=== PATIENT | female | born 1970 | race African-American/Black ===

== ENCOUNTER 2017-03-15 12:07 | Inpatient (IN) ==
[2017-03-15] MEDS ORDERED: VANCOMYCIN INJ 1,000 MG in SODIUM CHLORIDE 0.9% 250 ML IV STA (15:28)
--- NOTE | 2017-03-15 15:49 | Emergency Department Note ---
Pio Christensen Hilary, am scribing for, and in the presence of, Rai Sargent MD 15: 35. Rosetta Christensen James D, MD, personally performed the services described in this documentation, ascribed by Alondra Suero in my presence, and it is both accurate and complete [id number] . Arrival - Arrival Chief Complaint: Fever Stated Complaint: fever of 104. ED Nursing Triage Note: reports pain in left side of body that started last night. was at dialysis this am and reports they told her that her temp was 105 and to come to er. did not have any dialysis.. Mode of Arrival: Ambulatory Limitations: No Limitations Source: Patient, RN Notes Reviewed Time Seen by Provider: 03/15/17 15:21 - History of Present Illness HPI Narrative: Pt is a 46 y/o black female presenting to the ED with c/o a fever which onset yesterday. Pt reports that she was at Dialysis today and the nurse told her she had a fever so she came to the ED and did not do dialysis. Pt confirms fever, chills and left foot pain but denies SOB. She gets dialysis M,W,F and had her Catheter put in in Oct. No other complaints or problems stated in the ED. Onset (ago): day(s) Consistency: constant Date of Last Menstrual Period: menopausal Allergies/Adverse Reactions: Allergies Allergy/AdvReac Type Severity Reaction Status Date / Time No Known Allergies Allergy Verified 11/25/16 13:17 Home Medications: Home Medications Medication Instructions Recorded Confirmed Type Calcium Acetate [Phoslo] 1,334 mg PO TID W/MEALS 07/27/16 01/13/17 History Calcitriol 0.25 mcg PO SUTUTHSA 11/25/16 01/13/17 History Bisacodyl Tab [Dulcolax Tab] 5 mg PO DAILY PRN #0 tablet 12/04/16 01/13/17 Rx Lactulose Liquid [Chronulac] 10 gm PO DAILY #30 12/04/16 01/13/17 Rx Pravastatin [Pravachol] 10 mg PO BEDTIME #30 tablet 12/04/16 01/13/17 Rx Ursodiol [Actigall] 300 mg PO BID #60 capsule 12/04/16 01/13/17 Rx Docusate Sodium Cap [Colace Cap] 100 mg PO BID PRN 01/13/17 01/13/17 History Albuterol/Ipratropium Neb [Duoneb] 3 ml RESP TX RT Q4H PRN #0 01/21/17 Rx Albuterol/Ipratropium Neb [Duoneb] 3 ml RESP TX RT QID 01/21/17 Rx Bacitracin Oint 1 applic TOP BID applic 01/21/17 Rx Lansoprazole Odt Tab [Prevacid 30 mg NG DAILY tablet 01/21/17 Rx Solutab] Mineral Oil/Petrolat Oph Oint 1 applic BOTH EYES BEDTIME applic 01/21/17 Rx [Refresh PM Oph Oint] Norepinephrine [Levophed] 8 mg IV TITRATE vial 01/21/17 Rx Ondansetron Inj [Zofran Inj] 4 mg IV Q6H PRN #0 vial 01/21/17 Rx Clotrimazole/Betameth Cream 1 applic TOP BID applic 01/27/17 Rx [Lotrisone Cream] Insulin Regular [HumuLIN R] See Protocol SUBCUT Q6HR unit 01/27/17 Rx Levofloxacin Inj [Levaquin Inj] 250 mg IV Q48H 01/27/17 Rx Midodrine [Proamatine] 10 mg PO TID tablet 01/27/17 Rx ceFAZolin [Ancef] 1,000 mg IV Q24H vial 01/27/17 Rx Review of System - Review of System 12 point system: reviewed and no additional remarkable complaints except as stated - Review of System Constitutional: Present: chills, fever Musculoskeletal: Present: leg pain (left foot pain) Medical,Surgical,& Family Hx - Medical History Cardio: History of: Hypertension Psychological: History of: Behavior Problems Neurology: No history of: Seizures Endocrine: History of: Diabetes Mellitus (IDDM) Renal: History of: Dialysis (MWF; revision right arm av graft ), Renal Failure (2010) Gastrointestinal: History of: Liver Problems (Cirrhosis) Hematology: History of: Anemia (chronic disease) Other: History of: Skin Problems No history of: Anesthesia Reactions - Surgical History Cardiac Surgeries: Sugical HX of: Vascular Access Devices Abdominal Surgeries: Surgical HX of: Cholecystectomy Reproductive Surgeries: Surgical HX of;: Tubal Ligation - Family History Family History: Reports;: Family Diabetes (mother, father), Family Heart Disease (father heart attack), Family Hypertension (mother, father), Family Stroke (mother) Denies;: Family Anesthesia Reaction, Family Cancer, Family Psychiatric Problems - Social History Smoking Status: Never smoker Exam Physical Examination: GENERAL: This is a well-nourished, well-developed in no apparent distress. VITAL SIGNS: Temperature: 102 Pulse: 94 Respiratory: 18 Blood Pressure: 171/ 85 O2Sat: 94 HEENT: Head is normocephalic and atraumatic. Pupils are equally round and reactive to light. Extraocular movement are intact. Oropharynx is benign with moist mucous membranes. NECK: Neck is soft and supple without tenderness. There are no masses. There is no lymphadenopathy. Tesio catheter is present in the right side of the neck. There is old healed scar present in the left side of the neck from previous surgery related to abscess formation. LUNGS: Lungs are clear to auscultation bilaterally. Chest rises symmetrically. There is no chest wall tenderness. CV: Heart is regular rate and rhythm without murmurs, rubs, or gallops. ABDOMEN: Abdomen is soft, epigastric tenderness to palpation. There are no abnormal masses palpated. There is no organomegaly. Bowel sounds are present and active. SKIN: Skin is warm and dry. No rash. EXTREMITIES: Patient has full range of motion without tenderness. There is 2-3+ pitting edema with the left worse than right. Left 3,4,5th digits discolored. NEUROLOGIC: Awake, alert, and oriented x4. Cranial nerves II through XII are grossly intact. There are no motorsensory deficits. PSYCHIATRIC: Normal affect. Normal mood. Vital Signs: Vital Signs Temperature 100.0 F H 03/15/17 14:55 Pulse Rate 94 H 03/15/17 14:55 Respiratory Rate 18 03/15/17 14:55 Blood Pressure 166/82 03/15/17 14:55 O2 Sat by Pulse Oximetry 94 L 03/15/17 14:55 Course - Consultations Consultation #1: Discussed with Dr. Samano. Patient will be admitted to her service. Initial orders written for her. She will assume care upon patient's arrival to the cates. Time: 15:48 Disposition Clinical Impression: Intravenous catheter sepsis, End stage renal disease on dialysis, Peripheral vascular disease, Diabetes mellitus Case discussed with: patient Disposition: Still a Patient Condition: Guarded Time of Disposition: 15:53
[2017-03-15 16:11] LABS: Basophils % 0.2 % (0.0-0.8); Eosinophils # 0.1 10*3/uL (0.0-0.87); Eosinophils % 0.6 % (0.00-10.9); Hemoglobin 9.5 GM/DL (12.0-16.0); Immature Granulocytes % 0.6 %; Immature Granulocytes Absolute 0.09 #; Lymphocytes # 1.4 10*3/uL (1.4-4.0); Lymphocytes % 9.7 % (21.3-54.2); Mean Corpuscular HGB Conc 31.7 GM/DL (32-36); Mean Corpuscular Hemoglobin 29 PG (27-34); Mean Corpuscular Volume 91.2 FL (87-102); Mean Platelet Volume 9.5 FL (9.6-12.0); Monocytes # 0.7 10*3/uL (0.11-0.8); Monocytes % 5.3 % (1.7-12.7); Neutrophils # 11.7 10*3/uL (1.4-7.4); Neutrophils % 83.6 % (38.7-73.9); Platelet Count 237 T/CUMM (130-400); Red Blood Count 3.29 MC/CUMM (3.8-5.5); Red Cell Distribution Width 15.9 % (9.3-17.3)
--- NOTE | 2017-03-15 16:17 | XRay Report ---
History is fever, short of breath Comparison 01/27/2017 The heart and vessels are enlarged with mild diffuse hazy bilateral pulmonary opacities. Right central line present with no pneumothorax seen For more focal consolidation and air bronchograms in the left lower lobe have improved in the interval Impression: 1. Diffuse bilateral radiopacities most likely pulmonary edema PROCEDURE INTERPRETED AT [facility] DEPARTMENT OF RADIOLOGY Final Report Signed by: Dr. Riri Romero
[2017-03-15 16:41] LABS: Albumin 3.1 G/DL (3.4-5.0); Calcium 8.6 MG/DL (8.5-10.1); Lactic Acid 0.9 MMOL/L (0.4-2.0); Osmolality,Calculated 277.4 MOS/KG (273-304); Potassium 3.7 MMOL/L (3.5-5.1); Total Protein 7.9 G/DL (6.4-8.3)
[2017-03-15] MEDS ORDERED: VANCOMYCIN 1,000 MG VIAL ONE (16:41)
--- NOTE | 2017-03-15 17:29 | CT Report ---
History is end-stage renal disease fever history of neck abscess Comparison 01/15/2017 80 cc Omni 350 utilized. Axial images obtained with 2-D multiplanar reconstruction images also stored and interpreted Findings: There is been interval improvement of prior loculated fluid collection along the anterior aspect of the left sternocleidomastoid muscle, however there remains a 1 x 2.5 cm collection of fluid and small amounts of gas in this region. Clips present in the left submandibular region. Some mild stranding in surrounding fat again seen. Fluid extends inferiorly to the sternoclavicular junction where there is worsening of fluid at the sternoclavicular joints with worsening erosions of the medial aspect of the left clavicle where there is a mild fragmentation. There is increasing stranding and thickening the surrounding tissues in this region. Inflammatory changes in the left anterior superior visualized chest wall present. Left subclavian vein is nonopacified possibly related to timing of the contrast bolus however underlying thrombus cannot be excluded in this area. There are multiple bilateral less than 1 cm supraclavicular and posterior cervical nodes mildly more pronounced on the left slightly enlarged in the interval. Images through the visualized upper chest show small bilateral pleural effusions with mild reticular nodular pulmonary opacities remaining but improved in the interval. Impression: mixed interval change with mild improvement of the loculated fluid collection in the left neck but mild worsening of the suspected infectious process and osteomyelitis involving the left sternoclavicular joint. Thrombus in the left subclavian vein cannot be excluded. Please see above for complete details The CT exam was performed using one or more of the following dose reduction techniques: Automated exposure control, adjustment of the mA and/or kV according to patient size, or use of iterative reconstruction technique. PROCEDURE INTERPRETED AT [facility] [place] DEPARTMENT OF RADIOLOGY Final Report Signed by: Dr. Riri Romero
[2017-03-15] MEDS ORDERED: SODIUM CHLORIDE 0.9% 1,000 ML IV SCH (17:41)
[2017-03-15] MEDS ORDERED: ONDANSETRON 4 MG/2 ML VIAL IV PRN (17:41)
[2017-03-15] MEDS ORDERED: GENTAMICIN INJ 100 MG in SODIUM CHLORIDE 0.9% 100 ML IV ONE (17:41)
[2017-03-15] MEDS ORDERED: GENTAMICIN INJ 100 MG in PREMIX 1 EACH IV ONE (18:00)
[2017-03-15] MEDS ORDERED: GENTAMICIN INJ 80 MG in PREMIX 1 EACH IV ONE (18:19)
[2017-03-15] MEDS: ENOXAPARIN 30 MG/0.3 ML SYRINGE SUBCUT SCH (18:45)
[2017-03-15] MEDS: ACETAMINOPHEN 325 MG TABLET PO PRN (20:20)
[2017-03-15] MEDS: DOCUSATE SODIUM 100 MG CAPSULE PO SCH (20:21)
--- NOTE | 2017-03-15 20:44 | Internal Med History&Physical ---
Assessment and Plan (1) Diabetes mellitus Status: Chronic Current Visit: Yes Qualifiers: Diabetes mellitus type: type 2 Diabetes mellitus complication status: with kidney complications Diabetes mellitus complication detail: with chronic kidney disease Diabetes mellitus intermediate manager insulin use: with intermediate manager use Chronic kidney disease stage: on chronic dialysis Qualified Code(s): E11.22 - Type 2 diabetes mellitus with diabetic chronic kidney disease; N18.6 - End stage renal disease; Z79.4 - jail (current) use of insulin; Z99.2 - Dependence on renal dialysis (2) End stage renal disease on dialysis Status: Chronic Current Visit: Yes (3) Status post incision and drainage Status: Resolved Current Visit: No (4) Cirrhosis of liver Status: Chronic Current Visit: No Qualifiers: Ascites presence: with ascites History of Present Illness Chief complaint: acute onset fever History of present illness: Ms. Anders is a 46 year old female with history of ESRD on hemodialysis per Dr. Galarza, DM, liver cirrhosis, encephalopathy, recent history of left neck abscess , hypotension with history of Midodrine, who presented to ER with fever. She did not have dialysis today. She was given dose of Vanco in ER. Concern that dialysis fistula may be infected. Home Medications Medication Instructions Recorded Confirmed Type Calcium Acetate [Phoslo] 1,334 mg PO TID W/MEALS 07/27/16 01/13/17 History Calcitriol 0.25 mcg PO SUTUTHSA 11/25/16 01/13/17 History Bisacodyl Tab [Dulcolax Tab] 5 mg PO DAILY PRN #0 tablet 12/04/16 01/13/17 Rx Lactulose Liquid [Chronulac] 10 gm PO DAILY #30 12/04/16 01/13/17 Rx Pravastatin [Pravachol] 10 mg PO BEDTIME #30 tablet 12/04/16 01/13/17 Rx Ursodiol [Actigall] 300 mg PO BID #60 capsule 12/04/16 01/13/17 Rx Docusate Sodium Cap [Colace Cap] 100 mg PO BID PRN 01/13/17 01/13/17 History Albuterol/Ipratropium Neb [Duoneb] 3 ml RESP TX RT Q4H PRN #0 01/21/17 Rx Albuterol/Ipratropium Neb [Duoneb] 3 ml RESP TX RT QID 01/21/17 Rx Bacitracin Oint 1 applic TOP BID applic 01/21/17 Rx Lansoprazole Odt Tab [Prevacid 30 mg NG DAILY tablet 01/21/17 Rx Solutab] Mineral Oil/Petrolat Oph Oint 1 applic BOTH EYES BEDTIME applic 01/21/17 Rx [Refresh PM Oph Oint] Norepinephrine [Levophed] 8 mg IV TITRATE vial 01/21/17 Rx Ondansetron Inj [Zofran Inj] 4 mg IV Q6H PRN #0 vial 01/21/17 Rx Clotrimazole/Betameth Cream 1 applic TOP BID applic 01/27/17 Rx [Lotrisone Cream] Insulin Regular [HumuLIN R] See Protocol SUBCUT Q6HR unit 01/27/17 Rx Levofloxacin Inj [Levaquin Inj] 250 mg IV Q48H 01/27/17 Rx Midodrine [Proamatine] 10 mg PO TID tablet 01/27/17 Rx ceFAZolin [Ancef] 1,000 mg IV Q24H vial 01/27/17 Rx Allergies Allergy/AdvReac Type Severity Reaction Status Date / Time No Known Allergies Allergy Verified 11/25/16 13:17 Medical,Surgical,& Family Hx - Medical History Cardio: History of: Hypertension Psychological: History of: Behavior Problems Neurology: No history of: Seizures HEENT: History of: Eye Problem (glasses) Endocrine: History of: Diabetes Mellitus (IDDM) Renal: History of: Dialysis (MWF; revision right arm av graft , right SC tessio cath), Renal Failure (2010) Gastrointestinal: History of: Liver Problems (Cirrhosis) Musculoskeletal: History of: Musculoskeletal Problems (muscle weakness after abcess in neck december 2016) Hematology: History of: Anemia (chronic disease) Other: History of: Skin Problems No history of: Anesthesia Reactions - Surgical History Cardiac Surgeries: Sugical HX of: Vascular Access Devices Abdominal Surgeries: Surgical HX of: Cholecystectomy Reproductive Surgeries: Surgical HX of;: Tubal Ligation Additional Surgical History: recent I&D of left neck abscess per Dr. Geiger - Family History Family History: Reports;: Family Diabetes (mother, father), Family Heart Disease (father heart attack), Family Hypertension (mother, father), Family Stroke (mother) Denies;: Family Anesthesia Reaction, Family Cancer, Family Psychiatric Problems - Social History Smoking Status: Never smoker Frequency of Alcohol Use: None Type of Drug Use: None Marital Status: Lives With:: Spouse Functional capacity: wheelchair bound - Constitutional Constitutional: Present: fever(s), malaise, weakness - Musculoskeletal Musculoskeletal: Absent: arthralgias, myalgias Exam - Constitutional Vitals: Period Temp Pulse Resp BP Sys/Brito Pulse Ox Last 24 Hr 99.6 F-102.5 F 91-97 12-20 154-175/76-101 92-97 General appearance: no acute distress - Respiratory Respiratory exam: Present: clear to auscultation bilaterally - Cardiovascular Cardiovascular exam: Present: regular rate and rhythm - GI/Abdominal GI/Abdominal exam: Present: normal bowel sounds, soft - Extremities Exam Extremities exam: Present: edema (minimal/trace edema) - Neurological Exam Neurological exam: Present: other (awake) - Psychiatric Psychiatric exam: Present: normal mood - Skin Skin exam: Present: warm, dry Results - Labs CBC & BMP: 03/15/17 15:36 03/15/17 15:36
--- NOTE | 2017-03-15 23:53 | Nephrology Consult Note ---
History of Present Illness Chief complaint: ESRD, fever History of present illness: Ms. Anders is a 46 year old female who presented with fever. She had a recent admission for abscess of the left neck. This grew MSSA. She was treated with antibiotics for several weeks both here and at [facility]. She was febrile when she presented for dialysis today. Home Medications Medication Instructions Recorded Confirmed Type Calcium Acetate [Phoslo] 1,334 mg PO TID W/MEALS 07/27/16 03/16/17 History Calcitriol 0.25 mcg PO SUTUTHSA 11/25/16 03/16/17 History Bisacodyl Tab [Dulcolax Tab] 5 mg PO DAILY PRN #0 tablet 12/04/16 03/16/17 Rx Lactulose Liquid [Chronulac] 10 gm PO DAILY #30 12/04/16 03/16/17 Rx Pravastatin [Pravachol] 10 mg PO BEDTIME #30 tablet 12/04/16 03/16/17 Rx Ursodiol [Actigall] 300 mg PO BID #60 capsule 12/04/16 03/16/17 Rx Docusate Sodium Cap [Colace Cap] 100 mg PO BID PRN 01/13/17 03/16/17 History Albuterol/Ipratropium Neb [Duoneb] 3 ml RESP TX RT Q4H PRN #0 01/21/17 Rx Albuterol/Ipratropium Neb [Duoneb] 3 ml RESP TX RT QID 01/21/17 03/16/17 Rx Bacitracin Oint 1 applic TOP BID applic 01/21/17 03/16/17 Rx Lansoprazole Odt Tab [Prevacid 30 mg NG DAILY tablet 01/21/17 03/16/17 Rx Solutab] Mineral Oil/Petrolat Oph Oint 1 applic BOTH EYES BEDTIME applic 01/21/17 Rx [Refresh PM Oph Oint] Clotrimazole/Betameth Cream 1 applic TOP BID applic 01/27/17 03/16/17 Rx [Lotrisone Cream] Insulin Regular [HumuLIN R] See Protocol SUBCUT Q6HR unit 01/27/17 03/16/17 Rx Midodrine [Proamatine] 10 mg PO TID tablet 01/27/17 03/16/17 Rx Insulin Detemir [Levemir FlexPen] 10 unit SUBCUT BEDTIME 03/16/17 03/16/17 History Insulin Detemir [Levemir FlexPen] 20 unit SUBCUT DAILY 03/16/17 03/16/17 History Allergies Allergy/AdvReac Type Severity Reaction Status Date / Time No Known Allergies Allergy Verified 11/25/16 13:17 Medical,Surgical,& Family Hx - Medical History Cardio: History of: Hypertension Psychological: History of: Behavior Problems Neurology: No history of: Seizures HEENT: History of: Eye Problem (glasses) Endocrine: History of: Diabetes Mellitus (IDDM) Renal: History of: Dialysis (MWF; revision right arm av graft , right SC tessio cath), Renal Failure (2010) Gastrointestinal: History of: Liver Problems (Cirrhosis) Musculoskeletal: History of: Musculoskeletal Problems (muscle weakness after abcess in neck december 2016) Hematology: History of: Anemia (chronic disease) Other: History of: Skin Problems No history of: Anesthesia Reactions - Surgical History Cardiac Surgeries: Sugical HX of: Vascular Access Devices Abdominal Surgeries: Surgical HX of: Cholecystectomy Reproductive Surgeries: Surgical HX of;: Tubal Ligation - Family History Family History: Reports;: Family Diabetes (mother, father), Family Heart Disease (father heart attack), Family Hypertension (mother, father), Family Stroke (mother) Denies;: Family Anesthesia Reaction, Family Cancer, Family Psychiatric Problems - Social History Smoking Status: Never smoker Frequency of Alcohol Use: None Type of Drug Use: None Review of Systems 12 point system: reviewed and no additional remarkable complaints except as stated Exam - Vital Signs Vital signs: Period Temp Pulse Resp BP Sys/Brito Pulse Ox Last 24 Hr 99.4 F-102.5 F 89-98 12-29 122-175/72-101 90-97 Exam: Gen.: Alert and oriented x3. ENT: Pupils equal round reactive to light. EOMs intact. Mucous membranes moist. Neck: Supple. No JVD or bruit. Induration at site of prior abscess drainage, left neck. No fluctuance Cardiovascular: Regular rate and rhythm. No murmur rub or gallop Lungs: Clear Abdomen: Soft. Nontender. Positive bowel sounds. No organomegaly Extremities: Trace edema Results - Labs CBC & BMP: 03/16/17 06:31 03/16/17 06:31 Assessment and Plan (1) End stage renal disease on dialysis Status: Chronic Assessment and plan: 46-year-old woman with: * ESRD. She missed dialysis today. She is not hyperkalemic or acidotic. Plan dialysis tomorrow * Fever. CT neck shows questionable osteomyelitis. Blood cultures have been drawn. Empiric antibiotics started including vancomycin and gentamicin * Diabetes mellitus * Cirrhosis Current Visit: Yes (2) Diabetes mellitus Status: Chronic Current Visit: Yes Qualifiers: Diabetes mellitus type: type 2 Diabetes mellitus complication status: with kidney complications Diabetes mellitus complication detail: with chronic kidney disease Diabetes mellitus continuous churn buttermaker insulin use: with continuous churn buttermaker use Chronic kidney disease stage: on chronic dialysis Qualified Code(s): E11.22 - Type 2 diabetes mellitus with diabetic chronic kidney disease; N18.6 - End stage renal disease; Z79.4 - terminal supervisor (current) use of insulin; Z99.2 - Dependence on renal dialysis (3) Cirrhosis of liver Status: Chronic Current Visit: No Qualifiers: Ascites presence: with ascites (4) Diabetes Status: Chronic Current Visit: No Qualifiers: Diabetes mellitus type: type 2 Diabetes mellitus complication status: with kidney complications Diabetes mellitus complication detail: with chronic kidney disease Diabetes mellitus shelter insulin use: with shelter use Chronic kidney disease stage: on chronic dialysis Qualified Code(s): E11.22 - Type 2 diabetes mellitus with diabetic chronic kidney disease; N18.6 - End stage renal disease; Z79.4 - terminal supervisor (current) use of insulin; Z99.2 - Dependence on renal dialysis
[2017-03-16] MEDS: ALBUTEROL/IPRATROPIUM 3 ML NEB RESP TX SCH ×4 (00:30→20:22)
[2017-03-16 06:55] LABS: Basophils % 0.2 % (0.0-0.8); Eosinophils # 0.1 10*3/uL (0.0-0.87); Eosinophils % 0.9 % (0.00-10.9); Hemoglobin 9.8 GM/DL (12.0-16.0); Immature Granulocytes % 0.5 %; Immature Granulocytes Absolute 0.06 #; Lymphocytes # 1.2 10*3/uL (1.4-4.0); Lymphocytes % 9.6 % (21.3-54.2); Mean Corpuscular HGB Conc 31.6 GM/DL (32-36); Mean Corpuscular Hemoglobin 29 PG (27-34); Mean Corpuscular Volume 92.3 FL (87-102); Mean Platelet Volume 9.6 FL (9.6-12.0); Monocytes # 0.6 10*3/uL (0.11-0.8); Monocytes % 4.8 % (1.7-12.7); Neutrophils # 10.3 10*3/uL (1.4-7.4); Platelet Count 225 T/CUMM (130-400); Red Blood Count 3.36 MC/CUMM (3.8-5.5); Red Cell Distribution Width 15.9 % (9.3-17.3); White Blood Count 12.2 T/CUMM (4-12)
[2017-03-16 07:14] LABS: Calcium 8.3 MG/DL (8.5-10.1); Osmolality,Calculated 276.5 MOS/KG (273-304); Potassium 3.9 MMOL/L (3.5-5.1)
[2017-03-16] MEDS: DOCUSATE SODIUM 100 MG CAPSULE PO SCH (12:00)
[2017-03-16] MEDS: PANTOPRAZOLE 40 MG TABLET PO SCH (12:00)
[2017-03-16] MEDS ORDERED: VANCOMYCIN 1,000 MG VIAL ONE (12:04)
--- NOTE | 2017-03-16 13:16 | Consultation ---
Assessment and Plan - Time spent with patient Time spent with patient: Less than 30 minutes (1) Abscess, neck Status: Resolved Assessment and plan: Clinically I would see the CT does not relate to her baseline postsurgical neck changes that I have been watching for over a month now. Any collection of fluid would be too small to necessitate any open procedure. I will consult interventional radiology for ultrasound-guided fine-needle aspiration to check for infection. Additionally as far as sources I would strongly recommend considering the dialysis catheter placement as I am not sure that it has been changed since her previous infection or during the time of her previous infection. I also recommend infectious disease to be on this case along with potentially surgery to determine an additional site for possible replacement of dialysis catheter. I will continue to follow this case intermittently but I am resistant at this point to want to perform any invasive or interventional treatment to the neck. I have talked with Bere Chambers and I do not feel that her sternoclavicular joint clinical exam correlates with anything other than normal postsurgical changes and there is no evidence from my standpoint clinically that she needs a sternal clavicular head resection. Thank you very much for this consult and I will follow this patient and I remain available there is any questions or concerns. Current Visit: No (2) Mediastinitis Status: Resolved Current Visit: No (3) Status post incision and drainage Status: Resolved Current Visit: No (4) Intravenous catheter sepsis Status: Acute Current Visit: Yes History of Present Illness - Data of Consult Patient: known to practice within the last 3 years Consult date: 03/16/17 Requesting Physician: Alex Galarza - Consult Narrative Reason for consult: Left neck abscess History of present illness: Ms. Anders is a 46 year old female with multiple medical comorbidities and recent admission and prolonged stay secondary to sepsis with a left neck abscess and sternocleidomastoid abscess extending into the mediastinum that was treated with resection of abscess and resection of cleidomastoid she has had recurrence of seroma in her left neck that has been drained and sent to pathology with no positive culture. ENT is consulted to offer recommendations as to the site of infection as staph aureus has been cultured from the blood. CC: Miranda Samano, DO - Home Medications and Allergies Home Medications: Home Medications Medication Instructions Recorded Confirmed Type Calcium Acetate [Phoslo] 1,334 mg PO TID W/MEALS 07/27/16 03/16/17 History Calcitriol 0.25 mcg PO SUTUTHSA 11/25/16 03/16/17 History Bisacodyl Tab [Dulcolax Tab] 5 mg PO DAILY PRN #0 tablet 12/04/16 03/16/17 Rx Lactulose Liquid [Chronulac] 10 gm PO DAILY #30 12/04/16 03/16/17 Rx Pravastatin [Pravachol] 10 mg PO BEDTIME #30 tablet 12/04/16 03/16/17 Rx Ursodiol [Actigall] 300 mg PO BID #60 capsule 12/04/16 03/16/17 Rx Docusate Sodium Cap [Colace Cap] 100 mg PO BID PRN 01/13/17 03/16/17 History Albuterol/Ipratropium Neb [Duoneb] 3 ml RESP TX RT Q4H PRN #0 01/21/17 Rx Albuterol/Ipratropium Neb [Duoneb] 3 ml RESP TX RT QID 01/21/17 03/16/17 Rx Bacitracin Oint 1 applic TOP BID applic 01/21/17 03/16/17 Rx Lansoprazole Odt Tab [Prevacid 30 mg NG DAILY tablet 01/21/17 03/16/17 Rx Solutab] Mineral Oil/Petrolat Oph Oint 1 applic BOTH EYES BEDTIME applic 01/21/17 Rx [Refresh PM Oph Oint] Clotrimazole/Betameth Cream 1 applic TOP BID applic 01/27/17 03/16/17 Rx [Lotrisone Cream] Insulin Regular [HumuLIN R] See Protocol SUBCUT Q6HR unit 01/27/17 03/16/17 Rx Midodrine [Proamatine] 10 mg PO TID tablet 01/27/17 03/16/17 Rx Insulin Detemir [Levemir FlexPen] 10 unit SUBCUT BEDTIME 03/16/17 03/16/17 History Insulin Detemir [Levemir FlexPen] 20 unit SUBCUT DAILY 03/16/17 03/16/17 History Allergies/Adverse Reactions: Allergies Allergy/AdvReac Type Severity Reaction Status Date / Time No Known Allergies Allergy Verified 11/25/16 13:17 12 point system: reviewed and no additional remarkable complaints except as stated Medical,Surgical,& Family Hx - Medical History Cardio: History of: Hypertension Psychological: History of: Behavior Problems Neurology: No history of: Seizures HEENT: History of: Eye Problem (glasses) Endocrine: History of: Diabetes Mellitus (IDDM) Renal: History of: Dialysis (MWF; revision right arm av graft , right SC tessio cath), Renal Failure (2010) Gastrointestinal: History of: Liver Problems (Cirrhosis) Musculoskeletal: History of: Musculoskeletal Problems (muscle weakness after abcess in neck december 2016) Hematology: History of: Anemia (chronic disease) Other: History of: Skin Problems No history of: Anesthesia Reactions - Surgical History Cardiac Surgeries: Sugical HX of: Vascular Access Devices Abdominal Surgeries: Surgical HX of: Cholecystectomy Reproductive Surgeries: Surgical HX of;: Tubal Ligation - Family History Family History: Reports;: Family Diabetes (mother, father), Family Heart Disease (father heart attack), Family Hypertension (mother, father), Family Stroke (mother) Denies;: Family Anesthesia Reaction, Family Cancer, Family Psychiatric Problems - Social History Smoking Status: Never smoker Frequency of Alcohol Use: None Type of Drug Use: None Exam - Constitutional Vitals: Period Temp Pulse Resp BP Sys/Brito Pulse Ox Last 24 Hr 98.6 F-102.0 F 81-100 12-29 117-175/68-101 86-100 General appearance: normal weight, no acute distress - Head Head exam: Present: normal inspection, normocephalic - ENT ENT exam: Present: normal exam, normal external ear exam, normal oropharynx - Neck Neck exam: Present: other (Postsurgical changes with no gross fluctuance on examination no tenderness of the sternoclavicular joint or tenderness to palpation of her neck.) - Respiratory Respiratory exam: Present: other (No tachypnea or shortness of breath) - GI/Abdominal GI/Abdominal exam: Present: soft - Extremities Exam Extremities exam: Present: normal inspection, normal capillary refill - Neurological Exam Neurological exam: Present: alert, oriented X3, CN II-XII intact - Psychiatric Psychiatric exam: Present: normal affect, normal mood - Skin Skin exam: Present: normal color, warm (Warm or feverish to touch) Results - Labs CBC & BMP: 03/16/17 06:31 03/16/17 06:31 Lab Results: I have reviewed the past 24 hour labs - Diagnostic Findings Procedure: CT: pending, image reviewed by me, report reviewed by me (I have reviewed her CT and I would say that the CT and the report does not correlate clinically with my exam and I would recommend an ultrasound with aspiration of any fluid to check for abscess as this would be too small to perform open preferably.)
[2017-03-16] MEDS ORDERED: HEPARIN 10,000 UNIT/10 ML VIAL IV SCH (14:00)
--- NOTE | 2017-03-16 15:56 | Orthopedic Consult Note ---
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 Anders was seen this morning. Ms. Anders is a 46 year old female who has had a left deep neck abscess in January 2017. She has undergone multiple debridements by Dr. Geiger which includes resection of her sternocleidomastoid muscle. She is received IV antibiotics and may have stopped them recently. She has been admitted with worsening fevers and elevated white count. She was admitted yesterday. A neck CT has shown worsening erosive changes involving the medial aspect of her left clavicle. She is not particularly complaining of pain over her left sternoclavicular joint. The patient has been on dialysis for roughly 6 years secondary to chronic renal failure from hypertension and diabetes. Exam today of her left upper extremity shows that she has a well-healed incision at the base of her left neck. The area around her incision is thickened but no gross fluctuance is palpable. She does have mild increased prominence of the medial aspect of her clavicle. Again, no fluctuance is palpable. She has full range of motion of her shoulder without pain at her sternoclavicular joint. Cross body adduction testing is negative for pain. Soft tissue CT scan of her neck from March 15 and January 15 was reviewed. The medial clavicle does demonstrate more erosive changes. The patient demonstrates a leukocytosis. Her blood cultures are positive for gram-positive cocci. She has had a PCR screening which is positive for an MSSA. 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 Anders on today's exam is not particularly symptomatic over her sternoclavicular joint. However she does demonstrate worsening changes involving the medial aspect of her clavicle which are concerning for osteomyelitis.. I have discussed with Mrs. Anders regarding obtaining a MRI of her sternoclavicular joint. However she has declined. She states that she has significant anxiety and has declined the options of an open MRI and Valium premedication. I have discussed her care with Dr. Geiger. I agree with surgical and infectious disease consultations as well as assessment of her dialysis access. If the sternoclavicular joint and medial clavicle are felt to be the source of her residual infection, I would proceed with a medial coracoclavicular excision with irrigation debridement of her sternoclavicular joint. Home Medications Medication Instructions Recorded Confirmed Type Calcium Acetate [Phoslo] 1,334 mg PO TID W/MEALS 07/27/16 03/16/17 History Calcitriol 0.25 mcg PO SUTUTHSA 11/25/16 03/16/17 History Bisacodyl Tab [Dulcolax Tab] 5 mg PO DAILY PRN #0 tablet 12/04/16 03/16/17 Rx Lactulose Liquid [Chronulac] 10 gm PO DAILY #30 12/04/16 03/16/17 Rx Pravastatin [Pravachol] 10 mg PO BEDTIME #30 tablet 12/04/16 03/16/17 Rx Ursodiol [Actigall] 300 mg PO BID #60 capsule 12/04/16 03/16/17 Rx Docusate Sodium Cap [Colace Cap] 100 mg PO BID PRN 01/13/17 03/16/17 History Albuterol/Ipratropium Neb [Duoneb] 3 ml RESP TX RT Q4H PRN #0 01/21/17 Rx Albuterol/Ipratropium Neb [Duoneb] 3 ml RESP TX RT QID 01/21/17 03/16/17 Rx Bacitracin Oint 1 applic TOP BID applic 01/21/17 03/16/17 Rx Lansoprazole Odt Tab [Prevacid 30 mg NG DAILY tablet 01/21/17 03/16/17 Rx Solutab] Mineral Oil/Petrolat Oph Oint 1 applic BOTH EYES BEDTIME applic 01/21/17 Rx [Refresh PM Oph Oint] Clotrimazole/Betameth Cream 1 applic TOP BID applic 01/27/17 03/16/17 Rx [Lotrisone Cream] Insulin Regular [HumuLIN R] See Protocol SUBCUT Q6HR unit 01/27/17 03/16/17 Rx Midodrine [Proamatine] 10 mg PO TID tablet 01/27/17 03/16/17 Rx Insulin Detemir [Levemir FlexPen] 10 unit SUBCUT BEDTIME 03/16/17 03/16/17 History Insulin Detemir [Levemir FlexPen] 20 unit SUBCUT DAILY 03/16/17 03/16/17 History Allergies Allergy/AdvReac Type Severity Reaction Status Date / Time No Known Allergies Allergy Verified 11/25/16 13:17 12 point system: reviewed and no additional remarkable complaints except as stated Medical,Surgical,& Family Hx - Medical History Cardio: History of: Hypertension Psychological: History of: Behavior Problems Neurology: No history of: Seizures HEENT: History of: Eye Problem (glasses) Endocrine: History of: Diabetes Mellitus (IDDM) Renal: History of: Dialysis (MWF; revision right arm av graft , right SC tessio cath), Renal Failure (2010) Gastrointestinal: History of: Liver Problems (Cirrhosis) Musculoskeletal: History of: Musculoskeletal Problems (muscle weakness after abcess in neck december 2016) Hematology: History of: Anemia (chronic disease) Other: History of: Skin Problems No history of: Anesthesia Reactions - Surgical History Cardiac Surgeries: Sugical HX of: Vascular Access Devices Abdominal Surgeries: Surgical HX of: Cholecystectomy Reproductive Surgeries: Surgical HX of;: Tubal Ligation - Family History Family History: Reports;: Family Diabetes (mother, father), Family Heart Disease (father heart attack), Family Hypertension (mother, father), Family Stroke (mother) Denies;: Family Anesthesia Reaction, Family Cancer, Family Psychiatric Problems - Social History Smoking Status: Never smoker Frequency of Alcohol Use: None Type of Drug Use: None Exam - Constitutional Vitals: Period Temp Pulse Resp BP Sys/Brito Pulse Ox Last 24 Hr 98.6 F-102.0 F 81-100 12-29 117-176/68-101 86-100 Results - Labs CBC & BMP: 03/16/17 06:31 03/16/17 06:31
[2017-03-16] MEDS: ACETAMINOPHEN 325 MG TABLET PO PRN (16:40)
--- NOTE | 2017-03-16 17:52 | Inventional Radiology Consult ---
Assessment and Plan - Time spent with patient Time spent with patient: Less than 30 minutes (1) Intravenous catheter sepsis Problem details: unsure when catheter was last changed - patient states same catheter for 5 months - may be a source of infection. Status: Acute Assessment and plan: Can be removed with new placed opposite side or exchanged and sent for cx. D/ w Dr. Galarza Current Visit: Yes (2) Abscess, neck Problem details: more desctuctive changes at the sternoclavicular joint and small fluid collection Status: Resolved Assessment and plan: should be able to use u/s or CT to drain a small amount of fluid to send for GS and CX Current Visit: No IR Consult - Data of Consult Patient: new to practice Consult date: 03/16/17 Requesting Physician: Alex Galarza - Consult Narrative Reason for consult: left neck, SCM infection, or Sternoclavicular osteo? History of present illness: Chago is a 46 year old F History of diabetes mellitus and end-stage renal disease on dialysis and cirrhosis who is status post incision and drainage of a left sternocleidomastoid abscess several weeks ago. Patient returns with some discomfort in the left neck and worsening imaging findings including fluid collection about the left sternal clavicular joint and slightly increased degree of destruction concerning for underlying osteomyelitis with repeat positive blood cultures (MSSA). Patient is relatively M symptomatic with no significant complaints. Does not complain of significant focal pain or tenderness about the left neck/chest. - Home Medications and Allergies Home Medications: Home Medications Medication Instructions Recorded Confirmed Type Calcium Acetate [Phoslo] 1,334 mg PO TID W/MEALS 07/27/16 03/16/17 History Calcitriol 0.25 mcg PO SUTUTHSA 11/25/16 03/16/17 History Bisacodyl Tab [Dulcolax Tab] 5 mg PO DAILY PRN #0 tablet 12/04/16 03/16/17 Rx Lactulose Liquid [Chronulac] 10 gm PO DAILY #30 12/04/16 03/16/17 Rx Pravastatin [Pravachol] 10 mg PO BEDTIME #30 tablet 12/04/16 03/16/17 Rx Ursodiol [Actigall] 300 mg PO BID #60 capsule 12/04/16 03/16/17 Rx Docusate Sodium Cap [Colace Cap] 100 mg PO BID PRN 01/13/17 03/16/17 History Albuterol/Ipratropium Neb [Duoneb] 3 ml RESP TX RT Q4H PRN #0 01/21/17 Rx Albuterol/Ipratropium Neb [Duoneb] 3 ml RESP TX RT QID 01/21/17 03/16/17 Rx Bacitracin Oint 1 applic TOP BID applic 01/21/17 03/16/17 Rx Lansoprazole Odt Tab [Prevacid 30 mg NG DAILY tablet 01/21/17 03/16/17 Rx Solutab] Mineral Oil/Petrolat Oph Oint 1 applic BOTH EYES BEDTIME applic 01/21/17 Rx [Refresh PM Oph Oint] Clotrimazole/Betameth Cream 1 applic TOP BID applic 01/27/17 03/16/17 Rx [Lotrisone Cream] Insulin Regular [HumuLIN R] See Protocol SUBCUT Q6HR unit 01/27/17 03/16/17 Rx Midodrine [Proamatine] 10 mg PO TID tablet 01/27/17 03/16/17 Rx Insulin Detemir [Levemir FlexPen] 10 unit SUBCUT BEDTIME 03/16/17 03/16/17 History Insulin Detemir [Levemir FlexPen] 20 unit SUBCUT DAILY 03/16/17 03/16/17 History Allergies/Adverse Reactions: Allergies Allergy/AdvReac Type Severity Reaction Status Date / Time No Known Allergies Allergy Verified 11/25/16 13:17 12 point system: reviewed and no additional remarkable complaints except as stated Medical,Surgical,& Family Hx - Medical History Cardio: History of: Hypertension Psychological: History of: Behavior Problems Neurology: No history of: Seizures HEENT: History of: Eye Problem (glasses) Endocrine: History of: Diabetes Mellitus (IDDM) Renal: History of: Dialysis (MWF; revision right arm av graft , right SC tessio cath), Renal Failure (2010) Gastrointestinal: History of: Liver Problems (Cirrhosis) Musculoskeletal: History of: Musculoskeletal Problems (muscle weakness after abcess in neck december 2016) Hematology: History of: Anemia (chronic disease) Other: History of: Skin Problems No history of: Anesthesia Reactions - Surgical History Cardiac Surgeries: Sugical HX of: Vascular Access Devices Abdominal Surgeries: Surgical HX of: Cholecystectomy Reproductive Surgeries: Surgical HX of;: Tubal Ligation - Family History Family History: Reports;: Family Diabetes (mother, father), Family Heart Disease (father heart attack), Family Hypertension (mother, father), Family Stroke (mother) Denies;: Family Anesthesia Reaction, Family Cancer, Family Psychiatric Problems - Social History Smoking Status: Never smoker Frequency of Alcohol Use: None Type of Drug Use: None Exam - Labs CBC & BMP: 03/16/17 06:31 03/16/17 06:31 Lab Results: I have reviewed the past 24 hour labs Image Studies: CT chest - Constitutional Vitals: Period Temp Pulse Resp BP Sys/Brito Pulse Ox Last 24 Hr 98.6 F-102.0 F 81-107 12-29 117-176/61-99 86-100 General appearance: normal weight - Eye Eye exam: Present: EOMI, conjunctival injection - Neck Neck exam: Absent: normal inspection (left neck surgical changes noted, no erythema or significant tenderness), tenderness - Respiratory Respiratory exam: Present: clear to auscultation bilaterally - Cardiovascular Cardiovascular exam: Present: regular rate and rhythm - GI/Abdominal GI/Abdominal exam: Present: normal bowel sounds - Neurological Exam Neurological exam: Present: alert, oriented X3 - Psychiatric Psychiatric exam: Present: normal affect, normal mood - Skin Skin exam: Present: normal color, dry
[2017-03-16] MEDS: ENOXAPARIN 30 MG/0.3 ML SYRINGE SUBCUT SCH (18:16)
--- NOTE | 2017-03-16 18:20 | Internal Med Progress Note ---
Assessment and Plan (1) Diabetes mellitus Status: Chronic Current Visit: Yes Qualifiers: Diabetes mellitus type: type 2 Diabetes mellitus complication status: with kidney complications Diabetes mellitus complication detail: with chronic kidney disease Diabetes mellitus terminal computer operator insulin use: with terminal computer operator use Chronic kidney disease stage: on chronic dialysis Qualified Code(s): E11.22 - Type 2 diabetes mellitus with diabetic chronic kidney disease; N18.6 - End stage renal disease; Z79.4 - FDC (current) use of insulin; Z99.2 - Dependence on renal dialysis (2) End stage renal disease on dialysis Status: Chronic Current Visit: Yes (3) Visual hallucination Problem details: she believes she sees "bugs coming out of her head" Status: Chronic Current Visit: Yes (4) MSSA (methicillin susceptible Staphylococcus aureus) septicemia Status: Acute Current Visit: Yes Internal Medicine - PN: Subj Interval history: Ms. Anders is a 46 year old female with history of ESRD on hemodialysis per Dr. Galarza, DM, liver cirrhosis, encephalopathy, recent history of left neck abscess , hypotension with history of Midodrine, who presented to ER with fever. She did not have dialysis today. She was given dose of Vanco in ER. Concern that dialysis fistula may be infected. Discussed case with Dr. Soto who will obtain aspirate tomorrow for pathology of right sternoclavicular joint and replace the dialysis catheter to culture tip of current one. Exam (Progress Note) - Constitutional Vitals: Period Temp Pulse Resp BP Sys/Brito Pulse Ox Last 24 Hr 98.6 F-102.0 F 81-107 12-29 117-176/61-99 86-100 General appearance: no acute distress - Respiratory Respiratory exam: Present: clear to auscultation bilaterally - Cardiovascular Cardiovascular exam: Present: regular rate and rhythm - GI/Abdominal GI/Abdominal exam: Present: soft - Extremities Exam Extremities exam: Absent: edema - Neurological Exam Neurological exam: Present: alert - Psychiatric Psychiatric exam: Present: normal mood - Skin Skin exam: Present: warm, dry, other (previous skin lesions have resolved) Results - Labs CBC & BMP: 03/16/17 06:31 03/16/17 06:31
[2017-03-16] MEDS ORDERED: DOCUSATE SODIUM 100 MG CAPSULE PO PRN (18:23)
[2017-03-16] MEDS ORDERED: BISACODYL 5 MG TABLET PO PRN (18:23)
--- NOTE | 2017-03-16 18:42 | Nephrology Progress Note ---
Nephrology - PN: Subj Interval history: She was seen during dialysis. Blood pressure stable. Mental status normal Exam (PN)-Nephrology - Vital Signs Vital signs: Period Temp Pulse Resp BP Sys/Brito Pulse Ox Last 24 Hr 98.6 F-102.0 F 81-107 12-29 117-176/61-99 86-100 Exam: ENT: Induration, left neck unchanged Cardiovascular: Regular rate and rhythm. No murmur rub or gallop Lungs: Clear Extremities: No edema - Lab 03/16/17 06:31 03/16/17 06:31 Most recent lab results Calcium 8.3 MG/DL (8.5-10.1) L 03/16/17 06:31 Assessment and Plan (1) End stage renal disease on dialysis Status: Chronic Assessment and plan: 46-year-old woman with: * ESRD. Stable during dialysis * Fever. Blood cultures positive for MSSA. This is the same type organism as her neck abscess. Discussed with Dr. Soto. Agree with plans to remove dialysis catheter and aspirate left clavicle. Vancomycin redosed this morning * Diabetes mellitus * Cirrhosis Current Visit: Yes (2) Diabetes mellitus Status: Chronic Current Visit: Yes Qualifiers: Diabetes mellitus type: type 2 Diabetes mellitus complication status: with kidney complications Diabetes mellitus complication detail: with chronic kidney disease Diabetes mellitus assisted insulin use: with termite control servicer use Chronic kidney disease stage: on chronic dialysis Qualified Code(s): E11.22 - Type 2 diabetes mellitus with diabetic chronic kidney disease; N18.6 - End stage renal disease; Z79.4 - computer terminal operator (current) use of insulin; Z99.2 - Dependence on renal dialysis (3) Cirrhosis of liver Status: Chronic Current Visit: No Qualifiers: Ascites presence: with ascites (4) Diabetes Status: Chronic Current Visit: No Qualifiers: Diabetes mellitus type: type 2 Diabetes mellitus complication status: with kidney complications Diabetes mellitus complication detail: with chronic kidney disease Diabetes mellitus assisted insulin use: with termite control servicer use Chronic kidney disease stage: on chronic dialysis Qualified Code(s): E11.22 - Type 2 diabetes mellitus with diabetic chronic kidney disease; N18.6 - End stage renal disease; Z79.4 - care home (current) use of insulin; Z99.2 - Dependence on renal dialysis
--- NOTE | 2017-03-16 18:47 | Infectious Disease Consult ---
Assessment and Plan (1) MSSA (methicillin susceptible Staphylococcus aureus) septicemia Status: Acute Assessment and plan: Extremely complex case of MSSA septicemia with original onset 2 months ago. She had a large left neck abscess which was drained. At the time there was concern she may have had mediastinitis as well. She also had possible abscess of the chest wall but I&D by Dr. Lowell Dasilva did not reveal any pus. Patient completed antibiotic therapy to [facility] but is now back again with MSSA septicemia and what appears to be a small abscess and also mellitus of the left sternoclavicular joint. The dialysis catheter is no doubt infected as well. Recommendations: 1. Her dialysis catheter need to be removed 2. Stop vancomycin and gentamicin 3. Nafcillin 2 g IV every 4 hours 4. Repeat blood cultures a day after the dialysis catheter is removed Thank you very much for the consult. Will follow. Discussed with Dr. Miranda Samano Current Visit: Yes (2) Abscess Status: Acute Assessment and plan: She has what could be an abscess about the left sternoclavicular joint. The fluid collection is small and there are erosive changes to the bone. Patient surprisingly does not have any tenderness in this area. I think it is quite likely that the infection in this area is due to MSSA. Recommendations: The patient will be on nafcillin as noted above. It is a small collection so I suspect surgical intervention may not be necessary. We imaging can be done about 1 month into therapy to ensure that it is improving. Current Visit: Yes (3) Diabetes mellitus Status: Chronic Current Visit: Yes Qualifiers: Diabetes mellitus type: type 2 Diabetes mellitus complication status: with kidney complications Diabetes mellitus complication detail: with chronic kidney disease Diabetes mellitus oil heaterman insulin use: with senior care use Chronic kidney disease stage: on chronic dialysis Qualified Code(s): E11.22 - Type 2 diabetes mellitus with diabetic chronic kidney disease; N18.6 - End stage renal disease; Z79.4 - oil heaterman (current) use of insulin; Z99.2 - Dependence on renal dialysis (4) End stage renal disease on dialysis Status: Chronic Current Visit: Yes (5) Chest wall abscess Status: Acute Assessment and plan: She had a collection about 8 x 13 x 1.5 cm and the left pectoralis major muscle. I think this was probably an abscess. Recommendations: Consider reimaging the chest to ensure that this collection has completely resolved. If it has not resolved then she may need percutaneous drainage. Current Visit: Yes History of Present Illness Chief complaint: Sepsis, abscess History of present illness: History obtained from patient and also from review of her extensive records. Ms. nAders is a 46 year old female with hypertension and diabetes was been on dialysis for the past 6 years. Initially she had AV grafts but these failed and since October this year she has been getting her dialysis via a tunneled catheter in the right subclavian. The patient was admitted 2 months ago with a large abscess to the left side of her neck. This was completed by MSSA septicemia, septic shock actually. She had surgery by ENT. She also was felt to have an abscess to the left chest wall but I&D done by Dr. Santana revealed no pus just some devitalized tissues. TTE at that time showed no endocarditis. Patient subsequently went to [facility] where she received IV antibiotics, will have to check which antibiotic she got at [facility] but when she left [place] on 27 January she was on levofloxacin and cefazolin. Patient says she ultimately did well and was discharged home about 3 weeks ago. She was doing okay at home but a day before presentation she developed fever which went as high as 104 and so yesterday she came to the hospital. Blood cultures done on admission are positive 2 for MSSA. I am asked to assist with management. Patient notes a swelling to the area of the left clavicle. This concerned that she probably has abscess in that area. Orthopedic surgery seeing her. Today she is feeling a little better than when she first came in. She has been given a dose of vancomycin and gentamicin since admission. She was admitted to ICU but has not had any hemodynamic instability or respiratory symptoms. Home Medications Medication Instructions Recorded Confirmed Type Calcium Acetate [Phoslo] 1,334 mg PO TID W/MEALS 07/27/16 03/16/17 History Calcitriol 0.25 mcg PO SUTUTHSA 11/25/16 03/16/17 History Bisacodyl Tab [Dulcolax Tab] 5 mg PO DAILY PRN #0 tablet 12/04/16 03/16/17 Rx Lactulose Liquid [Chronulac] 10 gm PO DAILY #30 12/04/16 03/16/17 Rx Pravastatin [Pravachol] 10 mg PO BEDTIME #30 tablet 12/04/16 03/16/17 Rx Ursodiol [Actigall] 300 mg PO BID #60 capsule 12/04/16 03/16/17 Rx Docusate Sodium Cap [Colace Cap] 100 mg PO BID PRN 01/13/17 03/16/17 History Albuterol/Ipratropium Neb [Duoneb] 3 ml RESP TX RT Q4H PRN #0 01/21/17 Rx Albuterol/Ipratropium Neb [Duoneb] 3 ml RESP TX RT QID 01/21/17 03/16/17 Rx Bacitracin Oint 1 applic TOP BID applic 01/21/17 03/16/17 Rx Lansoprazole Odt Tab [Prevacid 30 mg NG DAILY tablet 01/21/17 03/16/17 Rx Solutab] Mineral Oil/Petrolat Oph Oint 1 applic BOTH EYES BEDTIME applic 01/21/17 Rx [Refresh PM Oph Oint] Clotrimazole/Betameth Cream 1 applic TOP BID applic 01/27/17 03/16/17 Rx [Lotrisone Cream] Insulin Regular [HumuLIN R] See Protocol SUBCUT Q6HR unit 01/27/17 03/16/17 Rx Midodrine [Proamatine] 10 mg PO TID tablet 01/27/17 03/16/17 Rx Insulin Detemir [Levemir FlexPen] 10 unit SUBCUT BEDTIME 03/16/17 03/16/17 History Insulin Detemir [Levemir FlexPen] 20 unit SUBCUT DAILY 03/16/17 03/16/17 History Allergies Allergy/AdvReac Type Severity Reaction Status Date / Time No Known Allergies Allergy Verified 11/25/16 13:17 12 point system: reviewed and no additional remarkable complaints except as stated (Per HPI) Medical,Surgical,& Family Hx - Medical History Cardio: History of: Hypertension Psychological: History of: Behavior Problems Neurology: No history of: Seizures HEENT: History of: Eye Problem (glasses) Endocrine: History of: Diabetes Mellitus (IDDM) Renal: History of: Dialysis (MWF; revision right arm av graft , right SC tessio cath), Renal Failure (2010) Gastrointestinal: History of: Liver Problems (Cirrhosis) Musculoskeletal: History of: Musculoskeletal Problems (muscle weakness after abcess in neck december 2016) Hematology: History of: Anemia (chronic disease) Other: History of: Skin Problems No history of: Anesthesia Reactions - Surgical History Cardiac Surgeries: Sugical HX of: Vascular Access Devices Abdominal Surgeries: Surgical HX of: Cholecystectomy Reproductive Surgeries: Surgical HX of;: Tubal Ligation - Family History Family History: Reports;: Family Diabetes (mother, father), Family Heart Disease (father heart attack), Family Hypertension (mother, father), Family Stroke (mother) Denies;: Family Anesthesia Reaction, Family Cancer, Family Psychiatric Problems - Social History Smoking Status: Never smoker Frequency of Alcohol Use: None Type of Drug Use: None Infectious Disease Exam H&P - Constitutional Vitals: Vital Signs Temp Pulse Resp BP Pulse Ox 100.1 F H 104 H 20 161/83 92 L 03/16/17 17:40 03/16/17 15:00 03/16/17 15:00 03/16/17 15:00 03/16/17 14:00 Intake and Output 03/16/17 03/16/17 03/16/17 07:59 15:59 23:59 Intake Total 75 / 75 60 / 60 Output Total 4000 / 4000 Balance 75 / 75 -4000 / -4000 60 / 60 Intake: Oral 75 / 75 60 / 60 Output: Hemodialysis 4000 / 4000 Other: Voiding Method Dialysis Patient # Bowel Movements 1 Weight 80.456 kg Patient Weight 03/16/17 23:59 Weight 80.456 kg Exam: General: Patient relatively comfortable, looks better than I expected her to look HEENT: Mucous membranes pink and moist, anicteric acyanotic, THI, no oropharyngeal exudates Neck: Large scar to the left side of neck extending to suprasternal notch. This is completely healed. Neck is supple, no thyroid gland enlargement, no lymphadenopathy. There is a firm swelling to the medial aspect of the left clavicle which is not tender and there is no overlying hyperemia. Respiratory system: Breath sounds vesicular, no crepitations or wheezes Cardiovascular: Right subclavian tunneled dialysis catheter without surrounding induration or tenderness, normal S1 and S2, no murmurs appreciated Abdomen: Normal bowel sounds, soft nontender throughout, no organomegaly or mass Genitourinary: No suprapubic pain or bladder distention Extremities: Moderate edema of both lower extremities extending all the way to thighs, patient actually anasarcic Skin: No rash Reports - Labs CBC & BMP: 03/17/17 06:42 03/17/17 06:42 Labs: Laboratory Results - last 24 hr 03/16/17 03/16/17 03/16/17 06:31 06:31 08:28 WBC 12.2 H RBC 3.36 L Hgb 9.8 L Hct 31.0 L MCV 92.3 MCH 29 MCHC 31.6 L RDW 15.9 Plt Count 225 MPV 9.6 Neut % (Auto) 84.0 H Lymph % (Auto) 9.6 L [place] % (Auto) 4.8 Eos % (Auto) 0.9 Baso % (Auto) 0.2 Neut # (Auto) 10.3 H Lymph # (Auto) 1.2 L [place] # (Auto) 0.6 Eos # (Auto) 0.1 Baso # (Auto) 0.0 Immature Gran % 0.5 Nucleated RBC % 0.0 Immature Gran # 0.06 Nucleated RBCs # 0.00 Sodium 132 L Potassium 3.9 Chloride 98 Carbon Dioxide 21 Anion Gap 16.9 H BUN 42 H Creatinine 7.20 H GFR Calculation 8 BUN/Creatinine Ratio 5.00 L Glucose 132 H POC Glucose 169 H Calculated Osmolality 276.5 Calcium 8.3 L 03/16/17 12:37 WBC RBC Hgb Hct MCV MCH MCHC RDW Plt Count MPV Neut % (Auto) Lymph % (Auto) [place] % (Auto) Eos % (Auto) Baso % (Auto) Neut # (Auto) Lymph # (Auto) [place] # (Auto) Eos # (Auto) Baso # (Auto) Immature Gran % Nucleated RBC % Immature Gran # Nucleated RBCs # Sodium Potassium Chloride Carbon Dioxide Anion Gap BUN Creatinine GFR Calculation BUN/Creatinine Ratio Glucose POC Glucose 117 H Calculated Osmolality Calcium - Reports Microbiology: Microbiology 03/16/17 Unknown MRSA (PCR) - Final Blood MRSA Negative Staph aureus Positive 03/16/17 Unknown MRSA (PCR) - Final Blood MRSA Negative Staph aureus Positive 03/15/17 15:36 Blood Culture - Preliminary Blood Gram Positive Cocci 03/15/17 15:36 Blood Culture - Preliminary Blood Gram Positive Cocci - Impressions TTE without mention of endocarditis - Diagnostic Findings Procedure: Chest x-ray: image reviewed by me, report reviewed by me (Patchy bilateral opacities), CT - chest: image reviewed by me, report reviewed by me ( Fluid collection in left pectoralis major muscle, stranding about left supraclavicular region)
[2017-03-16] MEDS: CALCITRIOL 0.25 MCG CAPSULE PO SCH (19:39)
[2017-03-16] MEDS: NAFCILLIN 2,000 MG in SODIUM CHLORIDE 0.9% 100 ML IV SCH ×2 (19:39→23:55)
[2017-03-16] MEDS: INSULIN GLARGINE 100 UNIT/ML SUBCUT SCH (20:13)
[2017-03-16] MEDS: CLOTRIMAZOLE/BETAMETHASONE CREAM 15 GM TUBE TOP SCH (20:13)
[2017-03-16] MEDS: URSODIOL 300 MG CAPSULE PO SCH (20:13)
[2017-03-16] MEDS ORDERED: DEXTROSE 50% 25 GM/50 ML VIAL IV PRN (21:12)
[2017-03-16] MEDS ORDERED: GLUCAGON 1 MG VIAL IM PRN (21:12)
[2017-03-17] MEDS: ALBUTEROL/IPRATROPIUM 3 ML NEB RESP TX SCH ×7 (00:26→23:35)
[2017-03-17] MEDS: NAFCILLIN 2,000 MG in SODIUM CHLORIDE 0.9% 100 ML IV SCH ×6 (03:06→22:49)
[2017-03-17 06:46] LABS: Basophils % 0.1 % (0.0-0.8); Eosinophils # 0.1 10*3/uL (0.0-0.87); Eosinophils % 0.9 % (0.00-10.9); Hematocrit 27.6 VOL% (35.7-47.0); Hemoglobin 8.8 GM/DL (12.0-16.0); Immature Granulocytes % 0.5 %; Immature Granulocytes Absolute 0.04 #; Lymphocytes # 0.9 10*3/uL (1.4-4.0); Lymphocytes % 11.9 % (21.3-54.2); Mean Corpuscular HGB Conc 31.9 GM/DL (32-36); Mean Corpuscular Hemoglobin 29 PG (27-34); Mean Corpuscular Volume 90.8 FL (87-102); Monocytes # 0.6 10*3/uL (0.11-0.8); Monocytes % 7.2 % (1.7-12.7); Neutrophils # 6.1 10*3/uL (1.4-7.4); Neutrophils % 79.4 % (38.7-73.9); Platelet Count 194 T/CUMM (130-400); Red Blood Count 3.04 MC/CUMM (3.8-5.5); White Blood Count 7.7 T/CUMM (4-12)
[2017-03-17 07:23] LABS: Albumin 2.8 G/DL (3.4-5.0); Bilirubin,Total 1.8 MG/DL (0.2-1.0); Magnesium 1.9 MG/DL (1.8-2.4); Osmolality,Calculated 290.1 MOS/KG (273-304); Phosphorous 2.1 MG/DL (2.5-4.9); Potassium 3.6 MMOL/L (3.5-5.1); Total Protein 7.4 G/DL (6.4-8.3)
--- NOTE | 2017-03-17 09:21 | Orthopedic Progress Note ---
Orthopedics - Subjective Interval history: Ms Anders is feeling a little better. Still not very symptomatic at her left medial clavicle and sternoclavicular joint. Medial clavicle is nontender today. No pain with range of motion shoulder. Plan: I have discussed her case with Dr. Prince. This is a complicated case. Since she is not clinically symptomatic at her medial clavicle and left sternoclavicular joint, I am not sure this is the source of her current bacteremia. I agree with medical management and dialysis catheter exchange. If she fails medical management, consideration for a medial clavicular resection can be entertained. Exam - Constitutional Vitals: Period Temp Pulse Resp BP Sys/Brito Pulse Ox Last 24 Hr 99.1 F-102.0 F 90-107 12-28 120-176/61-96 86-100 Results - Labs CBC & BMP: 03/17/17 06:42 03/17/17 06:42
[2017-03-17] MEDS: INSULIN REGULAR 100 UNIT/ML SUBCUT SCH ×4 (10:00→21:39)
[2017-03-17] MEDS: LACTULOSE 20 GM/30 ML UDCUP PO SCH (10:25)
[2017-03-17] MEDS: URSODIOL 300 MG CAPSULE PO SCH ×2 (10:25→21:39)
[2017-03-17] MEDS: LANSOPRAZOLE ODT 30 MG TABLET NG SCH (10:25)
[2017-03-17] MEDS: CALCIUM ACETATE 667 MG CAPSULE PO SCH ×2 (10:25→19:45)
[2017-03-17] MEDS: CLOTRIMAZOLE/BETAMETHASONE CREAM 15 GM TUBE TOP SCH ×2 (10:25→22:03)
[2017-03-17] MEDS: PANTOPRAZOLE 40 MG TABLET PO SCH (10:26)
--- NOTE | 2017-03-17 10:52 | Infectious Disease Progress ---
Assessment and Plan (1) MSSA (methicillin susceptible Staphylococcus aureus) septicemia Status: Acute Assessment and plan: Recommendations: 1. Dialysis catheter was to be exchanged today but I discussed the case with Dr. Galarza with my preference for her to be without a dialysis line for at least a day or 2 while we give her antibiotics to try to sterilize the blood. He agrees with this and the patient will have the catheter removed today after she gets dialysis a new catheter will be placed towards the end of the week 2. Continue nafcillin 2 g IV every 4 hours 4. Repeat blood cultures a day after the dialysis catheter is removed Current Visit: Yes (2) Abscess Status: Acute Assessment and plan: She has what could be an abscess about the left sternoclavicular joint, with osteomyelitis. The fluid collection is small and there are erosive changes to the bone. Patient surprisingly does not have any tenderness in this area. I think it is quite likely that the infection in this area is due to MSSA. Recommendations: Continue nafcillin; case was discussed with Dr. Dacosta today and I agree with him that surgical intervention is probably not necessary at this time. She can be reimaged in a month or so to assess for improvement. Current Visit: Yes (3) Diabetes mellitus Status: Chronic Current Visit: Yes Qualifiers: Diabetes mellitus type: type 2 Diabetes mellitus complication status: with kidney complications Diabetes mellitus complication detail: with chronic kidney disease Diabetes mellitus buttermaker helper insulin use: with shelter use Chronic kidney disease stage: on chronic dialysis Qualified Code(s): E11.22 - Type 2 diabetes mellitus with diabetic chronic kidney disease; N18.6 - End stage renal disease; Z79.4 - exterminator (current) use of insulin; Z99.2 - Dependence on renal dialysis (4) End stage renal disease on dialysis Status: Chronic Current Visit: Yes (5) Chest wall abscess Status: Acute Assessment and plan: She had a collection about 8 x 13 x 1.5 cm and the left pectoralis major muscle. I think this may have been an abscess. Recommendations: Consider reimaging the chest to ensure that this collection has completely resolved. If it has not resolved then she may need percutaneous drainage. Current Visit: Yes Infectious Disease - PN: Subj Interval history: Patient is doing fairly okay today no complaints. Low-grade fever to 100.3 this morning. No nausea vomiting or diarrhea. No cough or shortness of breath. Infectious Disease Exam (PN) - Constitutional Vitals: Temp Pulse Resp BP Pulse Ox 100.3 F H 94 H 17 150/71 94 L 03/17/17 08:00 03/17/17 10:00 03/17/17 10:00 03/17/17 10:00 03/17/17 10:00 General appearance: no acute distress Exam: General appearance: no acute distress - Eye Eye exam: Present: EOMI. no icterus Pupils: Present: THI - ENT ENT exam: no oral exudates - Neck Neck exam: supple, healed scar to left side, firm area about the left sternoclavicular joint with mild swelling in the supraclavicular area as well but this is nontender - Respiratory Respiratory exam: vesicular BS, no crepitations or wheezes - Cardiovascular Cardiovascular exam: regular rate and rhythm, no murmurs - GI/Abdominal GI/Abdominal exam: normal bowel sounds, soft, non-tender, no organomegaly or mass - Extremities Exam Extremities exam: Patient is anasarcic - Skin Skin exam: no rash Results - Labs CBC & BMP: 03/17/17 06:42 03/17/17 06:42 Lab Results: I have reviewed the past 24 hour labs
--- NOTE | 2017-03-17 11:12 | Nephrology Progress Note ---
Nephrology - PN: Subj Interval history: No shortness of breath or GI symptoms Exam (PN)-Nephrology - Vital Signs Vital signs: Period Temp Pulse Resp BP Sys/Brito Pulse Ox Last 24 Hr 99.1 F-102.0 F 90-107 12-28 120-176/61-94 86-100 Exam: ENT: Normal Cardiovascular: Regular rate and rhythm. No murmur rub or gallop Lungs: Clear Extremities: No edema - Lab 03/17/17 06:42 03/17/17 06:42 Most recent lab results Calcium 8.0 MG/DL (8.5-10.1) L 03/17/17 06:42 Phosphorus 2.1 MG/DL (2.5-4.9) L 03/17/17 06:42 Magnesium 1.9 MG/DL (1.8-2.4) 03/17/17 06:42 Assessment and Plan (1) End stage renal disease on dialysis Status: Chronic Assessment and plan: 46-year-old woman with: * ESRD. Plan dialysis today. * Bacteremia. MSSA. Nafcillin has been started. Dialysis catheter will be removed after dialysis today. * Diabetes mellitus * Cirrhosis Current Visit: Yes (2) Diabetes mellitus Status: Chronic Current Visit: Yes Qualifiers: Diabetes mellitus type: type 2 Diabetes mellitus complication status: with kidney complications Diabetes mellitus complication detail: with chronic kidney disease Diabetes mellitus correction insulin use: with correction use Chronic kidney disease stage: on chronic dialysis Qualified Code(s): E11.22 - Type 2 diabetes mellitus with diabetic chronic kidney disease; N18.6 - End stage renal disease; Z79.4 - shelter (current) use of insulin; Z99.2 - Dependence on renal dialysis (3) Cirrhosis of liver Status: Chronic Current Visit: No Qualifiers: Ascites presence: with ascites (4) Diabetes Status: Chronic Current Visit: No Qualifiers: Diabetes mellitus type: type 2 Diabetes mellitus complication status: with kidney complications Diabetes mellitus complication detail: with chronic kidney disease Diabetes mellitus continuous churn buttermaker insulin use: with correction use Chronic kidney disease stage: on chronic dialysis Qualified Code(s): E11.22 - Type 2 diabetes mellitus with diabetic chronic kidney disease; N18.6 - End stage renal disease; Z79.4 - salvage determiner (current) use of insulin; Z99.2 - Dependence on renal dialysis
[2017-03-17] MEDS ORDERED: VANCOMYCIN INJ 1,000 MG in SODIUM CHLORIDE 0.9% 250 ML IV SCH (11:17)
--- NOTE | 2017-03-17 16:31 | Event Note ---
Patient refused to sign consent for central line placement. I d/w her the risks of the only IV line she has failing at any point. Plan is for removal of the dialysis catheter and hope to aspirate fluid from the sternoclavicular joint if possible.
--- NOTE | 2017-03-17 16:55 | Interventional Radiology Rpt ---
IR remove T CVA WOP IR tunneled dialysis catheter removal Perm-catheter removal using fluoroscopic guidance Clinical Information: There is no evidence of external catheter infection. Catheter tip will be sent for Gram stain/culture Physician[s]: Dr. Soto Total fluoroscopy time: 0.2 minutes. Total number of images for the procedure: 7 Procedure: The patient was advised of the benefits, risks, and alternatives of the procedure and informed consent was obtained. A time out was performed with verification of the patient's name, MRN, site of procedure, and type of procedure to be performed. The patient was positioned in the supine position on the angiographic table. The site was prepped and draped in the usual sterile fashion. Local anesthesia only was used for the procedure. A music therapy teacher radiograph reveals a right internal jugular vein Permcath in appropriate position. The heparin flush was aspirated from the catheter. An Amplatz wire was advanced through the catheter into the inferior vena cava under fluoroscopic guidance. The suture holding the catheter in place was cut and blunt dissection of the cuff was performed using curved hemostats. The catheter was removed in its entirety. The tip was retained for microbiological analysis. Pressure was held at the puncture site to obtain hemostasis. Steri-Strips and pressure dressing or placed at the puncture site. The patient tolerated the procedure well and was returned to the ICU in stable condition. EBL: < 5 mL. Complications: None. Conclusion: Successful removal of the indwelling tunneled dialysis catheter. After several "catheter free" days, plan is for replacement of a new tunneled dialysis catheter. PROCEDURE INTERPRETED AT [facility] DEPARTMENT OF RADIOLOGY Final Report Signed by: Rohit Soto
--- NOTE | 2017-03-17 16:56 | Post Interventional Procedure ---
Pre-op diagnosis: possible left SCJ abscess or osteo and TDC infection Post-op diagnosis: same Procedure: 1. remove right IJ TDC 2. aspirate left SCJ 3. patient refused central line placement Contrast: none Flouroscopy: 0.2 min Radiologist: Rohit Soto Anesthesia: local Specimens: other (SCJ aspirate and catheter tip sent for micro analysis) Estimated blood loss: none Complications: none Condition: stable Description/Findings: right IJ catheter removed without difficulty using CT guidance the left SCJ was entered in the most hypodense location ( hoping for fluid to aspirate) unfortunately this was phlegmonous tissues and could not be aspirated. 2 mL Normal saline was flushed into the joint and then aspirated - this was sent for micro analysis Assessment and Plan - Time spent with patient Time spent with patient: Less than 30 minutes (1) Intravenous catheter sepsis Problem details: unsure when catheter was last changed - patient states same catheter for 5 months - may be a source of infection. Status: Acute Assessment and plan: Can be removed with new placed opposite side or exchanged and sent for cx. D/ w Dr. Galarza Current Visit: Yes
--- NOTE | 2017-03-17 17:03 | CT Report ---
CT abscess drainage Clinical Information: History of left sternoclavicular muscle abscess status post resection/debridement with continued left neck swelling and possible secondarily infected sternoclavicular joint. Possible distal clavicular or sternal osteomyelitis and small area of hypodensity at the sternoclavicular joint may represent a joint effusion or abscess. Physician: Dr. Soto Technique: Informed consent was obtained from the patient. Full explanation of the nature of the procedure, alternatives and risks were discussed, including risks of bleeding, infection and potential inability to diagnose with needle technique. Adjacent vascular and organ injury were also fully discussed. She expressed understanding and a desire to proceed. Formal timeouts were performed, per protocol. Local anesthesia only was used for the procedure. The left sternoclavicular joint was targeted with CT guidance. CT guided localization of the target lesion was performed. Under real time guidance, a 19-gauge sheath needle was advanced into the left clavicular joint. Aspiration unfortunately did not produce any significant material. 2 cc normal saline was irrigated into this area and then withdrawn. This sample will be sent for Gram stain and culture. Follow-up imaging demonstrated no evidence of pneumothorax, hemorrhage or other immediate complication. Estimated blood loss less than 5 cc. Total number of images for this study: 116 Conclusion: Technically successful CT guided attempted aspiration of the left clavicular joint as detailed above. PROCEDURE INTERPRETED AT [facility] [place] DEPARTMENT OF RADIOLOGY Final Report Signed by: Rohit Soto
--- NOTE | 2017-03-17 17:17 | Internal Med Progress Note ---
Assessment and Plan (1) Diabetes mellitus Status: Chronic Current Visit: Yes Qualifiers: Diabetes mellitus type: type 2 Diabetes mellitus complication status: with kidney complications Diabetes mellitus complication detail: with chronic kidney disease Diabetes mellitus rat exterminator insulin use: with rat exterminator use Chronic kidney disease stage: on chronic dialysis Qualified Code(s): E11.22 - Type 2 diabetes mellitus with diabetic chronic kidney disease; N18.6 - End stage renal disease; Z79.4 - retirement (current) use of insulin; Z99.2 - Dependence on renal dialysis (2) End stage renal disease on dialysis Status: Chronic Current Visit: Yes (3) Visual hallucination Problem details: she believes she sees "bugs coming out of her head" Status: Chronic Current Visit: Yes (4) MSSA (methicillin susceptible Staphylococcus aureus) septicemia Status: Acute Current Visit: Yes (5) Chest wall abscess Status: Acute Current Visit: Yes (6) Intravenous catheter sepsis Problem details: unsure when catheter was last changed - patient states same catheter for 5 months - may be a source of infection. Status: Acute Current Visit: Yes Internal Medicine - PN: Subj Interval history: Ms. Anders is a 46 year old female with history of ESRD on hemodialysis per Dr. Galarza, DM, liver cirrhosis, encephalopathy, recent history of left neck abscess , hypotension with history of Midodrine, who presented to ER with fever. She did not have dialysis today. She was given dose of Vanco in ER. Concern that dialysis fistula may be infected. Discussed case with Dr. Soto who will obtain aspirate tomorrow for pathology of right sternoclavicular joint and replace the dialysis catheter to culture tip of current one. She had cultures drawn today of sternoclavicular aspirate. She will have dialysis catheter placed in next day or two. She will be moved to floor out of ICU. Stable. Exam (Progress Note) - Constitutional Vitals: Period Temp Pulse Resp BP Sys/Brito Pulse Ox Last 24 Hr 99.1 F-100.3 F 94-106 12-24 120-179/67-104 89-100 General appearance: no acute distress - Respiratory Respiratory exam: Present: clear to auscultation bilaterally - Cardiovascular Cardiovascular exam: Present: regular rate and rhythm - GI/Abdominal GI/Abdominal exam: Present: soft. Absent: tenderness - Extremities Exam Extremities exam: Absent: edema - Neurological Exam Neurological exam: Present: alert - Psychiatric Psychiatric exam: Present: normal mood - Skin Skin exam: Present: warm Results - Labs CBC & BMP: 03/17/17 06:42 03/17/17 06:42
[2017-03-17] MEDS: INSULIN GLARGINE 100 UNIT/ML SUBCUT SCH (21:40)
[2017-03-17] MEDS: CARVEDILOL 6.25 MG TABLET PO SCH (22:57)
[2017-03-18] MEDS: NAFCILLIN 2,000 MG in SODIUM CHLORIDE 0.9% 100 ML IV SCH ×3 (02:41→13:46)
[2017-03-18] MEDS: ALBUTEROL/IPRATROPIUM 3 ML NEB RESP TX SCH ×6 (04:19→23:56)
[2017-03-18 07:23] LABS: Basophils % 0.4 % (0.0-0.8); Eosinophils # 0.1 10*3/uL (0.0-0.87); Eosinophils % 1.2 % (0.00-10.9); Hematocrit 27.2 VOL% (35.7-47.0); Hemoglobin 8.5 GM/DL (12.0-16.0); Immature Granulocytes % 1.2 %; Immature Granulocytes Absolute 0.08 #; Lymphocytes # 1.2 10*3/uL (1.4-4.0); Lymphocytes % 17.8 % (21.3-54.2); Mean Corpuscular HGB Conc 31.3 GM/DL (32-36); Mean Corpuscular Hemoglobin 29 PG (27-34); Mean Corpuscular Volume 92.8 FL (87-102); Mean Platelet Volume 9.3 FL (9.6-12.0); Monocytes # 0.7 10*3/uL (0.11-0.8); Monocytes % 9.8 % (1.7-12.7); Neutrophils # 4.8 10*3/uL (1.4-7.4); Neutrophils % 69.6 % (38.7-73.9); Platelet Count 181 T/CUMM (130-400); Red Blood Count 2.93 MC/CUMM (3.8-5.5)
[2017-03-18 07:52] LABS: Alanine Aminotransferase < 9 U/L (13-56); Albumin 2.4 G/DL (3.4-5.0); Alkaline Phosphatase 138 U/L (45-117); Aspartate Amino Transferase 16 U/L (0-37); Blood Urea Nitrogen 13 MG/DL (7-18); Calcium 8.1 MG/DL (8.5-10.1); Glucose 81 MG/DL (74-106); Magnesium 1.8 MG/DL (1.8-2.4); Phosphorous 1.7 MG/DL (2.5-4.9); Sodium 136 MMOL/L (136-145); Total Protein 6.7 G/DL (6.4-8.3)
[2017-03-18] MEDS: INSULIN REGULAR 100 UNIT/ML SUBCUT SCH ×4 (08:34→21:11)
[2017-03-18] MEDS: LANSOPRAZOLE ODT 30 MG TABLET NG SCH (09:08)
[2017-03-18] MEDS: LACTULOSE 20 GM/30 ML UDCUP PO SCH (09:09)
[2017-03-18] MEDS: CARVEDILOL 6.25 MG TABLET PO SCH ×2 (09:09→21:11)
[2017-03-18] MEDS: PANTOPRAZOLE 40 MG TABLET PO SCH (09:09)
[2017-03-18] MEDS: CALCIUM ACETATE 667 MG CAPSULE PO SCH ×3 (09:09→16:46)
[2017-03-18] MEDS: URSODIOL 300 MG CAPSULE PO SCH ×2 (09:09→21:11)
[2017-03-18] MEDS: CLOTRIMAZOLE/BETAMETHASONE CREAM 15 GM TUBE TOP SCH ×2 (09:10→21:13)
--- NOTE | 2017-03-18 09:57 | Infectious Disease Progress ---
Assessment and Plan (1) MSSA (methicillin susceptible Staphylococcus aureus) septicemia Status: Acute Assessment and plan: Recommendations: 1. Repeat blood cultures today eter will be placed towards the end of the week 2. Continue nafcillin 2 g IV every 4 hours 3. Echocardiogram Current Visit: Yes (2) Abscess Status: Acute Assessment and plan: She has what could be an abscess about the left sternoclavicular joint, with osteomyelitis. The fluid collection is small and there are erosive changes to the bone. Patient surprisingly does not have any tenderness in this area. I think it is quite likely that the infection in this area is due to MSSA. Recommendations: Continue nafcillin; follow-up results of culture of aspirate from abscess. Current Visit: Yes (3) Diabetes mellitus Status: Chronic Current Visit: Yes Qualifiers: Diabetes mellitus type: type 2 Diabetes mellitus complication status: with kidney complications Diabetes mellitus complication detail: with chronic kidney disease Diabetes mellitus roasterman insulin use: with roasterman use Chronic kidney disease stage: on chronic dialysis Qualified Code(s): E11.22 - Type 2 diabetes mellitus with diabetic chronic kidney disease; N18.6 - End stage renal disease; Z79.4 - terminal superintendent (current) use of insulin; Z99.2 - Dependence on renal dialysis (4) End stage renal disease on dialysis Status: Chronic Current Visit: Yes (5) Chest wall abscess Status: Acute Assessment and plan: She had a collection about 8 x 13 x 1.5 cm and the left pectoralis major muscle. I think this may have been an abscess. Recommendations: Consider reimaging the chest to ensure that this collection has completely resolved. Current Visit: Yes Infectious Disease - PN: Subj Interval history: Still having intermittent fevers, up to 100.8 this morning. However patient says she feels good. Good appetite no vomiting no diarrhea. She had aspiration of abscess to left chest wall yesterday. Dialysis catheter also removed yesterday. Infectious Disease Exam (PN) - Constitutional Vitals: Temp Pulse Resp BP Pulse Ox 100.8 F H 112 H 20 102/53 98 03/18/17 03:45 03/18/17 07:10 03/18/17 07:10 03/18/17 03:45 03/18/17 07:10 General appearance: no acute distress Exam: General appearance: no acute distress, ambulating about room - Eye Eye exam: Present: EOMI. no icterus Pupils: Present: THI - ENT ENT exam: no oral exudates - Neck Neck exam: supple, healed scar to left side, firm area about the left sternoclavicular joint with mild swelling in the supraclavicular area as well but this is nontender - Respiratory Respiratory exam: vesicular BS, no crepitations or wheezes - Cardiovascular Cardiovascular exam: regular rate and rhythm, no murmurs - GI/Abdominal GI/Abdominal exam: normal bowel sounds, soft, non-tender, no organomegaly or mass - Extremities Exam Extremities exam: Chronic bilateral lower extremity edema up to thighs - Skin Skin exam: no rash Results - Labs CBC & BMP: 03/18/17 06:52 03/18/17 06:52 Lab Results: I have reviewed the past 24 hour labs
[2017-03-18] MEDS: NAFCILLIN IV SCH ×3 (13:53→21:13)
[2017-03-18] MEDS: SODIUM CHLORIDE 0.9% IV SCH ×3 (13:53→21:13)
--- NOTE | 2017-03-18 15:21 | ECHO Report ---
La Anders Exam Date: 03/18/2017 11:00 Referring Physician: Technologist: Daisha Grant Age: 46 Ht (in): 65 Wt (lb): 168 Gender: F Exam Location: [facility] Echo Indications: HTN, cirrhosis, MSSA, ESRD, sepsis, chest wall abscess BP: 110 / 52 HR: 91 Rhythm: Sinus Technical Quality: Good IMPRESSIONS Moderate concentric left ventricular hypertrophy with diastolic dysfunction. Left ventricular ejection fraction is estimated at 50-55 %. Moderately increased right ventricular size. Moderately increased right atrial size. Moderately increased left atrial size. Moderate mitral valve sclerosis. Mild mitral valve regurgitation. Mild aortic valve sclerosis without stenosis or regurgitation. Mild tricuspid valve sclerosis. Moderate tricuspid valve regurgitation. Tricuspid regurgitation velocities suggest a PAP of 43 mmHg. Morphologically normal pulmonic valve. No pericardial effusion. Normal size aortic root and proximal ascending aorta. MEASUREMENTS (Male / Female) Normal Values 2D ECHO LV Diastolic Diameter PLAX 3.5 cm 4.2 - 5.9 / 3.9 - 5.3 cm LV Systolic Diameter PLAX 2.0 cm LV Fractional Shortening PLAX 41.0 % IVS Diastolic Thickness 1.4 cm 0.6 - 1.0 / 0.6 - 0.9 cm LVPW Diastolic Thickness 1.5 cm 0.6 - 1.0 / 0.6 - 0.9 cm RV Internal Dim ED PLAX 3.8 cm Aortic Root Diameter 2.5 cm LA Systolic Diameter LX 2.9 cm 3.0 - 4.0 / 2.7 - 3.8 cm DOPPLER TR Peak Velocity 289.0 cm/s TR Peak Gradient 33.4 mmHg FINDINGS Left Ventricle Moderate concentric left ventricular hypertrophy with diastolic dysfunction. Left ventricular ejection fraction is estimated at 50-55 %. Right Ventricle Moderately increased right ventricular size. Right Atrium Moderately increased right atrial size. Left Atrium Moderately increased left atrial size. Mitral Valve Moderate mitral valve sclerosis. Mild mitral valve regurgitation. Aortic Valve Mild aortic valve sclerosis without stenosis or regurgitation. Tricuspid Valve Mild tricuspid valve sclerosis. Moderate tricuspid valve regurgitation. Tricuspid regurgitation velocities suggest a PAP of 43 mmHg. Pulmonic Valve Morphologically normal pulmonic valve. Pericardium No pericardial effusion. Aorta Normal size aortic root and proximal ascending aorta. Bong Avitia MD (Electronically Signed) Final Date: 18 March 2017 15:20
[2017-03-18] MEDS: CALCITRIOL 0.25 MCG CAPSULE PO SCH (18:08)
--- NOTE | 2017-03-18 21:13 | Internal Med Progress Note ---
Assessment and Plan (1) Diabetes mellitus Status: Chronic Current Visit: Yes Qualifiers: Diabetes mellitus type: type 2 Diabetes mellitus complication status: with kidney complications Diabetes mellitus complication detail: with chronic kidney disease Diabetes mellitus buttermaker insulin use: with buttermaker use Chronic kidney disease stage: on chronic dialysis Qualified Code(s): E11.22 - Type 2 diabetes mellitus with diabetic chronic kidney disease; N18.6 - End stage renal disease; Z79.4 - [facility] (current) use of insulin; Z99.2 - Dependence on renal dialysis (2) End stage renal disease on dialysis Status: Chronic Current Visit: Yes (3) Visual hallucination Problem details: she believes she sees "bugs coming out of her head" Status: Chronic Current Visit: Yes (4) MSSA (methicillin susceptible Staphylococcus aureus) septicemia Status: Acute Current Visit: Yes (5) Chest wall abscess Status: Acute Current Visit: Yes (6) Intravenous catheter sepsis Problem details: unsure when catheter was last changed - patient states same catheter for 5 months - may be a source of infection. Status: Acute Current Visit: Yes Internal Medicine - PN: Subj Interval history: Ms. Anders is a 46 year old female with history of ESRD on hemodialysis per Dr. Galarza, DM, liver cirrhosis, encephalopathy, recent history of left neck abscess , hypotension with history of Midodrine, who presented to ER with fever. She did not have dialysis today. She was given dose of Vanco in ER. Concern that dialysis fistula may be infected. Discussed case with Dr. Soto who will obtain aspirate tomorrow for pathology of right sternoclavicular joint and replace the dialysis catheter to culture tip of current one. She had cultures drawn today of sternoclavicular aspirate. She will have dialysis catheter placed in next day or two. She will be moved to floor out of ICU. Stable. feeling better. She will have dialysis catheter placed tomorrow. Exam (Progress Note) - Constitutional Vitals: Period Temp Pulse Resp BP Sys/Brito Pulse Ox Last 24 Hr 97.6 F-100.8 F 87-112 16-20 102-138/52-76 91-99 General appearance: no acute distress - Respiratory Respiratory exam: Present: clear to auscultation bilaterally - Cardiovascular Cardiovascular exam: Present: regular rate and rhythm - GI/Abdominal GI/Abdominal exam: Present: soft. Absent: tenderness - Extremities Exam Extremities exam: Absent: edema - Neurological Exam Neurological exam: Present: alert - Psychiatric Psychiatric exam: Present: normal mood - Skin Skin exam: Present: warm, dry Results - Labs CBC & BMP: 03/18/17 06:52 03/18/17 06:52
[2017-03-18] MEDS: INSULIN GLARGINE 100 UNIT/ML SUBCUT SCH (21:19)
--- NOTE | 2017-03-18 21:29 | Nephrology Progress Note ---
Nephrology - PN: Subj Interval history: No shortness of breath or GI symptoms. Exam (PN)-Nephrology - Vital Signs Vital signs: Period Temp Pulse Resp BP Sys/Brito Pulse Ox Last 24 Hr 97.6 F-100.8 F 87-112 16-20 102-138/52-76 91-99 Exam: Gen.: Alert and oriented x3. ENT: Pupils equal round reactive to light. EOMs intact. Neck: Supple. No JVD or bruit. Cardiovascular: Regular rate and rhythm. No murmur rub or gallop Lungs: Clear Abdomen: Soft. Nontender. Positive bowel sounds. No organomegaly Extremities: No edema - Lab 03/18/17 06:52 03/18/17 06:52 Most recent lab results Calcium 8.1 MG/DL (8.5-10.1) L 03/18/17 06:52 Phosphorus 1.7 MG/DL (2.5-4.9) L 03/18/17 06:52 Magnesium 1.8 MG/DL (1.8-2.4) 03/18/17 06:52 Assessment and Plan (1) End stage renal disease on dialysis Status: Chronic Assessment and plan: 46-year-old woman with: * ESRD. New catheter will be placed tomorrow p.m. * Bacteremia. MSSA. Continue nafcillin Dialysis catheter has been removed * Diabetes mellitus * Cirrhosis Current Visit: Yes (2) Diabetes mellitus Status: Chronic Current Visit: Yes Qualifiers: Diabetes mellitus type: type 2 Diabetes mellitus complication status: with kidney complications Diabetes mellitus complication detail: with chronic kidney disease Diabetes mellitus tank terminal gauger insulin use: with tank terminal gauger use Chronic kidney disease stage: on chronic dialysis Qualified Code(s): E11.22 - Type 2 diabetes mellitus with diabetic chronic kidney disease; N18.6 - End stage renal disease; Z79.4 - parts counterman (current) use of insulin; Z99.2 - Dependence on renal dialysis (3) Cirrhosis of liver Status: Chronic Current Visit: No Qualifiers: Ascites presence: with ascites (4) Diabetes Status: Chronic Current Visit: No Qualifiers: Diabetes mellitus type: type 2 Diabetes mellitus complication status: with kidney complications Diabetes mellitus complication detail: with chronic kidney disease Diabetes mellitus tank terminal gauger insulin use: with fpc use Chronic kidney disease stage: on chronic dialysis Qualified Code(s): E11.22 - Type 2 diabetes mellitus with diabetic chronic kidney disease; N18.6 - End stage renal disease; Z79.4 - residential (current) use of insulin; Z99.2 - Dependence on renal dialysis
[2017-03-19] MEDS: SODIUM CHLORIDE 0.9% IV SCH ×6 (00:48→21:26)
[2017-03-19] MEDS: NAFCILLIN IV SCH ×6 (00:48→21:26)
[2017-03-19] MEDS: ALBUTEROL/IPRATROPIUM 3 ML NEB RESP TX SCH ×6 (02:56→23:14)
[2017-03-19 06:36] LABS: Calcium 7.5 MG/DL (8.5-10.1); Magnesium 2.2 MG/DL (1.8-2.4); Phosphorous 2.8 MG/DL (2.5-4.9); Potassium 4.2 MMOL/L (3.5-5.1)
--- NOTE | 2017-03-19 09:37 | IR History and Physical Update ---
IR Pre-Procedure - History and Physical H&P was reviewed, the patient examined and there: are no changes in the patients condition since last H&P was completed. Reason for procedure:: need dialysis access - Dictation Physical: refer to H&P completed by admitting physician - Physical Exam Vital Signs: Last Vital Signs Temp 98.0 F 03/19/17 04:00 Pulse 81 03/19/17 04:00 Resp 20 03/19/17 04:00 BP 114/62 03/19/17 04:00 Pulse Ox 100 03/19/17 04:00 Mental Status: alert and oriented Heart: regular rate and rhythm Lung: clear to auscultation Abdomen: within normal limits - Sedation IR anesthesia plan for sedation: moderate ASA Class: III Airway Assessment: Class II: Soft palate, uvula, fauces visible - Risks Risks: Procedures explained. Risks discussed include, but not limited to, the following:[ bleeding, infection, injury to adjacent structures] All questions answered. The following alternatives were discussed:[none ] Risks and benefits discussed with: patient Consent obtained from: patient Assessment and Plan - Time spent with patient Time spent with patient: Less than 30 minutes (1) MSSA (methicillin susceptible Staphylococcus aureus) septicemia Problem details: source not identified from catheter tip or right SCJ but may need several week IV abx Status: Acute Assessment and plan: waiting on ABx recommendation as to need for IV line or not Current Visit: Yes (2) End stage renal disease on dialysis Problem details: need new catheter access Status: Chronic Assessment and plan: will place new right IJ HD catheter today Current Visit: Yes
--- NOTE | 2017-03-19 10:46 | Infectious Disease Progress ---
Assessment and Plan (1) MSSA (methicillin susceptible Staphylococcus aureus) septicemia Problem details: source not identified from catheter tip or right SCJ but may need several week IV abx Status: Acute Assessment and plan: Relapse of MSSA septicemia. TTE without evidence of endocarditis. Recommendations: 1. Repeat blood cultures today (noted that this yesterday but I do not see cultures pending] 2. Continue nafcillin 2 g IV every 4 hours Current Visit: Yes (2) Abscess Status: Acute Assessment and plan: Culture of aspirate was negative. She had bony changes to the sternoclavicular area on the left and will be treated for osteomyelitis. Current Visit: Yes (3) Diabetes mellitus Status: Chronic Current Visit: Yes Qualifiers: Diabetes mellitus type: type 2 Diabetes mellitus complication status: with kidney complications Diabetes mellitus complication detail: with chronic kidney disease Diabetes mellitus terminal block assembler insulin use: with care home use Chronic kidney disease stage: on chronic dialysis Qualified Code(s): E11.22 - Type 2 diabetes mellitus with diabetic chronic kidney disease; N18.6 - End stage renal disease; Z79.4 - senior living (current) use of insulin; Z99.2 - Dependence on renal dialysis (4) End stage renal disease on dialysis Problem details: need new catheter access Status: Chronic Current Visit: Yes (5) Chest wall abscess Status: Acute Assessment and plan: Current Visit: Yes Infectious Disease - PN: Subj Interval history: Patient doing okay, no fever. She has no new complaints today no vomiting or diarrhea no cough or shortness of breath. She supposed to get a new dialysis catheter today. Infectious Disease Exam (PN) - Constitutional Vitals: Temp Pulse Resp BP Pulse Ox 98.0 F 81 20 114/62 100 03/19/17 04:00 03/19/17 04:00 03/19/17 04:00 03/19/17 04:00 03/19/17 04:00 General appearance: no acute distress Exam: General appearance: Comfortable - Eye Eye exam: Present: EOMI. no icterus Pupils: Present: THI - ENT ENT exam: no oral exudates - Neck Neck exam: supple, healed scar to left side, firm area about the left sternoclavicular joint with mild swelling in the supraclavicular area as well but this is nontender - Respiratory Respiratory exam: vesicular BS, no crepitations or wheezes - Cardiovascular Cardiovascular exam: regular rate and rhythm, no murmurs - GI/Abdominal GI/Abdominal exam: normal bowel sounds, soft, non-tender, no organomegaly or mass - Extremities Exam Extremities exam: Chronic bilateral lower extremity edema up to thighs - Skin Skin exam: no rash Results - Labs CBC & BMP: 03/18/17 06:52 03/19/17 04:40 Lab Results: I have reviewed the past 24 hour labs
[2017-03-19] MEDS: INSULIN REGULAR 100 UNIT/ML SUBCUT SCH ×4 (11:22→21:21)
[2017-03-19] MEDS ORDERED: DIAZEPAM 5 MG TABLET PO ONE (13:04)
[2017-03-19] MEDS ORDERED: HEPARIN 1,000 UNIT/1 ML VIAL ONE (13:09)
[2017-03-19] MEDS ORDERED: HEPARIN LOCK FLUSH 500 UNIT/5 ML SYRINGE IV ONE ×2 (13:20→13:43)
[2017-03-19] MEDS ORDERED: TISSUE ADHESIVE 1 EACH APPLICATOR TOP ONE (13:20)
--- NOTE | 2017-03-19 14:46 | Internal Med Progress Note ---
Assessment and Plan (1) Diabetes mellitus Status: Chronic Current Visit: Yes Qualifiers: Diabetes mellitus type: type 2 Diabetes mellitus complication status: with kidney complications Diabetes mellitus complication detail: with chronic kidney disease Diabetes mellitus ocean transportation intermediary insulin use: with ocean transportation intermediary use Chronic kidney disease stage: on chronic dialysis Qualified Code(s): E11.22 - Type 2 diabetes mellitus with diabetic chronic kidney disease; N18.6 - End stage renal disease; Z79.4 - retirement (current) use of insulin; Z99.2 - Dependence on renal dialysis (2) End stage renal disease on dialysis Problem details: need new catheter access Status: Chronic Current Visit: Yes (3) Visual hallucination Problem details: she believes she sees "bugs coming out of her head" Status: Chronic Current Visit: Yes (4) MSSA (methicillin susceptible Staphylococcus aureus) septicemia Problem details: source not identified from catheter tip or right SCJ but may need several week IV abx Status: Acute Current Visit: Yes (5) Chest wall abscess Status: Acute Current Visit: Yes (6) Intravenous catheter sepsis Problem details: unsure when catheter was last changed - patient states same catheter for 5 months - may be a source of infection. Status: Acute Current Visit: Yes Internal Medicine - PN: Subj Interval history: Ms. Anders is a 46 year old female with history of ESRD on hemodialysis per Dr. Galarza, DM, liver cirrhosis, encephalopathy, recent history of left neck abscess , hypotension with history of Midodrine, who presented to ER with fever. She did not have dialysis today. She was given dose of Vanco in ER. Concern that dialysis fistula may be infected. Discussed case with Dr. Soto who will obtain aspirate tomorrow for pathology of right sternoclavicular joint and replace the dialysis catheter to culture tip of current one. She had cultures drawn today of sternoclavicular aspirate. She will have dialysis catheter placed in next day or two. She will be moved to floor out of ICU. Stable. Feeling better. She will have dialysis catheter placed tomorrow. Saw her today in special procedures room after she had temporary dialysis catheter placed. She tolerated that procedure well. She continues to improve. Exam (Progress Note) - Constitutional Vitals: Period Temp Pulse Resp BP Sys/Brito Pulse Ox Last 24 Hr 97.6 F-99.9 F 80-92 16-20 114-157/62-81 91-100 General appearance: no acute distress - Respiratory Respiratory exam: Present: clear to auscultation bilaterally - Cardiovascular Cardiovascular exam: Present: regular rate and rhythm - GI/Abdominal GI/Abdominal exam: Present: soft. Absent: tenderness - Extremities Exam Extremities exam: Absent: edema - Neurological Exam Neurological exam: Present: alert - Psychiatric Psychiatric exam: Present: normal mood - Skin Skin exam: Present: warm, dry Results - Labs CBC & BMP: 03/18/17 06:52 03/19/17 04:40
--- NOTE | 2017-03-19 15:25 | Post Interventional Procedure ---
Pre-op diagnosis: ESRD need access and need long-term IV abx Post-op diagnosis: same Procedure: 1. place tunneled central line for IV abx 2. place tunneled HD catheter Both had to be placed into the right IJ due to the ongoing issues with the left neck/chest and SCJ Contrast: none Flouroscopy: 2.4 min total for both Radiologist: Rohit Soto Anesthesia: local Specimens: none sent Estimated blood loss: minimal (10 mL) Complications: none Condition: stable Description/Findings: Right-sided tunneled 5 Iranian dual-lumen central line was placed. Total catheter length is 20 cm. Subsequently, second access into the internal jugular vein was obtained and the 14.5 Iranian 19 cm margin glidepath tunneled dialysis catheter was advanced with the tip terminating in the cavoatrial junction. Puncture sites were closed with Dermabond and Steri-Strips. Both catheters were secured in position with 2 -0 Prolene. Both catheters functioned properly at the conclusion of the procedure. Please note, the tunneled central catheter is a cuffed catheter and should be removed under fluoroscopic guidance. Assessment and Plan - Time spent with patient Time spent with patient: Less than 30 minutes (1) MSSA (methicillin susceptible Staphylococcus aureus) septicemia Problem details: source not identified from catheter tip or right SCJ but may need several week IV abx Status: Acute Assessment and plan: waiting on ABx recommendation as to need for IV line or not Current Visit: Yes (2) End stage renal disease on dialysis Problem details: need new catheter access Status: Chronic Assessment and plan: will place new right IJ HD catheter today Current Visit: Yes
--- NOTE | 2017-03-19 15:36 | Interventional Radiology Rpt ---
IR cvc insrt tunnel wo prt/softlines supervisor, IR fluoro guide cv cath, IR fluoro guide cv cath, US guide vascular access, IR cvc insrt tunnel wo prt/softlines supervisor, US guide vascular access, Consult to Interventional Rad IR Geremias Perm-catheter placement using fluoroscopic and ultrasound guidance Ultrasound of the right neck Clinical Information: 46-year-old female with end-stage renal disease and dialysis via a right IJ tunnel dialysis catheter which was removed due to suspected catheter infection. Patient has been catheter for 48 hours. All cultures have returned negative at this point. Patient needs dialysis access for planned dialysis on 03/20/2017. Additionally, due to the suspected possibility of underlying osteomyelitis of the left clavicular head, likely will need long-term intravenous and upon administration. Therefore, a second tunneled central venous catheter was placed (this patient is not a candidate for a peripheral PICC line). Physician: Dr. Soto Procedure: The patient was advised of the benefits, risks, and alternatives of the procedure and informed consent was obtained. A time out was performed with verification of the patient's name, MRN, site of procedure, and type of procedure to be performed. The patient was positioned in the supine position on the angiographic table. The site was prepped and draped in the usual sterile fashion. Local anesthesia only was used for the procedure. Ultrasound of the neck reveals a patent and compressible right internal jugular vein. A central processing technician radiograph reveals no relevant abnormality. The neck and anterior chest wall were anesthetized with lidocaine. The right internal jugular vein was accessed using a microintroducer needle via a lateral approach. Permanent ultrasound image capture of vascular access was retained for the patient's permanent record. A 0.018 cope wire was advanced into the inferior vena cava. Incisions at the internal jugular access site and anterior chest wall were made using a scalpel. The needle was removed an a 10 Swazi peel-away sheath was advanced over the wire and into the superior vena cava. A 6 Swazi MedComp dual lumen Pro-Line cuffed catheter was inserted through subcutaneous tissues of the chest wall with a tunneling device. The catheter was then measured and cut. The wire and insert were removed from the peel-away sheath. The catheter was passed into the internal jugular vein via the sheath. The peel-away sheath was then removed. The catheter tip was positioned cavoatrial junction. The puncture site was closed with skin glue and Steri-Strips. The catheter was secured in place using a 2-0 Prolene. Both sites were cleansed and sterile dressings were applied. At this point, second separate access into the right internal jugular vein was obtained using a microintroducer needle via a lateral approach. Permanent ultrasound image capture of vascular access was obtained for the patient's permanent record. A 0.018 cope wire was advanced into the superior vena cava, the needle was removed and a microintroducer sheath was placed. An Amplatz wire was then passed into the inferior vena cava. Incisions at the internal jugular access site and anterior chest wall were made using a scalpel. A 19 cm 14.5 Swazi Glidepath catheter was inserted through subcutaneous tissues of the chest wall with a tunneling device. The microintroducer sheath was removed and the internal jugular puncture site was upsized with a dilator. A peel-away sheath was placed over the wire and into the superior vena cava. The wire and insert were removed. The catheter was passed into the internal jugular vein via the sheath. The peel-away sheath was then removed. The catheter tip was positioned at the cavoatrial junction. The puncture site was closed with skin glue and Steri-Strips. Both catheters were secured in place using a 2-0 Prolene. Both sites were cleansed and sterile dressings were applied. At the conclusion of the procedure, the ports of both catheters aspirated and flushed freely. The patient tolerated the procedure well and was returned to the PRU in stable condition. EBL: < 5 mL. Complications: None. Total Fluoroscopy time: 2.4 minutes Total number of images with procedures: 41 Conclusion: 1. Successful placement of a 5 Swazi dual lumen tunneled central venous catheter via the right internal jugular vein. The catheter is ready for immediate use. Please note, this catheter should be removed under fluoroscopy when no longer needed. 2. Successful placement of a 19 cm Swazi 14.5 Swazi Glidepath catheter via the right internal jugular vein. The catheter is ready for immediate use. PROCEDURE INTERPRETED AT [facility] DEPARTMENT OF RADIOLOGY Final Report Signed by: Rohit Soto
--- NOTE | 2017-03-19 16:17 | Nephrology Progress Note ---
Nephrology - PN: Subj Interval history: She is awake and alert. No shortness of breath. No GI symptoms Exam (PN)-Nephrology - Vital Signs Vital signs: Period Temp Pulse Resp BP Sys/Brito Pulse Ox Last 24 Hr 97.6 F-99.9 F 80-92 16-20 114-157/62-81 91-100 Exam: ENT: Normal Cardiovascular: Regular rate and rhythm. No murmur rub or gallop Lungs: Clear Extremities: No edema - Lab 03/18/17 06:52 03/19/17 04:40 Most recent lab results Calcium 7.5 MG/DL (8.5-10.1) L 03/19/17 04:40 Phosphorus 2.8 MG/DL (2.5-4.9) 03/19/17 04:40 Magnesium 2.2 MG/DL (1.8-2.4) 03/19/17 04:40 Assessment and Plan (1) End stage renal disease on dialysis Problem details: need new catheter access Status: Chronic Assessment and plan: 46-year-old woman with: * ESRD. New catheter will be placed today. Tunneled central line will be placed for antibiotic. Dialysis Wednesday * Bacteremia. MSSA. Continue nafcillin * Diabetes mellitus * Cirrhosis Current Visit: Yes (2) Diabetes mellitus Status: Chronic Current Visit: Yes Qualifiers: Diabetes mellitus type: type 2 Diabetes mellitus complication status: with kidney complications Diabetes mellitus complication detail: with chronic kidney disease Diabetes mellitus terminologist insulin use: with terminologist use Chronic kidney disease stage: on chronic dialysis Qualified Code(s): E11.22 - Type 2 diabetes mellitus with diabetic chronic kidney disease; N18.6 - End stage renal disease; Z79.4 - snf (current) use of insulin; Z99.2 - Dependence on renal dialysis (3) Cirrhosis of liver Status: Chronic Current Visit: No Qualifiers: Ascites presence: with ascites (4) Diabetes Status: Chronic Current Visit: No Qualifiers: Diabetes mellitus type: type 2 Diabetes mellitus complication status: with kidney complications Diabetes mellitus complication detail: with chronic kidney disease Diabetes mellitus terminologist insulin use: with terminologist use Chronic kidney disease stage: on chronic dialysis Qualified Code(s): E11.22 - Type 2 diabetes mellitus with diabetic chronic kidney disease; N18.6 - End stage renal disease; Z79.4 - snf (current) use of insulin; Z99.2 - Dependence on renal dialysis
[2017-03-19] MEDS: CALCIUM ACETATE 667 MG CAPSULE PO SCH ×2 (16:49→17:39)
[2017-03-19] MEDS: URSODIOL 300 MG CAPSULE PO SCH ×2 (16:50→21:20)
[2017-03-19] MEDS: LACTULOSE 20 GM/30 ML UDCUP PO SCH (16:51)
[2017-03-19] MEDS: CARVEDILOL 6.25 MG TABLET PO SCH ×2 (16:52→21:20)
[2017-03-19] MEDS: CLOTRIMAZOLE/BETAMETHASONE CREAM 15 GM TUBE TOP SCH ×2 (16:53→23:02)
[2017-03-19] MEDS: LANSOPRAZOLE ODT 30 MG TABLET NG SCH (16:53)
[2017-03-19] MEDS: PANTOPRAZOLE 40 MG TABLET PO SCH (16:53)
[2017-03-19] MEDS: INSULIN GLARGINE 100 UNIT/ML SUBCUT SCH (21:21)
[2017-03-20] MEDS: ACETAMINOPHEN 325 MG TABLET PO PRN ×3 (01:11→20:51)
[2017-03-20] MEDS: NAFCILLIN IV SCH ×6 (01:13→20:51)
[2017-03-20] MEDS: SODIUM CHLORIDE 0.9% IV SCH ×6 (01:13→20:51)
[2017-03-20] MEDS: ALBUTEROL/IPRATROPIUM 3 ML NEB RESP TX SCH ×6 (02:43→23:44)
[2017-03-20 04:50] LABS: Basophils % 0.2 % (0.0-0.8); Eosinophils # 0.1 10*3/uL (0.0-0.87); Eosinophils % 1.5 % (0.00-10.9); Hematocrit 28.6 VOL% (35.7-47.0); Hemoglobin 8.7 GM/DL (12.0-16.0); Immature Granulocytes % 0.4 %; Immature Granulocytes Absolute 0.03 #; Lymphocytes # 1.3 10*3/uL (1.4-4.0); Lymphocytes % 15.9 % (21.3-54.2); Mean Corpuscular HGB Conc 30.4 GM/DL (32-36); Mean Corpuscular Hemoglobin 28 PG (27-34); Mean Platelet Volume 9.5 FL (9.6-12.0); Monocytes # 0.5 10*3/uL (0.11-0.8); Monocytes % 6.7 % (1.7-12.7); Neutrophils % 75.3 % (38.7-73.9); Platelet Count 227 T/CUMM (130-400); Red Blood Count 3.11 MC/CUMM (3.8-5.5); Red Cell Distribution Width 16.3 % (9.3-17.3)
[2017-03-20 05:23] LABS: Alanine Aminotransferase < 6 U/L (13-56); Albumin 2.4 G/DL (3.4-5.0); Alkaline Phosphatase 136 U/L (45-117); Aspartate Amino Transferase 15 U/L (0-37); Blood Urea Nitrogen 27 MG/DL (7-18); Calcium 8.2 MG/DL (8.5-10.1); Glucose 142 MG/DL (74-106); Magnesium 2.1 MG/DL (1.8-2.4); Phosphorous 2.8 MG/DL (2.5-4.9); Potassium 4.6 MMOL/L (3.5-5.1); Sodium 136 MMOL/L (136-145)
[2017-03-20 05:28] LABS: Ammonia 18 UMOL/L (11-32)
[2017-03-20] MEDS: INSULIN REGULAR 100 UNIT/ML SUBCUT SCH ×4 (09:20→20:57)
--- NOTE | 2017-03-20 09:55 | Nephrology Progress Note ---
Nephrology - PN: Subj Interval history: Patient is seen on hemodialysis, she is complaining of pain and requesting some pain medication. Physical exam general the patient's in no acute distress Assessment/plan 1. End-stage renal disease-we will continue hemodialysis unchanged 2. MRSA bacteremia 3. Osteomyelitis will continue antibiotics 4. Anemia-patient's hematocrit around 28% Exam (PN)-Nephrology - Vital Signs Vital signs: Period Temp Pulse Resp BP Sys/Brito Pulse Ox Last 24 Hr 98.2 F-101.4 F 78-100 16-20 111-157/65-89 89-100 - Lab 03/20/17 04:32 03/20/17 04:32 Most recent lab results Calcium 8.2 MG/DL (8.5-10.1) L 03/20/17 04:32 Phosphorus 2.8 MG/DL (2.5-4.9) 03/20/17 04:32 Magnesium 2.1 MG/DL (1.8-2.4) 03/20/17 04:32
[2017-03-20] MEDS: CALCIUM ACETATE 667 MG CAPSULE PO SCH ×3 (12:00→16:54)
[2017-03-20] MEDS: CARVEDILOL 6.25 MG TABLET PO SCH ×2 (12:01→20:51)
[2017-03-20] MEDS: LACTULOSE 20 GM/30 ML UDCUP PO SCH (12:01)
[2017-03-20] MEDS: URSODIOL 300 MG CAPSULE PO SCH ×2 (12:01→20:51)
[2017-03-20] MEDS: LANSOPRAZOLE ODT 30 MG TABLET NG SCH (12:01)
[2017-03-20] MEDS: PANTOPRAZOLE 40 MG TABLET PO SCH (12:01)
[2017-03-20] MEDS: INSULIN GLARGINE 100 UNIT/ML SUBCUT SCH ×2 (12:10→20:58)
[2017-03-20] MEDS: CLOTRIMAZOLE/BETAMETHASONE CREAM 15 GM TUBE TOP SCH ×2 (12:11→21:04)
--- NOTE | 2017-03-20 17:14 | Family Practice Progress Note ---
Family Practice - PN: Subj Interval history: Patient receiving dialysis this a.m. Staff not aware of any acute changes. Presently receiving nafcillin for osteomyelitis. A.m. lab studies are stable except for renal changes which are being addressed with dialysis. No new problems identified. We will continue present treatment plan Exam (Progress Note) - Constitutional Vitals: Period Temp Pulse Resp BP Sys/Brito Pulse Ox Last 24 Hr 97.4 F-101.4 F 78-100 17-20 94-139/57-80 92-100 Results - Labs CBC & BMP: 03/20/17 04:32 03/20/17 04:32
[2017-03-20] MEDS: CALCITRIOL 0.25 MCG CAPSULE PO SCH (18:25)
[2017-03-21] MEDS: NAFCILLIN IV SCH ×6 (00:06→20:32)
[2017-03-21] MEDS: SODIUM CHLORIDE 0.9% IV SCH ×6 (00:06→20:32)
[2017-03-21] MEDS: ALBUTEROL/IPRATROPIUM 3 ML NEB RESP TX SCH ×5 (03:23→19:00)
[2017-03-21] MEDS: INSULIN REGULAR 100 UNIT/ML SUBCUT SCH ×4 (08:32→20:36)
[2017-03-21] MEDS: LANSOPRAZOLE ODT 30 MG TABLET NG SCH (08:32)
[2017-03-21] MEDS: LACTULOSE 20 GM/30 ML UDCUP PO SCH (08:32)
[2017-03-21] MEDS: CALCIUM ACETATE 667 MG CAPSULE PO SCH ×3 (08:32→17:30)
[2017-03-21] MEDS: URSODIOL 300 MG CAPSULE PO SCH ×2 (08:32→20:35)
[2017-03-21] MEDS: PANTOPRAZOLE 40 MG TABLET PO SCH (08:32)
[2017-03-21] MEDS: CARVEDILOL 6.25 MG TABLET PO SCH ×2 (08:32→20:36)
[2017-03-21] MEDS: CLOTRIMAZOLE/BETAMETHASONE CREAM 15 GM TUBE TOP SCH ×2 (08:35→20:37)
[2017-03-21] MEDS: INSULIN GLARGINE 100 UNIT/ML SUBCUT SCH ×2 (08:35→20:36)
--- NOTE | 2017-03-21 14:17 | Family Practice Progress Note ---
Family Practice - PN: Subj Interval history: Patient continues to slowly improve. States she feels good today no new complaints. Still receiving nafcillin IV for staph aureus osteomyelitis. No new problems identified. Will order labs for a's continue present treatment plan Exam (Progress Note) - Constitutional Vitals: Period Temp Pulse Resp BP Sys/Brito Pulse Ox Last 24 Hr 97.1 F-1100.1 F 77-101 16-20 94-130/57-70 92-99 Results - Labs CBC & BMP: 03/20/17 04:32 03/20/17 04:32
--- NOTE | 2017-03-21 16:43 | Nephrology Progress Note ---
Nephrology - PN: Subj Interval history: Patient reports feeling better overall. She denies shortness of breath. Review of systems GI she denies nausea or vomiting Physical exam general the patient is in no acute distress Assessment/plan 1. End-stage renal disease-we will continue hemodialysis 2. MRSA bacteremia continue antibiotics 3. Osteomyelitis 4. Anemia-patient's hematocrit around 29% Exam (PN)-Nephrology - Vital Signs Vital signs: Period Temp Pulse Resp BP Sys/Brito Pulse Ox Last 24 Hr 97.1 F-1100.1 F 77-101 16-20 98-130/57-70 93-99 - Lab 03/20/17 04:32 03/20/17 04:32 Most recent lab results Calcium 8.2 MG/DL (8.5-10.1) L 03/20/17 04:32 Phosphorus 2.8 MG/DL (2.5-4.9) 03/20/17 04:32 Magnesium 2.1 MG/DL (1.8-2.4) 03/20/17 04:32
[2017-03-21] MEDS: CALCITRIOL 0.25 MCG CAPSULE PO SCH (17:30)
[2017-03-22] MEDS: ALBUTEROL/IPRATROPIUM 3 ML NEB RESP TX SCH ×7 (00:19→23:47)
[2017-03-22] MEDS: SODIUM CHLORIDE 0.9% IV SCH ×6 (01:18→20:50)
[2017-03-22] MEDS: NAFCILLIN IV SCH ×6 (01:18→20:50)
[2017-03-22 06:21] LABS: Basophils % 0.3 % (0.0-0.8); Eosinophils # 0.1 10*3/uL (0.0-0.87); Hematocrit 27.8 VOL% (35.7-47.0); Hemoglobin 8.6 GM/DL (12.0-16.0); Immature Granulocytes % 1.1 %; Immature Granulocytes Absolute 0.08 #; Lymphocytes # 1.2 10*3/uL (1.4-4.0); Mean Corpuscular HGB Conc 30.9 GM/DL (32-36); Mean Corpuscular Hemoglobin 28 PG (27-34); Mean Corpuscular Volume 91.4 FL (87-102); Mean Platelet Volume 9.2 FL (9.6-12.0); Monocytes # 0.6 10*3/uL (0.11-0.8); Monocytes % 8.2 % (1.7-12.7); Neutrophils % 71.4 % (38.7-73.9); Platelet Count 237 T/CUMM (130-400); Red Blood Count 3.04 MC/CUMM (3.8-5.5); Red Cell Distribution Width 16.5 % (9.3-17.3)
[2017-03-22 06:47] LABS: Calcium 7.5 MG/DL (8.5-10.1)
[2017-03-22 06:48] LABS: Osmolality,Calculated 284.8 MOS/KG (273-304); Potassium 4.3 MMOL/L (3.5-5.1)
[2017-03-22] MEDS: CLOTRIMAZOLE/BETAMETHASONE CREAM 15 GM TUBE TOP SCH ×2 (08:13→20:59)
[2017-03-22] MEDS: URSODIOL 300 MG CAPSULE PO SCH ×2 (08:13→20:50)
[2017-03-22] MEDS: INSULIN GLARGINE 100 UNIT/ML SUBCUT SCH ×2 (08:13→20:47)
[2017-03-22] MEDS: LACTULOSE 20 GM/30 ML UDCUP PO SCH (08:13)
[2017-03-22] MEDS: LANSOPRAZOLE ODT 30 MG TABLET NG SCH (08:13)
[2017-03-22] MEDS: PANTOPRAZOLE 40 MG TABLET PO SCH (08:13)
[2017-03-22] MEDS: CARVEDILOL 6.25 MG TABLET PO SCH ×2 (08:13→20:50)
[2017-03-22] MEDS: INSULIN REGULAR 100 UNIT/ML SUBCUT SCH ×4 (08:13→20:47)
[2017-03-22] MEDS: CALCIUM ACETATE 667 MG CAPSULE PO SCH ×3 (08:13→16:48)
--- NOTE | 2017-03-22 11:55 | Nephrology Progress Note ---
Nephrology - PN: Subj Interval history: She is seen during dialysis. Would pressure stable. She is asymptomatic Exam (PN)-Nephrology - Vital Signs Vital signs: Period Temp Pulse Resp BP Sys/Brito Pulse Ox Last 24 Hr 97.6 F-99.1 F 84-109 16-20 118-137/67-76 93-100 Exam: ENT: Normal Cardiovascular: Regular rate and rhythm. No murmur rub or gallop Lungs: Clear Extremities: No edema - Lab 03/22/17 05:39 03/22/17 05:39 Most recent lab results Calcium 7.5 MG/DL (8.5-10.1) L 03/22/17 05:39 Phosphorus 2.8 MG/DL (2.5-4.9) 03/20/17 04:32 Magnesium 2.1 MG/DL (1.8-2.4) 03/20/17 04:32 Assessment and Plan (1) End stage renal disease on dialysis Problem details: need new catheter access Status: Chronic Assessment and plan: 46-year-old woman with: * ESRD. Stable during dialysis today. She has a new right-sided tunneled HD catheter. A tunneled central line was also placed for antibiotic administration. * Bacteremia. MSSA. Continue nafcillin. Following ID Recs * Diabetes mellitus * Cirrhosis Current Visit: Yes (2) Diabetes mellitus Status: Chronic Current Visit: Yes Qualifiers: Diabetes mellitus type: type 2 Diabetes mellitus complication status: with kidney complications Diabetes mellitus complication detail: with chronic kidney disease Diabetes mellitus penitentiary insulin use: with penitentiary use Chronic kidney disease stage: on chronic dialysis Qualified Code(s): E11.22 - Type 2 diabetes mellitus with diabetic chronic kidney disease; N18.6 - End stage renal disease; Z79.4 - USP (current) use of insulin; Z99.2 - Dependence on renal dialysis (3) Cirrhosis of liver Status: Chronic Current Visit: No Qualifiers: Ascites presence: with ascites (4) Diabetes Status: Chronic Current Visit: No Qualifiers: Diabetes mellitus type: type 2 Diabetes mellitus complication status: with kidney complications Diabetes mellitus complication detail: with chronic kidney disease Diabetes mellitus computer terminal operator insulin use: with penitentiary use Chronic kidney disease stage: on chronic dialysis Qualified Code(s): E11.22 - Type 2 diabetes mellitus with diabetic chronic kidney disease; N18.6 - End stage renal disease; Z79.4 - USP (current) use of insulin; Z99.2 - Dependence on renal dialysis
--- NOTE | 2017-03-22 15:24 | Infectious Disease Progress ---
Assessment and Plan (1) MSSA (methicillin susceptible Staphylococcus aureus) septicemia Problem details: source not identified from catheter tip or right SCJ but may need several week IV abx Status: Acute Assessment and plan: Relapse of MSSA septicemia. TTE without evidence of endocarditis. Repeat blood cultures from the ninth negative today. Recommendations: Continue nafcillin 2 g IV every 4 hours. Would prefer patient stay on this when she gets discharged, possibly with continuous infusion over 24 hours at home. Antibiotic therapy will be continued until April 30. Current Visit: Yes (2) Abscess Status: Acute Assessment and plan: Culture of aspirate was negative. She had bony changes to the sternoclavicular area on the left and will be treated for osteomyelitis. 6 weeks antibiotic therapy as above. Current Visit: Yes (3) Diabetes mellitus Status: Chronic Current Visit: Yes Qualifiers: Diabetes mellitus type: type 2 Diabetes mellitus complication status: with kidney complications Diabetes mellitus complication detail: with chronic kidney disease Diabetes mellitus snf insulin use: with snf use Chronic kidney disease stage: on chronic dialysis Qualified Code(s): E11.22 - Type 2 diabetes mellitus with diabetic chronic kidney disease; N18.6 - End stage renal disease; Z79.4 - residential (current) use of insulin; Z99.2 - Dependence on renal dialysis (4) End stage renal disease on dialysis Problem details: need new catheter access Status: Chronic Current Visit: Yes (5) Chest wall abscess Status: Acute Assessment and plan: Current Visit: Yes Infectious Disease - PN: Subj Interval history: Patient is doing relatively okay, has been afebrile. Got to dialysis catheter placed on Wednesday and also a tunneled central line. Continues to tolerate nafcillin without any problems. Infectious Disease Exam (PN) - Constitutional Vitals: Temp Pulse Resp BP Pulse Ox 97.9 F 90 18 138/72 100 03/22/17 13:24 03/22/17 14:20 03/22/17 14:20 03/22/17 13:24 03/22/17 14:20 General appearance: no acute distress Exam: General appearance: Comfortable, was getting dialysis when I saw her this morning - Eye Eye exam: Present: EOMI. no icterus Pupils: Present: THI - ENT ENT exam: no oral exudates - Neck Neck exam: supple, healed scar to left side, firm area about the left sternoclavicular joint with mild swelling in the supraclavicular area as well but this is nontender - Respiratory Respiratory exam: vesicular BS, no crepitations or wheezes - Cardiovascular Cardiovascular exam: regular rate and rhythm, no murmurs - GI/Abdominal GI/Abdominal exam: normal bowel sounds, soft, non-tender, no organomegaly or mass - Extremities Exam Extremities exam: Chronic bilateral lower extremity edema up to thighs - Skin Skin exam: no rash Results - Labs CBC & BMP: 03/22/17 05:39 03/22/17 05:39 Lab Results: I have reviewed the past 24 hour labs (Last blood cultures from the ninth are negative to date)
--- NOTE | 2017-03-22 20:05 | Internal Med Progress Note ---
Assessment and Plan (1) Diabetes mellitus Status: Chronic Current Visit: Yes Qualifiers: Diabetes mellitus type: type 2 Diabetes mellitus complication status: with kidney complications Diabetes mellitus complication detail: with chronic kidney disease Diabetes mellitus local company intermodal truck driver insulin use: with local company intermodal truck driver use Chronic kidney disease stage: on chronic dialysis Qualified Code(s): E11.22 - Type 2 diabetes mellitus with diabetic chronic kidney disease; N18.6 - End stage renal disease; Z79.4 - senior living (current) use of insulin; Z99.2 - Dependence on renal dialysis (2) End stage renal disease on dialysis Problem details: need new catheter access Status: Chronic Current Visit: Yes (3) Visual hallucination Problem details: she believes she sees "bugs coming out of her head" Status: Chronic Current Visit: Yes (4) MSSA (methicillin susceptible Staphylococcus aureus) septicemia Problem details: source not identified from catheter tip or right SCJ but may need several week IV abx Status: Acute Current Visit: Yes (5) Chest wall abscess Status: Acute Current Visit: Yes (6) Intravenous catheter sepsis Problem details: unsure when catheter was last changed - patient states same catheter for 5 months - may be a source of infection. Status: Acute Current Visit: Yes Internal Medicine - PN: Subj Interval history: Ms. Anders is a 46 year old female with history of ESRD on hemodialysis per Dr. Galarza, DM, liver cirrhosis, encephalopathy, recent history of left neck abscess , hypotension with history of Midodrine, who presented to ER with fever. She did not have dialysis today. She was given dose of Vanco in ER. Concern that dialysis fistula may be infected. Discussed case with Dr. Soto who will obtain aspirate tomorrow for pathology of right sternoclavicular joint and replace the dialysis catheter to culture tip of current one. She had cultures drawn today of sternoclavicular aspirate. She will have dialysis catheter placed in next day or two. She will be moved to floor out of ICU. Stable. Feeling better. She will have dialysis catheter placed tomorrow. Saw her today in special procedures room after she had temporary dialysis catheter placed. She tolerated that procedure well. She continues to improve. Wednesday, March 22, she has been steadily improving over the weekend. She can be discharged to home tomorrow and antibiotic 24 hour daily infusion can be arranged through home health. She is being treated for bacteremia and osteomyelitis of right sternoclavicular joint. She will be followed by Dr. Kenyon for the next several weeks of antibiotic therapy. Exam (Progress Note) - Constitutional Vitals: Period Temp Pulse Resp BP Sys/Brito Pulse Ox Last 24 Hr 97.6 F-100.5 F 85-109 16-20 118-143/63-73 94-100 Exam: General appearance: no acute distress - Respiratory Respiratory exam: Present: clear to auscultation bilaterally - Cardiovascular Cardiovascular exam: Present: regular rate and rhythm - GI/Abdominal GI/Abdominal exam: Present: soft. Absent: tenderness - Extremities Exam Extremities exam: Absent: edema - Neurological Exam Neurological exam: Present: alert - Psychiatric Psychiatric exam: Present: normal mood - Skin Skin exam: Present: warm, dry Results - Labs CBC & BMP: 03/22/17 05:39 03/22/17 05:39
--- NOTE | 2017-03-22 21:11 | Discharge Summary ---
Hospital Course - Hospital Course Hospital Course: Ms. Anders is a 46 year old female with history of ESRD on hemodialysis per Dr. Galarza, DM, liver cirrhosis, encephalopathy, recent history of left neck abscess , hypotension with history of Midodrine, who presented to ER with fever. She did have dialysis today. She was given dose of Vanco in ER. Concern that dialysis fistula may be infected. She has been steadily improving over the weekend. She can be discharged to home tomorrow and antibiotic 24 hour daily infusion can be arranged through home health. She is being treated for bacteremia and osteomyelitis of right sternoclavicular joint. She will be followed by Dr. Kenyon for the next several weeks of antibiotic therapy with Nafcillin for MSSA. Diagnosis - Discharge Diagnosis (1) Diabetes mellitus Status: Chronic (2) End stage renal disease on dialysis Status: Chronic (3) Visual hallucination Status: Resolved (4) MSSA (methicillin susceptible Staphylococcus aureus) septicemia Status: Acute Discharge Plan - Discharge Data Disposition: Home Health Service Condition at Discharge: Stable Discharge Diet: other (renal diet) Activity: increase activity as tolerated - Discharge Medications New Nafcillin 2,000 mg IV Q4H vial Carvedilol [Coreg] 6.25 mg PO BID #60 tablet Continue Calcium Acetate [Phoslo] 1,334 mg PO TID W/MEALS Lactulose Liquid [Chronulac] 10 gm PO DAILY #30 Ursodiol [Actigall] 300 mg PO BID #60 capsule Docusate Sodium Cap [Colace Cap] 100 mg PO BID PRN PRN Reason: Constipation Albuterol/Ipratropium Neb [Duoneb] 3 ml RESP TX RT Q4H PRN #0 PRN Reason: Shortness Of Breath/Wheezing Clotrimazole/Betameth Cream [Lotrisone Cream] 1 applic TOP BID applic Calcitriol 0.25 mcg PO SUTUTHSA Bisacodyl Tab [Dulcolax Tab] 5 mg PO DAILY PRN #0 tablet PRN Reason: Constipation Pravastatin [Pravachol] 10 mg PO BEDTIME #30 tablet Albuterol/Ipratropium Neb [Duoneb] 3 ml RESP TX RT QID Bacitracin Oint 1 applic TOP BID applic Lansoprazole Odt Tab [Prevacid Solutab] 30 mg NG DAILY tablet Mineral Oil/Petrolat Oph Oint [Refresh PM Oph Oint] 1 applic BOTH EYES BEDTIME applic Midodrine [Proamatine] 10 mg PO TID tablet Insulin Regular [HumuLIN R] See Protocol SUBCUT Q6HR unit Insulin Detemir [Levemir FlexPen] 20 unit SUBCUT DAILY Insulin Detemir [Levemir FlexPen] 10 unit SUBCUT BEDTIME - Follow Up or Referral Follow Up: Miranda Samano DO [Primary Care Provider] - Chantale-Amirah Amaya MD [Physician] - - Forms/Instructions Additional Discharge Instructions: follow up with Dr. Miranda Samano in clinic within 2 months; follow up with Dr. Kenyon in clinic within 6 weeks; repeat blood cultures in 6 weeks (two sets). Dr. Galarza for hemodialysis outpatient. Exam - Constitutional Vitals: Period Temp Pulse Resp BP Sys/Brito Pulse Ox Last 24 Hr 97.6 F-100.5 F 85-109 16-20 118-143/63-73 94-100 Exam: General appearance: no acute distress - Respiratory Respiratory exam: Present: clear to auscultation bilaterally - Cardiovascular Cardiovascular exam: Present: regular rate and rhythm - GI/Abdominal GI/Abdominal exam: Present: soft. Absent: tenderness - Extremities Exam Extremities exam: Absent: edema - Neurological Exam Neurological exam: Present: alert - Psychiatric Psychiatric exam: Present: normal mood - Skin Skin exam: Present: warm, dry Discharge Results Procedures and tests throughout hospitalization: Pending Orders 03/19/17 11:28 Blood Culture Stat Labs on day of discharge: Labs from last 24 hours 03/22/17 03/22/17 03/22/17 16:47 13:21 05:39 WBC RBC Hgb Hct MCV MCH MCHC RDW Plt Count MPV Neut % (Auto) Lymph % (Auto) Sevier % (Auto) Eos % (Auto) Baso % (Auto) Neut # (Auto) Lymph # (Auto) Sevier # (Auto) Eos # (Auto) Baso # (Auto) Immature Gran % Nucleated RBC % Immature Gran # Nucleated RBCs # Sodium 137 Potassium 4.3 Chloride 100 Carbon Dioxide 25 Anion Gap 16.3 H BUN 28 H Creatinine 5.60 H GFR Calculation 11 BUN/Creatinine Ratio 5.00 L Glucose 210 H POC Glucose 313 H 187 H Calculated Osmolality 284.8 Calcium 7.5 L 03/22/17 05:39 WBC 7.0 RBC 3.04 L Hgb 8.6 L Hct 27.8 L MCV 91.4 MCH 28 MCHC 30.9 L RDW 16.5 Plt Count 237 MPV 9.2 L Neut % (Auto) 71.4 Lymph % (Auto) 17.0 L Sevier % (Auto) 8.2 Eos % (Auto) 2.0 Baso % (Auto) 0.3 Neut # (Auto) 5.0 Lymph # (Auto) 1.2 L Sevier # (Auto) 0.6 Eos # (Auto) 0.1 Baso # (Auto) 0.0 Immature Gran % 1.1 Nucleated RBC % 0.0 Immature Gran # 0.08 Nucleated RBCs # 0.00 Sodium Potassium Chloride Carbon Dioxide Anion Gap BUN Creatinine GFR Calculation BUN/Creatinine Ratio Glucose POC Glucose Calculated Osmolality Calcium Preliminary micro results at discharge 03/19/17 11:28 Blood Culture - Preliminary Blood No growth at 3 days 03/19/17 11:28 Blood Culture - Preliminary Blood No growth at 3 days DS: Provider Date of admission: 03/15/17 16:08 Primary care physician: Miranda Samano DO Attending physician on admission: Miranda Samano DO Consults: 03/15/17 17:41 Consult to Case Mgmt/Social Srvs [CONS] Routine Reason for Case Mgmt/Social Srvs: Discharge Planning Consult to Physician [CONS] Routine Comment: ESRD, sepsis, known to you Consulting Provider: Alex Galarza Person Notified: MD rhodes 03/15/17 17:49 Consult to Pastoral Services [CONS] Routine Comment: Pastoral Screen: Request Chief Data Officer Visit 03/15/17 19:06 Consult to Physician [CONS] Routine Comment: neck abcess Consulting Provider: Rex Geiger Consulting Provider Notified: Yes When should Consulting Provider be notified: In am Consult to Specialist Group: ENT When should Consulting Provider be notified: In am Person Notified: ESTEVAN Date Notified: 03/16/17 Time Notified: 10:10 03/15/17 23:10 Consult to Physician [CONS] Routine Comment: possible osteomyelitis left sternoclavicular joint Consulting Provider: Mark Dacosta Jr. Consulting Provider Notified: Yes Consult to Specialist Group: Orthopedic Person Notified: MARY ANN Date Notified: 03/16/17 Time Notified: 08:45 03/16/17 13:26 Consult to Infection Control Nurse [CONS] Routine Reason for Infection Control Nurse: Antibiotic Selection Discharging clinician: Miranda Samano DO Expected date of discharge: 03/23/17
[2017-03-23] MEDS: NAFCILLIN IV SCH ×5 (01:58→16:06)
[2017-03-23] MEDS: SODIUM CHLORIDE 0.9% IV SCH ×5 (01:58→16:06)
[2017-03-23] MEDS: ALBUTEROL/IPRATROPIUM 3 ML NEB RESP TX SCH ×4 (03:16→16:12)
[2017-03-23 05:59] LABS: Basophils % 0.1 % (0.0-0.8); Eosinophils # 0.2 10*3/uL (0.0-0.87); Eosinophils % 2.1 % (0.00-10.9); Hematocrit 27.5 VOL% (35.7-47.0); Hemoglobin 8.3 GM/DL (12.0-16.0); Immature Granulocytes % 1.6 %; Immature Granulocytes Absolute 0.11 #; Lymphocytes # 1.5 10*3/uL (1.4-4.0); Lymphocytes % 21.1 % (21.3-54.2); Mean Corpuscular HGB Conc 30.2 GM/DL (32-36); Mean Corpuscular Hemoglobin 28 PG (27-34); Mean Corpuscular Volume 92.9 FL (87-102); Mean Platelet Volume 9.3 FL (9.6-12.0); Monocytes # 0.6 10*3/uL (0.11-0.8); Monocytes % 8.6 % (1.7-12.7); Neutrophils # 4.7 10*3/uL (1.4-7.4); Neutrophils % 66.5 % (38.7-73.9); Platelet Count 279 T/CUMM (130-400); Red Blood Count 2.96 MC/CUMM (3.8-5.5); Red Cell Distribution Width 16.7 % (9.3-17.3)
[2017-03-23 06:37] LABS: Alanine Aminotransferase < 9 U/L (13-56); Albumin 1.8 G/DL (3.4-5.0); Alkaline Phosphatase 114 U/L (45-117); Aspartate Amino Transferase 12 U/L (0-37); Blood Urea Nitrogen 17 MG/DL (7-18); Calcium 7.8 MG/DL (8.5-10.1); Glucose 217 MG/DL (74-106); Osmolality,Calculated 283.7 MOS/KG (273-304); Potassium 4.3 MMOL/L (3.5-5.1); Sodium 138 MMOL/L (136-145); Total Protein 6.2 G/DL (6.4-8.3)
[2017-03-23] MEDS: INSULIN REGULAR 100 UNIT/ML SUBCUT SCH ×5 (08:22→16:16)
[2017-03-23] MEDS: URSODIOL 300 MG CAPSULE PO SCH (08:24)
[2017-03-23] MEDS: PANTOPRAZOLE 40 MG TABLET PO SCH (08:24)
[2017-03-23] MEDS: LANSOPRAZOLE ODT 30 MG TABLET NG SCH (08:24)
[2017-03-23] MEDS: LACTULOSE 20 GM/30 ML UDCUP PO SCH (08:24)
[2017-03-23] MEDS: CALCIUM ACETATE 667 MG CAPSULE PO SCH ×3 (08:24→16:01)
[2017-03-23] MEDS: CARVEDILOL 6.25 MG TABLET PO SCH (08:25)
[2017-03-23] MEDS: CLOTRIMAZOLE/BETAMETHASONE CREAM 15 GM TUBE TOP SCH (08:25)
[2017-03-23] MEDS: INSULIN GLARGINE 100 UNIT/ML SUBCUT SCH (08:25)
--- NOTE | 2017-03-23 10:06 | Infectious Disease Progress ---
Assessment and Plan (1) MSSA (methicillin susceptible Staphylococcus aureus) septicemia Problem details: source not identified from catheter tip or right SCJ but may need several week IV abx Status: Acute Assessment and plan: Relapse of MSSA septicemia. TTE without evidence of endocarditis. Repeat blood cultures from the ninth negative today. Recommendations: Continue nafcillin 2 g IV every 4 hours. Consult social work specialist for home antibiotics, continuous infusion of nafcillin 12 g per 24 hours. Antibiotic therapy will be continued until April 30. Appointment to see me in the office in 1 week. Current Visit: Yes (2) Abscess Status: Acute Assessment and plan: Culture of aspirate was negative. She had bony changes to the sternoclavicular area on the left and will be treated for osteomyelitis. 6 weeks antibiotic therapy as above. Current Visit: Yes (3) Diabetes mellitus Status: Chronic Current Visit: Yes Qualifiers: Diabetes mellitus type: type 2 Diabetes mellitus complication status: with kidney complications Diabetes mellitus complication detail: with chronic kidney disease Diabetes mellitus residential insulin use: with residential use Chronic kidney disease stage: on chronic dialysis Qualified Code(s): E11.22 - Type 2 diabetes mellitus with diabetic chronic kidney disease; N18.6 - End stage renal disease; Z79.4 - rn long term care (current) use of insulin; Z99.2 - Dependence on renal dialysis (4) End stage renal disease on dialysis Problem details: need new catheter access Status: Chronic Current Visit: Yes (5) Chest wall abscess Status: Acute Assessment and plan: Current Visit: Yes Infectious Disease - PN: Subj Interval history: Patient doing well, continues to tolerate nafcillin without any problems. She is getting ready to go home today. Infectious Disease Exam (PN) - Constitutional Vitals: Temp Pulse Resp BP Pulse Ox 97.7 F 80 18 117/65 93 L 03/23/17 08:00 03/23/17 08:00 03/23/17 08:00 03/23/17 08:00 03/23/17 08:00 General appearance: no acute distress Exam: General appearance: Comfortable - Eye Eye exam: Present: EOMI. no icterus Pupils: Present: THI - ENT ENT exam: no oral exudates - Neck Neck exam: supple, healed scar to left side, firm area about the left sternoclavicular joint with mild swelling in the supraclavicular area as well but this is nontender - Respiratory Respiratory exam: vesicular BS, no crepitations or wheezes - Cardiovascular Cardiovascular exam: regular rate and rhythm, no murmurs - GI/Abdominal GI/Abdominal exam: normal bowel sounds, soft, non-tender, no organomegaly or mass - Extremities Exam Extremities exam: Chronic bilateral lower extremity edema up to thighs - Skin Skin exam: no rash Results - Labs CBC & BMP: 03/23/17 04:33 03/23/17 04:33 Lab Results: I have reviewed the past 24 hour labs (Blood cultures from 03/19 remain negative) Specialty Discharge - Follow Up or Referrals Follow up with: Amirah Prince MD [Physician] - Miranda Samano DO [Primary Care Provider] - 04/07/17 11:15 am
[2017-03-23 16:16] VITALS: BP 140/73
--- NOTE | 2017-03-24 01:08 | Nephrology Progress Note ---
Nephrology - PN: Subj Interval history: This is a late entry note for 03/23/2017 She was seen in the a.m. She denies shortness of breath or GI symptoms. She has been afebrile. Exam (PN)-Nephrology - Vital Signs Vital signs: Period Temp Pulse Resp BP Sys/Brito Pulse Ox Last 24 Hr 97.7 F-98.6 F 79-90 18-20 114-145/59-78 93-100 Exam: Gen.: Alert and oriented x3. ENT: Pupils equal round reactive to light. EOMs intact. Mucous membranes moist. Neck: Supple. No JVD or bruit. Cardiovascular: Regular rate and rhythm. No murmur rub or gallop Lungs: Clear Abdomen: Soft. Nontender. Positive bowel sounds. No organomegaly Extremities: No edema - Lab 03/23/17 04:33 03/23/17 04:33 Most recent lab results Calcium 7.8 MG/DL (8.5-10.1) L 03/23/17 04:33 Phosphorus 2.8 MG/DL (2.5-4.9) 03/20/17 04:32 Magnesium 2.1 MG/DL (1.8-2.4) 03/20/17 04:32 Assessment and Plan (1) End stage renal disease on dialysis Problem details: need new catheter access Status: Chronic Assessment and plan: 46-year-old woman with: * ESRD. Continue dialysis MWF * Bacteremia. MSSA. Continue nafcillin. Arrangements for IV antibiotics via home health are being made * Diabetes mellitus * Cirrhosis (2) Diabetes mellitus Status: Chronic Qualifiers: Diabetes mellitus type: type 2 Diabetes mellitus complication status: with kidney complications Diabetes mellitus complication detail: with chronic kidney disease Diabetes mellitus retirement insulin use: with termination clerk use Chronic kidney disease stage: on chronic dialysis Qualified Code(s): E11.22 - Type 2 diabetes mellitus with diabetic chronic kidney disease; N18.6 - End stage renal disease; Z79.4 - predatory animal exterminator (current) use of insulin; Z99.2 - Dependence on renal dialysis (3) Cirrhosis of liver Status: Chronic Qualifiers: Ascites presence: with ascites (4) Diabetes Status: Chronic Qualifiers: Diabetes mellitus type: type 2 Diabetes mellitus complication status: with kidney complications Diabetes mellitus complication detail: with chronic kidney disease Diabetes mellitus retirement insulin use: with retirement use Chronic kidney disease stage: on chronic dialysis Qualified Code(s): E11.22 - Type 2 diabetes mellitus with diabetic chronic kidney disease; N18.6 - End stage renal disease; Z79.4 - retirement (current) use of insulin; Z99.2 - Dependence on renal dialysis Specialty Discharge - Follow Up or Referrals Follow up with: Amirah Prince MD [Physician] - 03/30/17 10:15 am (Arrive at your appointment about 15 minutes early to fill out paperwork.) Miranda Samano DO [Primary Care Provider] - 04/07/17 11:15 am
--- NOTE | 2017-03-26 09:31 | Physician Query Form ---
CLICK EDIT DOCUMENT TO SELECT QUERY ANSWER --> OK --> SIGN Zina Flores RN, CCDS Certified Clinical Residential Sales Executive W) [phone] (f) [phone] [email or web address] PROVIDERS: Make your selection(s) from the choices in EACH section by typing an "x" and enter comments in the comment section. Please use your independent medical judgment in providing your response. This request does not imply that any particular answer is desired or expected. CLINICAL INDICATORS: (Providers should not edit this section) Patient with documented sepsis with Right SCJ catheter removed with cath tip culture negative, abscess of sternoclavicular area on the left with osteomyelitis cultured with negative results, blood cultures positive for MSSA, treated with IV antibiotics Based on the above, could you clarify the appropriate diagnosis, if significant , that supports the above abnormalities and additional evaluation, monitoring, and/or treatment rendered: ( ) Sepsis likely related to catheter ( x) Sepsis likely related to abscess ( ) Sepsis likely related to other source, please specify: ( ) Clinically unable to determine COMMENTS: PLEASE ALSO DOCUMENT RESPONSE IN PROGRESS NOTES AND/OR DISCHARGE SUMMARY Use of terms such as suspected, likely, or probable (associated with a specific diagnosis that is being evaluated, monitored, or treated as if it exists) are acceptable and can be restated in the discharge summary if not ruled out. MTDD
== END 2017-03-23 17:30 | disposition home health service (06) | DRG 871 ==
LOC: N.ED 12:07 → N.EDINP 16:08 → N.ICU 17:40 → N.5E 03-17 21:11
PROVIDERS: ADMIT Internal Medicine; ATTEND Internal Medicine

== ENCOUNTER 2017-10-21 13:21 | Inpatient (IN) ==
[2017-10-21] MEDS ORDERED: ACETAMINOPHEN 325 MG TABLET PO ONE (13:47)
[2017-10-21] MEDS ORDERED: ACETAMINOPHEN 500 MG TABLET ONE (14:52)
[2017-10-21] MEDS ORDERED: GENTAMICIN INJ 80 MG in SODIUM CHLORIDE 0.9% 100 ML IV STA (17:24)
[2017-10-21] MEDS ORDERED: VANCOMYCIN INJ 1,500 MG in SODIUM CHLORIDE 0.9% 500 ML IV STA (17:24)
[2017-10-21] MEDS ORDERED: SODIUM CHLORIDE 0.9% 250 ML IV STA (17:52)
[2017-10-21 17:57] LABS: Basophils % 0.2 % (0.0-0.8); Eosinophils # 0.1 10*3/uL (0.0-0.87); Eosinophils % 0.8 % (0.00-10.9); Hematocrit 35.7 VOL% (35.7-47.0); Immature Granulocytes % 1.3 %; Immature Granulocytes Absolute 0.18 #; Lymphocytes # 0.9 10*3/uL (1.4-4.0); Lymphocytes % 6.8 % (21.3-54.2); Mean Corpuscular HGB Conc 30.8 GM/DL (32-36); Mean Corpuscular Hemoglobin 29 PG (27-34); Mean Corpuscular Volume 93.2 FL (87-102); Mean Platelet Volume 10.3 FL (9.6-12.0); Monocytes # 0.3 10*3/uL (0.11-0.8); Monocytes % 2.5 % (1.7-12.7); Neutrophils # 11.9 10*3/uL (1.4-7.4); Neutrophils % 88.4 % (38.7-73.9); Platelet Count 110 T/CUMM (130-400); Red Blood Count 3.83 MC/CUMM (3.8-5.5); Red Cell Distribution Width 13.3 % (9.3-17.3); White Blood Count 13.5 T/CUMM (4-12)
[2017-10-21 18:08] LABS: INR 1.4
[2017-10-21 18:10] LABS: Partial Thromboplastin Time 46.9 SECS (0-40)
[2017-10-21 18:20] LABS: Albumin 3.1 G/DL (3.4-5.0); Bilirubin,Total 0.9 MG/DL (0.2-1.0); Calcium 8.5 MG/DL (8.5-10.1); Lactic Acid 1.2 MMOL/L (0.4-2.0); Potassium 3.2 MMOL/L (3.5-5.1); Total Protein 7.5 G/DL (6.4-8.3)
[2017-10-21] MEDS ORDERED: DEXTROSE 50% 25 GM/50 ML SYRINGE IV ONE (18:26)
[2017-10-21] MEDS ORDERED: DEXTROSE 50% 25 GM/50 ML VIAL IV STA (18:36)
[2017-10-21] MEDS ORDERED: GLUCAGON 1 MG VIAL IM PRN (20:46)
[2017-10-21] MEDS ORDERED: SODIUM CHLORIDE 0.9% 1,000 ML IV SCH (20:46)
[2017-10-21] MEDS ORDERED: DEXTROSE 50% 25 GM/50 ML VIAL IV PRN (20:46)
[2017-10-21] MEDS ORDERED: ONDANSETRON 4 MG/2 ML VIAL IV PRN (20:46)
[2017-10-21] MEDS ORDERED: PNEUMOCOCCAL VACCINE (13 VALENT) 0.5 ML SYRINGE IM ONE (21:13)
[2017-10-21] MEDS: DEXTROSE 5% NACL 0.45% 1,000 ML IV SCH (23:50)
[2017-10-22] MEDS: INSULIN LISPRO 100 UNIT/ML SUBCUT SCH ×5 (00:03→21:26)
[2017-10-22] MEDS: DOCUSATE SODIUM 100 MG CAPSULE PO SCH ×3 (00:03→21:26)
[2017-10-22 06:52] LABS: Basophils % 0.3 % (0.0-0.8); Eosinophils # 0.1 10*3/uL (0.0-0.87); Eosinophils % 0.7 % (0.00-10.9); Hematocrit 35.7 VOL% (35.7-47.0); Hemoglobin 11.2 GM/DL (12.0-16.0); Immature Granulocytes % 1.5 %; Immature Granulocytes Absolute 0.18 #; Lymphocytes # 0.6 10*3/uL (1.4-4.0); Lymphocytes % 5.1 % (21.3-54.2); Mean Corpuscular HGB Conc 31.4 GM/DL (32-36); Mean Corpuscular Hemoglobin 29 PG (27-34); Mean Corpuscular Volume 91.1 FL (87-102); Monocytes # 0.4 10*3/uL (0.11-0.8); Monocytes % 3.5 % (1.7-12.7); Neutrophils # 10.6 10*3/uL (1.4-7.4); Neutrophils % 88.9 % (38.7-73.9); Platelet Count 99 T/CUMM (130-400); Red Blood Count 3.92 MC/CUMM (3.8-5.5); Red Cell Distribution Width 13.6 % (9.3-17.3); White Blood Count 11.9 T/CUMM (4-12)
[2017-10-22 07:20] LABS: Calcium 8.4 MG/DL (8.5-10.1); Osmolality,Calculated 278.1 MOS/KG (273-304)
[2017-10-22 08:36] LABS: Band Neutrophils 35 % (0-10); Burr Cells 2+; Hypochromasia 2+; Lymphocytes 8 % (20-55); Platelet Estimate Decreased; Segmented Neutrophils 53 % (50-85); Total Cells Counted 100
[2017-10-22] MEDS: PANTOPRAZOLE 40 MG TABLET PO SCH (09:00)
[2017-10-22] MEDS: ACETAMINOPHEN 325 MG TABLET PO PRN ×2 (09:01→14:39)
[2017-10-23 06:01] LABS: Calcium 8.4 MG/DL (8.5-10.1); Osmolality,Calculated 278.4 MOS/KG (273-304)
[2017-10-23] MEDS: INSULIN LISPRO 100 UNIT/ML SUBCUT SCH ×4 (07:38→21:00)
[2017-10-23] MEDS: DOCUSATE SODIUM 100 MG CAPSULE PO SCH ×2 (09:20→21:12)
[2017-10-23] MEDS: PANTOPRAZOLE 40 MG TABLET PO SCH (09:20)
[2017-10-23] MEDS: predniSONE 5 MG TABLET PO SCH (11:46)
[2017-10-23] MEDS: DEXTROSE 5% NACL 0.45% 1,000 ML IV SCH (11:46)
[2017-10-23] MEDS: FAMOTIDINE 20 MG TABLET PO SCH (11:46)
[2017-10-24 07:10] LABS: Calcium 8.1 MG/DL (8.5-10.1); Osmolality,Calculated 290.2 MOS/KG (273-304); Potassium 4.8 MMOL/L (3.5-5.1)
[2017-10-24] MEDS: INSULIN LISPRO 100 UNIT/ML SUBCUT SCH ×4 (08:54→21:52)
[2017-10-24] MEDS: DOCUSATE SODIUM 100 MG CAPSULE PO SCH ×2 (08:54→20:26)
[2017-10-24] MEDS: FAMOTIDINE 20 MG TABLET PO SCH (08:54)
[2017-10-24] MEDS: PANTOPRAZOLE 40 MG TABLET PO SCH (08:55)
[2017-10-24] MEDS: predniSONE 5 MG TABLET PO SCH (08:55)
[2017-10-24] MEDS ORDERED: PRORENAL PO SCH (09:00)
[2017-10-24] MEDS ORDERED: [UNRECOGNIZED DRUG - OTHER] PO SCH (09:00)
[2017-10-25 07:07] LABS: Calcium 8.3 MG/DL (8.5-10.1); Osmolality,Calculated 297.4 MOS/KG (273-304)
[2017-10-25] MEDS: INSULIN LISPRO 100 UNIT/ML SUBCUT SCH ×4 (07:24→21:08)
[2017-10-25] MEDS: FAMOTIDINE 20 MG TABLET PO SCH (10:40)
[2017-10-25] MEDS: DOCUSATE SODIUM 100 MG CAPSULE PO SCH ×3 (10:40→21:09)
[2017-10-25] MEDS: predniSONE 5 MG TABLET PO SCH (10:40)
[2017-10-25] MEDS: PANTOPRAZOLE 40 MG TABLET PO SCH (10:41)
[2017-10-25] MEDS ORDERED: BUPIVACAINE 0.25% 50 ML VIAL ONE (12:08)
[2017-10-25] MEDS ORDERED: HEPARIN 5,000 UNIT/1 ML VIAL ONE (12:08)
[2017-10-25] MEDS ORDERED: GENTAMICIN INJ 80 MG in PREMIX 1 EACH IV ONE ×2 (13:30→17:00)
[2017-10-25] MEDS ORDERED: VANCOMYCIN INJ 1,000 MG in SODIUM CHLORIDE 0.9% 250 ML IV ONE ×2 (13:30→17:00)
[2017-10-25] MEDS: SODIUM CHLORIDE 0.9% 250 ML IV SCH (13:45)
[2017-10-25] MEDS ORDERED: MIDAZOLAM 2 MG/2 ML VIAL ONE (14:35)
[2017-10-25] MEDS ORDERED: fentaNYL 100 MCG/2 ML VIAL ONE (14:35)
[2017-10-25] MEDS ORDERED: HEPARIN 10,000 UNIT/10 ML VIAL IV PRN (16:45)
[2017-10-26] MEDS: ACETAMINOPHEN 325 MG TABLET PO PRN ×2 (01:44→09:18)
[2017-10-26 06:25] LABS: Calcium 7.9 MG/DL (8.5-10.1); Osmolality,Calculated 291.8 MOS/KG (273-304); Potassium 4.1 MMOL/L (3.5-5.1)
[2017-10-26] MEDS: SODIUM CHLORIDE 0.9% 250 ML IV SCH (06:55)
[2017-10-26] MEDS: FAMOTIDINE 20 MG TABLET PO SCH (09:15)
[2017-10-26] MEDS: DOCUSATE SODIUM 100 MG CAPSULE PO SCH ×2 (09:15→20:39)
[2017-10-26] MEDS: PANTOPRAZOLE 40 MG TABLET PO SCH (09:15)
[2017-10-26] MEDS: INSULIN LISPRO 100 UNIT/ML SUBCUT SCH ×4 (09:15→20:23)
[2017-10-26] MEDS: predniSONE 5 MG TABLET PO SCH (09:16)
[2017-10-26] MEDS: ALBUTEROL/IPRATROPIUM 3 ML NEB RESP TX SCH ×2 (15:00→23:11)
[2017-10-26] MEDS: MONTELUKAST 10 MG TABLET PO SCH (15:17)
[2017-10-26] MEDS ORDERED: INSULIN REGULAR 100 UNIT/ML SUBCUT SCH (23:00)
[2017-10-26] MEDS ORDERED: CALCIUM ACETATE 667 MG CAPSULE PO SCH (23:00)
[2017-10-27] MEDS: INSULIN GLARGINE 100 UNIT/ML SUBCUT SCH ×3 (00:24→21:33)
[2017-10-27 07:02] LABS: Basophils % 0.3 % (0.0-0.8); Eosinophils # 0.3 10*3/uL (0.0-0.87); Eosinophils % 5.3 % (0.00-10.9); Hematocrit 32.2 VOL% (35.7-47.0); Hemoglobin 9.6 GM/DL (12.0-16.0); Immature Granulocytes % 3.7 %; Immature Granulocytes Absolute 0.23 #; Lymphocytes # 1.3 10*3/uL (1.4-4.0); Lymphocytes % 20.3 % (21.3-54.2); Mean Corpuscular HGB Conc 29.8 GM/DL (32-36); Mean Corpuscular Hemoglobin 28 PG (27-34); Mean Corpuscular Volume 92.8 FL (87-102); Mean Platelet Volume 10.9 FL (9.6-12.0); Monocytes # 0.8 10*3/uL (0.11-0.8); Monocytes % 13.3 % (1.7-12.7); Neutrophils # 3.6 10*3/uL (1.4-7.4); Neutrophils % 57.1 % (38.7-73.9); Platelet Count 126 T/CUMM (130-400); Red Blood Count 3.47 MC/CUMM (3.8-5.5); Red Cell Distribution Width 14.4 % (9.3-17.3); White Blood Count 6.2 T/CUMM (4-12)
[2017-10-27] MEDS: ACETAMINOPHEN 325 MG TABLET PO PRN (07:17)
[2017-10-27 07:29] LABS: Calcium 7.8 MG/DL (8.5-10.1); Osmolality,Calculated 291.2 MOS/KG (273-304); Potassium 4.3 MMOL/L (3.5-5.1)
[2017-10-27] MEDS: ALBUTEROL/IPRATROPIUM 3 ML NEB RESP TX SCH ×2 (07:41→15:37)
[2017-10-27] MEDS: METOPROLOL TARTRATE 50 MG TABLET PO SCH (08:15)
[2017-10-27] MEDS: ASPIRIN EC 81 MG TABLET PO SCH (08:15)
[2017-10-27] MEDS: FAMOTIDINE 20 MG TABLET PO SCH (08:15)
[2017-10-27] MEDS: predniSONE 5 MG TABLET PO SCH (08:15)
[2017-10-27] MEDS: PANTOPRAZOLE 40 MG TABLET PO SCH (08:16)
[2017-10-27] MEDS: CARVEDILOL 6.25 MG TABLET PO SCH ×2 (08:16→21:32)
[2017-10-27] MEDS: CALCIUM ACETATE 667 MG CAPSULE PO SCH ×3 (08:16→16:17)
[2017-10-27] MEDS: INSULIN LISPRO 100 UNIT/ML SUBCUT SCH ×4 (08:19→21:32)
[2017-10-27] MEDS: DOCUSATE SODIUM 100 MG CAPSULE PO SCH ×2 (08:25→21:35)
[2017-10-27] MEDS: MONTELUKAST 10 MG TABLET PO SCH (10:20)
[2017-10-27] MEDS ORDERED: GENTAMICIN INJ 80 MG in PREMIX 1 EACH IV PRN (13:35)
[2017-10-27] MEDS: LORATADINE 10 MG TABLET PO SCH (21:32)
[2017-10-27] MEDS: DEXTROMETHORPHAN ER 6 MG/ML 90 ML/BOTTLE PO SCH (21:32)
[2017-10-28] MEDS: ALBUTEROL/IPRATROPIUM 3 ML NEB RESP TX SCH ×4 (00:40→23:08)
[2017-10-28 07:18] LABS: Basophils % 0.4 % (0.0-0.8); Eosinophils # 0.3 10*3/uL (0.0-0.87); Eosinophils % 5.9 % (0.00-10.9); Hematocrit 32.3 VOL% (35.7-47.0); Hemoglobin 9.7 GM/DL (12.0-16.0); Immature Granulocytes % 2.1 %; Immature Granulocytes Absolute 0.11 #; Lymphocytes % 19.7 % (21.3-54.2); Mean Corpuscular Hemoglobin 28 PG (27-34); Mean Corpuscular Volume 94.7 FL (87-102); Mean Platelet Volume 10.4 FL (9.6-12.0); Monocytes # 0.7 10*3/uL (0.11-0.8); Monocytes % 13.3 % (1.7-12.7); Neutrophils % 58.6 % (38.7-73.9); Platelet Count 130 T/CUMM (130-400); Red Blood Count 3.41 MC/CUMM (3.8-5.5); Red Cell Distribution Width 14.5 % (9.3-17.3); White Blood Count 5.1 T/CUMM (4-12)
[2017-10-28 07:40] LABS: Eosinophils 7 % (0-10); Giant Platelets Few; Hypochromasia 2+; Lymphocytes 14 % (20-55); Ovalocytes Slight; Platelet Estimate Normal; Segmented Neutrophils 64 % (50-85); Total Cells Counted 100
[2017-10-28 07:52] LABS: Albumin 2.9 G/DL (3.4-5.0); Bilirubin,Total 1.7 MG/DL (0.2-1.0); Calcium 7.7 MG/DL (8.5-10.1); Potassium 3.8 MMOL/L (3.5-5.1); Total Protein 8.2 G/DL (6.4-8.3)
[2017-10-28] MEDS: LORATADINE 10 MG TABLET PO SCH (09:58)
[2017-10-28] MEDS: CALCIUM ACETATE 667 MG CAPSULE PO SCH ×3 (09:59→16:43)
[2017-10-28] MEDS: predniSONE 5 MG TABLET PO SCH (09:59)
[2017-10-28] MEDS: METOPROLOL TARTRATE 50 MG TABLET PO SCH (09:59)
[2017-10-28] MEDS: CARVEDILOL 6.25 MG TABLET PO SCH ×2 (09:59→21:18)
[2017-10-28] MEDS: ASPIRIN EC 81 MG TABLET PO SCH (09:59)
[2017-10-28] MEDS: FAMOTIDINE 20 MG TABLET PO SCH (10:00)
[2017-10-28] MEDS: INSULIN LISPRO 100 UNIT/ML SUBCUT SCH ×4 (10:00→21:18)
[2017-10-28] MEDS: INSULIN GLARGINE 100 UNIT/ML SUBCUT SCH ×2 (10:01→21:19)
[2017-10-28] MEDS: DOCUSATE SODIUM 100 MG CAPSULE PO SCH ×2 (10:01→21:19)
[2017-10-28] MEDS: MUPIROCIN 2% OINT 22 GM TUBE TOP SCH ×2 (10:02→21:18)
[2017-10-28] MEDS: PANTOPRAZOLE 40 MG TABLET PO SCH (11:16)
[2017-10-28] MEDS: OXACILLIN 500 MG in SODIUM CHLORIDE 0.9% 100 ML IV SCH ×3 (11:16→20:27)
[2017-10-28] MEDS: DEXTROMETHORPHAN ER 6 MG/ML 90 ML/BOTTLE PO SCH (21:18)
[2017-10-29] MEDS: OXACILLIN 500 MG in SODIUM CHLORIDE 0.9% 100 ML IV SCH ×3 (02:53→14:29)
[2017-10-29 06:32] LABS: Basophils % 0.2 % (0.0-0.8); Eosinophils # 0.3 10*3/uL (0.0-0.87); Eosinophils % 5.1 % (0.00-10.9); Hematocrit 32.4 VOL% (35.7-47.0); Hemoglobin 9.6 GM/DL (12.0-16.0); Immature Granulocytes % 2.8 %; Immature Granulocytes Absolute 0.14 #; Lymphocytes # 1.2 10*3/uL (1.4-4.0); Lymphocytes % 24.1 % (21.3-54.2); Mean Corpuscular HGB Conc 29.6 GM/DL (32-36); Mean Corpuscular Hemoglobin 28 PG (27-34); Mean Platelet Volume 10.2 FL (9.6-12.0); Monocytes # 0.6 10*3/uL (0.11-0.8); Monocytes % 11.9 % (1.7-12.7); Neutrophils # 2.8 10*3/uL (1.4-7.4); Neutrophils % 55.9 % (38.7-73.9); Platelet Count 144 T/CUMM (130-400); Red Blood Count 3.41 MC/CUMM (3.8-5.5); Red Cell Distribution Width 14.6 % (9.3-17.3); White Blood Count 4.9 T/CUMM (4-12)
[2017-10-29 07:04] LABS: Band Neutrophils 1 % (0-10); Eosinophils 3 % (0-10); Hypochromasia 2+; Lymphocytes 20 % (20-55); Microcytosis 2+; Platelet Estimate Adequate; Segmented Neutrophils 61 % (50-85); Total Cells Counted 100
[2017-10-29] MEDS: ALBUTEROL/IPRATROPIUM 3 ML NEB RESP TX SCH ×2 (07:40→15:54)
[2017-10-29 10:38] LABS: Calcium 7.4 MG/DL (8.5-10.1); Osmolality,Calculated 284.2 MOS/KG (273-304); Potassium 4.2 MMOL/L (3.5-5.1)
[2017-10-29] MEDS: INSULIN LISPRO 100 UNIT/ML SUBCUT SCH ×3 (11:35→16:45)
[2017-10-29] MEDS: CALCIUM ACETATE 667 MG CAPSULE PO SCH ×3 (11:36→17:05)
[2017-10-29] MEDS: MUPIROCIN 2% OINT 22 GM TUBE TOP SCH (11:37)
[2017-10-29] MEDS: DOCUSATE SODIUM 100 MG CAPSULE PO SCH (11:37)
[2017-10-29] MEDS ORDERED: VANCOMYCIN INJ 1,000 MG in SODIUM CHLORIDE 0.9% 250 ML IV ONE (11:53)
[2017-10-29] MEDS: LORATADINE 10 MG TABLET PO SCH (12:07)
[2017-10-29] MEDS: FAMOTIDINE 20 MG TABLET PO SCH (12:07)
[2017-10-29] MEDS: CARVEDILOL 6.25 MG TABLET PO SCH (12:07)
[2017-10-29] MEDS: ASPIRIN EC 81 MG TABLET PO SCH (12:07)
[2017-10-29] MEDS: METOPROLOL TARTRATE 50 MG TABLET PO SCH (12:07)
[2017-10-29] MEDS: INSULIN GLARGINE 100 UNIT/ML SUBCUT SCH (12:07)
[2017-10-29] MEDS: PANTOPRAZOLE 40 MG TABLET PO SCH (12:08)
[2017-10-29] MEDS: predniSONE 5 MG TABLET PO SCH (12:08)
[2017-10-29 16:57] VITALS: BP 134/64
== END 2017-10-29 18:42 | disposition home or self-care (01) | DRG 314 ==
LOC: N.ED 13:21 → N.EDINP 17:52 → N.2E 19:37
PROVIDERS: ADMIT Internal Medicine; ATTEND Internal Medicine

== ENCOUNTER 2017-12-21 08:57 | Inpatient (IN) ==
[~2017-12-21 08:57] MED LIST: ceFAZolin 1,000 MG in SYRINGE 1 EACH IV ONE
[2017-12-21 09:27] LABS: Basophils % 0.1 % (0.0-0.8); Eosinophils # 0.2 10*3/uL (0.0-0.87); Eosinophils % 2.5 % (0.00-10.9); Hematocrit 30.9 VOL% (35.7-47.0); Hemoglobin 9.4 GM/DL (12.0-16.0); Immature Granulocytes % 0.5 %; Immature Granulocytes Absolute 0.04 #; Lymphocytes # 0.9 10*3/uL (1.4-4.0); Lymphocytes % 11.3 % (21.3-54.2); Mean Corpuscular HGB Conc 30.4 GM/DL (32-36); Mean Corpuscular Hemoglobin 28 PG (27-34); Mean Corpuscular Volume 93.4 FL (87-102); Mean Platelet Volume 9.5 FL (9.6-12.0); Monocytes # 0.5 10*3/uL (0.11-0.8); Monocytes % 6.1 % (1.7-12.7); Neutrophils # 6.3 10*3/uL (1.4-7.4); Neutrophils % 79.5 % (38.7-73.9); Platelet Count 144 T/CUMM (130-400); Red Blood Count 3.31 MC/CUMM (3.8-5.5); Red Cell Distribution Width 13.4 % (9.3-17.3); White Blood Count 7.9 T/CUMM (4-12)
[2017-12-21] MEDS ORDERED: INSULIN REGULAR 100 UNIT/ML SUBCUT ONE (09:33)
[2017-12-21] MEDS ORDERED: DIAZEPAM 5 MG TABLET PO STA (09:34)
[2017-12-21] MEDS ORDERED: PANTOPRAZOLE 40 MG VIAL IV STA (09:34)
[2017-12-21] MEDS ORDERED: PANTOPRAZOLE 40 MG VIAL IV ONE (09:36)
[2017-12-21] MEDS ORDERED: DIAZEPAM 5 MG TABLET ONE (09:36)
[2017-12-21] MEDS ORDERED: ceFAZolin 1,000 MG VIAL ONE (09:38)
[2017-12-21] MEDS ORDERED: INSULIN REGULAR 100 UNIT/ML ONE ×2 (09:38→11:15)
[2017-12-21 09:41] LABS: Calcium 8.4 MG/DL (8.5-10.1); Osmolality,Calculated 287.7 MOS/KG (273-304); Potassium 3.9 MMOL/L (3.5-5.1)
[2017-12-21] MEDS: SODIUM CHLORIDE 0.9% 250 ML IV SCH ×3 (09:45→23:03)
[2017-12-21] MEDS ORDERED: HEPARIN 5,000 UNIT/1 ML VIAL ONE (10:21)
[2017-12-21] MEDS ORDERED: INSULIN REGULAR 100 UNIT/ML IV ONE (11:22)
[2017-12-21] MEDS ORDERED: VANCOMYCIN 1,000 MG VIAL ONE (13:35)
[2017-12-21] MEDS ORDERED: DEXTROSE 50% 25 GM/50 ML VIAL IV PRN (14:08)
[2017-12-21] MEDS ORDERED: GLUCAGON 1 MG VIAL IM PRN (14:08)
[2017-12-21] MEDS ORDERED: MORPHINE 2 MG/1 ML SYRINGE IV PRN (14:08)
[2017-12-21] MEDS ORDERED: PROPOFOL 200 MG/20 ML VIAL IV ONE (14:20)
[2017-12-21] MEDS ORDERED: SEVOFLURANE 1 UNIT/15 MINUTE INH ONE (14:20)
[2017-12-21] MEDS ORDERED: fentaNYL 100 MCG/2 ML VIAL ONE (14:21)
[2017-12-21] MEDS ORDERED: MIDAZOLAM 2 MG/2 ML VIAL ONE (14:21)
[2017-12-21] MEDS ORDERED: ONDANSETRON 4 MG/2 ML VIAL IV PRN (14:25)
[2017-12-21] MEDS ORDERED: HYDROmorphone 2 MG/1 ML VIAL IV PRN (14:25)
[2017-12-21] MEDS ORDERED: MORPHINE 10 MG/1 ML VIAL ONE (14:29)
[2017-12-21] MEDS ORDERED: CALCIUM ACETATE 667 MG CAPSULE PO SCH (14:30)
[2017-12-21] MEDS: MORPHINE 10 MG/1 ML VIAL IV PRN ×2 (14:32→14:44)
[2017-12-21] MEDS ORDERED: DEXTROSE 50% 25 GM/50 ML VIAL IV ONE (15:17)
[2017-12-21] MEDS: INSULIN REGULAR 100 UNIT/ML SUBCUT SCH (16:28)
[2017-12-21] MEDS: CALCIUM ACETATE 667 MG CAPSULE PO SCH (16:55)
[2017-12-21] MEDS: PRAVASTATIN 20 MG TABLET PO SCH (20:25)
[2017-12-21] MEDS: CARVEDILOL 6.25 MG TABLET PO SCH (20:25)
[2017-12-21] MEDS: METOPROLOL TARTRATE 100 MG TABLET PO SCH (20:25)
[2017-12-21] MEDS: INSULIN GLARGINE 100 UNIT/ML SUBCUT SCH (20:26)
[2017-12-22 06:48] LABS: Basophils % 0.2 % (0.0-0.8); Eosinophils # 0.2 10*3/uL (0.0-0.87); Hematocrit 27.6 VOL% (35.7-47.0); Hemoglobin 8.5 GM/DL (12.0-16.0); Immature Granulocytes % 0.8 %; Immature Granulocytes Absolute 0.05 #; Lymphocytes # 0.9 10*3/uL (1.4-4.0); Lymphocytes % 14.4 % (21.3-54.2); Mean Corpuscular HGB Conc 30.8 GM/DL (32-36); Mean Corpuscular Hemoglobin 29 PG (27-34); Mean Corpuscular Volume 92.6 FL (87-102); Monocytes # 0.4 10*3/uL (0.11-0.8); Monocytes % 6.5 % (1.7-12.7); Neutrophils # 4.5 10*3/uL (1.4-7.4); Neutrophils % 74.1 % (38.7-73.9); Platelet Count 143 T/CUMM (130-400); Red Blood Count 2.98 MC/CUMM (3.8-5.5); Red Cell Distribution Width 13.4 % (9.3-17.3)
[2017-12-22 07:18] LABS: Calcium 7.7 MG/DL (8.5-10.1)
[2017-12-22 07:19] LABS: Osmolality,Calculated 287.8 MOS/KG (273-304); Potassium 4.1 MMOL/L (3.5-5.1)
[2017-12-22] MEDS: METOPROLOL TARTRATE 100 MG TABLET PO SCH ×2 (08:54→21:29)
[2017-12-22] MEDS: CARVEDILOL 6.25 MG TABLET PO SCH ×2 (08:54→21:29)
[2017-12-22] MEDS: CALCIUM ACETATE 667 MG CAPSULE PO SCH ×3 (10:57→16:35)
[2017-12-22] MEDS: predniSONE 5 MG TABLET PO SCH ×2 (10:58→16:38)
[2017-12-22] MEDS: ASPIRIN EC 81 MG TABLET PO SCH ×2 (10:58→16:38)
[2017-12-22] MEDS: INSULIN GLARGINE 100 UNIT/ML SUBCUT SCH ×2 (12:52→21:30)
[2017-12-22] MEDS ORDERED: HEPARIN 10,000 UNIT/10 ML VIAL IV PRN (15:07)
[2017-12-22] MEDS: INSULIN REGULAR 100 UNIT/ML SUBCUT SCH (16:34)
[2017-12-22] MEDS: PRAVASTATIN 20 MG TABLET PO SCH (21:30)
[2017-12-23] MEDS: CARVEDILOL 6.25 MG TABLET PO SCH ×2 (08:49→20:55)
[2017-12-23] MEDS: INSULIN GLARGINE 100 UNIT/ML SUBCUT SCH ×2 (08:50→20:54)
[2017-12-23] MEDS: CALCIUM ACETATE 667 MG CAPSULE PO SCH ×3 (08:51→16:22)
[2017-12-23] MEDS: predniSONE 5 MG TABLET PO SCH (08:51)
[2017-12-23] MEDS: ASPIRIN EC 81 MG TABLET PO SCH (08:51)
[2017-12-23] MEDS: METOPROLOL TARTRATE 100 MG TABLET PO SCH ×2 (08:54→20:55)
[2017-12-23] MEDS: ACETAMINOPHEN/CODEINE 300-30 MG TABLET PO PRN ×3 (09:36→20:54)
[2017-12-23] MEDS: INSULIN REGULAR 100 UNIT/ML SUBCUT SCH (16:23)
[2017-12-23] MEDS: PRAVASTATIN 20 MG TABLET PO SCH (20:55)
[2017-12-24 06:32] LABS: Hematocrit 25.5 VOL% (35.7-47.0); Hemoglobin 7.8 GM/DL (12.0-16.0)
[2017-12-24] MEDS: ACETAMINOPHEN/CODEINE 300-30 MG TABLET PO PRN (08:42)
[2017-12-24] MEDS: CALCIUM ACETATE 667 MG CAPSULE PO SCH ×3 (08:42→17:45)
[2017-12-24] MEDS ORDERED: VANCOMYCIN INJ 500 MG in SODIUM CHLORIDE 0.9% 100 ML IV PRN (14:15)
[2017-12-24] MEDS: METOPROLOL TARTRATE 100 MG TABLET PO SCH (17:37)
[2017-12-24] MEDS: predniSONE 5 MG TABLET PO SCH (17:37)
[2017-12-24] MEDS: ASPIRIN EC 81 MG TABLET PO SCH (17:37)
[2017-12-24] MEDS: CARVEDILOL 6.25 MG TABLET PO SCH (17:37)
[2017-12-24] MEDS: INSULIN REGULAR 100 UNIT/ML SUBCUT SCH (17:38)
[2017-12-24] MEDS: INSULIN GLARGINE 100 UNIT/ML SUBCUT SCH (17:38)
[2017-12-24 17:58] VITALS: BP 133/73
== END 2017-12-24 18:45 | disposition home or self-care (01) | DRG 252 ==
LOC: N.OR 08:57 → N.SDSINP 09:00 → N.5E 15:57
PROVIDERS: ADMIT Surgery; ATTEND Surgery

== ENCOUNTER 2018-03-29 12:56 | Inpatient (IN) ==
[2018-03-29] MEDS ORDERED: ACETAMINOPHEN 500 MG TABLET PO STA (15:10)
[2018-03-29 15:13] LABS: White Blood Count 14.3 T/CUMM (4-12)
[2018-03-29 15:14] LABS: Basophils % 0.2 % (0.0-0.8); Eosinophils # 0.3 10*3/uL (0.0-0.87); Eosinophils % 1.9 % (0.00-10.9); Hematocrit 33.4 VOL% (35.7-47.0); Hemoglobin 10.4 GM/DL (12.0-16.0); Immature Granulocytes % 1.3 %; Immature Granulocytes Absolute 0.18 #; Lymphocytes # 1.1 10*3/uL (1.4-4.0); Lymphocytes % 7.3 % (21.3-54.2); Mean Corpuscular HGB Conc 31.1 GM/DL (32-36); Mean Corpuscular Hemoglobin 28 PG (27-34); Mean Platelet Volume 10.6 FL (9.6-12.0); Monocytes # 0.3 10*3/uL (0.11-0.8); Monocytes % 2.4 % (1.7-12.7); Neutrophils # 12.5 10*3/uL (1.4-7.4); Neutrophils % 86.9 % (38.7-73.9); Platelet Count 137 T/CUMM (130-400); Red Blood Count 3.71 MC/CUMM (3.8-5.5); Red Cell Distribution Width 14.2 % (9.3-17.3)
[2018-03-29] MEDS ORDERED: ACETAMINOPHEN 500 MG TABLET ONE (15:18)
[2018-03-29] MEDS ORDERED: SODIUM CHLORIDE 0.9% 500 ML IV STA ×2 (15:31→18:42)
[2018-03-29 15:36] LABS: Lactic Acid 1.4 MMOL/L (0.4-2.0)
[2018-03-29 15:37] LABS: Albumin 3.2 G/DL (3.4-5.0); Calcium 8.5 MG/DL (8.5-10.1); Osmolality,Calculated 279.5 MOS/KG (273-304); Potassium 3.6 MMOL/L (3.5-5.1); Total Protein 8.6 G/DL (6.4-8.3)
[2018-03-29] MEDS ORDERED: VANCOMYCIN INJ 1,000 MG in SODIUM CHLORIDE 0.9% 250 ML IV STA (15:41)
[2018-03-29] MEDS ORDERED: GLUCAGON 1 MG VIAL IM PRN (17:16)
[2018-03-29] MEDS ORDERED: ONDANSETRON 4 MG/2 ML VIAL IV PRN (17:16)
[2018-03-29] MEDS ORDERED: cefTRIAXone 1,000 MG in SODIUM CHLORIDE 0.9% 100 ML IV STA (17:16)
[2018-03-29] MEDS ORDERED: ACETAMINOPHEN 325 MG TABLET PO PRN (17:16)
[2018-03-29] MEDS: DOCUSATE SODIUM 100 MG CAPSULE PO SCH (20:04)
[2018-03-29] MEDS: INSULIN REGULAR 100 UNIT/ML SUBCUT SCH (20:04)
[2018-03-29] MEDS: QUEtiapine 25 MG TABLET PO SCH (23:27)
[2018-03-30 04:16] LABS: Basophils % 0.2 % (0.0-0.8); Eosinophils # 0.3 10*3/uL (0.0-0.87); Eosinophils % 2.4 % (0.00-10.9); Hematocrit 31.3 VOL% (35.7-47.0); Hemoglobin 9.8 GM/DL (12.0-16.0); Immature Granulocytes % 1.2 %; Immature Granulocytes Absolute 0.14 #; Lymphocytes # 0.6 10*3/uL (1.4-4.0); Mean Corpuscular HGB Conc 31.3 GM/DL (32-36); Mean Corpuscular Hemoglobin 28 PG (27-34); Mean Corpuscular Volume 88.9 FL (87-102); Mean Platelet Volume 10.9 FL (9.6-12.0); Monocytes # 0.4 10*3/uL (0.11-0.8); Monocytes % 3.4 % (1.7-12.7); Neutrophils # 10.3 10*3/uL (1.4-7.4); Neutrophils % 87.8 % (38.7-73.9); Platelet Count 130 T/CUMM (130-400); Red Blood Count 3.52 MC/CUMM (3.8-5.5); Red Cell Distribution Width 14.6 % (9.3-17.3); White Blood Count 11.7 T/CUMM (4-12)
[2018-03-30 04:46] LABS: Platelet Estimate Adequate
[2018-03-30 04:47] LABS: Burr Cells Slight; Polychromasia Few; Target Cells Slight
[2018-03-30 05:51] LABS: Calcium 7.7 MG/DL (8.5-10.1); Osmolality,Calculated 286.4 MOS/KG (273-304)
[2018-03-30 05:53] LABS: Albumin 2.7 G/DL (3.4-5.0); Bilirubin,Direct 0.59 MG/DL (0.0-0.20); Bilirubin,Indirect 1.1 MG/DL (0.0-1.0); Bilirubin,Total 1.7 MG/DL (0.2-1.0); Total Protein 7.5 G/DL (6.4-8.3)
[2018-03-30] MEDS: MULTIVITAMIN (BEROCCA) TABLET PO SCH (10:29)
[2018-03-30] MEDS: PANTOPRAZOLE 40 MG TABLET PO SCH (10:30)
[2018-03-30] MEDS: predniSONE 5 MG TABLET PO SCH (10:30)
[2018-03-30] MEDS: CALCIUM ACETATE 667 MG CAPSULE PO SCH ×3 (10:31→18:11)
[2018-03-30] MEDS: INSULIN REGULAR 100 UNIT/ML SUBCUT SCH ×4 (10:41→20:50)
[2018-03-30] MEDS: DOCUSATE SODIUM 100 MG CAPSULE PO SCH ×2 (10:42→20:50)
[2018-03-30] MEDS: INSULIN GLARGINE 100 UNIT/ML SUBCUT SCH ×2 (10:42→20:50)
[2018-03-30] MEDS: CLOTRIMAZOLE/BETAMETHASONE CREAM 15 GM TUBE TOP SCH ×2 (10:43→20:51)
[2018-03-30] MEDS ORDERED: CALCIUM ACETATE 667 MG CAPSULE PO SCH (14:00)
[2018-03-30] MEDS ORDERED: HEPARIN 10,000 UNIT/10 ML VIAL IV PRN (14:42)
[2018-03-30] MEDS ORDERED: ALBUMIN 25% 25 GM in PREMIX 1 EACH IV PRN (14:47)
[2018-03-30] MEDS ORDERED: VANCOMYCIN INJ 1,000 MG in SODIUM CHLORIDE 0.9% 250 ML IV ONE (18:00)
[2018-03-30] MEDS: QUEtiapine 25 MG TABLET PO SCH (20:51)
[2018-03-31 05:46] LABS: Calcium 7.7 MG/DL (8.5-10.1); Osmolality,Calculated 288.1 MOS/KG (273-304); Potassium 3.7 MMOL/L (3.5-5.1)
[2018-03-31] MEDS: MULTIVITAMIN (BEROCCA) TABLET PO SCH (09:09)
[2018-03-31] MEDS: PANTOPRAZOLE 40 MG TABLET PO SCH (09:09)
[2018-03-31] MEDS: CALCIUM ACETATE 667 MG CAPSULE PO SCH ×3 (09:10→17:21)
[2018-03-31] MEDS: predniSONE 5 MG TABLET PO SCH (09:10)
[2018-03-31] MEDS: INSULIN GLARGINE 100 UNIT/ML SUBCUT SCH ×2 (09:11→22:03)
[2018-03-31] MEDS: INSULIN REGULAR 100 UNIT/ML SUBCUT SCH ×4 (09:19→22:02)
[2018-03-31] MEDS: DOCUSATE SODIUM 100 MG CAPSULE PO SCH ×2 (09:19→22:02)
[2018-03-31] MEDS: CLOTRIMAZOLE/BETAMETHASONE CREAM 15 GM TUBE TOP SCH ×2 (12:52→22:03)
[2018-03-31] MEDS: CEFEPIME 1,000 MG in SYRINGE 1 EACH IV SCH (17:39)
[2018-03-31] MEDS: QUEtiapine 25 MG TABLET PO SCH (22:03)
[2018-04-01 06:01] LABS: Basophils % 0.5 % (0.0-0.8); Eosinophils # 0.2 10*3/uL (0.0-0.87); Eosinophils % 3.1 % (0.00-10.9); Hematocrit 29.3 VOL% (35.7-47.0); Hemoglobin 9.4 GM/DL (12.0-16.0); Immature Granulocytes % 1.1 %; Immature Granulocytes Absolute 0.07 #; Mean Corpuscular HGB Conc 32.1 GM/DL (32-36); Mean Corpuscular Hemoglobin 28 PG (27-34); Mean Corpuscular Volume 88.3 FL (87-102); Mean Platelet Volume 10.1 FL (9.6-12.0); Monocytes # 0.4 10*3/uL (0.11-0.8); Monocytes % 6.7 % (1.7-12.7); Neutrophils # 4.7 10*3/uL (1.4-7.4); Neutrophils % 73.6 % (38.7-73.9); Platelet Count 119 T/CUMM (130-400); Red Blood Count 3.32 MC/CUMM (3.8-5.5); Red Cell Distribution Width 14.6 % (9.3-17.3); White Blood Count 6.4 T/CUMM (4-12)
[2018-04-01 06:35] LABS: Calcium 7.6 MG/DL (8.5-10.1); Osmolality,Calculated 287.8 MOS/KG (273-304)
[2018-04-01] MEDS: INSULIN REGULAR 100 UNIT/ML SUBCUT SCH ×4 (07:37→20:03)
[2018-04-01] MEDS: CALCIUM ACETATE 667 MG CAPSULE PO SCH ×3 (07:42→17:15)
[2018-04-01] MEDS: INSULIN GLARGINE 100 UNIT/ML SUBCUT SCH ×2 (12:08→20:03)
[2018-04-01] MEDS: CLOTRIMAZOLE/BETAMETHASONE CREAM 15 GM TUBE TOP SCH ×2 (12:08→20:08)
[2018-04-01] MEDS: predniSONE 5 MG TABLET PO SCH (12:08)
[2018-04-01] MEDS: PANTOPRAZOLE 40 MG TABLET PO SCH (12:08)
[2018-04-01] MEDS: DOCUSATE SODIUM 100 MG CAPSULE PO SCH ×2 (12:08→20:03)
[2018-04-01] MEDS: MULTIVITAMIN (BEROCCA) TABLET PO SCH (12:08)
[2018-04-01 16:47] LABS: Troponin I Only 0.033 NG/ML (0.00-0.045)
[2018-04-01] MEDS: CEFEPIME 1,000 MG in SYRINGE 1 EACH IV SCH (17:13)
[2018-04-01] MEDS ORDERED: VANCOMYCIN INJ 500 MG in SODIUM CHLORIDE 0.9% 100 ML IV ONE (18:00)
[2018-04-01] MEDS ORDERED: VANCOMYCIN INJ 500 MG in SODIUM CHLORIDE 0.9% 100 ML IV PRN (18:00)
[2018-04-01] MEDS: QUEtiapine 25 MG TABLET PO SCH (20:09)
[2018-04-01 20:39] LABS: Troponin I Only 0.031 NG/ML (0.00-0.045)
[2018-04-02 05:55] LABS: Basophils % 0.3 % (0.0-0.8); Eosinophils # 0.2 10*3/uL (0.0-0.87); Eosinophils % 3.6 % (0.00-10.9); Hematocrit 33.9 VOL% (35.7-47.0); Hemoglobin 10.2 GM/DL (12.0-16.0); Immature Granulocytes % 3.4 %; Immature Granulocytes Absolute 0.22 #; Lymphocytes % 15.6 % (21.3-54.2); Mean Corpuscular HGB Conc 30.1 GM/DL (32-36); Mean Corpuscular Hemoglobin 28 PG (27-34); Mean Corpuscular Volume 91.4 FL (87-102); Mean Platelet Volume 9.6 FL (9.6-12.0); Monocytes # 0.4 10*3/uL (0.11-0.8); Monocytes % 6.1 % (1.7-12.7); Neutrophils # 4.6 10*3/uL (1.4-7.4); Platelet Count 140 T/CUMM (130-400); Red Blood Count 3.71 MC/CUMM (3.8-5.5); Red Cell Distribution Width 14.5 % (9.3-17.3); White Blood Count 6.4 T/CUMM (4-12)
[2018-04-02 06:02] LABS: Calcium 7.2 MG/DL (8.5-10.1); Osmolality,Calculated 280.1 MOS/KG (273-304); Potassium 4.2 MMOL/L (3.5-5.1)
[2018-04-02] MEDS: INSULIN REGULAR 100 UNIT/ML SUBCUT SCH ×4 (07:49→20:26)
[2018-04-02] MEDS: PANTOPRAZOLE 40 MG TABLET PO SCH (08:35)
[2018-04-02] MEDS: CALCIUM ACETATE 667 MG CAPSULE PO SCH ×3 (08:35→17:28)
[2018-04-02] MEDS: BACLOFEN 10 MG TABLET PO PRN (08:35)
[2018-04-02] MEDS: CLOTRIMAZOLE/BETAMETHASONE CREAM 15 GM TUBE TOP SCH ×2 (08:35→20:27)
[2018-04-02] MEDS: predniSONE 5 MG TABLET PO SCH (08:35)
[2018-04-02] MEDS: DOCUSATE SODIUM 100 MG CAPSULE PO SCH ×2 (08:35→20:25)
[2018-04-02] MEDS: INSULIN GLARGINE 100 UNIT/ML SUBCUT SCH ×2 (08:35→20:26)
[2018-04-02] MEDS: MULTIVITAMIN (BEROCCA) TABLET PO SCH (08:35)
[2018-04-02] MEDS: CEFEPIME 1,000 MG in SYRINGE 1 EACH IV SCH (17:28)
[2018-04-02] MEDS: QUEtiapine 25 MG TABLET PO SCH (20:26)
[2018-04-02] MEDS: METOPROLOL SUCCINATE XL 100 MG TABLET PO SCH (20:26)
[2018-04-02] MEDS: hydrALAZINE 25 MG TABLET PO SCH (20:26)
[2018-04-02] MEDS: PRAVASTATIN 20 MG TABLET PO SCH (20:27)
[2018-04-02] MEDS: CARVEDILOL 6.25 MG TABLET PO SCH (20:27)
[2018-04-03 05:09] LABS: Basophils # 0.1 10*3/uL (0.0-0.2); Basophils % 0.7 % (0.0-0.8); Eosinophils # 0.3 10*3/uL (0.0-0.87); Eosinophils % 3.9 % (0.00-10.9); Hematocrit 34.5 VOL% (35.7-47.0); Hemoglobin 10.6 GM/DL (12.0-16.0); Immature Granulocytes % 5.4 %; Lymphocytes % 13.8 % (21.3-54.2); Mean Corpuscular HGB Conc 30.7 GM/DL (32-36); Mean Corpuscular Hemoglobin 27 PG (27-34); Mean Corpuscular Volume 88.9 FL (87-102); Mean Platelet Volume 9.9 FL (9.6-12.0); Monocytes # 0.5 10*3/uL (0.11-0.8); Monocytes % 6.2 % (1.7-12.7); Neutrophils # 5.2 10*3/uL (1.4-7.4); Platelet Count 164 T/CUMM (130-400); Red Blood Count 3.88 MC/CUMM (3.8-5.5); Red Cell Distribution Width 14.6 % (9.3-17.3); White Blood Count 7.4 T/CUMM (4-12)
[2018-04-03 05:51] LABS: Band Neutrophils 2 % (0-10); Eosinophils 4 % (0-10); Lymphocytes 15 % (20-55); Platelet Estimate Normal; Segmented Neutrophils 75 % (50-85); Total Cells Counted 100
[2018-04-03] MEDS: INSULIN REGULAR 100 UNIT/ML SUBCUT SCH ×4 (07:18→21:30)
[2018-04-03] MEDS: hydrALAZINE 25 MG TABLET PO SCH (08:36)
[2018-04-03] MEDS: METOPROLOL SUCCINATE XL 100 MG TABLET PO SCH ×2 (08:36→21:30)
[2018-04-03] MEDS: BACLOFEN 10 MG TABLET PO PRN (08:36)
[2018-04-03] MEDS: CARVEDILOL 6.25 MG TABLET PO SCH ×2 (08:37→16:48)
[2018-04-03] MEDS: MULTIVITAMIN (BEROCCA) TABLET PO SCH (08:37)
[2018-04-03] MEDS: CALCIUM ACETATE 667 MG CAPSULE PO SCH ×3 (08:37→16:48)
[2018-04-03] MEDS: DOCUSATE SODIUM 100 MG CAPSULE PO SCH ×2 (08:38→21:30)
[2018-04-03] MEDS: INSULIN GLARGINE 100 UNIT/ML SUBCUT SCH ×2 (08:38→21:30)
[2018-04-03] MEDS: PANTOPRAZOLE 40 MG TABLET PO SCH (08:39)
[2018-04-03] MEDS: CLOTRIMAZOLE/BETAMETHASONE CREAM 15 GM TUBE TOP SCH ×2 (08:39→21:37)
[2018-04-03] MEDS: predniSONE 5 MG TABLET PO SCH (08:39)
[2018-04-03] MEDS: CEFEPIME 1,000 MG in SYRINGE 1 EACH IV SCH (17:29)
[2018-04-03] MEDS: QUEtiapine 25 MG TABLET PO SCH (21:29)
[2018-04-03] MEDS: PRAVASTATIN 20 MG TABLET PO SCH (21:29)
[2018-04-04] MEDS: DEXTROSE 50% 25 GM/50 ML VIAL IV PRN ×3 (04:00→23:42)
[2018-04-04 05:31] LABS: Basophils % 0.5 % (0.0-0.8); Eosinophils # 0.3 10*3/uL (0.0-0.87); Eosinophils % 4.3 % (0.00-10.9); Hemoglobin 9.6 GM/DL (12.0-16.0); Immature Granulocytes % 5.5 %; Immature Granulocytes Absolute 0.32 #; Lymphocytes # 1.1 10*3/uL (1.4-4.0); Lymphocytes % 18.9 % (21.3-54.2); Mean Corpuscular Hemoglobin 27 PG (27-34); Mean Corpuscular Volume 91.2 FL (87-102); Mean Platelet Volume 9.3 FL (9.6-12.0); Monocytes # 0.4 10*3/uL (0.11-0.8); Neutrophils # 3.8 10*3/uL (1.4-7.4); Neutrophils % 63.8 % (38.7-73.9); Platelet Count 163 T/CUMM (130-400); Red Blood Count 3.51 MC/CUMM (3.8-5.5); Red Cell Distribution Width 14.8 % (9.3-17.3); White Blood Count 5.9 T/CUMM (4-12)
[2018-04-04 05:52] LABS: Albumin 2.5 G/DL (3.4-5.0); Bilirubin,Total 0.5 MG/DL (0.2-1.0); Calcium 7.7 MG/DL (8.5-10.1); Potassium 3.8 MMOL/L (3.5-5.1); Total Protein 6.9 G/DL (6.4-8.3)
[2018-04-04 06:01] LABS: Eosinophils 3 % (0-10); Hypochromasia 1+; Lymphocytes 14 % (20-55); Microcytosis Slight; Myelocytes 1 %; Segmented Neutrophils 73 % (50-85); Total Cells Counted 100
[2018-04-04 06:02] LABS: Ovalocytes Slight; Platelet Estimate Adequate
[2018-04-04] MEDS: INSULIN REGULAR 100 UNIT/ML SUBCUT SCH ×4 (08:37→20:55)
[2018-04-04] MEDS: INSULIN GLARGINE 100 UNIT/ML SUBCUT SCH ×2 (08:38→20:56)
[2018-04-04] MEDS: CALCIUM ACETATE 667 MG CAPSULE PO SCH ×3 (08:38→17:04)
[2018-04-04] MEDS: ceFAZolin 1,000 MG in SYRINGE 1 EACH IV SCH (13:56)
[2018-04-04] MEDS: CARVEDILOL 6.25 MG TABLET PO SCH ×2 (14:48→17:04)
[2018-04-04] MEDS: MULTIVITAMIN (BEROCCA) TABLET PO SCH (14:50)
[2018-04-04] MEDS: DOCUSATE SODIUM 100 MG CAPSULE PO SCH ×2 (14:50→20:33)
[2018-04-04] MEDS: PANTOPRAZOLE 40 MG TABLET PO SCH (14:51)
[2018-04-04] MEDS: predniSONE 5 MG TABLET PO SCH (14:51)
[2018-04-04] MEDS: METOPROLOL SUCCINATE XL 100 MG TABLET PO SCH ×2 (14:51→20:35)
[2018-04-04] MEDS: CLOTRIMAZOLE/BETAMETHASONE CREAM 15 GM TUBE TOP SCH (14:51)
[2018-04-04 14:57] LABS: Calcium 8.1 MG/DL (8.5-10.1); Osmolality,Calculated 275.1 MOS/KG (273-304); Potassium 4.2 MMOL/L (3.5-5.1)
[2018-04-04] MEDS ORDERED: LORazepam 2 MG/1 ML VIAL IV ONE (16:30)
[2018-04-04] MEDS ORDERED: PHENYLEPHRINE DRIP 40 MG/250 ML PREMIX IV PRN (18:20)
[2018-04-04] MEDS ORDERED: ALBUTEROL/IPRATROPIUM 3 ML NEB RESP TX PRN (18:22)
[2018-04-04] MEDS: ALBUTEROL/IPRATROPIUM 3 ML NEB RESP TX SCH (19:43)
[2018-04-04] MEDS: PRAVASTATIN 20 MG TABLET PO SCH (20:35)
[2018-04-04] MEDS: QUEtiapine 25 MG TABLET PO SCH (20:35)
[2018-04-04] MEDS: DEXTROSE 5% 1,000 ML IV SCH (23:45)
[2018-04-05 00:04] LABS: ABG Base Excess -1.2 MMOL/L (-2.5-2.5); ABG HCO3 23.4 MMOL/L (20-26); ABG Oxygen Saturation 98.7 % (95-100); ABG PCO2 54.2 MM HG (35-48); ABG PH 7.292 (7.35-7.45); ABG TCO2 23.8 MMOL/L (23-27); Allen Test Positive
[2018-04-05] MEDS ORDERED: FOSPHENYTOIN 1,000 MG.PE in SODIUM CHLORIDE 0.9% 250 ML IV ONE (00:29)
[2018-04-05] MEDS ORDERED: LORazepam 2 MG/1 ML VIAL ONE (00:30)
[2018-04-05] MEDS ORDERED: hydrALAZINE 20 MG/1 ML VIAL IV PRN (00:31)
[2018-04-05] MEDS: LORazepam 2 MG/1 ML VIAL IV PRN (00:34)
[2018-04-05] MEDS: ALBUTEROL/IPRATROPIUM 3 ML NEB RESP TX SCH ×4 (01:03→20:13)
[2018-04-05 01:39] LABS: Osmolality,Calculated 278.1 MOS/KG (273-304); Potassium 4.5 MMOL/L (3.5-5.1)
[2018-04-05] MEDS ORDERED: VECURONIUM 10 MG VIAL IV ONE (01:56)
[2018-04-05] MEDS ORDERED: ETOMIDATE 20 MG/10 ML VIAL IV ONE (01:56)
[2018-04-05] MEDS: PROPOFOL 1,000 MG/100 ML BOTTLE IV SCH ×2 (03:29→20:34)
[2018-04-05 03:44] LABS: ABG Base Excess -0.7 MMOL/L (-2.5-2.5); ABG HCO3 23.1 MMOL/L (20-26); ABG Oxygen Saturation 99.5 % (95-100); ABG PCO2 35.1 MM HG (35-48); ABG PH 7.436 (7.35-7.45); ABG PO2 236.9 MM HG (80-95); ABG TCO2 24.2 MMOL/L (23-27); Allen Test Positive; Pt O2 Delivery Device Ventilator
[2018-04-05] MEDS: CLOTRIMAZOLE/BETAMETHASONE CREAM 15 GM TUBE TOP SCH ×2 (04:50→09:38)
[2018-04-05] MEDS: DEXTROSE 50% 25 GM/50 ML VIAL IV PRN ×5 (08:08→23:41)
[2018-04-05] MEDS: INSULIN REGULAR 100 UNIT/ML SUBCUT SCH ×4 (08:32→21:27)
[2018-04-05 08:58] LABS: Basophils % 0.3 % (0.0-0.8); Eosinophils # 0.4 10*3/uL (0.0-0.87); Eosinophils % 3.3 % (0.00-10.9); Hematocrit 35.6 VOL% (35.7-47.0); Hemoglobin 11.1 GM/DL (12.0-16.0); Immature Granulocytes % 6.3 %; Immature Granulocytes Absolute 0.69 #; Lymphocytes # 1.4 10*3/uL (1.4-4.0); Lymphocytes % 12.6 % (21.3-54.2); Mean Corpuscular HGB Conc 31.2 GM/DL (32-36); Mean Corpuscular Hemoglobin 28 PG (27-34); Mean Platelet Volume 9.2 FL (9.6-12.0); Monocytes # 0.5 10*3/uL (0.11-0.8); Monocytes % 4.8 % (1.7-12.7); Neutrophils # 7.9 10*3/uL (1.4-7.4); Neutrophils % 72.7 % (38.7-73.9); Platelet Count 170 T/CUMM (130-400); Red Blood Count 3.91 MC/CUMM (3.8-5.5); White Blood Count 10.9 T/CUMM (4-12)
[2018-04-05 09:23] LABS: Anisocytosis 1+; Hypochromasia 1+; Microcytosis 1+; Ovalocytes Slight; Platelet Estimate Adequate; Polychromasia Slight
[2018-04-05 09:28] LABS: Calcium 7.7 MG/DL (8.5-10.1); Potassium 3.9 MMOL/L (3.5-5.1)
[2018-04-05] MEDS: PANTOPRAZOLE 40 MG TABLET PO SCH (09:38)
[2018-04-05] MEDS: CARVEDILOL 6.25 MG TABLET PO SCH ×2 (09:38→16:50)
[2018-04-05] MEDS: DOCUSATE SODIUM 100 MG CAPSULE PO SCH ×2 (09:38→21:38)
[2018-04-05] MEDS: INSULIN GLARGINE 100 UNIT/ML SUBCUT SCH ×2 (09:38→21:27)
[2018-04-05] MEDS: CALCIUM ACETATE 667 MG CAPSULE PO SCH ×3 (09:38→16:50)
[2018-04-05] MEDS: predniSONE 5 MG TABLET PO SCH (09:38)
[2018-04-05] MEDS: METOPROLOL SUCCINATE XL 100 MG TABLET PO SCH ×2 (09:39→21:27)
[2018-04-05] MEDS: MULTIVITAMIN LIQUID (CENTRUM) 60 ML BOTTLE PO SCH (09:39)
[2018-04-05] MEDS: ceFAZolin 1,000 MG in SYRINGE 1 EACH IV SCH (12:40)
[2018-04-05] MEDS: DEXTROSE 5% 1,000 ML IV SCH (20:36)
[2018-04-05] MEDS: PRAVASTATIN 20 MG TABLET PO SCH (21:32)
[2018-04-05] MEDS: QUEtiapine 25 MG TABLET PO SCH (21:32)
[2018-04-06] MEDS: CLOTRIMAZOLE/BETAMETHASONE CREAM 15 GM TUBE TOP SCH ×3 (01:30→21:10)
[2018-04-06] MEDS: ALBUTEROL/IPRATROPIUM 3 ML NEB RESP TX SCH ×4 (01:42→20:18)
[2018-04-06] MEDS: PROPOFOL 1,000 MG/100 ML BOTTLE IV SCH ×3 (03:31→17:00)
[2018-04-06 03:32] LABS: ABG Base Excess -1.7 MMOL/L (-2.5-2.5); ABG Oxygen Saturation 99.2 % (95-100); ABG PCO2 38.5 MM HG (35-48); ABG PH 7.386 (7.35-7.45); ABG TCO2 20.8 MMOL/L (23-27); Allen Test Positive; Pt O2 Delivery Device Ventilator
[2018-04-06 05:12] LABS: Calcium 7.4 MG/DL (8.5-10.1); Osmolality,Calculated 266.8 MOS/KG (273-304); Potassium 4.3 MMOL/L (3.5-5.1)
[2018-04-06 05:26] LABS: Basophils # 0.1 10*3/uL (0.0-0.2); Basophils % 0.6 % (0.0-0.8); Eosinophils # 0.4 10*3/uL (0.0-0.87); Hematocrit 37.8 VOL% (35.7-47.0); Hemoglobin 11.6 GM/DL (12.0-16.0); Immature Granulocytes % 4.6 %; Immature Granulocytes Absolute 0.45 #; Lymphocytes # 1.4 10*3/uL (1.4-4.0); Lymphocytes % 14.1 % (21.3-54.2); Mean Corpuscular HGB Conc 30.7 GM/DL (32-36); Mean Corpuscular Hemoglobin 28 PG (27-34); Mean Corpuscular Volume 90.6 FL (87-102); Mean Platelet Volume 10.3 FL (9.6-12.0); Monocytes # 0.6 10*3/uL (0.11-0.8); Monocytes % 6.2 % (1.7-12.7); Neutrophils % 70.5 % (38.7-73.9); Platelet Count 164 T/CUMM (130-400); Red Blood Count 4.17 MC/CUMM (3.8-5.5); Red Cell Distribution Width 15.3 % (9.3-17.3); White Blood Count 9.9 T/CUMM (4-12)
[2018-04-06] MEDS: predniSONE 5 MG TABLET PO SCH (08:34)
[2018-04-06] MEDS: MULTIVITAMIN LIQUID (CENTRUM) 60 ML BOTTLE PO SCH (08:34)
[2018-04-06] MEDS: BACLOFEN 10 MG TABLET PO PRN (08:34)
[2018-04-06] MEDS: CALCIUM ACETATE 667 MG CAPSULE PO SCH ×3 (08:34→16:54)
[2018-04-06] MEDS: PANTOPRAZOLE 40 MG TABLET PO SCH (08:34)
[2018-04-06] MEDS: CARVEDILOL 6.25 MG TABLET PO SCH ×2 (08:40→16:53)
[2018-04-06] MEDS: DOCUSATE SODIUM 100 MG CAPSULE PO SCH ×2 (08:40→21:07)
[2018-04-06] MEDS: INSULIN GLARGINE 100 UNIT/ML SUBCUT SCH ×2 (08:41→21:17)
[2018-04-06] MEDS: INSULIN REGULAR 100 UNIT/ML SUBCUT SCH ×4 (08:41→21:18)
[2018-04-06] MEDS: METOPROLOL SUCCINATE XL 100 MG TABLET PO SCH (08:41)
[2018-04-06] MEDS: ceFAZolin 1,000 MG in SYRINGE 1 EACH IV SCH (12:17)
[2018-04-06] MEDS: LORazepam 2 MG/1 ML VIAL IV PRN (14:18)
[2018-04-06] MEDS: DEXTROSE 5% 1,000 ML IV SCH (16:53)
[2018-04-06] MEDS ORDERED: VANCOMYCIN INJ 500 MG in SODIUM CHLORIDE 0.9% 100 ML IV ONE (21:00)
[2018-04-06] MEDS: QUEtiapine 25 MG TABLET PO SCH (21:07)
[2018-04-06] MEDS: PRAVASTATIN 20 MG TABLET PO SCH (21:08)
[2018-04-06] MEDS: METOPROLOL TARTRATE 100 MG TABLET PO SCH (21:08)
[2018-04-06] MEDS: RIFAMPIN 300 MG CAPSULE PER TUBE SCH (21:18)
[2018-04-07] MEDS: ALBUTEROL/IPRATROPIUM 3 ML NEB RESP TX SCH ×4 (01:20→20:42)
[2018-04-07] MEDS: PROPOFOL 1,000 MG/100 ML BOTTLE IV SCH ×2 (02:15→18:22)
[2018-04-07 04:42] LABS: ABG Base Excess 0.5 MMOL/L (-2.5-2.5); ABG HCO3 24.9 MMOL/L (20-26); ABG Oxygen Saturation 99.8 % (95-100); ABG PCO2 43.5 MM HG (35-48); ABG TCO2 23.5 MMOL/L (23-27); Allen Test Positive; Pt O2 Delivery Device Ventilator
[2018-04-07 06:58] LABS: Basophils % 0.3 % (0.0-0.8); Eosinophils # 0.3 10*3/uL (0.0-0.87); Eosinophils % 3.8 % (0.00-10.9); Hematocrit 34.5 VOL% (35.7-47.0); Hemoglobin 10.3 GM/DL (12.0-16.0); Immature Granulocytes % 2.5 %; Immature Granulocytes Absolute 0.18 #; Lymphocytes % 13.7 % (21.3-54.2); Mean Corpuscular HGB Conc 29.9 GM/DL (32-36); Mean Corpuscular Hemoglobin 28 PG (27-34); Mean Corpuscular Volume 94.5 FL (87-102); Mean Platelet Volume 10.1 FL (9.6-12.0); Monocytes # 0.4 10*3/uL (0.11-0.8); Monocytes % 5.2 % (1.7-12.7); Neutrophils # 5.3 10*3/uL (1.4-7.4); Neutrophils % 74.5 % (38.7-73.9); Platelet Count 157 T/CUMM (130-400); Red Blood Count 3.65 MC/CUMM (3.8-5.5); Red Cell Distribution Width 15.4 % (9.3-17.3); White Blood Count 7.1 T/CUMM (4-12)
[2018-04-07] MEDS: DEXTROSE 50% 25 GM/50 ML VIAL IV PRN ×3 (07:10→20:33)
[2018-04-07 07:14] LABS: Prealbumin 15.2 MG/DL (20-40)
[2018-04-07] MEDS: INSULIN REGULAR 100 UNIT/ML SUBCUT SCH ×4 (08:07→20:29)
[2018-04-07] MEDS: predniSONE 5 MG TABLET PO SCH (08:14)
[2018-04-07] MEDS: PANTOPRAZOLE 40 MG TABLET PO SCH (08:14)
[2018-04-07] MEDS: RIFAMPIN 300 MG CAPSULE PER TUBE SCH ×2 (08:14→20:32)
[2018-04-07] MEDS: CALCIUM ACETATE 667 MG CAPSULE PO SCH ×3 (08:14→16:27)
[2018-04-07] MEDS: METOPROLOL TARTRATE 100 MG TABLET PO SCH ×2 (08:15→20:28)
[2018-04-07] MEDS: CARVEDILOL 6.25 MG TABLET PO SCH ×2 (08:15→16:27)
[2018-04-07] MEDS: MULTIVITAMIN LIQUID (CENTRUM) 60 ML BOTTLE PO SCH (08:16)
[2018-04-07 08:22] LABS: ABG Base Excess 0.4 MMOL/L (-2.5-2.5); ABG HCO3 24.8 MMOL/L (20-26); ABG Oxygen Saturation 98.8 % (95-100); ABG PH 7.375 (7.35-7.45); ABG TCO2 23.4 MMOL/L (23-27)
[2018-04-07] MEDS: LORazepam 2 MG/1 ML VIAL IV PRN ×2 (09:02→18:12)
[2018-04-07] MEDS: INSULIN GLARGINE 100 UNIT/ML SUBCUT SCH ×2 (09:05→20:31)
[2018-04-07] MEDS: DOCUSATE SODIUM 100 MG CAPSULE PO SCH ×2 (09:05→20:31)
[2018-04-07] MEDS: CLOTRIMAZOLE/BETAMETHASONE CREAM 15 GM TUBE TOP SCH ×2 (09:06→20:31)
[2018-04-07 10:09] LABS: Albumin 2.4 G/DL (3.4-5.0); Bilirubin,Total 0.5 MG/DL (0.2-1.0); Calcium 7.4 MG/DL (8.5-10.1); Osmolality,Calculated 265.5 MOS/KG (273-304); Total Protein 7.2 G/DL (6.4-8.3)
[2018-04-07] MEDS: DEXTROSE 5% 1,000 ML IV SCH (13:30)
[2018-04-07] MEDS: PRAVASTATIN 20 MG TABLET PO SCH (20:29)
[2018-04-07] MEDS: QUEtiapine 25 MG TABLET PO SCH (20:29)
[2018-04-08] MEDS: ALBUTEROL/IPRATROPIUM 3 ML NEB RESP TX SCH ×4 (01:02→19:44)
[2018-04-08 03:49] LABS: Basophils % 0.1 % (0.0-0.8); Eosinophils # 0.3 10*3/uL (0.0-0.87); Eosinophils % 3.3 % (0.00-10.9); Hematocrit 30.4 VOL% (35.7-47.0); Hemoglobin 9.3 GM/DL (12.0-16.0); Immature Granulocytes % 1.3 %; Lymphocytes # 0.7 10*3/uL (1.4-4.0); Lymphocytes % 8.4 % (21.3-54.2); Mean Corpuscular HGB Conc 30.6 GM/DL (32-36); Mean Corpuscular Hemoglobin 28 PG (27-34); Mean Corpuscular Volume 89.9 FL (87-102); Mean Platelet Volume 9.8 FL (9.6-12.0); Monocytes # 0.3 10*3/uL (0.11-0.8); Monocytes % 3.7 % (1.7-12.7); Neutrophils # 6.6 10*3/uL (1.4-7.4); Neutrophils % 83.2 % (38.7-73.9); Platelet Count 152 T/CUMM (130-400); Red Blood Count 3.38 MC/CUMM (3.8-5.5); White Blood Count 7.9 T/CUMM (4-12)
[2018-04-08] MEDS ORDERED: VANCOMYCIN INJ 750 MG in SODIUM CHLORIDE 0.9% 250 ML IV PRN (08:30)
[2018-04-08] MEDS: PROPOFOL 1,000 MG/100 ML BOTTLE IV SCH (08:34)
[2018-04-08] MEDS: INSULIN GLARGINE 100 UNIT/ML SUBCUT SCH ×2 (09:28→21:25)
[2018-04-08] MEDS: METOPROLOL TARTRATE 100 MG TABLET PO SCH ×2 (09:29→20:39)
[2018-04-08] MEDS: BACLOFEN 10 MG TABLET PO PRN ×2 (09:29→16:29)
[2018-04-08] MEDS: CARVEDILOL 6.25 MG TABLET PO SCH ×2 (09:30→16:31)
[2018-04-08] MEDS: PANTOPRAZOLE 40 MG TABLET PO SCH (09:30)
[2018-04-08] MEDS: CALCIUM ACETATE 667 MG CAPSULE PO SCH ×3 (09:30→16:30)
[2018-04-08] MEDS: RIFAMPIN 300 MG CAPSULE PER TUBE SCH ×2 (09:31→20:39)
[2018-04-08] MEDS: predniSONE 5 MG TABLET PO SCH (09:31)
[2018-04-08] MEDS: INSULIN REGULAR 100 UNIT/ML SUBCUT SCH ×4 (09:32→21:24)
[2018-04-08] MEDS: DOCUSATE SODIUM 100 MG CAPSULE PO SCH ×2 (10:00→20:39)
[2018-04-08] MEDS: MULTIVITAMIN LIQUID (CENTRUM) 60 ML BOTTLE PO SCH (10:00)
[2018-04-08] MEDS: DEXTROSE 5% 1,000 ML IV SCH (11:09)
[2018-04-08] MEDS: CLOTRIMAZOLE/BETAMETHASONE CREAM 15 GM TUBE TOP SCH ×2 (11:32→21:26)
[2018-04-08 13:17] LABS: ABG Base Excess 0.4 MMOL/L (-2.5-2.5); ABG HCO3 25.8 MMOL/L (20-26); ABG Oxygen Saturation 98.9 % (95-100); ABG PH 7.377 (7.35-7.45); ABG PO2 152.9 MM HG (80-95); ABG TCO2 27.2 MMOL/L (23-27)
[2018-04-08] MEDS: DEXTROSE 50% 25 GM/50 ML VIAL IV PRN (13:52)
[2018-04-08 15:29] LABS: ABG Base Excess 0.2 MMOL/L (-2.5-2.5); ABG HCO3 24.6 MMOL/L (20-26); ABG Oxygen Saturation 97.2 % (95-100); ABG PCO2 51.6 MM HG (35-48); ABG PH 7.324 (7.35-7.45); ABG PO2 93.7 MM HG (80-95); ABG TCO2 24.7 MMOL/L (23-27)
[2018-04-08] MEDS: QUEtiapine 25 MG TABLET PO SCH (20:39)
[2018-04-08] MEDS: PRAVASTATIN 20 MG TABLET PO SCH (20:40)
[2018-04-08] MEDS ORDERED: VANCOMYCIN INJ 750 MG in SODIUM CHLORIDE 0.9% 250 ML IV ONE (21:00)
[2018-04-09] MEDS: ALBUTEROL/IPRATROPIUM 3 ML NEB RESP TX SCH ×4 (00:49→19:38)
[2018-04-09 03:31] LABS: Basophils % 0.2 % (0.0-0.8); Eosinophils # 0.2 10*3/uL (0.0-0.87); Hematocrit 26.5 VOL% (35.7-47.0); Hemoglobin 8.4 GM/DL (12.0-16.0); Immature Granulocytes Absolute 0.06 #; Lymphocytes # 0.6 10*3/uL (1.4-4.0); Lymphocytes % 10.2 % (21.3-54.2); Mean Corpuscular HGB Conc 31.7 GM/DL (32-36); Mean Corpuscular Hemoglobin 28 PG (27-34); Mean Corpuscular Volume 89.5 FL (87-102); Mean Platelet Volume 9.9 FL (9.6-12.0); Monocytes # 0.3 10*3/uL (0.11-0.8); Monocytes % 4.3 % (1.7-12.7); Neutrophils # 4.9 10*3/uL (1.4-7.4); Neutrophils % 81.3 % (38.7-73.9); Platelet Count 135 T/CUMM (130-400); Red Blood Count 2.96 MC/CUMM (3.8-5.5); Red Cell Distribution Width 15.2 % (9.3-17.3)
[2018-04-09 04:13] LABS: Calcium 7.8 MG/DL (8.5-10.1); Osmolality,Calculated 266.7 MOS/KG (273-304); Potassium 4.3 MMOL/L (3.5-5.1)
[2018-04-09] MEDS: PROPOFOL 1,000 MG/100 ML BOTTLE IV SCH (06:12)
[2018-04-09] MEDS: CALCIUM ACETATE 667 MG CAPSULE PO SCH ×3 (09:07→17:00)
[2018-04-09] MEDS: CARVEDILOL 6.25 MG TABLET PO SCH ×2 (09:08→17:00)
[2018-04-09] MEDS: DEXTROSE 5% 1,000 ML IV SCH (09:08)
[2018-04-09] MEDS: PANTOPRAZOLE 40 MG TABLET PO SCH (09:08)
[2018-04-09] MEDS: RIFAMPIN 300 MG CAPSULE PER TUBE SCH ×2 (09:09→21:33)
[2018-04-09] MEDS: predniSONE 5 MG TABLET PO SCH (09:09)
[2018-04-09] MEDS: METOPROLOL TARTRATE 100 MG TABLET PO SCH ×2 (09:09→21:29)
[2018-04-09] MEDS: INSULIN GLARGINE 100 UNIT/ML SUBCUT SCH ×3 (09:10→21:30)
[2018-04-09] MEDS: INSULIN REGULAR 100 UNIT/ML SUBCUT SCH ×3 (09:11→16:30)
[2018-04-09] MEDS: MULTIVITAMIN LIQUID (CENTRUM) 60 ML BOTTLE PO SCH (09:11)
[2018-04-09] MEDS: CLOTRIMAZOLE/BETAMETHASONE CREAM 15 GM TUBE TOP SCH ×2 (09:12→21:33)
[2018-04-09] MEDS: DOCUSATE SODIUM 100 MG CAPSULE PO SCH ×2 (15:45→21:30)
[2018-04-09] MEDS: PRAVASTATIN 20 MG TABLET PO SCH (21:29)
[2018-04-09] MEDS: QUEtiapine 25 MG TABLET PO SCH (21:30)
[2018-04-10] MEDS: ALBUTEROL/IPRATROPIUM 3 ML NEB RESP TX SCH ×4 (00:20→20:04)
[2018-04-10 03:08] LABS: Basophils % 0.2 % (0.0-0.8); Eosinophils # 0.2 10*3/uL (0.0-0.87); Eosinophils % 3.2 % (0.00-10.9); Hematocrit 28.6 VOL% (35.7-47.0); Hemoglobin 9.1 GM/DL (12.0-16.0); Immature Granulocytes % 0.8 %; Immature Granulocytes Absolute 0.04 #; Lymphocytes # 0.8 10*3/uL (1.4-4.0); Lymphocytes % 15.4 % (21.3-54.2); Mean Corpuscular HGB Conc 31.8 GM/DL (32-36); Mean Corpuscular Hemoglobin 29 PG (27-34); Mean Corpuscular Volume 90.5 FL (87-102); Mean Platelet Volume 9.8 FL (9.6-12.0); Monocytes # 0.3 10*3/uL (0.11-0.8); Monocytes % 6.3 % (1.7-12.7); Neutrophils # 3.9 10*3/uL (1.4-7.4); Neutrophils % 74.1 % (38.7-73.9); Platelet Count 137 T/CUMM (130-400); Red Blood Count 3.16 MC/CUMM (3.8-5.5); Red Cell Distribution Width 14.9 % (9.3-17.3); White Blood Count 5.3 T/CUMM (4-12)
[2018-04-10 03:31] LABS: Calcium 7.9 MG/DL (8.5-10.1); Osmolality,Calculated 265.2 MOS/KG (273-304); Potassium 4.5 MMOL/L (3.5-5.1)
[2018-04-10] MEDS: INSULIN REGULAR 100 UNIT/ML SUBCUT SCH ×5 (09:03→20:36)
[2018-04-10] MEDS: CALCIUM ACETATE 667 MG CAPSULE PO SCH ×3 (09:09→17:25)
[2018-04-10] MEDS: CARVEDILOL 6.25 MG TABLET PO SCH ×3 (09:09→17:28)
[2018-04-10] MEDS: MULTIVITAMIN LIQUID (CENTRUM) 60 ML BOTTLE PO SCH (09:10)
[2018-04-10] MEDS: DOCUSATE SODIUM 100 MG CAPSULE PO SCH ×2 (09:10→20:35)
[2018-04-10] MEDS: METOPROLOL TARTRATE 100 MG TABLET PO SCH ×2 (09:11→20:38)
[2018-04-10] MEDS: INSULIN GLARGINE 100 UNIT/ML SUBCUT SCH ×2 (09:11→20:36)
[2018-04-10] MEDS: PANTOPRAZOLE 40 MG TABLET PO SCH (09:12)
[2018-04-10] MEDS: predniSONE 5 MG TABLET PO SCH (09:12)
[2018-04-10] MEDS: CLOTRIMAZOLE/BETAMETHASONE CREAM 15 GM TUBE TOP SCH ×2 (09:12→20:38)
[2018-04-10] MEDS: RIFAMPIN 300 MG CAPSULE PER TUBE SCH ×2 (09:13→20:31)
[2018-04-10] MEDS: PRAVASTATIN 20 MG TABLET PO SCH (20:31)
[2018-04-10] MEDS: levETIRAcetam 250 MG TABLET PO SCH (20:31)
[2018-04-10] MEDS: QUEtiapine 25 MG TABLET PO SCH (20:36)
[2018-04-10] MEDS: DEXTROSE 5% 1,000 ML IV SCH (20:37)
[2018-04-11] MEDS: ALBUTEROL/IPRATROPIUM 3 ML NEB RESP TX SCH ×4 (00:54→19:23)
[2018-04-11] MEDS: INSULIN REGULAR 100 UNIT/ML SUBCUT SCH ×4 (08:00→23:23)
[2018-04-11] MEDS: levETIRAcetam 250 MG TABLET PO SCH ×2 (08:46→21:21)
[2018-04-11] MEDS: CARVEDILOL 6.25 MG TABLET PO SCH ×2 (08:46→17:26)
[2018-04-11] MEDS: RIFAMPIN 300 MG CAPSULE PER TUBE SCH ×2 (08:46→21:21)
[2018-04-11] MEDS: METOPROLOL TARTRATE 100 MG TABLET PO SCH ×3 (08:47→23:24)
[2018-04-11] MEDS: PANTOPRAZOLE 40 MG TABLET PO SCH (08:47)
[2018-04-11] MEDS: predniSONE 5 MG TABLET PO SCH (08:47)
[2018-04-11] MEDS: CALCIUM ACETATE 667 MG CAPSULE PO SCH ×3 (08:47→17:26)
[2018-04-11] MEDS: CLOTRIMAZOLE/BETAMETHASONE CREAM 15 GM TUBE TOP SCH (08:49)
[2018-04-11] MEDS: INSULIN GLARGINE 100 UNIT/ML SUBCUT SCH ×2 (09:09→23:23)
[2018-04-11] MEDS: DOCUSATE SODIUM 100 MG CAPSULE PO SCH ×2 (09:09→23:23)
[2018-04-11] MEDS: MULTIVITAMIN LIQUID (CENTRUM) 60 ML BOTTLE PO SCH (09:09)
[2018-04-11] MEDS ORDERED: BENZOCAINE/MENTHOL LOZENGE 18/BOX PO PRN (09:46)
[2018-04-11] MEDS ORDERED: FLUCONAZOLE 150 MG TABLET PO ONE (14:00)
[2018-04-11] MEDS: DEXTROSE 5% 1,000 ML IV SCH (16:03)
[2018-04-11] MEDS ORDERED: VANCOMYCIN INJ 750 MG in SODIUM CHLORIDE 0.9% 250 ML IV ONE (21:00)
[2018-04-11] MEDS: PRAVASTATIN 20 MG TABLET PO SCH (23:24)
[2018-04-11] MEDS: QUEtiapine 25 MG TABLET PO SCH (23:24)
[2018-04-12] MEDS: ALBUTEROL/IPRATROPIUM 3 ML NEB RESP TX SCH ×4 (00:49→19:43)
[2018-04-12] MEDS: INSULIN REGULAR 100 UNIT/ML SUBCUT SCH ×4 (08:15→21:23)
[2018-04-12] MEDS: CALCIUM ACETATE 667 MG CAPSULE PO SCH ×3 (08:17→16:59)
[2018-04-12] MEDS: predniSONE 5 MG TABLET PO SCH (08:17)
[2018-04-12] MEDS: levETIRAcetam 250 MG TABLET PO SCH ×2 (08:18→21:20)
[2018-04-12] MEDS: RIFAMPIN 300 MG CAPSULE PER TUBE SCH ×2 (08:18→22:22)
[2018-04-12] MEDS: CARVEDILOL 6.25 MG TABLET PO SCH ×2 (08:18→16:59)
[2018-04-12] MEDS: PANTOPRAZOLE 40 MG TABLET PO SCH (08:18)
[2018-04-12] MEDS: INSULIN GLARGINE 100 UNIT/ML SUBCUT SCH ×2 (09:31→21:23)
[2018-04-12] MEDS: MULTIVITAMIN LIQUID (CENTRUM) 60 ML BOTTLE PO SCH (09:31)
[2018-04-12] MEDS: DOCUSATE SODIUM 100 MG CAPSULE PO SCH ×2 (09:31→21:20)
[2018-04-12] MEDS: METOPROLOL TARTRATE 100 MG TABLET PO SCH ×2 (09:32→21:20)
[2018-04-12] MEDS: PRAVASTATIN 20 MG TABLET PO SCH (21:21)
[2018-04-12] MEDS: QUEtiapine 25 MG TABLET PO SCH (21:26)
[2018-04-13] MEDS: ALBUTEROL/IPRATROPIUM 3 ML NEB RESP TX SCH ×4 (02:20→19:44)
[2018-04-13 05:38] LABS: Basophils % 0.5 % (0.0-0.8); Eosinophils # 0.2 10*3/uL (0.0-0.87); Eosinophils % 4.3 % (0.00-10.9); Hematocrit 25.3 VOL% (35.7-47.0); Hemoglobin 7.8 GM/DL (12.0-16.0); Immature Granulocytes % 0.3 %; Immature Granulocytes Absolute 0.01 #; Lymphocytes # 0.9 10*3/uL (1.4-4.0); Lymphocytes % 22.3 % (21.3-54.2); Mean Corpuscular HGB Conc 30.8 GM/DL (32-36); Mean Corpuscular Hemoglobin 28 PG (27-34); Mean Corpuscular Volume 91.7 FL (87-102); Mean Platelet Volume 9.4 FL (9.6-12.0); Monocytes # 0.4 10*3/uL (0.11-0.8); Monocytes % 9.3 % (1.7-12.7); Neutrophils # 2.5 10*3/uL (1.4-7.4); Neutrophils % 63.3 % (38.7-73.9); Platelet Count 137 T/CUMM (130-400); Red Blood Count 2.76 MC/CUMM (3.8-5.5); Red Cell Distribution Width 14.9 % (9.3-17.3)
[2018-04-13 06:09] LABS: Albumin 2.6 G/DL (3.4-5.0); Bilirubin,Total 0.6 MG/DL (0.2-1.0); Osmolality,Calculated 283.4 MOS/KG (273-304); Potassium 4.4 MMOL/L (3.5-5.1); Total Protein 7.6 G/DL (6.4-8.3)
[2018-04-13 06:57] LABS: Band Neutrophils 2 % (0-10); Eosinophils 4 % (0-10); Lymphocytes 22 % (20-55); Segmented Neutrophils 64 % (50-85); Total Cells Counted 100
[2018-04-13] MEDS: CARVEDILOL 6.25 MG TABLET PO SCH ×3 (09:07→16:25)
[2018-04-13] MEDS: CALCIUM ACETATE 667 MG CAPSULE PO SCH ×4 (09:07→16:25)
[2018-04-13] MEDS: METOPROLOL TARTRATE 100 MG TABLET PO SCH ×2 (09:07→21:17)
[2018-04-13] MEDS: RIFAMPIN 300 MG CAPSULE PER TUBE SCH ×2 (09:08→21:16)
[2018-04-13] MEDS: levETIRAcetam 250 MG TABLET PO SCH ×2 (09:08→21:14)
[2018-04-13] MEDS: DOCUSATE SODIUM 100 MG CAPSULE PO SCH ×2 (09:08→21:16)
[2018-04-13] MEDS: PANTOPRAZOLE 40 MG TABLET PO SCH (09:08)
[2018-04-13] MEDS: predniSONE 5 MG TABLET PO SCH (09:08)
[2018-04-13] MEDS: INSULIN GLARGINE 100 UNIT/ML SUBCUT SCH ×2 (09:09→21:17)
[2018-04-13] MEDS: INSULIN REGULAR 100 UNIT/ML SUBCUT SCH ×4 (09:09→21:17)
[2018-04-13] MEDS: MULTIVITAMIN LIQUID (CENTRUM) 60 ML BOTTLE PO SCH (09:09)
[2018-04-13] MEDS ORDERED: VANCOMYCIN INJ 750 MG in SODIUM CHLORIDE 0.9% 250 ML IV ONE (16:00)
[2018-04-13] MEDS: QUEtiapine 25 MG TABLET PO SCH ×2 (21:13→21:24)
[2018-04-13] MEDS: PRAVASTATIN 20 MG TABLET PO SCH (21:15)
[2018-04-14] MEDS: ALBUTEROL/IPRATROPIUM 3 ML NEB RESP TX SCH ×4 (01:24→19:06)
[2018-04-14 03:41] LABS: Basophils % 0.4 % (0.0-0.8); Eosinophils # 0.3 10*3/uL (0.0-0.87); Eosinophils % 5.8 % (0.00-10.9); Hematocrit 27.8 VOL% (35.7-47.0); Hemoglobin 8.6 GM/DL (12.0-16.0); Immature Granulocytes % 0.4 %; Immature Granulocytes Absolute 0.02 #; Lymphocytes # 0.9 10*3/uL (1.4-4.0); Lymphocytes % 19.2 % (21.3-54.2); Mean Corpuscular HGB Conc 30.9 GM/DL (32-36); Mean Corpuscular Hemoglobin 28 PG (27-34); Mean Corpuscular Volume 91.1 FL (87-102); Mean Platelet Volume 9.6 FL (9.6-12.0); Monocytes # 0.5 10*3/uL (0.11-0.8); Monocytes % 9.3 % (1.7-12.7); Neutrophils # 3.2 10*3/uL (1.4-7.4); Neutrophils % 64.9 % (38.7-73.9); Platelet Count 184 T/CUMM (130-400); Red Blood Count 3.05 MC/CUMM (3.8-5.5); Red Cell Distribution Width 14.9 % (9.3-17.3); White Blood Count 4.9 T/CUMM (4-12)
[2018-04-14] MEDS ORDERED: HEPARIN 10,000 UNIT/10 ML VIAL IV SCH (07:00)
[2018-04-14] MEDS ORDERED: ALBUMIN 25% 25 GM in PREMIX 1 EACH IV SCH (07:00)
[2018-04-14] MEDS: INSULIN REGULAR 100 UNIT/ML SUBCUT SCH ×4 (09:57→22:29)
[2018-04-14] MEDS: INSULIN GLARGINE 100 UNIT/ML SUBCUT SCH ×2 (09:58→22:28)
[2018-04-14] MEDS: CALCIUM ACETATE 667 MG CAPSULE PO SCH ×3 (09:58→16:44)
[2018-04-14] MEDS: levETIRAcetam 250 MG TABLET PO SCH ×2 (09:58→22:14)
[2018-04-14] MEDS: RIFAMPIN 300 MG CAPSULE PER TUBE SCH ×2 (09:58→22:14)
[2018-04-14] MEDS: DOCUSATE SODIUM 100 MG CAPSULE PO SCH ×2 (09:59→22:14)
[2018-04-14] MEDS: PANTOPRAZOLE 40 MG TABLET PO SCH (09:59)
[2018-04-14] MEDS: CARVEDILOL 6.25 MG TABLET PO SCH ×2 (09:59→16:44)
[2018-04-14] MEDS: METOPROLOL TARTRATE 100 MG TABLET PO SCH ×2 (09:59→22:15)
[2018-04-14] MEDS: predniSONE 5 MG TABLET PO SCH (09:59)
[2018-04-14] MEDS: MULTIVITAMIN LIQUID (CENTRUM) 60 ML BOTTLE PO SCH (10:07)
[2018-04-14] MEDS: PRAVASTATIN 20 MG TABLET PO SCH (22:14)
[2018-04-14] MEDS: DOXYCYCLINE HYCLATE 100 MG CAPSULE PO SCH (22:15)
[2018-04-14] MEDS: QUEtiapine 25 MG TABLET PO SCH (22:17)
[2018-04-15] MEDS: ALBUTEROL/IPRATROPIUM 3 ML NEB RESP TX SCH ×4 (01:30→20:08)
[2018-04-15 06:06] LABS: Basophils % 0.6 % (0.0-0.8); Eosinophils # 0.3 10*3/uL (0.0-0.87); Eosinophils % 8.1 % (0.00-10.9); Hematocrit 25.3 VOL% (35.7-47.0); Hemoglobin 7.8 GM/DL (12.0-16.0); Immature Granulocytes % 0.3 %; Immature Granulocytes Absolute 0.01 #; Lymphocytes # 0.8 10*3/uL (1.4-4.0); Lymphocytes % 23.5 % (21.3-54.2); Mean Corpuscular HGB Conc 30.8 GM/DL (32-36); Mean Corpuscular Hemoglobin 29 PG (27-34); Mean Corpuscular Volume 92.3 FL (87-102); Mean Platelet Volume 9.7 FL (9.6-12.0); Monocytes # 0.3 10*3/uL (0.11-0.8); Monocytes % 10.2 % (1.7-12.7); Neutrophils # 1.9 10*3/uL (1.4-7.4); Neutrophils % 57.3 % (38.7-73.9); Platelet Count 152 T/CUMM (130-400); Red Blood Count 2.74 MC/CUMM (3.8-5.5); Red Cell Distribution Width 14.9 % (9.3-17.3); White Blood Count 3.3 T/CUMM (4-12)
[2018-04-15 06:32] LABS: Albumin 2.6 G/DL (3.4-5.0); Bilirubin,Total 0.6 MG/DL (0.2-1.0); Calcium 8.1 MG/DL (8.5-10.1); Osmolality,Calculated 283.2 MOS/KG (273-304); Potassium 4.6 MMOL/L (3.5-5.1); Total Protein 7.7 G/DL (6.4-8.3)
[2018-04-15 07:15] LABS: Eosinophils 4 % (0-10); Hypochromasia 1+; Lymphocytes 18 % (20-55); Ovalocytes Slight; Platelet Estimate Normal; Segmented Neutrophils 70 % (50-85); Total Cells Counted 100
[2018-04-15] MEDS: INSULIN REGULAR 100 UNIT/ML SUBCUT SCH ×4 (08:03→21:17)
[2018-04-15] MEDS: DOCUSATE SODIUM 100 MG CAPSULE PO SCH ×2 (08:27→21:14)
[2018-04-15] MEDS: levETIRAcetam 250 MG TABLET PO SCH ×2 (08:27→21:14)
[2018-04-15] MEDS: METOPROLOL TARTRATE 100 MG TABLET PO SCH ×2 (08:27→21:16)
[2018-04-15] MEDS: CARVEDILOL 6.25 MG TABLET PO SCH ×2 (08:27→17:45)
[2018-04-15] MEDS: predniSONE 5 MG TABLET PO SCH (08:27)
[2018-04-15] MEDS: DOXYCYCLINE HYCLATE 100 MG CAPSULE PO SCH ×2 (08:27→21:14)
[2018-04-15] MEDS: PANTOPRAZOLE 40 MG TABLET PO SCH (08:27)
[2018-04-15] MEDS: CALCIUM ACETATE 667 MG CAPSULE PO SCH ×3 (08:27→17:45)
[2018-04-15] MEDS: RIFAMPIN 300 MG CAPSULE PER TUBE SCH ×2 (08:28→21:15)
[2018-04-15] MEDS: INSULIN GLARGINE 100 UNIT/ML SUBCUT SCH ×2 (08:30→21:18)
[2018-04-15] MEDS: MULTIVITAMIN LIQUID (CENTRUM) 60 ML BOTTLE PO SCH (08:30)
[2018-04-15] MEDS: QUEtiapine 25 MG TABLET PO SCH (21:14)
[2018-04-15] MEDS: PRAVASTATIN 20 MG TABLET PO SCH (21:15)
[2018-04-16] MEDS: ALBUTEROL/IPRATROPIUM 3 ML NEB RESP TX SCH ×2 (01:32→07:35)
[2018-04-16 04:53] LABS: Basophils % 0.3 % (0.0-0.8); Eosinophils # 0.3 10*3/uL (0.0-0.87); Eosinophils % 8.9 % (0.00-10.9); Hematocrit 26.3 VOL% (35.7-47.0); Immature Granulocytes % 0.3 %; Immature Granulocytes Absolute 0.01 #; Lymphocytes # 0.7 10*3/uL (1.4-4.0); Lymphocytes % 23.6 % (21.3-54.2); Mean Corpuscular HGB Conc 30.4 GM/DL (32-36); Mean Corpuscular Hemoglobin 28 PG (27-34); Mean Corpuscular Volume 92.6 FL (87-102); Mean Platelet Volume 9.6 FL (9.6-12.0); Monocytes # 0.3 10*3/uL (0.11-0.8); Monocytes % 10.8 % (1.7-12.7); Neutrophils # 1.8 10*3/uL (1.4-7.4); Neutrophils % 56.1 % (38.7-73.9); Platelet Count 155 T/CUMM (130-400); Red Blood Count 2.84 MC/CUMM (3.8-5.5); Red Cell Distribution Width 14.9 % (9.3-17.3); White Blood Count 3.1 T/CUMM (4-12)
[2018-04-16 06:45] LABS: Albumin 2.7 G/DL (3.4-5.0); Bilirubin,Total 0.5 MG/DL (0.2-1.0); Osmolality,Calculated 280.2 MOS/KG (273-304); Potassium 4.1 MMOL/L (3.5-5.1)
[2018-04-16] MEDS: INSULIN REGULAR 100 UNIT/ML SUBCUT SCH ×2 (09:11→12:38)
[2018-04-16] MEDS: DOXYCYCLINE HYCLATE 100 MG CAPSULE PO SCH (09:13)
[2018-04-16] MEDS: DOCUSATE SODIUM 100 MG CAPSULE PO SCH (09:13)
[2018-04-16] MEDS: levETIRAcetam 250 MG TABLET PO SCH (09:13)
[2018-04-16] MEDS: PANTOPRAZOLE 40 MG TABLET PO SCH (09:13)
[2018-04-16] MEDS: METOPROLOL TARTRATE 100 MG TABLET PO SCH (09:13)
[2018-04-16] MEDS: CALCIUM ACETATE 667 MG CAPSULE PO SCH (09:13)
[2018-04-16] MEDS: predniSONE 5 MG TABLET PO SCH (09:14)
[2018-04-16] MEDS: INSULIN GLARGINE 100 UNIT/ML SUBCUT SCH (09:14)
[2018-04-16] MEDS: MULTIVITAMIN LIQUID (CENTRUM) 60 ML BOTTLE PO SCH (09:14)
[2018-04-16] MEDS: CARVEDILOL 6.25 MG TABLET PO SCH (09:14)
[2018-04-16] MEDS: RIFAMPIN 300 MG CAPSULE PER TUBE SCH (09:17)
[2018-04-16 11:32] VITALS: BP 142/79
== END 2018-04-16 12:33 | disposition home or self-care (01) | DRG 314 ==
LOC: N.ED 12:56 → N.EDINP 17:13 → N.5E 17:35 → N.CC 18:40 → N.TELES 04-03 11:04 → N.CC 04-04 14:10 → N.2E 04-12 15:31
PROVIDERS: ADMIT Internal Medicine; ATTEND Internal Medicine

== ENCOUNTER 2019-10-22 23:02 | Observation (INO) ==
[2019-10-23] MEDS ORDERED: NITROGLYCERIN SL 0.4 MG TABLET SL ONE (00:14)
[2019-10-23] MEDS ORDERED: ONDANSETRON 4 MG/2 ML VIAL IV PRN (00:44)
[2019-10-23 01:20] LABS: Calcium 7.9 MG/DL (8.5-10.1); Osmolality,Calculated 281.9 MOS/KG (273-304)
[2019-10-23 01:29] LABS: Basophils % 0.3 % (0.0-0.8); Eosinophils # 0.2 10*3/uL (0.0-0.87); Eosinophils % 1.3 % (0.00-10.9); Hematocrit 40.5 VOL% (35.7-47.0); Hemoglobin 12.8 GM/DL (12.0-16.0); Immature Granulocytes % 1.2 %; Immature Granulocytes Absolute 0.16 #; Lymphocytes # 1.2 10*3/uL (1.4-4.0); Lymphocytes % 9.1 % (21.3-54.2); Mean Corpuscular HGB Conc 31.6 GM/DL (32-36); Mean Platelet Volume 9.7 FL (9.6-12.0); Monocytes % 3.5 % (1.7-12.7); Neutrophils % 84.6 % (38.7-73.9); Platelet Count 201 T/CUMM (130-400); Red Cell Distribution Width 14.2 % (9.3-17.3); White Blood Count 13.4 T/CUMM (4-12)
[2019-10-23] MEDS ORDERED: cloNIDine 0.1 MG TABLET PO PRN (02:49)
[2019-10-23] MEDS: hydrALAZINE 10 MG TABLET PO SCH ×4 (03:20→21:01)
[2019-10-23] MEDS: METOPROLOL TARTRATE 100 MG TABLET PO SCH ×3 (03:20→21:01)
[2019-10-23] MEDS: PANTOPRAZOLE 40 MG TABLET PO SCH (08:20)
[2019-10-23] MEDS: DOCUSATE SODIUM 100 MG CAPSULE PO SCH ×2 (08:20→21:01)
[2019-10-23] MEDS: ACETAMINOPHEN 325 MG TABLET PO PRN ×3 (08:20→21:15)
[2019-10-23] MEDS: LINACLOTIDE 145 MCG CAPSULE PO SCH (15:40)
[2019-10-23] MEDS ORDERED: HEPARIN 10,000 UNIT/10 ML VIAL IV PRN (17:28)
[2019-10-23] MEDS: INSULIN LISPRO 100 UNIT/ML SUBCUT SCH (21:01)
[2019-10-24] MEDS: INSULIN LISPRO 100 UNIT/ML SUBCUT SCH ×4 (09:09→21:03)
[2019-10-24] MEDS: ACETAMINOPHEN 325 MG TABLET PO PRN (09:09)
[2019-10-24] MEDS: DOCUSATE SODIUM 100 MG CAPSULE PO SCH ×2 (09:10→21:03)
[2019-10-24] MEDS: hydrALAZINE 10 MG TABLET PO SCH ×3 (09:10→21:03)
[2019-10-24] MEDS: METOPROLOL TARTRATE 100 MG TABLET PO SCH ×2 (09:10→21:03)
[2019-10-24] MEDS: PANTOPRAZOLE 40 MG TABLET PO SCH (09:10)
[2019-10-24] MEDS: LINACLOTIDE 145 MCG CAPSULE PO SCH (09:11)
[2019-10-24] MEDS ORDERED: LIDOCAINE 5% PATCH TRANSDERM SCH (18:00)
[2019-10-24] MEDS: traMADol 50 MG TABLET PO PRN (21:06)
[2019-10-24] MEDS ORDERED: BISACODYL 5 MG TABLET PO PRN (22:49)
[2019-10-25] MEDS: traMADol 50 MG TABLET PO PRN ×2 (04:38→13:45)
[2019-10-25 06:58] LABS: Basophils % 0.3 % (0.0-0.8); Eosinophils # 0.2 10*3/uL (0.0-0.87); Eosinophils % 2.3 % (0.00-10.9); Hematocrit 30.5 VOL% (35.7-47.0); Immature Granulocytes Absolute 0.08 #; Lymphocytes % 12.4 % (21.3-54.2); Mean Corpuscular HGB Conc 31.5 GM/DL (32-36); Mean Corpuscular Volume 91.9 FL (87-102); Mean Platelet Volume 9.6 FL (9.6-12.0); Monocytes % 7.7 % (1.7-12.7); Neutrophils % 76.3 % (38.7-73.9); Platelet Count 167 T/CUMM (130-400); Red Cell Distribution Width 14.3 % (9.3-17.3); White Blood Count 7.7 T/CUMM (4-12)
[2019-10-25 06:59] LABS: Hemoglobin 9.6 GM/DL (12.0-16.0); Red Blood Count 3.32 MC/CUMM (3.8-5.5)
[2019-10-25 07:12] LABS: Calcium 7.4 MG/DL (8.5-10.1); Osmolality,Calculated 275.8 MOS/KG (273-304)
[2019-10-25] MEDS: INSULIN LISPRO 100 UNIT/ML SUBCUT SCH ×4 (08:00→20:43)
[2019-10-25] MEDS: DOCUSATE SODIUM 100 MG CAPSULE PO SCH ×2 (09:00→20:43)
[2019-10-25] MEDS: INSULIN GLARGINE 100 UNIT/ML SUBCUT SCH ×2 (09:00→20:43)
[2019-10-25] MEDS: BRIMONIDINE 0.2% OPH SOLN 5 ML BOTTLE BOTH EYES SCH ×3 (09:00→20:42)
[2019-10-25] MEDS: DORZOLAMIDE 2% OPH SOLN 10 ML BOTTLE BOTH EYES SCH ×3 (09:00→20:42)
[2019-10-25] MEDS ORDERED: LIDOCAINE 5% PATCH TRANSDERM SCH (09:00)
[2019-10-25] MEDS: CALCIUM ACETATE 667 MG CAPSULE PO SCH ×3 (13:45→17:44)
[2019-10-25] MEDS: METOPROLOL TARTRATE 100 MG TABLET PO SCH ×2 (13:46→20:43)
[2019-10-25] MEDS: levETIRAcetam 250 MG TABLET PO SCH (13:46)
[2019-10-25] MEDS: LINACLOTIDE 145 MCG CAPSULE PO SCH (13:46)
[2019-10-25] MEDS: PANTOPRAZOLE 40 MG TABLET PO SCH (13:46)
[2019-10-25] MEDS: LIDOCAINE 5% PATCH TRANSDERM SCH (13:47)
[2019-10-25] MEDS: QUEtiapine 25 MG TABLET PO SCH ×2 (20:43)
[2019-10-26 05:50] LABS: Basophils % 0.3 % (0.0-0.8); Eosinophils # 0.2 10*3/uL (0.0-0.87); Hematocrit 32.8 VOL% (35.7-47.0); Hemoglobin 10.2 GM/DL (12.0-16.0); Immature Granulocytes % 0.8 %; Immature Granulocytes Absolute 0.05 #; Lymphocytes # 0.9 10*3/uL (1.4-4.0); Lymphocytes % 13.7 % (21.3-54.2); Mean Corpuscular HGB Conc 31.1 GM/DL (32-36); Mean Corpuscular Volume 92.4 FL (87-102); Monocytes % 8.6 % (1.7-12.7); Neutrophils % 73.6 % (38.7-73.9); Platelet Count 166 T/CUMM (130-400); Red Blood Count 3.55 MC/CUMM (3.8-5.5); Red Cell Distribution Width 14.3 % (9.3-17.3); White Blood Count 6.3 T/CUMM (4-12)
[2019-10-26 06:16] LABS: Calcium 7.8 MG/DL (8.5-10.1); Osmolality,Calculated 268.9 MOS/KG (273-304)
[2019-10-26] MEDS: INSULIN LISPRO 100 UNIT/ML SUBCUT SCH ×5 (08:44→22:13)
[2019-10-26] MEDS: CALCIUM ACETATE 667 MG CAPSULE PO SCH ×3 (08:45→16:06)
[2019-10-26] MEDS: METOPROLOL TARTRATE 100 MG TABLET PO SCH ×2 (08:45→20:40)
[2019-10-26] MEDS: LINACLOTIDE 145 MCG CAPSULE PO SCH (08:45)
[2019-10-26] MEDS: DOCUSATE SODIUM 100 MG CAPSULE PO SCH ×2 (08:46→20:41)
[2019-10-26] MEDS: PANTOPRAZOLE 40 MG TABLET PO SCH (08:46)
[2019-10-26] MEDS: levETIRAcetam 250 MG TABLET PO SCH (08:46)
[2019-10-26] MEDS: traMADol 50 MG TABLET PO PRN ×2 (08:46→12:51)
[2019-10-26] MEDS: LIDOCAINE 5% PATCH TRANSDERM SCH (08:47)
[2019-10-26] MEDS: BRIMONIDINE 0.2% OPH SOLN 5 ML BOTTLE BOTH EYES SCH ×3 (08:47→20:40)
[2019-10-26] MEDS: INSULIN GLARGINE 100 UNIT/ML SUBCUT SCH ×2 (08:47→22:13)
[2019-10-26] MEDS: DORZOLAMIDE 2% OPH SOLN 10 ML BOTTLE BOTH EYES SCH ×3 (08:48→20:40)
[2019-10-26] MEDS: QUEtiapine 25 MG TABLET PO SCH (20:41)
[2019-10-27 05:10] LABS: Basophils % 0.2 % (0.0-0.8); Eosinophils # 0.2 10*3/uL (0.0-0.87); Eosinophils % 3.7 % (0.00-10.9); Hematocrit 29.8 VOL% (35.7-47.0); Hemoglobin 9.2 GM/DL (12.0-16.0); Immature Granulocytes % 0.7 %; Immature Granulocytes Absolute 0.04 #; Lymphocytes # 0.9 10*3/uL (1.4-4.0); Mean Corpuscular HGB Conc 30.9 GM/DL (32-36); Mean Corpuscular Volume 93.1 FL (87-102); Mean Platelet Volume 9.6 FL (9.6-12.0); Monocytes % 9.4 % (1.7-12.7); Platelet Count 140 T/CUMM (130-400); Red Cell Distribution Width 14.3 % (9.3-17.3); White Blood Count 5.9 T/CUMM (4-12)
[2019-10-27 05:35] LABS: Calcium 7.5 MG/DL (8.5-10.1); Osmolality,Calculated 274.7 MOS/KG (273-304)
[2019-10-27] MEDS: INSULIN LISPRO 100 UNIT/ML SUBCUT SCH ×3 (08:02→17:05)
[2019-10-27] MEDS: levETIRAcetam 250 MG TABLET PO SCH (08:28)
[2019-10-27] MEDS: traMADol 50 MG TABLET PO PRN ×2 (08:28→16:00)
[2019-10-27] MEDS: CALCIUM ACETATE 667 MG CAPSULE PO SCH ×4 (08:28→17:25)
[2019-10-27] MEDS: DOCUSATE SODIUM 100 MG CAPSULE PO SCH (08:28)
[2019-10-27] MEDS: PANTOPRAZOLE 40 MG TABLET PO SCH (08:29)
[2019-10-27] MEDS: INSULIN GLARGINE 100 UNIT/ML SUBCUT SCH (08:30)
[2019-10-27] MEDS: LINACLOTIDE 145 MCG CAPSULE PO SCH (08:31)
[2019-10-27] MEDS: BRIMONIDINE 0.2% OPH SOLN 5 ML BOTTLE BOTH EYES SCH ×2 (08:31→16:02)
[2019-10-27] MEDS: DORZOLAMIDE 2% OPH SOLN 10 ML BOTTLE BOTH EYES SCH ×2 (08:31→16:02)
[2019-10-27] MEDS: LIDOCAINE 5% PATCH TRANSDERM SCH (08:32)
[2019-10-27] MEDS: METOPROLOL TARTRATE 100 MG TABLET PO SCH (08:59)
[2019-10-27 16:35] VITALS: BP 165/89
== END 2019-10-27 17:55 | disposition home or self-care (01) ==
LOC: EDUNIT# → EDBD → N.ED 23:02 → N.EDINP 23:02 → N.5E 10-23 01:27
PROVIDERS: ADMIT Internal Medicine; ATTEND Internal Medicine

== ENCOUNTER 2019-12-08 14:18 | Inpatient (IN) ==
[2019-12-08 15:16] LABS: Basophils % 0.3 % (0.0-0.8); Eosinophils # 0.2 10*3/uL (0.0-0.87); Eosinophils % 1.3 % (0.00-10.9); Hemoglobin 8.3 GM/DL (12.0-16.0); Immature Granulocytes % 1.3 %; Immature Granulocytes Absolute 0.15 #; Lymphocytes # 1.6 10*3/uL (1.4-4.0); Mean Corpuscular HGB Conc 30.7 GM/DL (32-36); Mean Corpuscular Volume 93.4 FL (87-102); Mean Platelet Volume 10.1 FL (9.6-12.0); Monocytes % 9.8 % (1.7-12.7); Neutrophils % 73.3 % (38.7-73.9); Platelet Count 218 T/CUMM (130-400); Red Blood Count 2.89 MC/CUMM (3.8-5.5); White Blood Count 11.2 T/CUMM (4-12)
[2019-12-08 15:38] LABS: Alanine Aminotransferase < 9 U/L (13-56); Albumin 2.6 G/DL (3.4-5.0); Alkaline Phosphatase 197 U/L (45-117); Aspartate Amino Transferase 14 U/L (0-37); Blood Urea Nitrogen 50 MG/DL (7-18); Calcium 8.2 MG/DL (8.5-10.1); Estimated Glom Filtration Rate 6 ML/MIN; Glucose 153 MG/DL (74-106); Osmolality,Calculated 270.2 MOS/KG (273-304)
[2019-12-08] MEDS ORDERED: ONDANSETRON 4 MG/2 ML VIAL IV PRN (16:07)
[2019-12-08] MEDS ORDERED: VANCOMYCIN INJ 1,000 MG in SODIUM CHLORIDE 0.9% 250 ML IV STA (16:08)
[2019-12-08] MEDS ORDERED: VANCOMYCIN 1,000 MG VIAL ONE (16:34)
[2019-12-08] MEDS: LEVOFLOXACIN 500 MG TABLET PO SCH (20:56)
[2019-12-09 05:27] LABS: Basophils % 0.2 % (0.0-0.8); Eosinophils # 0.1 10*3/uL (0.0-0.87); Eosinophils % 1.3 % (0.00-10.9); Hematocrit 25.6 VOL% (35.7-47.0); Hemoglobin 7.5 GM/DL (12.0-16.0); Immature Granulocytes % 0.8 %; Immature Granulocytes Absolute 0.08 #; Lymphocytes # 1.4 10*3/uL (1.4-4.0); Lymphocytes % 13.8 % (21.3-54.2); Mean Corpuscular HGB Conc 29.3 GM/DL (32-36); Mean Corpuscular Volume 93.1 FL (87-102); Mean Platelet Volume 10.4 FL (9.6-12.0); Neutrophils % 76.9 % (38.7-73.9); Platelet Count 187 T/CUMM (130-400); Red Blood Count 2.75 MC/CUMM (3.8-5.5); Red Cell Distribution Width 14.1 % (9.3-17.3); White Blood Count 10.4 T/CUMM (4-12)
[2019-12-09 06:19] LABS: Alanine Aminotransferase < 9 U/L (13-56); Alkaline Phosphatase 208 U/L (45-117); Aspartate Amino Transferase 17 U/L (0-37); Blood Urea Nitrogen 56 MG/DL (7-18); Calcium 8.1 MG/DL (8.5-10.1); Estimated Glom Filtration Rate 6 ML/MIN; Glucose 116 MG/DL (74-106); Osmolality,Calculated 269.4 MOS/KG (273-304); Total Protein 7.5 G/DL (6.4-8.3)
[2019-12-09] MEDS ORDERED: HEPARIN 10,000 UNIT/10 ML VIAL IV SCH (11:30)
[2019-12-09] MEDS ORDERED: VANCOMYCIN INJ 500 MG in SODIUM CHLORIDE 0.9% 100 ML IV PRN (11:44)
[2019-12-10] MEDS ORDERED: PHENOL 1.4% THROAT SPRAY 177 ML BOTTLE PO PRN (10:50)
[2019-12-10] MEDS ORDERED: HEPARIN 10,000 UNIT/10 ML VIAL IV PRN (10:56)
[2019-12-10] MEDS ORDERED: BISACODYL 5 MG TABLET PO PRN (11:16)
[2019-12-10] MEDS ORDERED: tiZANidine 4 MG TABLET PO PRN (11:16)
[2019-12-10] MEDS: traMADol 50 MG TABLET PO SCH ×3 (11:39→21:14)
[2019-12-10] MEDS: CALCIUM ACETATE 667 MG CAPSULE PO SCH ×2 (11:40→18:51)
[2019-12-10] MEDS: levETIRAcetam 250 MG TABLET PO SCH (11:40)
[2019-12-10] MEDS: BRIMONIDINE 0.2% OPH SOLN 5 ML BOTTLE BOTH EYES SCH ×2 (12:52→21:15)
[2019-12-10] MEDS: INSULIN LISPRO 100 UNIT/ML SUBCUT SCH ×4 (12:52→21:08)
[2019-12-10] MEDS: DORZOLAMIDE 2% OPH SOLN 10 ML BOTTLE BOTH EYES SCH ×2 (17:00→21:15)
[2019-12-10] MEDS ORDERED: QUETIAPINE 50 MG PO SCH (21:00)
[2019-12-10] MEDS: INSULIN GLARGINE 100 UNIT/ML SUBCUT SCH (21:08)
[2019-12-10] MEDS: LEVOFLOXACIN 500 MG TABLET PO SCH (21:11)
[2019-12-10] MEDS: QUEtiapine 25 MG TABLET PO SCH (21:11)
[2019-12-10] MEDS: SIMVASTATIN 10 MG TABLET PO SCH (21:12)
[2019-12-10] MEDS: DOCUSATE SODIUM 100 MG CAPSULE PO SCH (21:12)
[2019-12-11] MEDS: METOPROLOL TARTRATE 100 MG TABLET PO SCH ×3 (02:11→22:36)
[2019-12-11] MEDS: INSULIN LISPRO 100 UNIT/ML SUBCUT SCH ×5 (08:07→22:36)
[2019-12-11] MEDS: VIT B C IRON FUM FA D3 ZINC OX PO SCH (08:08)
[2019-12-11] MEDS: INSULIN GLARGINE 100 UNIT/ML SUBCUT SCH ×3 (08:08→22:36)
[2019-12-11] MEDS: traMADol 50 MG TABLET PO SCH ×4 (08:09→22:36)
[2019-12-11] MEDS: levETIRAcetam 250 MG TABLET PO SCH ×2 (08:09→08:12)
[2019-12-11] MEDS: CALCIUM ACETATE 667 MG CAPSULE PO SCH ×3 (08:10→17:05)
[2019-12-11] MEDS: predniSONE 5 MG TABLET PO SCH (08:10)
[2019-12-11] MEDS: DOCUSATE SODIUM 100 MG CAPSULE PO SCH ×2 (08:10→22:33)
[2019-12-11] MEDS: PANTOPRAZOLE 40 MG TABLET PO SCH (08:10)
[2019-12-11] MEDS: BRIMONIDINE 0.2% OPH SOLN 5 ML BOTTLE BOTH EYES SCH ×2 (08:14→22:37)
[2019-12-11] MEDS: DORZOLAMIDE 2% OPH SOLN 10 ML BOTTLE BOTH EYES SCH ×3 (08:14→22:37)
[2019-12-11] MEDS: LIDOCAINE 5% PATCH TRANSDERM SCH (08:18)
[2019-12-11] MEDS: LINACLOTIDE 145 MCG CAPSULE PO SCH (08:27)
[2019-12-11] MEDS ORDERED: VANCOMYCIN INJ 500 MG in SODIUM CHLORIDE 0.9% 100 ML IV ONE (10:00)
[2019-12-11] MEDS ORDERED: levETIRAcetam 250 MG TABLET PO SCH (10:51)
[2019-12-11] MEDS: QUEtiapine 25 MG TABLET PO SCH (22:32)
[2019-12-11] MEDS: SIMVASTATIN 10 MG TABLET PO SCH (22:33)
[2019-12-12 05:42] LABS: Basophils % 0.3 % (0.0-0.8); Eosinophils # 0.1 10*3/uL (0.0-0.87); Hematocrit 28.9 VOL% (35.7-47.0); Hemoglobin 8.4 GM/DL (12.0-16.0); Immature Granulocytes % 0.9 %; Immature Granulocytes Absolute 0.05 #; Lymphocytes # 1.2 10*3/uL (1.4-4.0); Lymphocytes % 20.8 % (21.3-54.2); Mean Corpuscular HGB Conc 29.1 GM/DL (32-36); Mean Corpuscular Volume 93.2 FL (87-102); Mean Platelet Volume 10.1 FL (9.6-12.0); Monocytes % 7.3 % (1.7-12.7); Neutrophils % 69.7 % (38.7-73.9); Platelet Count 239 T/CUMM (130-400); Red Cell Distribution Width 13.9 % (9.3-17.3); White Blood Count 5.9 T/CUMM (4-12)
[2019-12-12 06:19] LABS: Albumin 2.2 G/DL (3.4-5.0); Bilirubin,Total 1.1 MG/DL (0.2-1.0); Calcium 8.4 MG/DL (8.5-10.1); Osmolality,Calculated 271.9 MOS/KG (273-304); Total Protein 7.9 G/DL (6.4-8.3)
[2019-12-12] MEDS: INSULIN GLARGINE 100 UNIT/ML SUBCUT SCH ×2 (08:25→20:53)
[2019-12-12] MEDS: INSULIN LISPRO 100 UNIT/ML SUBCUT SCH ×4 (08:26→20:52)
[2019-12-12] MEDS: CALCIUM ACETATE 667 MG CAPSULE PO SCH ×3 (08:28→16:34)
[2019-12-12] MEDS: SERTRALINE 25 MG TABLET PO SCH (08:28)
[2019-12-12] MEDS: DOCUSATE SODIUM 100 MG CAPSULE PO SCH ×2 (08:28→20:58)
[2019-12-12] MEDS: LINACLOTIDE 145 MCG CAPSULE PO SCH (08:28)
[2019-12-12] MEDS: predniSONE 5 MG TABLET PO SCH (08:28)
[2019-12-12] MEDS: levETIRAcetam 250 MG TABLET PO SCH (08:29)
[2019-12-12] MEDS: traMADol 50 MG TABLET PO SCH ×3 (08:29→21:02)
[2019-12-12] MEDS: DORZOLAMIDE 2% OPH SOLN 10 ML BOTTLE BOTH EYES SCH ×3 (08:30→20:57)
[2019-12-12] MEDS: PANTOPRAZOLE 40 MG TABLET PO SCH (08:30)
[2019-12-12] MEDS: VIT B C IRON FUM FA D3 ZINC OX PO SCH (08:31)
[2019-12-12] MEDS: LIDOCAINE 5% PATCH TRANSDERM SCH (08:31)
[2019-12-12] MEDS: BRIMONIDINE 0.2% OPH SOLN 5 ML BOTTLE BOTH EYES SCH ×2 (08:31→20:58)
[2019-12-12] MEDS: METOPROLOL TARTRATE 100 MG TABLET PO SCH (08:43)
[2019-12-12] MEDS: FERROUS SULFATE 325 MG TABLET PO SCH ×2 (12:41→20:53)
[2019-12-12 14:44] LABS: Albumin 2.6 G/DL (3.4-5.0); Bilirubin,Total 0.7 MG/DL (0.2-1.0); Calcium 8.4 MG/DL (8.5-10.1); Osmolality,Calculated 262.1 MOS/KG (273-304); Total Protein 8.7 G/DL (6.4-8.3)
[2019-12-12 14:47] LABS: Basophils % 0.3 % (0.0-0.8); Eosinophils # 0.1 10*3/uL (0.0-0.87); Eosinophils % 1.1 % (0.00-10.9); Hemoglobin 8.2 GM/DL (12.0-16.0); Immature Granulocytes % 1.8 %; Immature Granulocytes Absolute 0.12 #; Lymphocytes # 1.3 10*3/uL (1.4-4.0); Lymphocytes % 19.2 % (21.3-54.2); Mean Corpuscular HGB Conc 29.3 GM/DL (32-36); Mean Corpuscular Volume 94.9 FL (87-102); Mean Platelet Volume 10.3 FL (9.6-12.0); Monocytes % 10.8 % (1.7-12.7); Neutrophils % 66.8 % (38.7-73.9); Platelet Count 217 T/CUMM (130-400); Red Blood Count 2.95 MC/CUMM (3.8-5.5); Red Cell Distribution Width 14.1 % (9.3-17.3); White Blood Count 6.6 T/CUMM (4-12)
[2019-12-12] MEDS ORDERED: PHENYLEPHRINE INJ 160 MG in SODIUM CHLORIDE 0.9% 234 ML IV PRN (15:17)
[2019-12-12] MEDS: CLINDAMYCIN INJ 600 MG in PREMIX 1 EACH IV SCH (20:53)
[2019-12-12] MEDS: LEVOFLOXACIN 500 MG TABLET PO SCH (20:54)
[2019-12-12] MEDS: QUEtiapine 25 MG TABLET PO SCH (20:54)
[2019-12-12] MEDS: SIMVASTATIN 10 MG TABLET PO SCH (20:57)
[2019-12-13] MEDS: CLINDAMYCIN INJ 600 MG in PREMIX 1 EACH IV SCH ×3 (04:45→20:43)
[2019-12-13 04:53] LABS: Basophils % 0.3 % (0.0-0.8); Eosinophils # 0.1 10*3/uL (0.0-0.87); Hematocrit 28.7 VOL% (35.7-47.0); Hemoglobin 8.3 GM/DL (12.0-16.0); Immature Granulocytes % 2.2 %; Immature Granulocytes Absolute 0.16 #; Lymphocytes # 1.7 10*3/uL (1.4-4.0); Mean Corpuscular HGB Conc 28.9 GM/DL (32-36); Mean Corpuscular Volume 94.1 FL (87-102); Neutrophils % 64.5 % (38.7-73.9); Platelet Count 254 T/CUMM (130-400); Red Blood Count 3.05 MC/CUMM (3.8-5.5); Red Cell Distribution Width 14.1 % (9.3-17.3); White Blood Count 7.3 T/CUMM (4-12)
[2019-12-13 05:11] LABS: Hypochromasia 1+; Ovalocytes Slight; Platelet Estimate Adequate
[2019-12-13] MEDS: INSULIN LISPRO 100 UNIT/ML SUBCUT SCH ×4 (07:30→20:55)
[2019-12-13] MEDS ORDERED: METOPROLOL TARTRATE 100 MG TABLET PO SCH (09:00)
[2019-12-13] MEDS: CALCIUM ACETATE 667 MG CAPSULE PO SCH ×3 (09:01→17:38)
[2019-12-13] MEDS: DOCUSATE SODIUM 100 MG CAPSULE PO SCH ×2 (09:01→20:47)
[2019-12-13] MEDS: FERROUS SULFATE 325 MG TABLET PO SCH ×2 (09:01→20:48)
[2019-12-13] MEDS: LINACLOTIDE 145 MCG CAPSULE PO SCH (09:01)
[2019-12-13] MEDS: SERTRALINE 25 MG TABLET PO SCH (09:01)
[2019-12-13] MEDS: PANTOPRAZOLE 40 MG TABLET PO SCH (09:01)
[2019-12-13] MEDS: predniSONE 5 MG TABLET PO SCH (09:02)
[2019-12-13] MEDS: traMADol 50 MG TABLET PO SCH ×2 (09:02→21:00)
[2019-12-13] MEDS: LIDOCAINE 5% PATCH TRANSDERM SCH (09:03)
[2019-12-13] MEDS: DORZOLAMIDE 2% OPH SOLN 10 ML BOTTLE BOTH EYES SCH ×3 (09:03→20:51)
[2019-12-13] MEDS: VIT B C IRON FUM FA D3 ZINC OX PO SCH (09:03)
[2019-12-13] MEDS: BRIMONIDINE 0.2% OPH SOLN 5 ML BOTTLE BOTH EYES SCH ×2 (09:03→20:51)
[2019-12-13] MEDS: levETIRAcetam 250 MG TABLET PO SCH (09:04)
[2019-12-13] MEDS: INSULIN GLARGINE 100 UNIT/ML SUBCUT SCH ×2 (09:04→20:55)
[2019-12-13] MEDS: METOPROLOL SUCCINATE XL 25 MG TABLET PO SCH (09:24)
[2019-12-13] MEDS ORDERED: PHENYLEPHRINE DRIP 40 MG/250 ML PREMIX IV PRN (09:40)
[2019-12-13] MEDS ORDERED: PHENYLEPHRINE DRIP 40 MG/250 ML PREMIX IV ONE (09:43)
[2019-12-13] MEDS ORDERED: VANCOMYCIN INJ 500 MG in SODIUM CHLORIDE 0.9% 100 ML IV ONE (17:00)
[2019-12-13] MEDS: QUEtiapine 25 MG TABLET PO SCH (20:48)
[2019-12-13] MEDS: SIMVASTATIN 10 MG TABLET PO SCH (20:55)
[2019-12-14] MEDS: CLINDAMYCIN INJ 600 MG in PREMIX 1 EACH IV SCH ×3 (04:06→19:39)
[2019-12-14 04:33] LABS: Basophils % 0.5 % (0.0-0.8); Eosinophils # 0.1 10*3/uL (0.0-0.87); Eosinophils % 1.5 % (0.00-10.9); Hematocrit 28.8 VOL% (35.7-47.0); Hemoglobin 8.3 GM/DL (12.0-16.0); Immature Granulocytes % 3.2 %; Immature Granulocytes Absolute 0.21 #; Lymphocytes # 1.9 10*3/uL (1.4-4.0); Lymphocytes % 29.6 % (21.3-54.2); Mean Corpuscular HGB Conc 28.8 GM/DL (32-36); Mean Corpuscular Volume 95.4 FL (87-102); Mean Platelet Volume 9.7 FL (9.6-12.0); Monocytes % 8.9 % (1.7-12.7); Neutrophils % 56.3 % (38.7-73.9); Platelet Count 258 T/CUMM (130-400); Red Blood Count 3.02 MC/CUMM (3.8-5.5); Red Cell Distribution Width 14.4 % (9.3-17.3); White Blood Count 6.5 T/CUMM (4-12)
[2019-12-14 04:51] LABS: Osmolality,Calculated 259.9 MOS/KG (273-304)
[2019-12-14 05:25] LABS: Hypochromasia 1+; Macrocytosis Slight; Platelet Estimate Normal; Polychromasia Slight; Target Cells Slight
[2019-12-14] MEDS: LINACLOTIDE 145 MCG CAPSULE PO SCH (07:56)
[2019-12-14] MEDS: INSULIN LISPRO 100 UNIT/ML SUBCUT SCH ×4 (07:59→20:26)
[2019-12-14] MEDS: FERROUS SULFATE 325 MG TABLET PO SCH ×2 (08:00→20:25)
[2019-12-14] MEDS: predniSONE 5 MG TABLET PO SCH (08:00)
[2019-12-14] MEDS: PANTOPRAZOLE 40 MG TABLET PO SCH (08:00)
[2019-12-14] MEDS: SERTRALINE 25 MG TABLET PO SCH (08:00)
[2019-12-14] MEDS: DOCUSATE SODIUM 100 MG CAPSULE PO SCH ×2 (08:00→20:25)
[2019-12-14] MEDS: levETIRAcetam 250 MG TABLET PO SCH (08:00)
[2019-12-14] MEDS: CALCIUM ACETATE 667 MG CAPSULE PO SCH ×3 (08:00→17:16)
[2019-12-14] MEDS: traMADol 50 MG TABLET PO SCH (08:00)
[2019-12-14] MEDS: DORZOLAMIDE 2% OPH SOLN 10 ML BOTTLE BOTH EYES SCH ×3 (08:01→20:25)
[2019-12-14] MEDS: BRIMONIDINE 0.2% OPH SOLN 5 ML BOTTLE BOTH EYES SCH ×2 (08:01→20:26)
[2019-12-14] MEDS: METOPROLOL SUCCINATE XL 25 MG TABLET PO SCH (08:01)
[2019-12-14] MEDS: LIDOCAINE 5% PATCH TRANSDERM SCH (08:40)
[2019-12-14] MEDS: INSULIN GLARGINE 100 UNIT/ML SUBCUT SCH ×2 (08:40→20:26)
[2019-12-14] MEDS: VIT B C IRON FUM FA D3 ZINC OX PO SCH (08:40)
[2019-12-14] MEDS: QUEtiapine 25 MG TABLET PO SCH (20:25)
[2019-12-14] MEDS: SIMVASTATIN 10 MG TABLET PO SCH (20:25)
[2019-12-14] MEDS: LEVOFLOXACIN 500 MG TABLET PO SCH (20:25)
[2019-12-15] MEDS: CLINDAMYCIN INJ 600 MG in PREMIX 1 EACH IV SCH ×3 (03:00→21:44)
[2019-12-15] MEDS: traMADol 50 MG TABLET PO SCH ×3 (03:37→21:44)
[2019-12-15] MEDS ORDERED: VANCOMYCIN INJ 500 MG in SODIUM CHLORIDE 0.9% 100 ML IV ONE (07:35)
[2019-12-15] MEDS: INSULIN LISPRO 100 UNIT/ML SUBCUT SCH ×4 (08:43→20:39)
[2019-12-15] MEDS: INSULIN GLARGINE 100 UNIT/ML SUBCUT SCH ×2 (08:44→20:40)
[2019-12-15] MEDS: LIDOCAINE 5% PATCH TRANSDERM SCH (08:44)
[2019-12-15] MEDS: METOPROLOL SUCCINATE XL 25 MG TABLET PO SCH (08:45)
[2019-12-15] MEDS: VIT B C IRON FUM FA D3 ZINC OX PO SCH (08:45)
[2019-12-15] MEDS: CALCIUM ACETATE 667 MG CAPSULE PO SCH ×3 (09:25→17:06)
[2019-12-15] MEDS: LINACLOTIDE 145 MCG CAPSULE PO SCH (12:46)
[2019-12-15] MEDS: predniSONE 5 MG TABLET PO SCH (12:47)
[2019-12-15] MEDS: FERROUS SULFATE 325 MG TABLET PO SCH ×2 (12:47→21:46)
[2019-12-15] MEDS: levETIRAcetam 250 MG TABLET PO SCH (12:48)
[2019-12-15] MEDS: SERTRALINE 25 MG TABLET PO SCH (12:48)
[2019-12-15] MEDS: DOCUSATE SODIUM 100 MG CAPSULE PO SCH ×2 (12:48→21:45)
[2019-12-15] MEDS: PANTOPRAZOLE 40 MG TABLET PO SCH (12:48)
[2019-12-15] MEDS: BRIMONIDINE 0.2% OPH SOLN 5 ML BOTTLE BOTH EYES SCH ×2 (12:49→21:46)
[2019-12-15] MEDS: DORZOLAMIDE 2% OPH SOLN 10 ML BOTTLE BOTH EYES SCH ×3 (12:49→21:46)
[2019-12-15] MEDS: QUEtiapine 25 MG TABLET PO SCH (21:45)
[2019-12-15] MEDS: SIMVASTATIN 10 MG TABLET PO SCH (21:45)
[2019-12-16] MEDS: CLINDAMYCIN INJ 600 MG in PREMIX 1 EACH IV SCH ×3 (04:23→20:51)
[2019-12-16 06:20] LABS: Basophils % 0.3 % (0.0-0.8); Eosinophils # 0.1 10*3/uL (0.0-0.87); Eosinophils % 0.8 % (0.00-10.9); Hematocrit 27.4 VOL% (35.7-47.0); Hemoglobin 7.9 GM/DL (12.0-16.0); Immature Granulocytes % 1.9 %; Immature Granulocytes Absolute 0.14 #; Lymphocytes # 0.7 10*3/uL (1.4-4.0); Lymphocytes % 9.6 % (21.3-54.2); Mean Corpuscular HGB Conc 28.8 GM/DL (32-36); Mean Corpuscular Volume 95.8 FL (87-102); Mean Platelet Volume 9.4 FL (9.6-12.0); Monocytes % 3.9 % (1.7-12.7); Neutrophils % 83.5 % (38.7-73.9); Platelet Count 222 T/CUMM (130-400); Red Blood Count 2.86 MC/CUMM (3.8-5.5); Red Cell Distribution Width 14.6 % (9.3-17.3); White Blood Count 7.2 T/CUMM (4-12)
[2019-12-16 06:47] LABS: Hypochromasia 1+; Ovalocytes Slight; Platelet Estimate Adequate
[2019-12-16 06:48] LABS: Macrocytosis Slight
[2019-12-16 07:04] LABS: Albumin 2.5 G/DL (3.4-5.0); Bilirubin,Total 0.6 MG/DL (0.2-1.0); Calcium 7.9 MG/DL (8.5-10.1); Osmolality,Calculated 271.4 MOS/KG (273-304); Total Protein 7.9 G/DL (6.4-8.3)
[2019-12-16] MEDS: INSULIN LISPRO 100 UNIT/ML SUBCUT SCH ×4 (09:00→20:46)
[2019-12-16] MEDS: INSULIN GLARGINE 100 UNIT/ML SUBCUT SCH ×2 (09:01→20:51)
[2019-12-16] MEDS: predniSONE 5 MG TABLET PO SCH (10:38)
[2019-12-16] MEDS: CALCIUM ACETATE 667 MG CAPSULE PO SCH ×3 (10:38→17:29)
[2019-12-16] MEDS: LINACLOTIDE 145 MCG CAPSULE PO SCH (10:38)
[2019-12-16] MEDS: DOCUSATE SODIUM 100 MG CAPSULE PO SCH ×2 (10:38→20:45)
[2019-12-16] MEDS: levETIRAcetam 250 MG TABLET PO SCH (10:38)
[2019-12-16] MEDS: FERROUS SULFATE 325 MG TABLET PO SCH ×2 (10:38→20:45)
[2019-12-16] MEDS: PANTOPRAZOLE 40 MG TABLET PO SCH (10:39)
[2019-12-16] MEDS: LIDOCAINE 5% PATCH TRANSDERM SCH (10:39)
[2019-12-16] MEDS: VIT B C IRON FUM FA D3 ZINC OX PO SCH (10:39)
[2019-12-16] MEDS: traMADol 50 MG TABLET PO SCH ×2 (10:39→20:45)
[2019-12-16] MEDS: SERTRALINE 25 MG TABLET PO SCH (10:40)
[2019-12-16] MEDS: DORZOLAMIDE 2% OPH SOLN 10 ML BOTTLE BOTH EYES SCH ×3 (10:40→20:46)
[2019-12-16] MEDS: BRIMONIDINE 0.2% OPH SOLN 5 ML BOTTLE BOTH EYES SCH ×2 (10:43→20:46)
[2019-12-16] MEDS: METOPROLOL SUCCINATE XL 25 MG TABLET PO SCH (11:53)
[2019-12-16] MEDS: QUEtiapine 25 MG TABLET PO SCH (20:45)
[2019-12-16] MEDS: SIMVASTATIN 10 MG TABLET PO SCH (20:46)
[2019-12-17] MEDS: CLINDAMYCIN INJ 600 MG in PREMIX 1 EACH IV SCH ×3 (03:57→20:55)
[2019-12-17] MEDS: INSULIN LISPRO 100 UNIT/ML SUBCUT SCH ×4 (10:54→20:55)
[2019-12-17] MEDS: INSULIN GLARGINE 100 UNIT/ML SUBCUT SCH ×2 (10:54→20:57)
[2019-12-17] MEDS: traMADol 50 MG TABLET PO SCH ×2 (11:08→20:55)
[2019-12-17] MEDS: FERROUS SULFATE 325 MG TABLET PO SCH ×2 (11:08→20:56)
[2019-12-17] MEDS: CALCIUM ACETATE 667 MG CAPSULE PO SCH ×3 (11:08→16:46)
[2019-12-17] MEDS: SERTRALINE 25 MG TABLET PO SCH (11:08)
[2019-12-17] MEDS: PANTOPRAZOLE 40 MG TABLET PO SCH (11:08)
[2019-12-17] MEDS: levETIRAcetam 250 MG TABLET PO SCH (11:09)
[2019-12-17] MEDS: LIDOCAINE 5% PATCH TRANSDERM SCH (11:09)
[2019-12-17] MEDS: predniSONE 5 MG TABLET PO SCH (11:09)
[2019-12-17] MEDS: DOCUSATE SODIUM 100 MG CAPSULE PO SCH ×2 (11:09→20:56)
[2019-12-17] MEDS: DORZOLAMIDE 2% OPH SOLN 10 ML BOTTLE BOTH EYES SCH ×3 (11:10→20:56)
[2019-12-17] MEDS: LINACLOTIDE 145 MCG CAPSULE PO SCH (11:11)
[2019-12-17] MEDS: METOPROLOL SUCCINATE XL 25 MG TABLET PO SCH (11:11)
[2019-12-17] MEDS: BRIMONIDINE 0.2% OPH SOLN 5 ML BOTTLE BOTH EYES SCH ×2 (11:13→20:56)
[2019-12-17] MEDS: VIT B C IRON FUM FA D3 ZINC OX PO SCH (12:01)
[2019-12-17 15:16] LABS: Basophils % 0.1 % (0.0-0.8); Hemoglobin 8.1 GM/DL (12.0-16.0)
[2019-12-17 15:34] LABS: Calcium 7.9 MG/DL (8.5-10.1); Osmolality,Calculated 270.8 MOS/KG (273-304)
[2019-12-17 15:39] LABS: Eosinophils # 0.1 10*3/uL (0.0-0.87); Eosinophils % 1.3 % (0.00-10.9); Hematocrit 28.8 VOL% (35.7-47.0); Immature Granulocytes % 2.9 %; Lymphocytes # 0.9 10*3/uL (1.4-4.0); Lymphocytes % 12.7 % (21.3-54.2); Mean Corpuscular HGB Conc 28.1 GM/DL (32-36); Mean Platelet Volume 8.8 FL (9.6-12.0); Monocytes % 5.2 % (1.7-12.7); Neutrophils % 77.8 % (38.7-73.9); Platelet Count 208 T/CUMM (130-400); Red Blood Count 2.94 MC/CUMM (3.8-5.5); Red Cell Distribution Width 14.8 % (9.3-17.3); White Blood Count 6.9 T/CUMM (4-12)
[2019-12-17 15:42] LABS: Elliptocytes Few; Hypochromasia 1+
[2019-12-17 15:43] LABS: Platelet Estimate Adequate; Polychromasia Few
[2019-12-17] MEDS: SIMVASTATIN 10 MG TABLET PO SCH (20:56)
[2019-12-17] MEDS: QUEtiapine 25 MG TABLET PO SCH (20:56)
[2019-12-18] MEDS: CLINDAMYCIN INJ 600 MG in PREMIX 1 EACH IV SCH ×2 (04:14→13:36)
[2019-12-18 05:39] LABS: Basophils % 0.3 % (0.0-0.8); Eosinophils # 0.1 10*3/uL (0.0-0.87); Eosinophils % 1.3 % (0.00-10.9); Hematocrit 25.6 VOL% (35.7-47.0); Hemoglobin 7.3 GM/DL (12.0-16.0); Immature Granulocytes Absolute 0.18 #; Lymphocytes # 0.9 10*3/uL (1.4-4.0); Lymphocytes % 15.9 % (21.3-54.2); Mean Corpuscular HGB Conc 28.5 GM/DL (32-36); Mean Corpuscular Volume 96.6 FL (87-102); Monocytes % 4.7 % (1.7-12.7); Neutrophils % 74.8 % (38.7-73.9); Platelet Count 194 T/CUMM (130-400); Red Blood Count 2.65 MC/CUMM (3.8-5.5); Red Cell Distribution Width 14.8 % (9.3-17.3); White Blood Count 5.9 T/CUMM (4-12)
[2019-12-18 06:07] LABS: Calcium 7.8 MG/DL (8.5-10.1); Osmolality,Calculated 270.9 MOS/KG (273-304)
[2019-12-18 06:33] LABS: Eosinophils 2 % (0-10); Hypochromasia 1+; Lymphocytes 21 % (20-55); Ovalocytes Slight; Platelet Estimate Adequate; Segmented Neutrophils 75 % (50-85); Total Cells Counted 100
[2019-12-18] MEDS ORDERED: SODIUM CHLORIDE 0.9% 1,000 ML IV PRN (07:18)
[2019-12-18] MEDS ORDERED: VANCOMYCIN INJ 500 MG in SODIUM CHLORIDE 0.9% 100 ML IV ONE (08:00)
[2019-12-18] MEDS: LINACLOTIDE 145 MCG CAPSULE PO SCH ×2 (08:11→13:36)
[2019-12-18] MEDS: INSULIN LISPRO 100 UNIT/ML SUBCUT SCH ×4 (08:11→22:13)
[2019-12-18] MEDS: CALCIUM ACETATE 667 MG CAPSULE PO SCH ×3 (08:11→17:15)
[2019-12-18] MEDS: INSULIN GLARGINE 100 UNIT/ML SUBCUT SCH ×2 (08:11→20:18)
[2019-12-18] MEDS: LIDOCAINE 5% PATCH TRANSDERM SCH (08:11)
[2019-12-18] MEDS: VIT B C IRON FUM FA D3 ZINC OX PO SCH (08:12)
[2019-12-18] MEDS: FERROUS SULFATE 325 MG TABLET PO SCH ×2 (13:29→22:13)
[2019-12-18] MEDS: levETIRAcetam 250 MG TABLET PO SCH (13:29)
[2019-12-18] MEDS: METOPROLOL SUCCINATE XL 25 MG TABLET PO SCH (13:29)
[2019-12-18] MEDS: predniSONE 5 MG TABLET PO SCH (13:29)
[2019-12-18] MEDS: SERTRALINE 25 MG TABLET PO SCH (13:29)
[2019-12-18] MEDS: DOCUSATE SODIUM 100 MG CAPSULE PO SCH ×2 (13:29→22:13)
[2019-12-18] MEDS: PANTOPRAZOLE 40 MG TABLET PO SCH (13:36)
[2019-12-18] MEDS: DORZOLAMIDE 2% OPH SOLN 10 ML BOTTLE BOTH EYES SCH ×3 (13:40→22:14)
[2019-12-18] MEDS: BRIMONIDINE 0.2% OPH SOLN 5 ML BOTTLE BOTH EYES SCH ×2 (13:40→22:14)
[2019-12-18 16:07] LABS: Hematocrit 38.2 VOL% (35.7-47.0); Hemoglobin 11.4 GM/DL (12.0-16.0)
[2019-12-18] MEDS: SIMVASTATIN 10 MG TABLET PO SCH (22:13)
[2019-12-18] MEDS: QUEtiapine 25 MG TABLET PO SCH (22:13)
[2019-12-19] MEDS: METOPROLOL SUCCINATE XL 25 MG TABLET PO SCH ×2 (00:47→09:19)
[2019-12-19 06:50] LABS: Basophils % 0.2 % (0.0-0.8); Eosinophils # 0.1 10*3/uL (0.0-0.87); Eosinophils % 1.2 % (0.00-10.9); Hematocrit 34.1 VOL% (35.7-47.0); Hemoglobin 10.4 GM/DL (12.0-16.0); Immature Granulocytes % 1.8 %; Immature Granulocytes Absolute 0.11 #; Lymphocytes # 0.9 10*3/uL (1.4-4.0); Lymphocytes % 14.6 % (21.3-54.2); Mean Corpuscular HGB Conc 30.5 GM/DL (32-36); Mean Corpuscular Volume 92.4 FL (87-102); Mean Platelet Volume 9.4 FL (9.6-12.0); Monocytes % 5.3 % (1.7-12.7); Neutrophils % 76.9 % (38.7-73.9); Platelet Count 171 T/CUMM (130-400); Red Blood Count 3.69 MC/CUMM (3.8-5.5); Red Cell Distribution Width 15.6 % (9.3-17.3)
[2019-12-19 07:09] LABS: Osmolality,Calculated 266.8 MOS/KG (273-304)
[2019-12-19] MEDS: INSULIN LISPRO 100 UNIT/ML SUBCUT SCH ×3 (09:13→19:32)
[2019-12-19] MEDS: LINACLOTIDE 145 MCG CAPSULE PO SCH (09:14)
[2019-12-19] MEDS: levETIRAcetam 250 MG TABLET PO SCH (09:15)
[2019-12-19] MEDS: PANTOPRAZOLE 40 MG TABLET PO SCH (09:15)
[2019-12-19] MEDS: predniSONE 5 MG TABLET PO SCH (09:15)
[2019-12-19] MEDS: FERROUS SULFATE 325 MG TABLET PO SCH (09:15)
[2019-12-19] MEDS: CALCIUM ACETATE 667 MG CAPSULE PO SCH ×3 (09:15→19:32)
[2019-12-19] MEDS: DOCUSATE SODIUM 100 MG CAPSULE PO SCH (09:15)
[2019-12-19] MEDS: SERTRALINE 25 MG TABLET PO SCH (09:15)
[2019-12-19] MEDS: DORZOLAMIDE 2% OPH SOLN 10 ML BOTTLE BOTH EYES SCH ×2 (09:17→16:27)
[2019-12-19] MEDS: INSULIN GLARGINE 100 UNIT/ML SUBCUT SCH (09:18)
[2019-12-19] MEDS: LIDOCAINE 5% PATCH TRANSDERM SCH (09:18)
[2019-12-19] MEDS: BRIMONIDINE 0.2% OPH SOLN 5 ML BOTTLE BOTH EYES SCH (09:18)
[2019-12-19] MEDS: VIT B C IRON FUM FA D3 ZINC OX PO SCH (12:04)
[2019-12-19 17:03] VITALS: BP 144/75
== END 2019-12-19 18:25 | disposition swing bed (61) | DRG 193 ==
LOC: N.ED 14:18 → N.EDINP 16:06 → N.5E 17:38 → N.CC 12-12 14:13 → N.ICU 12-13 16:30 → N.5E 12-14 22:07
PROVIDERS: ADMIT Internal Medicine; ATTEND Internal Medicine

== ENCOUNTER 2020-11-19 08:59 | Inpatient (IN) ==
[2020-11-19] MEDS ORDERED: hydrALAZINE 20 MG/1 ML VIAL IV STA (09:38)
[2020-11-19 10:00] LABS: Basophils % 0.3 % (0.0-0.8); Eosinophils # 0.2 10*3/uL (0.0-0.87); Eosinophils % 4.3 % (0.00-10.9); Hematocrit 38.2 VOL% (35.7-47.0); Hemoglobin 11.5 GM/DL (12.0-16.0); Immature Granulocytes % 0.3 %; Immature Granulocytes Absolute 0.01 #; Lymphocytes # 0.9 10*3/uL (1.4-4.0); Lymphocytes % 25.6 % (21.3-54.2); Mean Corpuscular HGB Conc 30.1 GM/DL (32-36); Mean Corpuscular Volume 94.1 FL (87-102); Mean Platelet Volume 9.1 FL (9.6-12.0); Monocytes % 6.9 % (1.7-12.7); Neutrophils % 62.6 % (38.7-73.9); Platelet Count 154 T/CUMM (130-400); Red Blood Count 4.06 MC/CUMM (3.8-5.5); Red Cell Distribution Width 13.9 % (9.3-17.3); White Blood Count 3.5 T/CUMM (4-12)
[2020-11-19 10:27] LABS: Albumin 2.7 G/DL (3.4-5.0); Bilirubin,Total 0.7 MG/DL (0.2-1.0); Calcium 8.4 MG/DL (8.5-10.1); Osmolality,Calculated 285.1 MOS/KG (273-304); Potassium 4.7 MMOL/L (3.5-5.1); Total Protein 8.4 G/DL (6.4-8.3)
[2020-11-19 13:53] LABS: INR 1.1
[2020-11-19] MEDS ORDERED: TISSUE ADHESIVE 1 EACH APPLICATOR TOP ONE (14:59)
[2020-11-19 15:11] LABS: Neutrophils,Peritoneal Fluid 11 %
[2020-11-19 15:12] LABS: RBC,Peritoneal Fluid 1484 T/CUMM
[2020-11-19] MEDS ORDERED: cefTRIAXone 1,000 MG in SODIUM CHLORIDE 0.9% 100 ML IV STA (15:31)
[2020-11-19] MEDS ORDERED: ACETAMINOPHEN 325 MG TABLET PO PRN (17:14)
[2020-11-19] MEDS ORDERED: GLUCAGON 1 MG VIAL IM PRN (17:14)
[2020-11-19] MEDS ORDERED: DEXTROSE 50% 25 GM/50 ML VIAL IV PRN (17:14)
[2020-11-19] MEDS ORDERED: ONDANSETRON 4 MG/2 ML VIAL IV PRN (17:14)
[2020-11-19] MEDS: INSULIN LISPRO 100 UNIT/ML SUBCUT SCH ×2 (17:22→21:34)
[2020-11-19] MEDS: SODIUM CHLORIDE 0.9% 1,000 ML IV SCH (18:07)
[2020-11-19] MEDS: DOCUSATE SODIUM 100 MG CAPSULE PO SCH (21:34)
[2020-11-19] MEDS ORDERED: diphenhydrAMINE CAP 25 MG CAPSULE PO PRN (22:26)
[2020-11-19] MEDS ORDERED: tiZANidine 4 MG TABLET PO PRN (22:26)
[2020-11-19] MEDS: METOPROLOL SUCCINATE XL 100 MG TABLET PO SCH (23:23)
[2020-11-19] MEDS: QUEtiapine 25 MG TABLET PO SCH (23:23)
[2020-11-20] MEDS: BRIMONIDINE 0.2% OPH SOLN 5 ML BOTTLE BOTH EYES SCH ×3 (00:10→21:32)
[2020-11-20 02:59] LABS: Basophils % 0.3 % (0.0-0.8); Eosinophils # 0.1 10*3/uL (0.0-0.87); Eosinophils % 4.3 % (0.00-10.9); Hemoglobin 10.1 GM/DL (12.0-16.0); Immature Granulocytes % 0.3 %; Immature Granulocytes Absolute 0.01 #; Lymphocytes % 31.4 % (21.3-54.2); Mean Corpuscular HGB Conc 29.7 GM/DL (32-36); Mean Corpuscular Volume 94.4 FL (87-102); Mean Platelet Volume 9.6 FL (9.6-12.0); Monocytes % 9.6 % (1.7-12.7); Neutrophils % 54.1 % (38.7-73.9); Platelet Count 136 T/CUMM (130-400); Red Cell Distribution Width 13.9 % (9.3-17.3); White Blood Count 3.2 T/CUMM (4-12)
[2020-11-20 03:17] LABS: Albumin 1.9 G/DL (3.4-5.0); Bilirubin,Total 0.5 MG/DL (0.2-1.0); Calcium 7.4 MG/DL (8.5-10.1); Osmolality,Calculated 288.1 MOS/KG (273-304); Potassium 5.2 MMOL/L (3.5-5.1); Total Protein 6.4 G/DL (6.4-8.3)
[2020-11-20] MEDS ORDERED: PANTOPRAZOLE 40 MG TABLET PO SCH (09:00)
[2020-11-20] MEDS: CALCIUM ACETATE 667 MG CAPSULE PO SCH ×3 (09:09→17:05)
[2020-11-20] MEDS: MULTIVITAMIN (BEROCCA) TABLET PO SCH (09:09)
[2020-11-20] MEDS: FERROUS SULFATE 325 MG TABLET PO SCH ×2 (09:09→21:28)
[2020-11-20] MEDS: METOPROLOL SUCCINATE XL 100 MG TABLET PO SCH ×2 (09:10→21:28)
[2020-11-20] MEDS: INSULIN LISPRO 100 UNIT/ML SUBCUT SCH ×4 (09:13→21:27)
[2020-11-20] MEDS: DOCUSATE SODIUM 100 MG CAPSULE PO SCH ×3 (09:13→21:30)
[2020-11-20] MEDS: PANTOPRAZOLE 40 MG TABLET PO SCH (09:13)
[2020-11-20] MEDS: SODIUM CHLORIDE 0.9% 1,000 ML IV SCH (12:13)
[2020-11-20] MEDS ORDERED: HEPARIN 10,000 UNIT/10 ML VIAL IV SCH (15:45)
[2020-11-20] MEDS: QUEtiapine 25 MG TABLET PO SCH (21:28)
[2020-11-20] MEDS: SIMVASTATIN 10 MG TABLET PO SCH (21:28)
[2020-11-21] MEDS: INSULIN LISPRO 100 UNIT/ML SUBCUT SCH ×4 (07:14→21:56)
[2020-11-21] MEDS: PANTOPRAZOLE 40 MG TABLET PO SCH (08:19)
[2020-11-21] MEDS: CALCIUM ACETATE 667 MG CAPSULE PO SCH ×3 (08:19→16:22)
[2020-11-21] MEDS: MULTIVITAMIN (BEROCCA) TABLET PO SCH (08:19)
[2020-11-21] MEDS: BRIMONIDINE 0.2% OPH SOLN 5 ML BOTTLE BOTH EYES SCH ×2 (08:20→22:00)
[2020-11-21] MEDS: METOPROLOL SUCCINATE XL 100 MG TABLET PO SCH ×2 (08:20→21:58)
[2020-11-21] MEDS: FERROUS SULFATE 325 MG TABLET PO SCH ×2 (08:20→21:58)
[2020-11-21] MEDS: DOCUSATE SODIUM 100 MG CAPSULE PO SCH ×2 (08:21→21:56)
[2020-11-21] MEDS: SODIUM CHLORIDE 0.9% 1,000 ML IV SCH (08:23)
[2020-11-21] MEDS: QUEtiapine 25 MG TABLET PO SCH (21:58)
[2020-11-21] MEDS: SIMVASTATIN 10 MG TABLET PO SCH (21:58)
[2020-11-22] MEDS: SODIUM CHLORIDE 0.9% 1,000 ML IV SCH (07:11)
[2020-11-22] MEDS: INSULIN LISPRO 100 UNIT/ML SUBCUT SCH ×4 (09:10→20:22)
[2020-11-22] MEDS: METOPROLOL SUCCINATE XL 100 MG TABLET PO SCH ×2 (09:10→20:20)
[2020-11-22] MEDS: DOCUSATE SODIUM 100 MG CAPSULE PO SCH (09:11)
[2020-11-22] MEDS: CALCIUM ACETATE 667 MG CAPSULE PO SCH ×3 (10:48→17:29)
[2020-11-22 11:09] LABS: Basophils % 0.6 % (0.0-0.8); Eosinophils # 0.2 10*3/uL (0.0-0.87); Eosinophils % 5.1 % (0.00-10.9); Hematocrit 38.3 VOL% (35.7-47.0); Hemoglobin 11.3 GM/DL (12.0-16.0); Immature Granulocytes % 0.6 %; Immature Granulocytes Absolute 0.02 #; Lymphocytes % 29.3 % (21.3-54.2); Mean Corpuscular HGB Conc 29.5 GM/DL (32-36); Mean Platelet Volume 9.3 FL (9.6-12.0); Monocytes % 8.2 % (1.7-12.7); Neutrophils % 56.2 % (38.7-73.9); Platelet Count 142 T/CUMM (130-400); Red Blood Count 3.99 MC/CUMM (3.8-5.5); Red Cell Distribution Width 13.6 % (9.3-17.3); White Blood Count 3.5 T/CUMM (4-12)
[2020-11-22 11:31] LABS: Albumin 2.2 G/DL (3.4-5.0); Bilirubin,Total 0.9 MG/DL (0.2-1.0); Calcium 7.8 MG/DL (8.5-10.1); Osmolality,Calculated 290.1 MOS/KG (273-304); Potassium 5.6 MMOL/L (3.5-5.1); Total Protein 7.3 G/DL (6.4-8.3)
[2020-11-22] MEDS: FERROUS SULFATE 325 MG TABLET PO SCH ×2 (17:10→20:20)
[2020-11-22] MEDS: MULTIVITAMIN (BEROCCA) TABLET PO SCH (17:26)
[2020-11-22] MEDS: PANTOPRAZOLE 40 MG TABLET PO SCH (17:26)
[2020-11-22] MEDS: BRIMONIDINE 0.2% OPH SOLN 5 ML BOTTLE BOTH EYES SCH ×2 (17:26→20:22)
[2020-11-22] MEDS: QUEtiapine 25 MG TABLET PO SCH (20:21)
[2020-11-23] MEDS: SODIUM CHLORIDE 0.9% 1,000 ML IV SCH (01:12)
[2020-11-23 06:21] LABS: Basophils % 0.3 % (0.0-0.8); Eosinophils # 0.2 10*3/uL (0.0-0.87); Eosinophils % 4.4 % (0.00-10.9); Hematocrit 32.1 VOL% (35.7-47.0); Hemoglobin 9.5 GM/DL (12.0-16.0); Immature Granulocytes % 0.3 %; Immature Granulocytes Absolute 0.01 #; Lymphocytes # 0.8 10*3/uL (1.4-4.0); Lymphocytes % 22.8 % (21.3-54.2); Mean Corpuscular HGB Conc 29.6 GM/DL (32-36); Mean Corpuscular Volume 94.7 FL (87-102); Mean Platelet Volume 9.6 FL (9.6-12.0); Monocytes % 8.8 % (1.7-12.7); Neutrophils % 63.4 % (38.7-73.9); Platelet Count 131 T/CUMM (130-400); Red Blood Count 3.39 MC/CUMM (3.8-5.5); Red Cell Distribution Width 13.6 % (9.3-17.3); White Blood Count 3.6 T/CUMM (4-12)
[2020-11-23 06:42] LABS: Albumin 1.9 G/DL (3.4-5.0); Bilirubin,Total 1.2 MG/DL (0.2-1.0); Calcium 7.3 MG/DL (8.5-10.1); Osmolality,Calculated 292.5 MOS/KG (273-304); Total Protein 6.1 G/DL (6.4-8.3)
[2020-11-23] MEDS: INSULIN LISPRO 100 UNIT/ML SUBCUT SCH ×2 (06:54→12:30)
[2020-11-23] MEDS: PANTOPRAZOLE 40 MG TABLET PO SCH (08:06)
[2020-11-23] MEDS: CALCIUM ACETATE 667 MG CAPSULE PO SCH ×2 (08:06→13:35)
[2020-11-23] MEDS: MULTIVITAMIN (BEROCCA) TABLET PO SCH (08:06)
[2020-11-23] MEDS: FERROUS SULFATE 325 MG TABLET PO SCH (08:17)
[2020-11-23] MEDS: BRIMONIDINE 0.2% OPH SOLN 5 ML BOTTLE BOTH EYES SCH (08:17)
[2020-11-23] MEDS: METOPROLOL SUCCINATE XL 100 MG TABLET PO SCH (08:17)
[2020-11-23 11:53] VITALS: BP 141/65
== END 2020-11-23 15:06 | disposition home or self-care (01) | DRG 432 ==
LOC: EDUNIT# → EDBD → N.ED 08:59 → N.EDINP 15:32 → N.5E 17:00
PROVIDERS: ADMIT Internal Medicine; ATTEND Internal Medicine

== ENCOUNTER 2020-12-03 10:33 | Inpatient (IN) ==
[2020-12-03 11:41] LABS: Basophils % 0.6 % (0.0-0.8); Eosinophils # 0.3 10*3/uL (0.0-0.87); Eosinophils % 6.1 % (0.00-10.9); Hematocrit 37.9 VOL% (35.7-47.0); Hemoglobin 11.3 GM/DL (12.0-16.0); Immature Granulocytes % 0.6 %; Immature Granulocytes Absolute 0.03 #; Lymphocytes # 1.3 10*3/uL (1.4-4.0); Lymphocytes % 26.2 % (21.3-54.2); Mean Corpuscular HGB Conc 29.8 GM/DL (32-36); Mean Corpuscular Volume 94.8 FL (87-102); Mean Platelet Volume 8.8 FL (9.6-12.0); Neutrophils % 59.5 % (38.7-73.9); Platelet Count 178 T/CUMM (130-400); Red Cell Distribution Width 14.6 % (9.3-17.3); White Blood Count 4.9 T/CUMM (4-12)
[2020-12-03 11:52] LABS: INR 1.1; Partial Thromboplastin Time 50.1 SECS (23.9-33.8)
[2020-12-03 12:22] LABS: Anisocytosis 1+; Band Neutrophils 1 % (0-10); Eosinophils 7 % (0-10); Lymphocytes 21 % (20-55); Platelet Estimate Normal; Segmented Neutrophils 61 % (50-85); Total Cells Counted 100
[2020-12-03 14:07] LABS: Albumin 2.2 G/DL (3.4-5.0); Bilirubin,Total 0.5 MG/DL (0.2-1.0); Calcium 7.9 MG/DL (8.5-10.1); Osmolality,Calculated 290.2 MOS/KG (273-304); Total Protein 7.2 G/DL (6.4-8.3)
[2020-12-03 14:10] LABS: Potassium 8.2 MMOL/L (3.5-5.1)
[2020-12-03] MEDS ORDERED: ALTEPLASE 2 MG VIAL IV ONE ×2 (16:30)
[2020-12-03] MEDS ORDERED: HEPARIN 10,000 UNIT/10 ML VIAL IV SCH (16:30)
[2020-12-03] MEDS ORDERED: ACETAMINOPHEN 500 MG TABLET PO STA (17:41)
[2020-12-03] MEDS ORDERED: VANCOMYCIN INJ 1,000 MG in SODIUM CHLORIDE 0.9% 250 ML IV ONE (18:30)
[2020-12-03] MEDS ORDERED: ONDANSETRON 4 MG/2 ML VIAL IV PRN (21:29)
[2020-12-03] MEDS ORDERED: tiZANidine 4 MG TABLET PO PRN (21:29)
[2020-12-03] MEDS: BRIMONIDINE 0.2% OPH SOLN 5 ML BOTTLE BOTH EYES SCH (22:22)
[2020-12-03] MEDS: METOPROLOL SUCCINATE XL 100 MG TABLET PO SCH (22:23)
[2020-12-03] MEDS: FERROUS SULFATE 325 MG TABLET PO SCH (22:23)
[2020-12-03] MEDS: DOCUSATE SODIUM 100 MG CAPSULE PO SCH (22:23)
[2020-12-03] MEDS: QUEtiapine 25 MG TABLET PO SCH (22:23)
[2020-12-04 08:00] LABS: Basophils % 0.4 % (0.0-0.8); Eosinophils # 0.3 10*3/uL (0.0-0.87); Eosinophils % 2.7 % (0.00-10.9); Hematocrit 31.6 VOL% (35.7-47.0); Hemoglobin 9.5 GM/DL (12.0-16.0); Immature Granulocytes % 1.1 %; Immature Granulocytes Absolute 0.11 #; Lymphocytes # 0.9 10*3/uL (1.4-4.0); Lymphocytes % 8.4 % (21.3-54.2); Mean Corpuscular HGB Conc 30.1 GM/DL (32-36); Mean Corpuscular Volume 95.2 FL (87-102); Mean Platelet Volume 8.6 FL (9.6-12.0); Monocytes % 4.6 % (1.7-12.7); Neutrophils % 82.8 % (38.7-73.9); Platelet Count 139 T/CUMM (130-400); Red Blood Count 3.32 MC/CUMM (3.8-5.5); Red Cell Distribution Width 14.9 % (9.3-17.3); White Blood Count 10.3 T/CUMM (4-12)
[2020-12-04 08:23] LABS: Albumin 1.9 G/DL (3.4-5.0); Bilirubin,Total 0.8 MG/DL (0.2-1.0); Calcium 7.9 MG/DL (8.5-10.1); Osmolality,Calculated 284.1 MOS/KG (273-304); Total Protein 6.3 G/DL (6.4-8.3); Uric Acid 6.7 MG/DL (2.6-6.0)
[2020-12-04 08:25] LABS: Potassium 7.1 MMOL/L (3.5-5.1)
[2020-12-04 08:26] LABS: Eosinophils 3 % (0-10); Lymphocytes 6 % (20-55); Segmented Neutrophils 87 % (50-85); Total Cells Counted 100
[2020-12-04 08:27] LABS: Hypochromasia 1+; Microcytosis 1+
[2020-12-04] MEDS: FERROUS SULFATE 325 MG TABLET PO SCH ×2 (08:32→20:41)
[2020-12-04] MEDS: CALCIUM ACETATE 667 MG CAPSULE PO SCH ×3 (08:32→16:54)
[2020-12-04] MEDS: PANTOPRAZOLE 40 MG TABLET PO SCH (08:32)
[2020-12-04] MEDS: METOPROLOL SUCCINATE XL 100 MG TABLET PO SCH ×2 (08:32→20:41)
[2020-12-04] MEDS: DOCUSATE SODIUM 100 MG CAPSULE PO SCH ×2 (08:32→20:42)
[2020-12-04 08:34] LABS: Ovalocytes Slight
[2020-12-04 08:35] LABS: Platelet Estimate Adequate
[2020-12-04] MEDS: BRIMONIDINE 0.2% OPH SOLN 5 ML BOTTLE BOTH EYES SCH ×2 (08:36→20:42)
[2020-12-04] MEDS ORDERED: SODIUM POLYSTYRENE SULFATE 15 GM/60 ML BOTTLE PO STA (09:07)
[2020-12-04] MEDS: QUEtiapine 25 MG TABLET PO SCH ×2 (10:19→20:41)
[2020-12-04] MEDS ORDERED: traMADol 50 MG TABLET PO PRN (17:20)
[2020-12-04] MEDS: ZINC OXIDE PASTE 113 GM TUBE TOP SCH (20:41)
[2020-12-05] MEDS: DOCUSATE SODIUM 100 MG CAPSULE PO SCH ×2 (08:29→21:00)
[2020-12-05] MEDS: QUEtiapine 25 MG TABLET PO SCH ×2 (08:29→21:00)
[2020-12-05] MEDS: PANTOPRAZOLE 40 MG TABLET PO SCH (08:29)
[2020-12-05] MEDS: FERROUS SULFATE 325 MG TABLET PO SCH ×2 (08:29→20:59)
[2020-12-05] MEDS: CALCIUM ACETATE 667 MG CAPSULE PO SCH ×3 (08:30→17:17)
[2020-12-05] MEDS: METOPROLOL SUCCINATE XL 100 MG TABLET PO SCH ×2 (08:30→23:51)
[2020-12-05 08:31] LABS: Basophils % 0.4 % (0.0-0.8); Eosinophils # 0.3 10*3/uL (0.0-0.87); Eosinophils % 5.2 % (0.00-10.9); Hematocrit 32.4 VOL% (35.7-47.0); Hemoglobin 9.6 GM/DL (12.0-16.0); Immature Granulocytes % 0.6 %; Immature Granulocytes Absolute 0.03 #; Lymphocytes # 1.1 10*3/uL (1.4-4.0); Lymphocytes % 22.8 % (21.3-54.2); Mean Corpuscular HGB Conc 29.6 GM/DL (32-36); Mean Corpuscular Volume 95.6 FL (87-102); Mean Platelet Volume 9.4 FL (9.6-12.0); Monocytes % 7.7 % (1.7-12.7); Neutrophils % 63.3 % (38.7-73.9); Platelet Count 131 T/CUMM (130-400); Red Blood Count 3.39 MC/CUMM (3.8-5.5); Red Cell Distribution Width 15.1 % (9.3-17.3); White Blood Count 4.8 T/CUMM (4-12)
[2020-12-05] MEDS: BRIMONIDINE 0.2% OPH SOLN 5 ML BOTTLE BOTH EYES SCH ×2 (08:32→20:59)
[2020-12-05] MEDS: ZINC OXIDE PASTE 113 GM TUBE TOP SCH ×2 (08:33→23:51)
[2020-12-05 08:52] LABS: Bilirubin,Total 1.6 MG/DL (0.2-1.0); Calcium 7.9 MG/DL (8.5-10.1); Osmolality,Calculated 279.1 MOS/KG (273-304); Potassium 5.1 MMOL/L (3.5-5.1); Total Protein 6.8 G/DL (6.4-8.3)
[2020-12-05 08:55] LABS: Eosinophils 7 % (0-10); Lymphocytes 13 % (20-55); Platelet Estimate Adequate; Segmented Neutrophils 72 % (50-85); Total Cells Counted 100
[2020-12-05 08:56] LABS: Hypochromasia 1+; Microcytosis 1+
[2020-12-05] MEDS ORDERED: KETOCONAZOLE 2% SHAMPOO 120 ML BOTTLE TOP ONE (18:45)
[2020-12-06 05:53] LABS: Basophils % 0.3 % (0.0-0.8); Eosinophils # 0.2 10*3/uL (0.0-0.87); Eosinophils % 5.2 % (0.00-10.9); Hematocrit 29.1 VOL% (35.7-47.0); Hemoglobin 8.6 GM/DL (12.0-16.0); Immature Granulocytes % 0.5 %; Immature Granulocytes Absolute 0.02 #; Lymphocytes # 1.1 10*3/uL (1.4-4.0); Lymphocytes % 29.5 % (21.3-54.2); Mean Corpuscular HGB Conc 29.6 GM/DL (32-36); Mean Corpuscular Volume 95.1 FL (87-102); Mean Platelet Volume 9.7 FL (9.6-12.0); Monocytes % 11.4 % (1.7-12.7); Neutrophils % 53.1 % (38.7-73.9); Platelet Count 119 T/CUMM (130-400); Red Blood Count 3.06 MC/CUMM (3.8-5.5); Red Cell Distribution Width 14.7 % (9.3-17.3); White Blood Count 3.9 T/CUMM (4-12)
[2020-12-06 06:20] LABS: Albumin 1.8 G/DL (3.4-5.0); Bilirubin,Total 0.6 MG/DL (0.2-1.0); Calcium 7.4 MG/DL (8.5-10.1); Osmolality,Calculated 282.7 MOS/KG (273-304); Potassium 3.9 MMOL/L (3.5-5.1); Total Protein 6.3 G/DL (6.4-8.3)
[2020-12-06 08:40] LABS: Band Neutrophils 2 % (0-10); Eosinophils 3 % (0-10); Hypochromasia 2+; Lymphocytes 33 % (20-55); Platelet Estimate Decreased; Segmented Neutrophils 52 % (50-85); Total Cells Counted 100
[2020-12-06] MEDS: CALCIUM ACETATE 667 MG CAPSULE PO SCH ×3 (09:21→17:24)
[2020-12-06] MEDS: traMADol 50 MG TABLET PO SCH ×3 (09:22→22:15)
[2020-12-06] MEDS: PANTOPRAZOLE 40 MG TABLET PO SCH (09:22)
[2020-12-06] MEDS: FERROUS SULFATE 325 MG TABLET PO SCH ×2 (09:22→22:13)
[2020-12-06] MEDS: QUEtiapine 25 MG TABLET PO SCH ×2 (09:22→22:13)
[2020-12-06] MEDS: DOCUSATE SODIUM 100 MG CAPSULE PO SCH ×2 (09:23→22:17)
[2020-12-06] MEDS: BRIMONIDINE 0.2% OPH SOLN 5 ML BOTTLE BOTH EYES SCH ×2 (09:23→22:16)
[2020-12-06] MEDS: ZINC OXIDE PASTE 113 GM TUBE TOP SCH ×2 (09:26→22:19)
[2020-12-06] MEDS: METOPROLOL SUCCINATE XL 100 MG TABLET PO SCH ×2 (11:07→22:17)
[2020-12-06] MEDS ORDERED: SKIN HEALING OINT (AQUAPHOR) 50 GM TUBE TOP PRN (15:59)
[2020-12-06] MEDS: NEOMYCIN/POLYMYXIN/HC OTIC SOLN 10 ML BOTTLE BOTH EARS SCH (22:17)
[2020-12-07 06:14] LABS: Basophils % 0.8 % (0.0-0.8); Eosinophils # 0.2 10*3/uL (0.0-0.87); Eosinophils % 6.3 % (0.00-10.9); Hematocrit 31.7 VOL% (35.7-47.0); Hemoglobin 9.4 GM/DL (12.0-16.0); Immature Granulocytes % 1.1 %; Immature Granulocytes Absolute 0.04 #; Lymphocytes # 1.3 10*3/uL (1.4-4.0); Lymphocytes % 33.9 % (21.3-54.2); Mean Corpuscular HGB Conc 29.7 GM/DL (32-36); Mean Corpuscular Volume 96.4 FL (87-102); Mean Platelet Volume 9.8 FL (9.6-12.0); Monocytes % 10.6 % (1.7-12.7); Neutrophils % 47.3 % (38.7-73.9); Platelet Count 112 T/CUMM (130-400); Red Blood Count 3.29 MC/CUMM (3.8-5.5); Red Cell Distribution Width 14.5 % (9.3-17.3); White Blood Count 3.8 T/CUMM (4-12)
[2020-12-07 06:39] LABS: Platelet Estimate Adequate
[2020-12-07 06:40] LABS: Anisocytosis 2+; Macrocytosis Slight
[2020-12-07 06:46] LABS: Albumin 1.9 G/DL (3.4-5.0); Bilirubin,Total 0.7 MG/DL (0.2-1.0); Calcium 7.6 MG/DL (8.5-10.1); Osmolality,Calculated 274.4 MOS/KG (273-304); Potassium 4.7 MMOL/L (3.5-5.1); Total Protein 6.4 G/DL (6.4-8.3)
[2020-12-07] MEDS: FERROUS SULFATE 325 MG TABLET PO SCH ×2 (08:35→19:59)
[2020-12-07] MEDS: CALCIUM ACETATE 667 MG CAPSULE PO SCH ×3 (08:35→17:22)
[2020-12-07] MEDS: QUEtiapine 25 MG TABLET PO SCH ×2 (08:35→19:59)
[2020-12-07] MEDS: ZINC OXIDE PASTE 113 GM TUBE TOP SCH ×2 (08:36→19:59)
[2020-12-07] MEDS: traMADol 50 MG TABLET PO SCH ×3 (08:36→19:59)
[2020-12-07] MEDS: NEOMYCIN/POLYMYXIN/HC OTIC SOLN 10 ML BOTTLE BOTH EARS SCH ×3 (08:36→19:59)
[2020-12-07] MEDS: BRIMONIDINE 0.2% OPH SOLN 5 ML BOTTLE BOTH EYES SCH ×2 (08:36→19:59)
[2020-12-07] MEDS: METOPROLOL SUCCINATE XL 100 MG TABLET PO SCH ×2 (08:38→20:00)
[2020-12-07] MEDS: PANTOPRAZOLE 40 MG TABLET PO SCH (08:43)
[2020-12-07] MEDS: DOCUSATE SODIUM 100 MG CAPSULE PO SCH ×2 (10:33→20:00)
[2020-12-08 08:10] LABS: Bilirubin,Total 0.9 MG/DL (0.2-1.0); Calcium 7.3 MG/DL (8.5-10.1); Osmolality,Calculated 270.8 MOS/KG (273-304); Potassium 4.6 MMOL/L (3.5-5.1); Total Protein 6.7 G/DL (6.4-8.3)
[2020-12-08] MEDS: traMADol 50 MG TABLET PO SCH ×3 (09:40→20:00)
[2020-12-08] MEDS: FERROUS SULFATE 325 MG TABLET PO SCH ×2 (09:40→20:01)
[2020-12-08] MEDS: QUEtiapine 25 MG TABLET PO SCH ×2 (09:40→19:59)
[2020-12-08] MEDS: PANTOPRAZOLE 40 MG TABLET PO SCH (09:40)
[2020-12-08] MEDS: CALCIUM ACETATE 667 MG CAPSULE PO SCH ×3 (09:41→17:12)
[2020-12-08] MEDS: NEOMYCIN/POLYMYXIN/HC OTIC SOLN 10 ML BOTTLE BOTH EARS SCH ×3 (09:42→20:00)
[2020-12-08] MEDS: ZINC OXIDE PASTE 113 GM TUBE TOP SCH ×2 (09:42→20:00)
[2020-12-08] MEDS: DOCUSATE SODIUM 100 MG CAPSULE PO SCH ×2 (09:42→20:01)
[2020-12-08] MEDS: BRIMONIDINE 0.2% OPH SOLN 5 ML BOTTLE BOTH EYES SCH ×2 (09:43→20:00)
[2020-12-08] MEDS: METOPROLOL SUCCINATE XL 100 MG TABLET PO SCH (09:43)
[2020-12-08] MEDS: METOPROLOL SUCCINATE XL 50 MG TABLET PO SCH (20:01)
[2020-12-09 07:27] LABS: Albumin 1.8 G/DL (3.4-5.0); Bilirubin,Total 0.6 MG/DL (0.2-1.0); Calcium 7.1 MG/DL (8.5-10.1); Osmolality,Calculated 278.5 MOS/KG (273-304); Potassium 4.8 MMOL/L (3.5-5.1); Total Protein 6.4 G/DL (6.4-8.3)
[2020-12-09] MEDS: CALCIUM ACETATE 667 MG CAPSULE PO SCH ×3 (08:55→16:43)
[2020-12-09] MEDS: DOCUSATE SODIUM 100 MG CAPSULE PO SCH ×2 (08:56→23:33)
[2020-12-09] MEDS: PANTOPRAZOLE 40 MG TABLET PO SCH (08:56)
[2020-12-09] MEDS: traMADol 50 MG TABLET PO SCH ×3 (08:57→21:17)
[2020-12-09] MEDS: FERROUS SULFATE 325 MG TABLET PO SCH ×2 (08:57→21:18)
[2020-12-09] MEDS: BRIMONIDINE 0.2% OPH SOLN 5 ML BOTTLE BOTH EYES SCH ×2 (08:58→21:26)
[2020-12-09] MEDS: NEOMYCIN/POLYMYXIN/HC OTIC SOLN 10 ML BOTTLE BOTH EARS SCH ×3 (08:58→21:27)
[2020-12-09] MEDS: ZINC OXIDE PASTE 113 GM TUBE TOP SCH ×2 (08:58→21:27)
[2020-12-09] MEDS ORDERED: KETOCONAZOLE 2% SHAMPOO 120 ML BOTTLE TOP SCH (09:00)
[2020-12-09] MEDS: QUEtiapine 25 MG TABLET PO SCH ×2 (09:01→21:16)
[2020-12-09] MEDS: METOPROLOL SUCCINATE XL 50 MG TABLET PO SCH ×2 (09:05→21:17)
[2020-12-10 07:13] LABS: Basophils % 0.5 % (0.0-0.8); Eosinophils # 0.2 10*3/uL (0.0-0.87); Eosinophils % 5.4 % (0.00-10.9); Hematocrit 30.8 VOL% (35.7-47.0); Hemoglobin 9.4 GM/DL (12.0-16.0); Immature Granulocytes % 2.2 %; Immature Granulocytes Absolute 0.09 #; Lymphocytes # 1.3 10*3/uL (1.4-4.0); Lymphocytes % 32.2 % (21.3-54.2); Mean Corpuscular HGB Conc 30.5 GM/DL (32-36); Mean Corpuscular Volume 93.9 FL (87-102); Mean Platelet Volume 9.8 FL (9.6-12.0); Neutrophils % 51.7 % (38.7-73.9); Platelet Count 125 T/CUMM (130-400); Red Blood Count 3.28 MC/CUMM (3.8-5.5); White Blood Count 4.1 T/CUMM (4-12)
[2020-12-10 07:35] LABS: Hypochromasia 1+; Microcytosis 1+; Platelet Estimate Normal
[2020-12-10 07:38] LABS: Calcium 7.1 MG/DL (8.5-10.1); Osmolality,Calculated 275.1 MOS/KG (273-304); Potassium 5.1 MMOL/L (3.5-5.1)
[2020-12-10] MEDS: FERROUS SULFATE 325 MG TABLET PO SCH (09:25)
[2020-12-10] MEDS: QUEtiapine 25 MG TABLET PO SCH (09:25)
[2020-12-10] MEDS: PANTOPRAZOLE 40 MG TABLET PO SCH (09:25)
[2020-12-10] MEDS: CALCIUM ACETATE 667 MG CAPSULE PO SCH ×2 (09:25→15:21)
[2020-12-10] MEDS: traMADol 50 MG TABLET PO SCH (09:25)
[2020-12-10] MEDS: NEOMYCIN/POLYMYXIN/HC OTIC SOLN 10 ML BOTTLE BOTH EARS SCH ×2 (09:26→15:21)
[2020-12-10] MEDS: BRIMONIDINE 0.2% OPH SOLN 5 ML BOTTLE BOTH EYES SCH (09:26)
[2020-12-10] MEDS: ZINC OXIDE PASTE 113 GM TUBE TOP SCH (10:25)
[2020-12-10] MEDS: DOCUSATE SODIUM 100 MG CAPSULE PO SCH (10:25)
[2020-12-10 15:20] VITALS: BP 144/77
[2020-12-10] MEDS: METOPROLOL SUCCINATE XL 50 MG TABLET PO SCH (15:25)
== END 2020-12-10 16:51 | disposition home health service (06) | DRG 432 ==
LOC: N.ED 10:33 → N.EDINP 10:33 → N.5E 21:27
PROVIDERS: ADMIT Internal Medicine; ATTEND Internal Medicine

== ENCOUNTER 2021-05-16 14:57 | Inpatient (IN) ==
[2021-05-16] MEDS ORDERED: ACETAMINOPHEN 500 MG TABLET PO STA (21:48)
[2021-05-16] MEDS ORDERED: SODIUM CHLORIDE 0.9% 500 ML IV STA (22:34)
[2021-05-16] MEDS ORDERED: AZITHROMYCIN INJ 500 MG in SODIUM CHLORIDE 0.9% 250 ML IV STA (22:34)
[2021-05-16] MEDS ORDERED: DEXAMETHASONE 10 MG/1 ML VIAL ONE (22:52)
[2021-05-16] MEDS ORDERED: DEXAMETHASONE 10 MG/1 ML VIAL IM STA (22:53)
[2021-05-16] MEDS ORDERED: DEXAMETHASONE 10 MG/1 ML VIAL IV STA (23:24)
[2021-05-16 23:41] LABS: Eosinophils % 0.3 % (0.00-10.9); Hematocrit 38.7 VOL% (35.7-47.0); Hemoglobin 11.6 GM/DL (12.0-16.0); Immature Granulocytes % 0.5 %; Immature Granulocytes Absolute 0.02 #; Lymphocytes # 1.1 10*3/uL (1.4-4.0); Lymphocytes % 28.8 % (21.3-54.2); Mean Corpuscular Volume 92.4 FL (87-102); Mean Platelet Volume 10.1 FL (9.6-12.0); Neutrophils % 67.4 % (38.7-73.9); Platelet Count 117 T/CUMM (130-400); Red Blood Count 4.19 MC/CUMM (3.8-5.5); Red Cell Distribution Width 13.7 % (9.3-17.3); White Blood Count 3.7 T/CUMM (4-12)
[2021-05-16 23:56] LABS: Bilirubin,Total 0.5 MG/DL (0.20-1.00); Calcium 6.4 MG/DL (8.5-10.1); Osmolality,Calculated 274.4 MOS/KG (273-304); Total Protein 7.2 G/DL (6.4-8.2)
[2021-05-17 00:01] LABS: Potassium 7.1 MMOL/L (3.5-5.1)
[2021-05-17] MEDS ORDERED: INSULIN REGULAR 100 UNIT/ML IV STA (00:02)
[2021-05-17] MEDS ORDERED: DEXTROSE 50% 25 GM/50 ML VIAL IV STA (00:03)
[2021-05-17] MEDS ORDERED: SODIUM POLYSTYRENE SULFATE 15 GM/60 ML BOTTLE PO STA (00:08)
[2021-05-17] MEDS ORDERED: ACETAMINOPHEN 325 MG TABLET PO PRN (00:12)
[2021-05-17] MEDS ORDERED: ONDANSETRON 4 MG/2 ML VIAL IV PRN (00:12)
[2021-05-17 02:39] LABS: Platelet Estimate Normal
[2021-05-17 04:34] LABS: Albumin 1.8 G/DL (3.4-5.0); Bilirubin,Total 0.7 MG/DL (0.20-1.00); Calcium 6.1 MG/DL (8.5-10.1); Osmolality,Calculated 292.2 MOS/KG (273-304); Total Protein 6.8 G/DL (6.4-8.2)
[2021-05-17 04:37] LABS: Potassium 6.4 MMOL/L (3.5-5.1)
[2021-05-17] MEDS ORDERED: SODIUM POLYSTYRENE SULFATE 15 GM/60 ML BOTTLE PO PRN (04:46)
[2021-05-17 05:14] LABS: Hematocrit 39.4 VOL% (35.7-47.0); Immature Granulocytes % 0.5 %; Immature Granulocytes Absolute 0.02 #; Lymphocytes # 0.8 10*3/uL (1.4-4.0); Lymphocytes % 18.3 % (21.3-54.2); Mean Corpuscular HGB Conc 30.2 GM/DL (32-36); Mean Corpuscular Volume 92.7 FL (87-102); Mean Platelet Volume 10.2 FL (9.6-12.0); Monocytes % 2.2 % (1.7-12.7); Platelet Count 100 T/CUMM (130-400); Red Blood Count 4.25 MC/CUMM (3.8-5.5); Red Cell Distribution Width 13.7 % (9.3-17.3); White Blood Count 4.1 T/CUMM (4-12)
[2021-05-17 05:33] LABS: Hemoglobin 11.9 GM/DL (12.0-16.0)
[2021-05-17 05:51] LABS: Atypical Lymphocytes Few; Band Neutrophils 8 % (0-10); Lymphocytes 12 % (20-55); Segmented Neutrophils 77 % (50-85); Total Cells Counted 100
[2021-05-17 05:52] LABS: Hypochromasia 1+; Microcytosis 1+; Ovalocytes Slight
[2021-05-17 05:53] LABS: Platelet Estimate Decreased
[2021-05-17] MEDS ORDERED: SODIUM POLYSTYRENE SULFATE 15 GM/60 ML BOTTLE PO SCH (06:00)
[2021-05-17] MEDS: DEXAMETHASONE 4 MG/1 ML VIAL IV SCH ×3 (06:14→17:37)
[2021-05-17] MEDS: SODIUM CHLORIDE 0.9% 1,000 ML IV SCH ×2 (06:57→12:56)
[2021-05-17] MEDS: FAMOTIDINE 20 MG TABLET PO SCH ×2 (08:31→22:02)
[2021-05-17] MEDS ORDERED: DEXAMETHASONE 10 MG/1 ML VIAL IV SCH ×2 (09:00)
[2021-05-17] MEDS ORDERED: SKIN HEALING OINT (AQUAPHOR) 50 GM TUBE TOP PRN (15:04)
[2021-05-17] MEDS ORDERED: diphenhydrAMINE CAP 25 MG CAPSULE PO PRN (15:04)
[2021-05-17] MEDS: CALCIUM ACETATE 667 MG CAPSULE PO SCH (16:27)
[2021-05-17] MEDS: traMADol 50 MG TABLET PO SCH ×2 (16:27→22:01)
[2021-05-17] MEDS ORDERED: HEPARIN 10,000 UNIT/10 ML VIAL IV ONE (18:00)
[2021-05-17] MEDS ORDERED: DEXTROSE 50% 25 GM/50 ML VIAL IV PRN (20:27)
[2021-05-17] MEDS ORDERED: GLUCAGON 1 MG VIAL IM PRN (20:27)
[2021-05-17] MEDS: FERROUS SULFATE 325 MG TABLET PO SCH (22:01)
[2021-05-17] MEDS: cloNIDine 0.1 MG TABLET PO SCH (22:01)
[2021-05-17] MEDS: QUEtiapine 25 MG TABLET PO SCH (22:01)
[2021-05-17] MEDS: METOPROLOL SUCCINATE XL 50 MG TABLET PO SCH (22:01)
[2021-05-17] MEDS: cefTRIAXone 1,000 MG in SODIUM CHLORIDE 0.9% 100 ML IV SCH (22:02)
[2021-05-17] MEDS: DOCUSATE SODIUM 100 MG CAPSULE PO SCH (22:02)
[2021-05-17] MEDS: ZINC OXIDE PASTE 113 GM TUBE TOP SCH (22:02)
[2021-05-17] MEDS: INSULIN REGULAR 100 UNIT/ML SUBCUT SCH (22:03)
[2021-05-17] MEDS: AZITHROMYCIN INJ 500 MG in SODIUM CHLORIDE 0.9% 250 ML IV SCH (23:30)
[2021-05-18] MEDS: BRIMONIDINE 0.2% OPH SOLN 5 ML BOTTLE BOTH EYES SCH ×3 (00:55→20:54)
[2021-05-18] MEDS: DEXAMETHASONE 4 MG/1 ML VIAL IV SCH ×4 (02:00→17:40)
[2021-05-18] MEDS: SODIUM CHLORIDE 0.9% 1,000 ML IV SCH ×2 (03:45→17:31)
[2021-05-18 05:18] LABS: Albumin 1.8 G/DL (3.4-5.0); Bilirubin,Total 0.4 MG/DL (0.20-1.00); Calcium 6.3 MG/DL (8.5-10.1); Osmolality,Calculated 283.8 MOS/KG (273-304); Potassium 5.5 MMOL/L (3.5-5.1); Total Protein 6.6 G/DL (6.4-8.2); Uric Acid 6.2 MG/DL (2.6-6.0)
[2021-05-18 05:43] LABS: Basophils % 0.3 % (0.0-0.8); Hematocrit 35.6 VOL% (35.7-47.0); Immature Granulocytes Absolute 0.04 #; Lymphocytes # 0.7 10*3/uL (1.4-4.0); Lymphocytes % 19.1 % (21.3-54.2); Mean Corpuscular HGB Conc 29.8 GM/DL (32-36); Mean Corpuscular Volume 93.4 FL (87-102); Mean Platelet Volume 10.4 FL (9.6-12.0); Monocytes % 2.6 % (1.7-12.7); Platelet Count 115 T/CUMM (130-400); Red Blood Count 3.81 MC/CUMM (3.8-5.5); Red Cell Distribution Width 13.6 % (9.3-17.3); White Blood Count 3.9 T/CUMM (4-12)
[2021-05-18 05:45] LABS: Hemoglobin 10.6 GM/DL (12.0-16.0)
[2021-05-18] MEDS: ZINC OXIDE PASTE 113 GM TUBE TOP SCH ×2 (09:32→20:52)
[2021-05-18] MEDS: MIRTAZAPINE 15 MG TABLET PO SCH (10:26)
[2021-05-18] MEDS: CALCIUM ACETATE 667 MG CAPSULE PO SCH ×3 (10:27→17:31)
[2021-05-18] MEDS: QUEtiapine 25 MG TABLET PO SCH ×2 (10:27→20:49)
[2021-05-18] MEDS: FERROUS SULFATE 325 MG TABLET PO SCH ×2 (10:28→20:51)
[2021-05-18] MEDS: traMADol 50 MG TABLET PO SCH ×3 (10:28→20:48)
[2021-05-18] MEDS: FAMOTIDINE 20 MG TABLET PO SCH ×2 (10:28→20:51)
[2021-05-18] MEDS: cloNIDine 0.1 MG TABLET PO SCH ×3 (10:54→20:50)
[2021-05-18] MEDS: DOCUSATE SODIUM 100 MG CAPSULE PO SCH ×2 (10:54→20:50)
[2021-05-18] MEDS: INSULIN REGULAR 100 UNIT/ML SUBCUT SCH ×4 (10:54→20:51)
[2021-05-18] MEDS: METOPROLOL SUCCINATE XL 50 MG TABLET PO SCH ×2 (10:55→20:48)
[2021-05-18] MEDS: tiZANidine 4 MG TABLET PO PRN (11:03)
[2021-05-18] MEDS: LORazepam 2 MG/1 ML VIAL IV SCH ×2 (12:17→17:31)
[2021-05-18] MEDS: cefTRIAXone 1,000 MG in SODIUM CHLORIDE 0.9% 100 ML IV SCH (23:00)
[2021-05-18] MEDS: AZITHROMYCIN INJ 500 MG in SODIUM CHLORIDE 0.9% 250 ML IV SCH (23:30)
[2021-05-19] MEDS: tiZANidine 4 MG TABLET PO PRN (00:25)
[2021-05-19] MEDS: DEXAMETHASONE 4 MG/1 ML VIAL IV SCH ×4 (00:25→18:05)
[2021-05-19] MEDS: LORazepam 2 MG/1 ML VIAL IV SCH ×4 (06:06→18:05)
[2021-05-19 06:13] LABS: Albumin 1.6 G/DL (3.4-5.0); Bilirubin,Total 0.4 MG/DL (0.20-1.00); Calcium 5.9 MG/DL (8.5-10.1); Osmolality,Calculated 288.1 MOS/KG (273-304); Total Protein 6.2 G/DL (6.4-8.2)
[2021-05-19] MEDS: FAMOTIDINE 20 MG TABLET PO SCH (08:58)
[2021-05-19] MEDS: MIRTAZAPINE 15 MG TABLET PO SCH (08:58)
[2021-05-19] MEDS: traMADol 50 MG TABLET PO SCH ×3 (08:58→22:12)
[2021-05-19] MEDS: CALCIUM ACETATE 667 MG CAPSULE PO SCH ×3 (08:59→18:05)
[2021-05-19] MEDS: QUEtiapine 25 MG TABLET PO SCH ×2 (08:59→22:12)
[2021-05-19] MEDS: METOPROLOL SUCCINATE XL 50 MG TABLET PO SCH ×2 (08:59→22:13)
[2021-05-19] MEDS: FERROUS SULFATE 325 MG TABLET PO SCH ×2 (08:59→22:12)
[2021-05-19] MEDS ORDERED: HEPARIN 10,000 UNIT/10 ML VIAL IV SCH (09:15)
[2021-05-19] MEDS: BRIMONIDINE 0.2% OPH SOLN 5 ML BOTTLE BOTH EYES SCH ×2 (09:26→23:05)
[2021-05-19] MEDS: SODIUM CHLORIDE 0.9% 1,000 ML IV SCH ×2 (10:17→23:04)
[2021-05-19] MEDS: INSULIN REGULAR 100 UNIT/ML SUBCUT SCH ×4 (10:17→23:05)
[2021-05-19] MEDS: DOCUSATE SODIUM 100 MG CAPSULE PO SCH ×2 (10:18→22:12)
[2021-05-19] MEDS: cloNIDine 0.1 MG TABLET PO SCH ×3 (10:18→22:12)
[2021-05-19] MEDS: ZINC OXIDE PASTE 113 GM TUBE TOP SCH ×2 (10:19→23:05)
[2021-05-19] MEDS ORDERED: VANCOMYCIN INJ 500 MG in SODIUM CHLORIDE 0.9% 100 ML IV PRN (12:33)
[2021-05-19] MEDS ORDERED: VANCOMYCIN INJ 1,750 MG in SODIUM CHLORIDE 0.9% 500 ML IV ONE (17:00)
[2021-05-19] MEDS: cefTRIAXone 1,000 MG in SODIUM CHLORIDE 0.9% 100 ML IV SCH (23:05)
[2021-05-19] MEDS: AZITHROMYCIN INJ 500 MG in SODIUM CHLORIDE 0.9% 250 ML IV SCH (23:08)
[2021-05-20] MEDS: LORazepam 2 MG/1 ML VIAL IV SCH ×5 (00:32→18:24)
[2021-05-20] MEDS: DEXAMETHASONE 4 MG/1 ML VIAL IV SCH ×6 (00:32→23:51)
[2021-05-20] MEDS: ALBUMIN 25% 25 GM/100 ML VIAL IV SCH ×3 (02:14→18:24)
[2021-05-20 05:04] LABS: Hematocrit 32.8 VOL% (35.7-47.0); Immature Granulocytes % 0.9 %; Immature Granulocytes Absolute 0.04 #; Lymphocytes # 0.6 10*3/uL (1.4-4.0); Lymphocytes % 12.4 % (21.3-54.2); Mean Corpuscular HGB Conc 30.5 GM/DL (32-36); Mean Corpuscular Volume 92.1 FL (87-102); Mean Platelet Volume 10.2 FL (9.6-12.0); Monocytes % 2.2 % (1.7-12.7); Neutrophils % 84.5 % (38.7-73.9); Red Blood Count 3.56 MC/CUMM (3.8-5.5); Red Cell Distribution Width 13.8 % (9.3-17.3); White Blood Count 4.5 T/CUMM (4-12)
[2021-05-20 05:05] LABS: Platelet Count 95 T/CUMM (130-400)
[2021-05-20 05:20] LABS: Bilirubin,Total 0.4 MG/DL (0.20-1.00); Osmolality,Calculated 291.1 MOS/KG (273-304); Potassium 4.8 MMOL/L (3.5-5.1); Total Protein 6.1 G/DL (6.4-8.2)
[2021-05-20 05:26] LABS: Lymphocytes 7 % (20-55); Segmented Neutrophils 92 % (50-85); Total Cells Counted 100
[2021-05-20 05:27] LABS: Hypochromasia 1+; Microcytosis 1+; Platelet Estimate Decreased
[2021-05-20 05:28] LABS: Calcium 5.7 MG/DL (8.5-10.1)
[2021-05-20] MEDS: INSULIN REGULAR 100 UNIT/ML SUBCUT SCH ×4 (07:38→23:13)
[2021-05-20] MEDS: DIVALPROEX ER 500 MG TABLET PO SCH (09:44)
[2021-05-20] MEDS: traMADol 50 MG TABLET PO SCH ×3 (09:44→21:13)
[2021-05-20] MEDS: MIRTAZAPINE 15 MG TABLET PO SCH (09:44)
[2021-05-20] MEDS: FERROUS SULFATE 325 MG TABLET PO SCH ×2 (09:44→21:13)
[2021-05-20] MEDS: METOPROLOL SUCCINATE XL 50 MG TABLET PO SCH ×2 (09:44→21:12)
[2021-05-20] MEDS: QUEtiapine 25 MG TABLET PO SCH ×2 (09:44→21:12)
[2021-05-20] MEDS: BRIMONIDINE 0.2% OPH SOLN 5 ML BOTTLE BOTH EYES SCH ×2 (09:44→23:13)
[2021-05-20] MEDS: cloNIDine 0.1 MG TABLET PO SCH ×3 (09:44→21:13)
[2021-05-20] MEDS: DOCUSATE SODIUM 100 MG CAPSULE PO SCH ×2 (09:44→21:13)
[2021-05-20] MEDS: CALCIUM ACETATE 667 MG CAPSULE PO SCH ×3 (09:44→16:55)
[2021-05-20] MEDS: ZINC OXIDE PASTE 113 GM TUBE TOP SCH ×2 (09:44→23:15)
[2021-05-20] MEDS: FAMOTIDINE 20 MG TABLET PO SCH (09:44)
[2021-05-20] MEDS ORDERED: LORazepam 2 MG/1 ML VIAL IV PRN (18:55)
[2021-05-20] MEDS: cefTRIAXone 1,000 MG in SODIUM CHLORIDE 0.9% 100 ML IV SCH (23:50)
[2021-05-21] MEDS: AZITHROMYCIN INJ 500 MG in SODIUM CHLORIDE 0.9% 250 ML IV SCH (00:46)
[2021-05-21] MEDS: ALBUMIN 25% 25 GM/100 ML VIAL IV SCH ×3 (02:39→17:45)
[2021-05-21 05:28] LABS: Hematocrit 35.8 VOL% (35.7-47.0); Hemoglobin 10.6 GM/DL (12.0-16.0); Immature Granulocytes % 0.9 %; Immature Granulocytes Absolute 0.05 #; Lymphocytes # 0.8 10*3/uL (1.4-4.0); Mean Corpuscular HGB Conc 29.6 GM/DL (32-36); Mean Corpuscular Volume 92.3 FL (87-102); Mean Platelet Volume 10.5 FL (9.6-12.0); Monocytes % 0.4 % (1.7-12.7); Neutrophils % 84.7 % (38.7-73.9); Platelet Count 105 T/CUMM (130-400); Red Blood Count 3.88 MC/CUMM (3.8-5.5); Red Cell Distribution Width 13.9 % (9.3-17.3); White Blood Count 5.4 T/CUMM (4-12)
[2021-05-21 05:48] LABS: Hypochromasia Slight; Lymphocytes 10 % (20-55); Microcytosis Slight; Platelet Estimate Decreased; Segmented Neutrophils 87 % (50-85); Total Cells Counted 100
[2021-05-21] MEDS: DEXAMETHASONE 4 MG/1 ML VIAL IV SCH ×4 (05:48→23:26)
[2021-05-21 05:59] LABS: Alanine Aminotransferase 17 U/L (13-56); Albumin 2.5 G/DL (3.4-5.0); Alkaline Phosphatase 180 U/L (45-117); Aspartate Amino Transferase 46 U/L (0-37); Bilirubin,Total < 0.39 MG/DL (0.20-1.00); Blood Urea Nitrogen 59 MG/DL (7-18); Calcium 6.1 MG/DL (8.5-10.1); Carbon Dioxide 20 MMOL/L (21-32); Estimated Glom Filtration Rate 6 ML/MIN; Glucose 105 MG/DL (74-106); Osmolality,Calculated 282.4 MOS/KG (273-304); Sodium 133 MMOL/L (136-145); Total Protein 6.5 G/DL (6.4-8.2)
[2021-05-21] MEDS: DIVALPROEX ER 500 MG TABLET PO SCH (08:59)
[2021-05-21] MEDS: FERROUS SULFATE 325 MG TABLET PO SCH ×2 (08:59→21:52)
[2021-05-21] MEDS: METOPROLOL SUCCINATE XL 50 MG TABLET PO SCH ×2 (08:59→21:51)
[2021-05-21] MEDS: FAMOTIDINE 20 MG TABLET PO SCH (08:59)
[2021-05-21] MEDS: QUEtiapine 25 MG TABLET PO SCH ×2 (08:59→21:52)
[2021-05-21] MEDS: CALCIUM ACETATE 667 MG CAPSULE PO SCH ×3 (09:00→17:45)
[2021-05-21] MEDS: cloNIDine 0.1 MG TABLET PO SCH ×3 (09:00→21:51)
[2021-05-21] MEDS: traMADol 50 MG TABLET PO SCH ×3 (09:00→21:52)
[2021-05-21] MEDS: INSULIN REGULAR 100 UNIT/ML SUBCUT SCH ×4 (09:04→21:56)
[2021-05-21] MEDS: BRIMONIDINE 0.2% OPH SOLN 5 ML BOTTLE BOTH EYES SCH ×2 (09:04→21:56)
[2021-05-21] MEDS: MIRTAZAPINE 15 MG TABLET PO SCH (09:04)
[2021-05-21] MEDS: DOCUSATE SODIUM 100 MG CAPSULE PO SCH ×2 (09:04→21:50)
[2021-05-21] MEDS: ZINC OXIDE PASTE 113 GM TUBE TOP SCH ×2 (09:04→21:56)
[2021-05-21] MEDS ORDERED: VANCOMYCIN INJ 500 MG in SODIUM CHLORIDE 0.9% 100 ML IV ONE (17:00)
[2021-05-21] MEDS: cefTRIAXone 1,000 MG in SODIUM CHLORIDE 0.9% 100 ML IV SCH (22:33)
[2021-05-22] MEDS: ALBUMIN 25% 25 GM/100 ML VIAL IV SCH ×2 (01:00→11:02)
[2021-05-22 05:15] LABS: Basophils % 0.3 % (0.0-0.8); Hematocrit 33.6 VOL% (35.7-47.0); Hemoglobin 9.9 GM/DL (12.0-16.0); Immature Granulocytes % 1.5 %; Lymphocytes # 0.7 10*3/uL (1.4-4.0); Lymphocytes % 9.8 % (21.3-54.2); Mean Corpuscular HGB Conc 29.5 GM/DL (32-36); Mean Corpuscular Volume 94.4 FL (87-102); Mean Platelet Volume 10.4 FL (9.6-12.0); Monocytes % 1.5 % (1.7-12.7); Neutrophils % 86.9 % (38.7-73.9); Red Blood Count 3.56 MC/CUMM (3.8-5.5); Red Cell Distribution Width 13.6 % (9.3-17.3); White Blood Count 6.8 T/CUMM (4-12)
[2021-05-22 05:16] LABS: Platelet Count 90 T/CUMM (130-400)
[2021-05-22] MEDS: DEXAMETHASONE 4 MG/1 ML VIAL IV SCH ×2 (05:29→11:02)
[2021-05-22 05:54] LABS: Band Neutrophils 5 % (0-10); Lymphocytes 8 % (20-55); Platelet Estimate Decreased; Segmented Neutrophils 87 % (50-85); Total Cells Counted 100
[2021-05-22 06:04] LABS: Calcium 6.7 MG/DL (8.5-10.1); Osmolality,Calculated 292.1 MOS/KG (273-304); Potassium 4.3 MMOL/L (3.5-5.1)
[2021-05-22] MEDS: cloNIDine 0.1 MG TABLET PO SCH ×2 (08:52→14:17)
[2021-05-22] MEDS: FAMOTIDINE 20 MG TABLET PO SCH (08:53)
[2021-05-22] MEDS: FERROUS SULFATE 325 MG TABLET PO SCH (08:53)
[2021-05-22] MEDS: DOCUSATE SODIUM 100 MG CAPSULE PO SCH ×2 (08:53→09:26)
[2021-05-22] MEDS: QUEtiapine 25 MG TABLET PO SCH (08:53)
[2021-05-22] MEDS: CALCIUM ACETATE 667 MG CAPSULE PO SCH ×2 (08:53→11:03)
[2021-05-22] MEDS: METOPROLOL SUCCINATE XL 50 MG TABLET PO SCH (08:53)
[2021-05-22] MEDS: traMADol 50 MG TABLET PO SCH ×2 (08:53→14:17)
[2021-05-22] MEDS: INSULIN REGULAR 100 UNIT/ML SUBCUT SCH ×3 (08:54→16:03)
[2021-05-22] MEDS: DIVALPROEX ER 500 MG TABLET PO SCH (08:55)
[2021-05-22] MEDS: BRIMONIDINE 0.2% OPH SOLN 5 ML BOTTLE BOTH EYES SCH (09:25)
[2021-05-22] MEDS: MIRTAZAPINE 15 MG TABLET PO SCH (09:25)
[2021-05-22] MEDS: ZINC OXIDE PASTE 113 GM TUBE TOP SCH (09:25)
[2021-05-22 12:22] VITALS: BP 126/69
== END 2021-05-22 16:32 | disposition home health service (06) | DRG 177 ==
LOC: N.ED 14:57 → N.2E 05-17 00:10
PROVIDERS: ADMIT Internal Medicine; ATTEND Internal Medicine

== ENCOUNTER 2022-01-05 04:38 | Inpatient (IN) ==
[2022-01-05] MEDS ORDERED: hydrALAZINE 20 MG/1 ML VIAL IV STA (05:04)
[2022-01-05] MEDS ORDERED: ONDANSETRON 4 MG/2 ML VIAL IV STA (05:04)
[2022-01-05 06:08] LABS: Basophils % 0.5 % (0.0-0.8); Eosinophils # 0.1 10*3/uL (0.0-0.87); Eosinophils % 2.3 % (0.00-10.9); Hemoglobin 9.8 GM/DL (12.0-16.0); Immature Granulocytes % 0.3 %; Immature Granulocytes Absolute 0.01 #; Lymphocytes # 0.9 10*3/uL (1.4-4.0); Lymphocytes % 22.3 % (21.3-54.2); Mean Corpuscular HGB Conc 29.7 GM/DL (32-36); Mean Corpuscular Volume 95.4 FL (87-102); Mean Platelet Volume 9.5 FL (9.6-12.0); Monocytes % 7.5 % (1.7-12.7); Neutrophils % 67.1 % (38.7-73.9); Platelet Count 179 T/CUMM (130-400); Red Blood Count 3.46 MC/CUMM (3.8-5.5); Red Cell Distribution Width 13.7 % (9.3-17.3)
[2022-01-05 06:26] LABS: Lactic Acid 0.9 MMOL/L (0.4-2.0)
[2022-01-05 06:30] LABS: Alanine Aminotransferase 25 U/L (13-56); Albumin 1.8 G/DL (3.4-5.0); Alkaline Phosphatase 413 U/L (45-117); Amylase 37 U/L (25-115); Aspartate Amino Transferase 35 U/L (0-37); Blood Urea Nitrogen 44 MG/DL (7-18); Calcium 7.9 MG/DL (8.5-10.1); Carbon Dioxide 27 MMOL/L (21-32); Estimated Glom Filtration Rate 4 ML/MIN; Glucose 130 MG/DL (74-106); Osmolality,Calculated 285.8 MOS/KG (273-304); Potassium 4.8 MMOL/L (3.5-5.1); Sodium 137 MMOL/L (136-145); Total Protein 8.3 G/DL (6.4-8.2)
[2022-01-05] MEDS ORDERED: GLUCAGON 1 MG VIAL IM PRN (09:12)
[2022-01-05] MEDS ORDERED: ACETAMINOPHEN 325 MG TABLET PO PRN (09:12)
[2022-01-05] MEDS ORDERED: ONDANSETRON 4 MG/2 ML VIAL IV PRN (09:12)
[2022-01-05] MEDS ORDERED: DEXTROSE 10% 25 GM/250 ML BAG IV PRN (09:12)
[2022-01-05] MEDS: PANTOPRAZOLE 40 MG TABLET PO SCH (10:24)
[2022-01-05] MEDS: DOCUSATE SODIUM 100 MG CAPSULE PO SCH ×3 (10:24→22:47)
[2022-01-05] MEDS: INSULIN LISPRO 100 UNIT/ML SUBCUT SCH ×3 (11:44→22:30)
[2022-01-05] MEDS ORDERED: HEPARIN 10,000 UNIT/10 ML VIAL IV PRN (13:43)
[2022-01-05] MEDS ORDERED: tiZANidine 4 MG TABLET PO PRN (22:34)
[2022-01-05] MEDS ORDERED: diphenhydrAMINE CAP 25 MG CAPSULE PO PRN (22:34)
[2022-01-05] MEDS: METOPROLOL TARTRATE 100 MG TABLET PO SCH (22:52)
[2022-01-06] MEDS: ALBUMIN 25% 25 GM/100 ML VIAL IV SCH ×4 (00:30→23:42)
[2022-01-06 05:35] LABS: Basophils % 0.3 % (0.0-0.8); Eosinophils # 0.1 10*3/uL (0.0-0.87); Eosinophils % 2.2 % (0.00-10.9); Hematocrit 26.9 VOL% (35.7-47.0); Hemoglobin 8.1 GM/DL (12.0-16.0); Immature Granulocytes % 0.3 %; Immature Granulocytes Absolute 0.01 #; Lymphocytes # 0.7 10*3/uL (1.4-4.0); Lymphocytes % 19.9 % (21.3-54.2); Mean Corpuscular HGB Conc 30.1 GM/DL (32-36); Mean Corpuscular Volume 96.4 FL (87-102); Mean Platelet Volume 9.5 FL (9.6-12.0); Monocytes % 7.6 % (1.7-12.7); Neutrophils % 69.7 % (38.7-73.9); Platelet Count 146 T/CUMM (130-400); Red Blood Count 2.79 MC/CUMM (3.8-5.5); Red Cell Distribution Width 13.5 % (9.3-17.3); White Blood Count 3.6 T/CUMM (4-12)
[2022-01-06 06:09] LABS: Albumin 1.9 G/DL (3.4-5.0); Bilirubin,Total 0.6 MG/DL (0.20-1.00); Calcium 7.4 MG/DL (8.5-10.1); Osmolality,Calculated 279.1 MOS/KG (273-304); Potassium 4.9 MMOL/L (3.5-5.1); Total Protein 6.8 G/DL (6.4-8.2)
[2022-01-06] MEDS: INSULIN LISPRO 100 UNIT/ML SUBCUT SCH ×4 (07:54→20:52)
[2022-01-06] MEDS ORDERED: VANCOMYCIN INJ 500 MG in SODIUM CHLORIDE 0.9% 100 ML IV PRN (08:28)
[2022-01-06] MEDS ORDERED: cefTRIAXone 1,000 MG in SODIUM CHLORIDE 0.9% 100 ML IV ONE (09:00)
[2022-01-06] MEDS: CALCIUM ACETATE 667 MG CAPSULE PO SCH ×3 (09:31→17:08)
[2022-01-06] MEDS: FAMOTIDINE 20 MG TABLET PO SCH ×2 (09:32→17:08)
[2022-01-06] MEDS: METOPROLOL TARTRATE 100 MG TABLET PO SCH ×2 (09:32→22:39)
[2022-01-06] MEDS: PANTOPRAZOLE 40 MG TABLET PO SCH (09:32)
[2022-01-06] MEDS: BRIMONIDINE 0.2% OPH SOLN 5 ML BOTTLE BOTH EYES SCH ×2 (09:32→22:51)
[2022-01-06] MEDS: DOCUSATE SODIUM 100 MG CAPSULE PO SCH ×2 (09:32→22:40)
[2022-01-06] MEDS ORDERED: VANCOMYCIN INJ 1,250 MG in SODIUM CHLORIDE 0.9% 250 ML IV ONE (11:00)
[2022-01-06] MEDS: VANCOMYCIN 125 MG CAPSULE PO SCH ×3 (11:48→23:43)
[2022-01-06] MEDS ORDERED: VANCOMYCIN 50 MG/ML 60 ML/BOTTLE PO SCH (12:00)
[2022-01-06] MEDS: OLANZapine 5 MG TABLET PO SCH (22:39)
[2022-01-07] MEDS: metroNIDAZOLE INJ 500 MG/100 ML PREMIX IV SCH ×3 (00:55→15:31)
[2022-01-07 05:06] LABS: Basophils % 0.3 % (0.0-0.8); Eosinophils # 0.1 10*3/uL (0.0-0.87); Eosinophils % 2.9 % (0.00-10.9); Hematocrit 25.3 VOL% (35.7-47.0); Hemoglobin 7.5 GM/DL (12.0-16.0); Immature Granulocytes % 0.3 %; Immature Granulocytes Absolute 0.01 #; Lymphocytes # 0.9 10*3/uL (1.4-4.0); Lymphocytes % 26.8 % (21.3-54.2); Mean Corpuscular HGB Conc 29.6 GM/DL (32-36); Mean Corpuscular Volume 95.8 FL (87-102); Mean Platelet Volume 9.2 FL (9.6-12.0); Monocytes % 13.8 % (1.7-12.7); Neutrophils % 55.9 % (38.7-73.9); Platelet Count 128 T/CUMM (130-400); Red Blood Count 2.64 MC/CUMM (3.8-5.5); Red Cell Distribution Width 13.6 % (9.3-17.3); White Blood Count 3.4 T/CUMM (4-12)
[2022-01-07 05:26] LABS: Albumin 2.5 G/DL (3.4-5.0); Bilirubin,Total 0.8 MG/DL (0.20-1.00); Calcium 7.7 MG/DL (8.5-10.1); Osmolality,Calculated 281.1 MOS/KG (273-304); Potassium 5.2 MMOL/L (3.5-5.1); Total Protein 6.9 G/DL (6.4-8.2)
[2022-01-07 05:28] LABS: Band Neutrophils 1 % (0-10); Eosinophils 2 % (0-10); Lymphocytes 29 % (20-55); Segmented Neutrophils 59 % (50-85); Total Cells Counted 100
[2022-01-07 05:29] LABS: Atypical Lymphocytes Few; Hypochromia Slight; Microcytosis 1+
[2022-01-07 05:30] LABS: Platelet Estimate Adequate; Tear Drop Cells Slight
[2022-01-07] MEDS: VANCOMYCIN 125 MG CAPSULE PO SCH ×3 (05:59→20:58)
[2022-01-07] MEDS: ALBUMIN 25% 25 GM/100 ML VIAL IV SCH ×2 (08:03→16:39)
[2022-01-07] MEDS: FAMOTIDINE 20 MG TABLET PO SCH ×2 (08:10→16:39)
[2022-01-07] MEDS: CALCIUM ACETATE 667 MG CAPSULE PO SCH ×3 (08:10→16:39)
[2022-01-07] MEDS: PANTOPRAZOLE 40 MG TABLET PO SCH (09:45)
[2022-01-07] MEDS: METOPROLOL TARTRATE 100 MG TABLET PO SCH ×2 (09:45→20:58)
[2022-01-07] MEDS: cefTRIAXone 1,000 MG in SODIUM CHLORIDE 0.9% 100 ML IV SCH (09:47)
[2022-01-07] MEDS: DOCUSATE SODIUM 100 MG CAPSULE PO SCH ×2 (09:48→21:06)
[2022-01-07] MEDS: BRIMONIDINE 0.2% OPH SOLN 5 ML BOTTLE BOTH EYES SCH ×2 (09:48→20:59)
[2022-01-07] MEDS: INSULIN LISPRO 100 UNIT/ML SUBCUT SCH ×4 (09:48→21:06)
[2022-01-07] MEDS: OLANZapine 5 MG TABLET PO SCH (20:58)
[2022-01-08] MEDS: VANCOMYCIN 125 MG CAPSULE PO SCH ×4 (00:44→17:50)
[2022-01-08] MEDS: metroNIDAZOLE INJ 500 MG/100 ML PREMIX IV SCH ×3 (00:45→18:50)
[2022-01-08] MEDS: ALBUMIN 25% 25 GM/100 ML VIAL IV SCH ×3 (01:46→17:50)
[2022-01-08 06:00] LABS: Basophils % 0.3 % (0.0-0.8); Eosinophils # 0.1 10*3/uL (0.0-0.87); Eosinophils % 3.8 % (0.00-10.9); Hematocrit 26.6 VOL% (35.7-47.0); Hemoglobin 7.9 GM/DL (12.0-16.0); Immature Granulocytes % 0.3 %; Immature Granulocytes Absolute 0.01 #; Lymphocytes # 0.9 10*3/uL (1.4-4.0); Mean Corpuscular HGB Conc 29.7 GM/DL (32-36); Mean Corpuscular Volume 96.7 FL (87-102); Neutrophils % 55.6 % (38.7-73.9); Platelet Count 138 T/CUMM (130-400); Red Blood Count 2.75 MC/CUMM (3.8-5.5); Red Cell Distribution Width 13.6 % (9.3-17.3); White Blood Count 2.9 T/CUMM (4-12)
[2022-01-08 06:19] LABS: Albumin 3.6 G/DL (3.4-5.0); Bilirubin,Total 0.6 MG/DL (0.20-1.00); Calcium 8.2 MG/DL (8.5-10.1); Osmolality,Calculated 282.4 MOS/KG (273-304); Potassium 5.3 MMOL/L (3.5-5.1); Total Protein 8.2 G/DL (6.4-8.2)
[2022-01-08] MEDS: INSULIN LISPRO 100 UNIT/ML SUBCUT SCH ×4 (08:11→22:29)
[2022-01-08] MEDS: BRIMONIDINE 0.2% OPH SOLN 5 ML BOTTLE BOTH EYES SCH ×2 (09:00→21:50)
[2022-01-08] MEDS: cefTRIAXone 1,000 MG in SODIUM CHLORIDE 0.9% 100 ML IV SCH (11:15)
[2022-01-08] MEDS ORDERED: BUPIVACAINE MPF 0.25% 30 ML VIAL ONE (12:38)
[2022-01-08] MEDS ORDERED: HEPARIN 5,000 UNIT/1 ML VIAL ONE (12:38)
[2022-01-08] MEDS ORDERED: LIDOCAINE 1%/EPI INJ 20 ML VIAL ONE (12:38)
[2022-01-08] MEDS: DOCUSATE SODIUM 100 MG CAPSULE PO SCH ×2 (13:07→21:49)
[2022-01-08] MEDS: CALCIUM ACETATE 667 MG CAPSULE PO SCH ×2 (13:07→17:50)
[2022-01-08] MEDS: FAMOTIDINE 20 MG TABLET PO SCH ×2 (13:07→17:50)
[2022-01-08] MEDS: METOPROLOL TARTRATE 100 MG TABLET PO SCH ×2 (13:07→21:48)
[2022-01-08] MEDS: PANTOPRAZOLE 40 MG TABLET PO SCH (13:08)
[2022-01-08] MEDS ORDERED: LIDOCAINE 2% 5 ML VIAL ONE (13:16)
[2022-01-08] MEDS ORDERED: fentaNYL 100 MCG/2 ML VIAL ONE (13:16)
[2022-01-08] MEDS ORDERED: MIDAZOLAM 2 MG/2 ML VIAL ONE (13:16)
[2022-01-08] MEDS ORDERED: propofoL 200 MG/20 ML VIAL IV ONE (13:16)
[2022-01-08] MEDS ORDERED: SEVOFLURANE 1 UNIT/15 MINUTE INH ONE (13:20)
[2022-01-08] MEDS ORDERED: SODIUM CHLORIDE 0.9% 250 ML IV SCH (13:30)
[2022-01-08] MEDS ORDERED: hydrALAZINE 20 MG/1 ML VIAL IV PRN (17:38)
[2022-01-08] MEDS: OLANZapine 5 MG TABLET PO SCH (21:48)
[2022-01-09] MEDS: VANCOMYCIN 125 MG CAPSULE PO SCH ×4 (00:49→18:11)
[2022-01-09] MEDS: metroNIDAZOLE INJ 500 MG/100 ML PREMIX IV SCH ×3 (00:50→18:25)
[2022-01-09 05:14] LABS: Basophils % 0.4 % (0.0-0.8); Eosinophils # 0.1 10*3/uL (0.0-0.87); Eosinophils % 4.5 % (0.00-10.9); Hematocrit 23.6 VOL% (35.7-47.0); Hemoglobin 7.1 GM/DL (12.0-16.0); Immature Granulocytes % 0.4 %; Immature Granulocytes Absolute 0.01 #; Lymphocytes # 0.6 10*3/uL (1.4-4.0); Lymphocytes % 22.7 % (21.3-54.2); Mean Corpuscular HGB Conc 30.1 GM/DL (32-36); Mean Corpuscular Volume 95.5 FL (87-102); Mean Platelet Volume 9.3 FL (9.6-12.0); Monocytes % 7.3 % (1.7-12.7); Neutrophils % 64.7 % (38.7-73.9); Platelet Count 140 T/CUMM (130-400); Red Blood Count 2.47 MC/CUMM (3.8-5.5); Red Cell Distribution Width 13.6 % (9.3-17.3); White Blood Count 2.5 T/CUMM (4-12)
[2022-01-09 05:37] LABS: Albumin 3.2 G/DL (3.4-5.0); Bilirubin,Total 0.5 MG/DL (0.20-1.00); Calcium 8.1 MG/DL (8.5-10.1); Osmolality,Calculated 282.4 MOS/KG (273-304); Total Protein 7.6 G/DL (6.4-8.2); Uric Acid 4.1 MG/DL (2.6-6.0)
[2022-01-09] MEDS: FAMOTIDINE 20 MG TABLET PO SCH ×2 (08:17→18:11)
[2022-01-09] MEDS: PANTOPRAZOLE 40 MG TABLET PO SCH (08:17)
[2022-01-09] MEDS: hydrALAZINE 25 MG TABLET PO SCH ×2 (08:17→22:31)
[2022-01-09] MEDS: CALCIUM ACETATE 667 MG CAPSULE PO SCH ×3 (08:17→18:11)
[2022-01-09] MEDS: METOPROLOL TARTRATE 100 MG TABLET PO SCH ×2 (08:17→22:31)
[2022-01-09] MEDS: INSULIN LISPRO 100 UNIT/ML SUBCUT SCH ×4 (08:28→22:36)
[2022-01-09] MEDS: BRIMONIDINE 0.2% OPH SOLN 5 ML BOTTLE BOTH EYES SCH ×2 (13:38→22:37)
[2022-01-09] MEDS: cefTRIAXone 1,000 MG in SODIUM CHLORIDE 0.9% 100 ML IV SCH (13:39)
[2022-01-09] MEDS: DOCUSATE SODIUM 100 MG CAPSULE PO SCH ×2 (13:39→21:49)
[2022-01-09] MEDS: DORZOLAMIDE 2% OPH SOLN 10 ML BOTTLE BOTH EYES SCH ×2 (13:39→22:36)
[2022-01-09] MEDS: OLANZapine 5 MG TABLET PO SCH (22:31)
[2022-01-09] MEDS: CHOLESTYRAMINE 4 GM PACK PO SCH (22:31)
[2022-01-10] MEDS: VANCOMYCIN 125 MG CAPSULE PO SCH ×5 (00:32→23:09)
[2022-01-10] MEDS: metroNIDAZOLE INJ 500 MG/100 ML PREMIX IV SCH ×3 (00:32→16:10)
[2022-01-10] MEDS: cefTRIAXone 1,000 MG in SODIUM CHLORIDE 0.9% 100 ML IV SCH (10:05)
[2022-01-10] MEDS: CHOLESTYRAMINE 4 GM PACK PO SCH ×2 (10:06→23:09)
[2022-01-10] MEDS: METOPROLOL TARTRATE 100 MG TABLET PO SCH ×2 (10:07→23:08)
[2022-01-10] MEDS: CALCIUM ACETATE 667 MG CAPSULE PO SCH ×3 (10:07→17:02)
[2022-01-10] MEDS: FAMOTIDINE 20 MG TABLET PO SCH ×2 (10:07→17:02)
[2022-01-10] MEDS: hydrALAZINE 25 MG TABLET PO SCH ×2 (10:08→23:08)
[2022-01-10] MEDS: PANTOPRAZOLE 40 MG TABLET PO SCH (10:08)
[2022-01-10] MEDS: BRIMONIDINE 0.2% OPH SOLN 5 ML BOTTLE BOTH EYES SCH ×2 (10:08→23:09)
[2022-01-10] MEDS: DORZOLAMIDE 2% OPH SOLN 10 ML BOTTLE BOTH EYES SCH ×2 (10:11→23:09)
[2022-01-10] MEDS: DOCUSATE SODIUM 100 MG CAPSULE PO SCH ×2 (10:11→23:19)
[2022-01-10] MEDS: INSULIN LISPRO 100 UNIT/ML SUBCUT SCH ×4 (10:39→22:58)
[2022-01-10] MEDS ORDERED: traMADol 50 MG TABLET PO ONE (14:23)
[2022-01-10] MEDS ORDERED: traMADol 50 MG TABLET PO PRN (14:23)
[2022-01-10] MEDS: OLANZapine 5 MG TABLET PO SCH (23:08)
[2022-01-10] MEDS: NEOMYCIN/POLYMYXIN/HC OTIC SOLN 10 ML BOTTLE BOTH EARS SCH (23:24)
[2022-01-11] MEDS ORDERED: SODIUM CHLORIDE 0.9% 1,000 ML IV PRN (00:33)
[2022-01-11] MEDS: metroNIDAZOLE INJ 500 MG/100 ML PREMIX IV SCH ×3 (00:44→15:54)
[2022-01-11 05:58] LABS: Basophils % 0.3 % (0.0-0.8); Eosinophils # 0.1 10*3/uL (0.0-0.87); Eosinophils % 4.2 % (0.00-10.9); Hematocrit 24.2 VOL% (35.7-47.0); Hemoglobin 7.2 GM/DL (12.0-16.0); Immature Granulocytes % 0.3 %; Immature Granulocytes Absolute 0.01 #; Lymphocytes # 0.9 10*3/uL (1.4-4.0); Mean Corpuscular HGB Conc 29.8 GM/DL (32-36); Mean Platelet Volume 9.1 FL (9.6-12.0); Monocytes % 10.8 % (1.7-12.7); Neutrophils % 56.4 % (38.7-73.9); Platelet Count 151 T/CUMM (130-400); Red Blood Count 2.52 MC/CUMM (3.8-5.5); Red Cell Distribution Width 13.6 % (9.3-17.3); White Blood Count 3.3 T/CUMM (4-12)
[2022-01-11 06:30] LABS: Calcium 7.8 MG/DL (8.5-10.1); Osmolality,Calculated 276.8 MOS/KG (273-304); Potassium 4.2 MMOL/L (3.5-5.1)
[2022-01-11] MEDS: VANCOMYCIN 125 MG CAPSULE PO SCH ×4 (06:31→23:54)
[2022-01-11] MEDS: INSULIN LISPRO 100 UNIT/ML SUBCUT SCH ×4 (08:07→23:57)
[2022-01-11] MEDS: METOPROLOL TARTRATE 100 MG TABLET PO SCH ×2 (08:49→23:54)
[2022-01-11] MEDS: CALCIUM ACETATE 667 MG CAPSULE PO SCH ×3 (08:49→17:13)
[2022-01-11] MEDS: PANTOPRAZOLE 40 MG TABLET PO SCH (08:50)
[2022-01-11] MEDS: DOCUSATE SODIUM 100 MG CAPSULE PO SCH ×2 (08:50→23:58)
[2022-01-11] MEDS: FAMOTIDINE 20 MG TABLET PO SCH ×2 (08:50→17:13)
[2022-01-11] MEDS: hydrALAZINE 25 MG TABLET PO SCH ×2 (08:50→23:54)
[2022-01-11] MEDS: NEOMYCIN/POLYMYXIN/HC OTIC SOLN 10 ML BOTTLE BOTH EARS SCH ×2 (09:30→23:58)
[2022-01-11] MEDS: BRIMONIDINE 0.2% OPH SOLN 5 ML BOTTLE BOTH EYES SCH ×2 (09:30→23:57)
[2022-01-11] MEDS: DORZOLAMIDE 2% OPH SOLN 10 ML BOTTLE BOTH EYES SCH ×2 (09:36→23:57)
[2022-01-11] MEDS: CHOLESTYRAMINE 4 GM PACK PO SCH ×2 (09:59→23:55)
[2022-01-11] MEDS: cefTRIAXone 1,000 MG in SODIUM CHLORIDE 0.9% 100 ML IV SCH (10:00)
[2022-01-11] MEDS: OLANZapine 5 MG TABLET PO SCH (23:55)
[2022-01-12] MEDS: metroNIDAZOLE INJ 500 MG/100 ML PREMIX IV SCH ×3 (00:54→17:38)
[2022-01-12 05:38] LABS: Basophils % 0.7 % (0.0-0.8); Eosinophils # 0.2 10*3/uL (0.0-0.87); Hematocrit 26.5 VOL% (35.7-47.0); Hemoglobin 7.8 GM/DL (12.0-16.0); Immature Granulocytes % 0.7 %; Immature Granulocytes Absolute 0.02 #; Lymphocytes % 32.1 % (21.3-54.2); Mean Corpuscular HGB Conc 29.4 GM/DL (32-36); Mean Corpuscular Volume 98.1 FL (87-102); Mean Platelet Volume 9.6 FL (9.6-12.0); Monocytes % 7.3 % (1.7-12.7); Neutrophils % 53.2 % (38.7-73.9); Platelet Count 182 T/CUMM (130-400); Red Cell Distribution Width 13.7 % (9.3-17.3)
[2022-01-12 05:57] LABS: Calcium 7.8 MG/DL (8.5-10.1); Osmolality,Calculated 276.1 MOS/KG (273-304); Potassium 4.3 MMOL/L (3.5-5.1)
[2022-01-12] MEDS: VANCOMYCIN 125 MG CAPSULE PO SCH ×3 (07:39→17:38)
[2022-01-12] MEDS: INSULIN LISPRO 100 UNIT/ML SUBCUT SCH ×4 (08:59→20:30)
[2022-01-12] MEDS: CALCIUM ACETATE 667 MG CAPSULE PO SCH ×3 (09:01→17:38)
[2022-01-12] MEDS: DOCUSATE SODIUM 100 MG CAPSULE PO SCH ×3 (09:01→22:19)
[2022-01-12] MEDS: METOPROLOL TARTRATE 100 MG TABLET PO SCH ×3 (09:01→22:19)
[2022-01-12] MEDS: FAMOTIDINE 20 MG TABLET PO SCH ×2 (09:01→17:38)
[2022-01-12] MEDS: hydrALAZINE 25 MG TABLET PO SCH ×3 (09:01→22:17)
[2022-01-12] MEDS: PANTOPRAZOLE 40 MG TABLET PO SCH (09:01)
[2022-01-12] MEDS: BRIMONIDINE 0.2% OPH SOLN 5 ML BOTTLE BOTH EYES SCH ×2 (09:02→20:30)
[2022-01-12] MEDS: DORZOLAMIDE 2% OPH SOLN 10 ML BOTTLE BOTH EYES SCH ×2 (09:02→20:30)
[2022-01-12] MEDS: NEOMYCIN/POLYMYXIN/HC OTIC SOLN 10 ML BOTTLE BOTH EARS SCH ×2 (09:03→20:30)
[2022-01-12] MEDS: cefTRIAXone 1,000 MG in SODIUM CHLORIDE 0.9% 100 ML IV SCH (10:05)
[2022-01-12] MEDS: CHOLESTYRAMINE 4 GM PACK PO SCH ×3 (10:06→22:20)
[2022-01-12] MEDS: OLANZapine 5 MG TABLET PO SCH ×2 (20:30→22:20)
[2022-01-13] MEDS: VANCOMYCIN 125 MG CAPSULE PO SCH ×4 (00:25→18:36)
[2022-01-13] MEDS: metroNIDAZOLE INJ 500 MG/100 ML PREMIX IV SCH ×3 (00:25→15:39)
[2022-01-13 05:29] LABS: Basophils % 0.5 % (0.0-0.8); Eosinophils # 0.2 10*3/uL (0.0-0.87); Eosinophils % 5.8 % (0.00-10.9); Hematocrit 32.9 VOL% (35.7-47.0); Hemoglobin 10.1 GM/DL (12.0-16.0); Immature Granulocytes % 0.3 %; Immature Granulocytes Absolute 0.01 #; Lymphocytes # 1.1 10*3/uL (1.4-4.0); Lymphocytes % 28.3 % (21.3-54.2); Mean Corpuscular HGB Conc 30.7 GM/DL (32-36); Mean Corpuscular Volume 94.5 FL (87-102); Mean Platelet Volume 9.5 FL (9.6-12.0); Monocytes % 7.8 % (1.7-12.7); Neutrophils % 57.3 % (38.7-73.9); Platelet Count 163 T/CUMM (130-400); Red Blood Count 3.48 MC/CUMM (3.8-5.5); Red Cell Distribution Width 15.1 % (9.3-17.3)
[2022-01-13] MEDS: CALCIUM ACETATE 667 MG CAPSULE PO SCH ×3 (09:00→17:25)
[2022-01-13] MEDS: DORZOLAMIDE 2% OPH SOLN 10 ML BOTTLE BOTH EYES SCH ×2 (09:09→21:10)
[2022-01-13] MEDS: NEOMYCIN/POLYMYXIN/HC OTIC SOLN 10 ML BOTTLE BOTH EARS SCH ×2 (09:09→21:10)
[2022-01-13] MEDS: PANTOPRAZOLE 40 MG TABLET PO SCH (09:09)
[2022-01-13] MEDS: FAMOTIDINE 20 MG TABLET PO SCH ×2 (09:09→17:25)
[2022-01-13] MEDS: METOPROLOL TARTRATE 100 MG TABLET PO SCH ×2 (09:09→21:10)
[2022-01-13] MEDS: hydrALAZINE 25 MG TABLET PO SCH ×2 (09:09→21:10)
[2022-01-13] MEDS: BRIMONIDINE 0.2% OPH SOLN 5 ML BOTTLE BOTH EYES SCH ×2 (09:09→21:10)
[2022-01-13] MEDS: cefTRIAXone 1,000 MG in SODIUM CHLORIDE 0.9% 100 ML IV SCH (09:10)
[2022-01-13] MEDS: CHOLESTYRAMINE 4 GM PACK PO SCH ×2 (10:10→21:10)
[2022-01-13] MEDS: INSULIN LISPRO 100 UNIT/ML SUBCUT SCH ×5 (10:28→21:10)
[2022-01-13] MEDS: DOCUSATE SODIUM 100 MG CAPSULE PO SCH ×2 (10:31→21:10)
[2022-01-13] MEDS: OLANZapine 5 MG TABLET PO SCH (21:10)
[2022-01-14] MEDS: metroNIDAZOLE INJ 500 MG/100 ML PREMIX IV SCH ×2 (00:05→11:21)
[2022-01-14] MEDS: VANCOMYCIN 125 MG CAPSULE PO SCH ×4 (00:10→17:03)
[2022-01-14 05:19] LABS: Basophils % 0.2 % (0.0-0.8); Eosinophils # 0.2 10*3/uL (0.0-0.87); Eosinophils % 5.2 % (0.00-10.9); Hematocrit 34.2 VOL% (35.7-47.0); Hemoglobin 10.3 GM/DL (12.0-16.0); Immature Granulocytes % 0.5 %; Immature Granulocytes Absolute 0.02 #; Lymphocytes % 25.4 % (21.3-54.2); Mean Corpuscular HGB Conc 30.1 GM/DL (32-36); Mean Corpuscular Volume 95.3 FL (87-102); Mean Platelet Volume 9.9 FL (9.6-12.0); Monocytes % 7.9 % (1.7-12.7); Neutrophils % 60.8 % (38.7-73.9); Platelet Count 165 T/CUMM (130-400); Red Blood Count 3.59 MC/CUMM (3.8-5.5); Red Cell Distribution Width 14.8 % (9.3-17.3); White Blood Count 4.1 T/CUMM (4-12)
[2022-01-14 05:34] LABS: Calcium 8.3 MG/DL (8.5-10.1); Potassium 4.2 MMOL/L (3.5-5.1)
[2022-01-14] MEDS: INSULIN LISPRO 100 UNIT/ML SUBCUT SCH ×4 (11:20→22:39)
[2022-01-14] MEDS: CALCIUM ACETATE 667 MG CAPSULE PO SCH ×3 (11:21→17:03)
[2022-01-14] MEDS: FAMOTIDINE 20 MG TABLET PO SCH ×2 (11:21→17:03)
[2022-01-14] MEDS: hydrALAZINE 25 MG TABLET PO SCH ×2 (11:24→23:19)
[2022-01-14] MEDS: BRIMONIDINE 0.2% OPH SOLN 5 ML BOTTLE BOTH EYES SCH ×2 (11:24→22:52)
[2022-01-14] MEDS: NEOMYCIN/POLYMYXIN/HC OTIC SOLN 10 ML BOTTLE BOTH EARS SCH ×2 (11:25→22:53)
[2022-01-14] MEDS: METOPROLOL TARTRATE 100 MG TABLET PO SCH ×2 (11:25→22:51)
[2022-01-14] MEDS: DORZOLAMIDE 2% OPH SOLN 10 ML BOTTLE BOTH EYES SCH ×2 (11:25→22:52)
[2022-01-14] MEDS: DOCUSATE SODIUM 100 MG CAPSULE PO SCH ×2 (11:25→22:38)
[2022-01-14] MEDS: PANTOPRAZOLE 40 MG TABLET PO SCH (12:08)
[2022-01-14] MEDS: cefTRIAXone 1,000 MG in SODIUM CHLORIDE 0.9% 100 ML IV SCH (12:09)
[2022-01-14] MEDS: CHOLESTYRAMINE 4 GM PACK PO SCH ×2 (12:14→22:52)
[2022-01-14] MEDS: OLANZapine 5 MG TABLET PO SCH (22:51)
[2022-01-15] MEDS: VANCOMYCIN 125 MG CAPSULE PO SCH ×5 (00:39→23:55)
[2022-01-15 05:29] LABS: Basophils % 0.6 % (0.0-0.8); Eosinophils # 0.2 10*3/uL (0.0-0.87); Eosinophils % 7.4 % (0.00-10.9); Hematocrit 30.9 VOL% (35.7-47.0); Hemoglobin 9.1 GM/DL (12.0-16.0); Immature Granulocytes % 0.3 %; Immature Granulocytes Absolute 0.01 #; Lymphocytes % 31.9 % (21.3-54.2); Mean Corpuscular HGB Conc 29.4 GM/DL (32-36); Mean Platelet Volume 9.9 FL (9.6-12.0); Monocytes % 9.2 % (1.7-12.7); Neutrophils % 50.6 % (38.7-73.9); Platelet Count 145 T/CUMM (130-400); Red Blood Count 3.22 MC/CUMM (3.8-5.5); Red Cell Distribution Width 14.3 % (9.3-17.3); White Blood Count 3.3 T/CUMM (4-12)
[2022-01-15 05:47] LABS: Calcium 8.1 MG/DL (8.5-10.1); Osmolality,Calculated 275.7 MOS/KG (273-304); Potassium 4.1 MMOL/L (3.5-5.1)
[2022-01-15] MEDS: FAMOTIDINE 20 MG TABLET PO SCH ×2 (08:29→17:00)
[2022-01-15] MEDS: METOPROLOL TARTRATE 100 MG TABLET PO SCH ×2 (08:29→23:54)
[2022-01-15] MEDS: CALCIUM ACETATE 667 MG CAPSULE PO SCH ×3 (08:29→17:00)
[2022-01-15] MEDS: PANTOPRAZOLE 40 MG TABLET PO SCH (08:29)
[2022-01-15] MEDS: BRIMONIDINE 0.2% OPH SOLN 5 ML BOTTLE BOTH EYES SCH ×2 (08:32→23:56)
[2022-01-15] MEDS: NEOMYCIN/POLYMYXIN/HC OTIC SOLN 10 ML BOTTLE BOTH EARS SCH ×2 (08:33→23:57)
[2022-01-15] MEDS: DOCUSATE SODIUM 100 MG CAPSULE PO SCH ×2 (08:33→22:23)
[2022-01-15] MEDS: DORZOLAMIDE 2% OPH SOLN 10 ML BOTTLE BOTH EYES SCH ×2 (08:33→23:55)
[2022-01-15] MEDS: INSULIN LISPRO 100 UNIT/ML SUBCUT SCH ×4 (08:33→22:24)
[2022-01-15] MEDS: CHOLESTYRAMINE 4 GM PACK PO SCH ×2 (10:02→23:55)
[2022-01-15] MEDS: CLOTRIMAZOLE 1% CREAM 15 GM TUBE TOP SCH (23:54)
[2022-01-15] MEDS: OLANZapine 5 MG TABLET PO SCH (23:55)
[2022-01-16 05:02] LABS: Basophils % 0.5 % (0.0-0.8); Eosinophils # 0.3 10*3/uL (0.0-0.87); Eosinophils % 6.6 % (0.00-10.9); Hematocrit 32.4 VOL% (35.7-47.0); Hemoglobin 9.5 GM/DL (12.0-16.0); Immature Granulocytes % 1.1 %; Immature Granulocytes Absolute 0.04 #; Lymphocytes # 1.2 10*3/uL (1.4-4.0); Lymphocytes % 32.2 % (21.3-54.2); Mean Corpuscular HGB Conc 29.3 GM/DL (32-36); Mean Corpuscular Volume 98.5 FL (87-102); Mean Platelet Volume 10.5 FL (9.6-12.0); Monocytes % 8.4 % (1.7-12.7); Neutrophils % 51.2 % (38.7-73.9); Platelet Count 116 T/CUMM (130-400); Red Blood Count 3.29 MC/CUMM (3.8-5.5); Red Cell Distribution Width 14.4 % (9.3-17.3); White Blood Count 3.8 T/CUMM (4-12)
[2022-01-16 05:34] LABS: Calcium 8.1 MG/DL (8.5-10.1); Osmolality,Calculated 277.8 MOS/KG (273-304); Potassium 4.4 MMOL/L (3.5-5.1)
[2022-01-16] MEDS: VANCOMYCIN 125 MG CAPSULE PO SCH ×3 (06:11→17:31)
[2022-01-16] MEDS: INSULIN LISPRO 100 UNIT/ML SUBCUT SCH ×4 (08:01→20:41)
[2022-01-16] MEDS: METOPROLOL TARTRATE 100 MG TABLET PO SCH ×2 (12:04→20:40)
[2022-01-16] MEDS: CALCIUM ACETATE 667 MG CAPSULE PO SCH ×3 (12:04→17:31)
[2022-01-16] MEDS: FAMOTIDINE 20 MG TABLET PO SCH ×2 (12:04→17:31)
[2022-01-16] MEDS: PANTOPRAZOLE 40 MG TABLET PO SCH (12:05)
[2022-01-16] MEDS: DOCUSATE SODIUM 100 MG CAPSULE PO SCH ×2 (12:06→20:40)
[2022-01-16] MEDS: CLOTRIMAZOLE 1% CREAM 15 GM TUBE TOP SCH ×2 (12:07→20:42)
[2022-01-16] MEDS: NEOMYCIN/POLYMYXIN/HC OTIC SOLN 10 ML BOTTLE BOTH EARS SCH ×2 (12:08→20:41)
[2022-01-16] MEDS: BRIMONIDINE 0.2% OPH SOLN 5 ML BOTTLE BOTH EYES SCH ×2 (12:08→20:41)
[2022-01-16] MEDS: DORZOLAMIDE 2% OPH SOLN 10 ML BOTTLE BOTH EYES SCH ×2 (12:09→20:42)
[2022-01-16] MEDS: CHOLESTYRAMINE 4 GM PACK PO SCH ×2 (13:19→21:26)
[2022-01-16] MEDS: OLANZapine 5 MG TABLET PO SCH (20:40)
[2022-01-17 05:30] LABS: Basophils % 0.6 % (0.0-0.8); Eosinophils # 0.2 10*3/uL (0.0-0.87); Eosinophils % 7.3 % (0.00-10.9); Hematocrit 34.1 VOL% (35.7-47.0); Hemoglobin 10.2 GM/DL (12.0-16.0); Immature Granulocytes % 0.3 %; Immature Granulocytes Absolute 0.01 #; Lymphocytes # 0.9 10*3/uL (1.4-4.0); Lymphocytes % 28.4 % (21.3-54.2); Mean Corpuscular HGB Conc 29.9 GM/DL (32-36); Mean Corpuscular Volume 95.8 FL (87-102); Mean Platelet Volume 9.1 FL (9.6-12.0); Neutrophils % 56.4 % (38.7-73.9); Platelet Count 150 T/CUMM (130-400); Red Blood Count 3.56 MC/CUMM (3.8-5.5); Red Cell Distribution Width 14.5 % (9.3-17.3); White Blood Count 3.3 T/CUMM (4-12)
[2022-01-17 05:58] LABS: Calcium 8.3 MG/DL (8.5-10.1); Osmolality,Calculated 270.8 MOS/KG (273-304); Potassium 4.7 MMOL/L (3.5-5.1)
[2022-01-17 09:05] VITALS: BP 155/83
[2022-01-17] MEDS: CALCIUM ACETATE 667 MG CAPSULE PO SCH (09:21)
[2022-01-17] MEDS: CHOLESTYRAMINE 4 GM PACK PO SCH (09:22)
[2022-01-17] MEDS: PANTOPRAZOLE 40 MG TABLET PO SCH (09:22)
[2022-01-17] MEDS: METOPROLOL TARTRATE 100 MG TABLET PO SCH (09:22)
[2022-01-17] MEDS: FAMOTIDINE 20 MG TABLET PO SCH (09:22)
== END 2022-01-17 10:57 | disposition home health service (06) | DRG 371 ==
LOC: EDBD → EDUNIT# → N.ED 04:38 → N.EDINP 04:38 → N.5E 15:35
PROVIDERS: ADMIT Internal Medicine; ATTEND Internal Medicine

== ENCOUNTER 2022-05-07 12:15 | Inpatient (IN) ==
[2022-05-07] MEDS ORDERED: ASPIRIN 325 MG TABLET ONE (12:49)
[2022-05-07] MEDS ORDERED: NITROGLYCERIN SL 0.4 MG TABLET SL ONE (12:49)
[2022-05-07] MEDS ORDERED: NITROGLYCERIN SL 0.4 MG TABLET SL PRN (12:50)
[2022-05-07] MEDS ORDERED: ASPIRIN 325 MG TABLET PO STA (12:50)
[2022-05-07] MEDS ORDERED: ENOXAPARIN 100 MG/ML SYRINGE SUBCUT STA (12:50)
[2022-05-07 13:30] LABS: Basophils % 0.6 % (0.0-0.8); Eosinophils # 0.5 10*3/uL (0.0-0.87); Eosinophils % 14.8 % (0.00-10.9); Hematocrit 35.3 VOL% (35.7-47.0); Hemoglobin 11.1 GM/DL (12.0-16.0); Immature Granulocytes % 0.3 %; Immature Granulocytes Absolute 0.01 #; Lymphocytes # 0.8 10*3/uL (1.4-4.0); Lymphocytes % 23.2 % (21.3-54.2); Mean Corpuscular HGB Conc 31.4 GM/DL (32-36); Mean Corpuscular Volume 90.5 FL (87-102); Mean Platelet Volume 9.6 FL (9.6-12.0); Monocytes # 0.3 10*3/uL (0.11-0.8); Monocytes % 8.4 % (1.7-12.7); Neutrophils % 52.7 % (38.7-73.9); Platelet Count 179 T/CUMM (130-400); Red Cell Distribution Width 13.5 % (9.3-17.3); White Blood Count 3.5 T/CUMM (4-12)
[2022-05-07 13:53] LABS: Albumin 3.1 G/DL (3.4-5.0); Bilirubin,Total 0.6 MG/DL (0.20-1.00); Osmolality,Calculated 286.1 MOS/KG (273-304); Potassium 4.8 MMOL/L (3.5-5.1); Total Protein 8.9 G/DL (6.4-8.2)
[2022-05-07 14:07] LABS: PT Patient Result 11.5 SECS (10.1-12.1)
[2022-05-07] MEDS ORDERED: ONDANSETRON 4 MG/2 ML VIAL IV PRN (14:57)
[2022-05-07 16:59] LABS: Eosinophils 13 % (0-10); Hypochromia Slight; Lymphocytes 21 % (20-55); Total Cells Counted 100
[2022-05-07 17:00] LABS: Atypical Lymphocytes Few; Microcytosis Slight; Platelet Estimate Normal
[2022-05-07] MEDS ORDERED: SKIN HEALING OINT (AQUAPHOR) 50 GM TUBE TOP PRN (18:14)
[2022-05-07] MEDS: DOCUSATE SODIUM 100 MG CAPSULE PO SCH (20:33)
[2022-05-07] MEDS ORDERED: tiZANidine 4 MG TABLET PO PRN (20:41)
[2022-05-07] MEDS ORDERED: diphenhydrAMINE CAP 25 MG CAPSULE PO PRN (20:41)
[2022-05-07] MEDS ORDERED: traMADol 50 MG TABLET PO PRN (20:41)
[2022-05-07] MEDS ORDERED: GLUCAGON 1 MG VIAL IM PRN (21:47)
[2022-05-07] MEDS ORDERED: DEXTROSE 10% 250 ML BAG IV PRN (21:54)
[2022-05-07] MEDS: METOPROLOL TARTRATE 100 MG TABLET PO SCH (21:56)
[2022-05-07] MEDS ORDERED: SKIN HEALING OINT (AQUAPHOR) 50 GM TUBE TOP SCH (22:30)
[2022-05-07] MEDS: QUEtiapine 25 MG TABLET PO SCH (22:39)
[2022-05-07] MEDS: DORZOLAMIDE 2% OPH SOLN 10 ML BOTTLE BOTH EYES SCH (22:39)
[2022-05-07] MEDS: BRIMONIDINE 0.2% OPH SOLN 5 ML BOTTLE BOTH EYES SCH (22:39)
[2022-05-08] MEDS: ALBUTEROL/IPRATROPIUM 3 ML NEB RESP TX SCH ×3 (00:18→13:30)
[2022-05-08 05:35] LABS: Basophils % 0.5 % (0.0-0.8); Eosinophils # 0.5 10*3/uL (0.0-0.87); Eosinophils % 13.7 % (0.00-10.9); Hematocrit 30.3 VOL% (35.7-47.0); Hemoglobin 9.2 GM/DL (12.0-16.0); Immature Granulocytes % 0.3 %; Immature Granulocytes Absolute 0.01 #; Mean Corpuscular HGB Conc 30.4 GM/DL (32-36); Mean Corpuscular Volume 92.4 FL (87-102); Mean Platelet Volume 9.9 FL (9.6-12.0); Monocytes # 0.4 10*3/uL (0.11-0.8); Monocytes % 10.9 % (1.7-12.7); Neutrophils % 47.6 % (38.7-73.9); Platelet Count 166 T/CUMM (130-400); Red Blood Count 3.28 MC/CUMM (3.8-5.5); Red Cell Distribution Width 13.3 % (9.3-17.3); White Blood Count 3.7 T/CUMM (4-12)
[2022-05-08 05:48] LABS: Albumin 2.6 G/DL (3.4-5.0); Bilirubin,Total 0.5 MG/DL (0.20-1.00); Calcium 7.5 MG/DL (8.5-10.1); Osmolality,Calculated 292.1 MOS/KG (273-304); Potassium 5.2 MMOL/L (3.5-5.1); Total Protein 8.2 G/DL (6.4-8.2)
[2022-05-08 06:08] LABS: Eosinophils 13 % (0-10); Hypochromia 1+; Lymphocytes 23 % (20-55); Microcytosis Slight; Total Cells Counted 100
[2022-05-08] MEDS ORDERED: HEPARIN 10,000 UNIT/10 ML VIAL IV SCH (14:30)
[2022-05-08] MEDS: DOCUSATE SODIUM 100 MG CAPSULE PO SCH ×2 (15:55→21:05)
[2022-05-08] MEDS: METOPROLOL TARTRATE 100 MG TABLET PO SCH ×2 (15:55→21:05)
[2022-05-08] MEDS: ASPIRIN EC 81 MG TABLET PO SCH (15:56)
[2022-05-08] MEDS: FAMOTIDINE 20 MG TABLET PO SCH (15:56)
[2022-05-08] MEDS: INSULIN REGULAR 100 UNIT/ML SUBCUT SCH ×4 (16:00→21:07)
[2022-05-08] MEDS: BRIMONIDINE 0.2% OPH SOLN 5 ML BOTTLE BOTH EYES SCH ×2 (16:01→21:14)
[2022-05-08] MEDS: DORZOLAMIDE 2% OPH SOLN 10 ML BOTTLE BOTH EYES SCH ×2 (16:01→21:14)
[2022-05-08] MEDS: PANTOPRAZOLE 40 MG TABLET PO SCH (16:05)
[2022-05-08] MEDS: ACETAMINOPHEN 325 MG TABLET PO PRN (16:08)
[2022-05-08] MEDS: QUEtiapine 25 MG TABLET PO SCH (21:05)
[2022-05-09 05:28] LABS: Basophils % 0.5 % (0.0-0.8); Eosinophils # 0.4 10*3/uL (0.0-0.87); Eosinophils % 9.4 % (0.00-10.9); Hematocrit 35.3 VOL% (35.7-47.0); Hemoglobin 10.9 GM/DL (12.0-16.0); Immature Granulocytes % 0.2 %; Immature Granulocytes Absolute 0.01 #; Lymphocytes # 1.4 10*3/uL (1.4-4.0); Lymphocytes % 34.3 % (21.3-54.2); Mean Corpuscular HGB Conc 30.9 GM/DL (32-36); Mean Corpuscular Volume 91.5 FL (87-102); Mean Platelet Volume 9.9 FL (9.6-12.0); Monocytes # 0.5 10*3/uL (0.11-0.8); Monocytes % 11.8 % (1.7-12.7); Neutrophils % 43.8 % (38.7-73.9); Platelet Count 171 T/CUMM (130-400); Red Blood Count 3.86 MC/CUMM (3.8-5.5); Red Cell Distribution Width 13.4 % (9.3-17.3); White Blood Count 4.1 T/CUMM (4-12)
[2022-05-09 05:42] LABS: Calcium 8.4 MG/DL (8.5-10.1); Osmolality,Calculated 267.5 MOS/KG (273-304); Phosphorous 5.2 MG/DL (2.5-4.9); Potassium 4.3 MMOL/L (3.5-5.1)
[2022-05-09] MEDS: cefTRIAXone 1,000 MG in SODIUM CHLORIDE 0.9% 100 ML IV SCH (07:16)
[2022-05-09] MEDS: INSULIN REGULAR 100 UNIT/ML SUBCUT SCH ×4 (09:45→21:22)
[2022-05-09] MEDS: INSULIN GLARGINE 100 UNIT/ML SUBCUT SCH (09:46)
[2022-05-09] MEDS: BRIMONIDINE 0.2% OPH SOLN 5 ML BOTTLE BOTH EYES SCH ×2 (09:53→21:28)
[2022-05-09] MEDS: DORZOLAMIDE 2% OPH SOLN 10 ML BOTTLE BOTH EYES SCH ×2 (09:53→21:28)
[2022-05-09] MEDS: FAMOTIDINE 20 MG TABLET PO SCH (09:54)
[2022-05-09] MEDS: ASPIRIN EC 81 MG TABLET PO SCH (09:54)
[2022-05-09] MEDS: PANTOPRAZOLE 40 MG TABLET PO SCH (09:54)
[2022-05-09] MEDS: DOCUSATE SODIUM 100 MG CAPSULE PO SCH ×2 (09:55→21:22)
[2022-05-09] MEDS: METOPROLOL TARTRATE 100 MG TABLET PO SCH (09:55)
[2022-05-09] MEDS: hydrALAZINE 25 MG TABLET PO SCH ×2 (16:55→21:20)
[2022-05-09] MEDS: QUEtiapine 25 MG TABLET PO SCH (21:20)
[2022-05-09] MEDS: METOPROLOL TARTRATE 50 MG TABLET PO SCH (21:23)
[2022-05-10 05:30] LABS: Calcium 7.5 MG/DL (8.5-10.1); Osmolality,Calculated 276.9 MOS/KG (273-304); Potassium 5.3 MMOL/L (3.5-5.1)
[2022-05-10] MEDS: cefTRIAXone 1,000 MG in SODIUM CHLORIDE 0.9% 100 ML IV SCH (06:30)
[2022-05-10] MEDS: hydrALAZINE 25 MG TABLET PO SCH ×3 (09:33→23:13)
[2022-05-10] MEDS: FAMOTIDINE 20 MG TABLET PO SCH (09:34)
[2022-05-10] MEDS: METOPROLOL TARTRATE 50 MG TABLET PO SCH ×2 (09:34→23:14)
[2022-05-10] MEDS: PANTOPRAZOLE 40 MG TABLET PO SCH (09:35)
[2022-05-10] MEDS: INSULIN REGULAR 100 UNIT/ML SUBCUT SCH ×4 (09:35→23:13)
[2022-05-10] MEDS: DOCUSATE SODIUM 100 MG CAPSULE PO SCH ×2 (09:35→23:13)
[2022-05-10] MEDS: DORZOLAMIDE 2% OPH SOLN 10 ML BOTTLE BOTH EYES SCH ×2 (09:35→23:00)
[2022-05-10] MEDS: BRIMONIDINE 0.2% OPH SOLN 5 ML BOTTLE BOTH EYES SCH ×2 (09:35→23:00)
[2022-05-10] MEDS: ASPIRIN EC 81 MG TABLET PO SCH (09:35)
[2022-05-10] MEDS: INSULIN GLARGINE 100 UNIT/ML SUBCUT SCH (09:36)
[2022-05-10] MEDS: ACETAMINOPHEN 325 MG TABLET PO PRN (15:03)
[2022-05-10] MEDS: QUEtiapine 25 MG TABLET PO SCH (22:57)
[2022-05-11 04:56] LABS: Basophils % 0.6 % (0.0-0.8); Eosinophils # 0.4 10*3/uL (0.0-0.87); Eosinophils % 13.1 % (0.00-10.9); Hematocrit 27.9 VOL% (35.7-47.0); Hemoglobin 8.6 GM/DL (12.0-16.0); Immature Granulocytes % 0.3 %; Immature Granulocytes Absolute 0.01 #; Lymphocytes # 0.9 10*3/uL (1.4-4.0); Lymphocytes % 26.7 % (21.3-54.2); Mean Corpuscular HGB Conc 30.8 GM/DL (32-36); Mean Corpuscular Volume 89.7 FL (87-102); Monocytes # 0.4 10*3/uL (0.11-0.8); Monocytes % 11.6 % (1.7-12.7); Neutrophils % 47.7 % (38.7-73.9); Platelet Count 170 T/CUMM (130-400); Red Blood Count 3.11 MC/CUMM (3.8-5.5); Red Cell Distribution Width 13.4 % (9.3-17.3); White Blood Count 3.3 T/CUMM (4-12)
[2022-05-11 05:10] LABS: Calcium 7.4 MG/DL (8.5-10.1); Osmolality,Calculated 285.7 MOS/KG (273-304)
[2022-05-11 05:21] LABS: Eosinophils 14 % (0-10); Hypochromia Slight; Lymphocytes 29 % (20-55); Microcytosis Slight; Platelet Estimate Adequate; Total Cells Counted 100
[2022-05-11] MEDS: cefTRIAXone 1,000 MG in SODIUM CHLORIDE 0.9% 100 ML IV SCH (06:37)
[2022-05-11] MEDS: ACETAMINOPHEN 325 MG TABLET PO PRN ×3 (06:42→21:10)
[2022-05-11] MEDS: INSULIN REGULAR 100 UNIT/ML SUBCUT SCH ×4 (08:48→21:10)
[2022-05-11] MEDS ORDERED: HEPARIN/NACL 0.9% 2 UNITS/ML 2,000 UNIT/1,000 ML BAG IV ONE (09:10)
[2022-05-11] MEDS ORDERED: MIDAZOLAM 2 MG/2 ML VIAL ONE (09:26)
[2022-05-11] MEDS ORDERED: fentaNYL 100 MCG/2 ML VIAL ONE (09:26)
[2022-05-11] MEDS ORDERED: MORPHINE 2 MG/1 ML SYRINGE IV PRN (10:12)
[2022-05-11] MEDS ORDERED: ACETAMINOPHEN/CODEINE 300-30 MG TABLET PO PRN (10:12)
[2022-05-11] MEDS: METOPROLOL TARTRATE 50 MG TABLET PO SCH ×3 (12:52→21:05)
[2022-05-11] MEDS: hydrALAZINE 25 MG TABLET PO SCH ×4 (12:52→21:05)
[2022-05-11] MEDS: PANTOPRAZOLE 40 MG TABLET PO SCH (12:52)
[2022-05-11] MEDS: FAMOTIDINE 20 MG TABLET PO SCH (12:52)
[2022-05-11] MEDS: ASPIRIN EC 81 MG TABLET PO SCH (12:52)
[2022-05-11] MEDS: NEOMYCIN/POLYMYXIN/HC OTIC SOLN 10 ML BOTTLE BOTH EARS SCH ×2 (12:53→21:05)
[2022-05-11] MEDS: DORZOLAMIDE 2% OPH SOLN 10 ML BOTTLE BOTH EYES SCH ×2 (12:53→21:10)
[2022-05-11] MEDS: BRIMONIDINE 0.2% OPH SOLN 5 ML BOTTLE BOTH EYES SCH ×2 (12:53→21:10)
[2022-05-11] MEDS: DOCUSATE SODIUM 100 MG CAPSULE PO SCH ×2 (13:01→21:05)
[2022-05-11] MEDS: INSULIN GLARGINE 100 UNIT/ML SUBCUT SCH (13:01)
[2022-05-11] MEDS: QUEtiapine 25 MG TABLET PO SCH (21:05)
[2022-05-12 05:16] LABS: Basophils % 0.3 % (0.0-0.8); Eosinophils # 0.3 10*3/uL (0.0-0.87); Eosinophils % 11.8 % (0.00-10.9); Hematocrit 28.4 VOL% (35.7-47.0); Hemoglobin 8.7 GM/DL (12.0-16.0); Immature Granulocytes % 0.3 %; Immature Granulocytes Absolute 0.01 #; Lymphocytes # 0.5 10*3/uL (1.4-4.0); Lymphocytes % 15.9 % (21.3-54.2); Mean Corpuscular HGB Conc 30.6 GM/DL (32-36); Mean Corpuscular Volume 90.2 FL (87-102); Mean Platelet Volume 9.9 FL (9.6-12.0); Monocytes # 0.3 10*3/uL (0.11-0.8); Monocytes % 10.7 % (1.7-12.7); Platelet Count 181 T/CUMM (130-400); Red Blood Count 3.15 MC/CUMM (3.8-5.5); Red Cell Distribution Width 13.5 % (9.3-17.3); White Blood Count 2.9 T/CUMM (4-12)
[2022-05-12 05:33] LABS: Calcium 7.9 MG/DL (8.5-10.1); Potassium 4.8 MMOL/L (3.5-5.1)
[2022-05-12 05:43] LABS: Eosinophils 13 % (0-10); Hypochromia Slight; Lymphocytes 11 % (20-55); Platelet Estimate Adequate; Total Cells Counted 100
[2022-05-12] MEDS: cefTRIAXone 1,000 MG in SODIUM CHLORIDE 0.9% 100 ML IV SCH (05:55)
[2022-05-12] MEDS ORDERED: METOPROLOL TARTRATE 100 MG TABLET PO SCH (09:00)
[2022-05-12] MEDS: PANTOPRAZOLE 40 MG TABLET PO SCH (09:56)
[2022-05-12] MEDS: INSULIN REGULAR 100 UNIT/ML SUBCUT SCH ×4 (09:56→20:55)
[2022-05-12] MEDS: METOPROLOL TARTRATE 25 MG TABLET PO SCH ×2 (09:56→20:55)
[2022-05-12] MEDS: hydrALAZINE 25 MG TABLET PO SCH ×3 (09:56→20:55)
[2022-05-12] MEDS: FAMOTIDINE 20 MG TABLET PO SCH (09:56)
[2022-05-12] MEDS: ASPIRIN EC 81 MG TABLET PO SCH (09:56)
[2022-05-12] MEDS: INSULIN GLARGINE 100 UNIT/ML SUBCUT SCH (09:57)
[2022-05-12] MEDS: DORZOLAMIDE 2% OPH SOLN 10 ML BOTTLE BOTH EYES SCH ×2 (09:57→20:55)
[2022-05-12] MEDS: DOCUSATE SODIUM 100 MG CAPSULE PO SCH ×2 (09:57→20:55)
[2022-05-12] MEDS: BRIMONIDINE 0.2% OPH SOLN 5 ML BOTTLE BOTH EYES SCH ×2 (09:57→20:55)
[2022-05-12] MEDS: NEOMYCIN/POLYMYXIN/HC OTIC SOLN 10 ML BOTTLE BOTH EARS SCH ×2 (09:57→20:55)
[2022-05-12] MEDS: QUEtiapine 25 MG TABLET PO SCH (20:55)
[2022-05-13 04:30] LABS: Basophils % 0.6 % (0.0-0.8); Eosinophils # 0.4 10*3/uL (0.0-0.87); Eosinophils % 11.6 % (0.00-10.9); Hematocrit 25.7 VOL% (35.7-47.0); Immature Granulocytes % 0.3 %; Immature Granulocytes Absolute 0.01 #; Lymphocytes # 0.8 10*3/uL (1.4-4.0); Lymphocytes % 25.4 % (21.3-54.2); Mean Corpuscular HGB Conc 31.1 GM/DL (32-36); Mean Corpuscular Volume 91.1 FL (87-102); Mean Platelet Volume 9.1 FL (9.6-12.0); Monocytes # 0.4 10*3/uL (0.11-0.8); Monocytes % 10.7 % (1.7-12.7); Neutrophils % 51.4 % (38.7-73.9); Platelet Count 173 T/CUMM (130-400); Red Blood Count 2.82 MC/CUMM (3.8-5.5); Red Cell Distribution Width 13.3 % (9.3-17.3); White Blood Count 3.3 T/CUMM (4-12)
[2022-05-13 04:47] LABS: Calcium 7.7 MG/DL (8.5-10.1); Osmolality,Calculated 286.1 MOS/KG (273-304); Potassium 5.1 MMOL/L (3.5-5.1)
[2022-05-13 04:53] LABS: Eosinophils 14 % (0-10); Hypochromia Slight; Lymphocytes 14 % (20-55); Microcytosis Slight; Platelet Estimate Adequate; Total Cells Counted 100
[2022-05-13] MEDS: cefTRIAXone 1,000 MG in SODIUM CHLORIDE 0.9% 100 ML IV SCH (05:00)
[2022-05-13] MEDS: INSULIN REGULAR 100 UNIT/ML SUBCUT SCH ×3 (08:21→16:35)
[2022-05-13] MEDS: ACETAMINOPHEN 325 MG TABLET PO PRN (08:44)
[2022-05-13] MEDS: NEOMYCIN/POLYMYXIN/HC OTIC SOLN 10 ML BOTTLE BOTH EARS SCH (12:21)
[2022-05-13] MEDS: BRIMONIDINE 0.2% OPH SOLN 5 ML BOTTLE BOTH EYES SCH (12:21)
[2022-05-13] MEDS: DORZOLAMIDE 2% OPH SOLN 10 ML BOTTLE BOTH EYES SCH (12:22)
[2022-05-13] MEDS: INSULIN GLARGINE 100 UNIT/ML SUBCUT SCH (12:22)
[2022-05-13] MEDS: DOCUSATE SODIUM 100 MG CAPSULE PO SCH (12:23)
[2022-05-13] MEDS: hydrALAZINE 25 MG TABLET PO SCH ×2 (12:23→15:26)
[2022-05-13] MEDS: METOPROLOL TARTRATE 25 MG TABLET PO SCH (12:28)
[2022-05-13] MEDS: ASPIRIN EC 81 MG TABLET PO SCH (12:28)
[2022-05-13] MEDS: FAMOTIDINE 20 MG TABLET PO SCH (12:28)
[2022-05-13] MEDS: PANTOPRAZOLE 40 MG TABLET PO SCH (12:28)
[2022-05-13 16:03] VITALS: BP 147/71
== END 2022-05-13 18:24 | disposition home or self-care (01) | DRG 286 ==
LOC: N.EDINP 12:15 → N.ED 12:15 → N.TELEN 16:59
PROVIDERS: ADMIT Internal Medicine; ATTEND Internal Medicine
PROC: CLCCHCL (ICD-10-PCS; 2022-05-11 10:45)